=== PATIENT | female | born 1935 | race Caucasian/White ===

== ENCOUNTER 2016-06-20 07:52 | Outpatient (CLI) | payer MEDICARE, BC | END 2016-06-20 07:53 | disposition home or self-care (01) | DX: M50.121 Cervical disc disorder at C4-C5 level with radiculopathy (principal); M47.22 Other spondylosis with radiculopathy, cervical region; C56.9 Malignant neoplasm of unspecified ovary ==

== ENCOUNTER 2016-07-19 09:58 | Outpatient (CLI) | payer MEDICARE, BC | END 2016-07-19 09:59 | disposition home or self-care (01) | DX: Z12.31 Encounter for screening mammogram for malignant neoplasm of breast (principal) ==

== ENCOUNTER 2016-07-24 12:38 | Inpatient (IN) | payer MEDICARE, BC ==
[2016-07-24] MEDS ORDERED: SODIUM CHLORIDE 0.9% 1,000 ML IV ONE ×2 (14:22→14:34)
[2016-07-24] MEDS ORDERED: ACETAMINOPHEN 1,000 MG/100 ML 100 ML IV STA (14:34)
[2016-07-24] MEDS ORDERED: ONDANSETRON 4 MG/2 ML VIAL IVP STA (14:34)
[2016-07-24] MEDS ORDERED: ACETAMINOPHEN 1,000 MG/100 ML 100 ML IV ONE (14:36)
[2016-07-24] MEDS ORDERED: ONDANSETRON 4 MG/2 ML VIAL ONE (14:36)
[2016-07-24] MEDS ORDERED: TRIAMCINOLONE 0.1% OINT 15 GM TUBE TOP PRN (16:45)
[2016-07-24] MEDS: NS W/20 MEQ KCL 1,000 ML IV SCH (18:14)
[2016-07-24] MEDS ORDERED: diphenhydrAMINE INJ 50 MG/ML VIAL IVP PRN (19:17)
[2016-07-24] MEDS: SODIUM CHLORIDE FLUSH 0.9% 10 ML SYRINGE IVP SCH (20:50)
[2016-07-24] MEDS: ACETAMINOPHEN 1,000 MG/100 ML 100 ML IV SCH (20:50)
[2016-07-25] MEDS ORDERED: PROMETHAZINE INJ 25 MG in SODIUM CHLORIDE 0.9% 50 ML IV PRN (01:09)
[2016-07-25] MEDS ORDERED: FAMOTIDINE 20 MG/50 ML 50 ML IV ONE (01:45)
[2016-07-25] MEDS: ONDANSETRON 4 MG/2 ML VIAL IVP PRN (01:55)
[2016-07-25] MEDS ORDERED: FAMOTIDINE 20 MG in SODIUM CHLORIDE 0.9% 50 ML IV SCH (02:00)
[2016-07-25] MEDS: ACETAMINOPHEN 1,000 MG/100 ML 100 ML IV SCH ×4 (02:30→20:26)
[2016-07-25] MEDS: NS W/20 MEQ KCL 1,000 ML IV SCH ×2 (05:12→14:41)
[2016-07-25] MEDS: SODIUM CHLORIDE FLUSH 0.9% 10 ML SYRINGE IVP SCH ×3 (05:12→22:40)
[2016-07-25] MEDS: ENOXAPARIN 40 MG/0.4 ML SYRINGE SUBQ SCH (08:15)
[2016-07-25] MEDS: POLYETHYLENE GLYCOL 3350 17 GM PACKET PO SCH (08:15)
[2016-07-25] MEDS: A & D OINTMENT 5 GM PACKET TOP PRN (09:56)
[2016-07-25] MEDS: FAMOTIDINE IV 20 MG/50 ML IV SCH ×2 (09:56→21:00)
[2016-07-25] MEDS ORDERED: diltiaZEM INJ 5 MG/ML VIAL IVP ONE (13:00)
[2016-07-26] MEDS: NS W/20 MEQ KCL 1,000 ML IV SCH ×3 (01:29→21:17)
[2016-07-26] MEDS: ACETAMINOPHEN 1,000 MG/100 ML 100 ML IV SCH ×4 (01:29→21:25)
[2016-07-26] MEDS: SODIUM CHLORIDE FLUSH 0.9% 10 ML SYRINGE IVP SCH ×3 (04:40→21:21)
[2016-07-26] MEDS ORDERED: DEXTROSE 50% ABBOJECT 25 GM/50 ML SYRINGE ONE (06:23)
[2016-07-26] MEDS: ENOXAPARIN 40 MG/0.4 ML SYRINGE SUBQ SCH (08:40)
[2016-07-26] MEDS: POLYETHYLENE GLYCOL 3350 17 GM PACKET PO SCH (08:41)
[2016-07-26] MEDS: FAMOTIDINE IV 20 MG/50 ML IV SCH ×2 (08:41→22:19)
[2016-07-27] MEDS: ONDANSETRON 4 MG/2 ML VIAL IVP PRN ×3 (00:04→16:17)
[2016-07-27] MEDS: NS W/20 MEQ KCL 1,000 ML IV SCH (00:04)
[2016-07-27] MEDS: ACETAMINOPHEN 1,000 MG/100 ML 100 ML IV SCH ×4 (03:00→20:35)
[2016-07-27] MEDS ORDERED: DEXTROSE 50% ABBOJECT 25 GM/50 ML SYRINGE ONE (06:43)
[2016-07-27] MEDS: SODIUM CHLORIDE FLUSH 0.9% 10 ML SYRINGE IVP SCH ×3 (06:51→16:17)
[2016-07-27] MEDS ORDERED: DEXTROSE 5% 1,000 ML IV SCH (07:00)
[2016-07-27] MEDS: FAMOTIDINE IV 20 MG/50 ML IV SCH ×2 (08:28→21:44)
[2016-07-27] MEDS: ENOXAPARIN 40 MG/0.4 ML SYRINGE SUBQ SCH (08:28)
[2016-07-27] MEDS: POLYETHYLENE GLYCOL 3350 17 GM PACKET PO SCH (08:28)
[2016-07-27] MEDS: D5NS W/20 MEQ KCL 1,000 ML IV SCH (16:17)
[2016-07-27] MEDS: fentaNYL 100 MCG/2 ML VIAL IVP PRN (18:01)
[2016-07-27] MEDS: PROCHLORPERAZINE 10 MG/2 ML VIAL IVP PRN (19:22)
[2016-07-28] MEDS: ONDANSETRON 4 MG/2 ML VIAL IVP PRN (00:56)
[2016-07-28] MEDS: ACETAMINOPHEN 1,000 MG/100 ML 100 ML IV SCH ×5 (02:18→22:07)
[2016-07-28] MEDS: SODIUM CHLORIDE FLUSH 0.9% 10 ML SYRINGE IVP SCH ×3 (05:09→21:11)
[2016-07-28] MEDS: D5NS W/20 MEQ KCL 1,000 ML IV SCH ×2 (06:20→22:13)
[2016-07-28] MEDS: POLYETHYLENE GLYCOL 3350 17 GM PACKET PO SCH (07:23)
[2016-07-28] MEDS: FAMOTIDINE IV 20 MG/50 ML IV SCH ×2 (08:10→21:11)
[2016-07-28] MEDS: TPN (CLINIMIX E 5/15) 2,000 ML with MULTIVITAMIN 10 ML, TRACE ELEMENTS V CONC 1 ML, MAG... IV SCH ×5 (10:51)
[2016-07-28] MEDS: FAT EMULSION 20% 250 ML IV SCH (10:52)
[2016-07-29] MEDS: D5NS W/20 MEQ KCL 1,000 ML IV SCH ×3 (00:45→17:59)
[2016-07-29] MEDS: ACETAMINOPHEN 1,000 MG/100 ML 100 ML IV SCH ×4 (04:12→20:32)
[2016-07-29] MEDS: SODIUM CHLORIDE FLUSH 0.9% 10 ML SYRINGE IVP SCH ×3 (07:33→21:07)
[2016-07-29] MEDS: FAMOTIDINE IV 20 MG/50 ML IV SCH ×2 (09:12→21:06)
[2016-07-29] MEDS: POLYETHYLENE GLYCOL 3350 17 GM PACKET PO SCH (09:12)
[2016-07-29] MEDS: TPN (CLINIMIX E 5/15) 2,000 ML with MULTIVITAMIN 10 ML, TRACE ELEMENTS V CONC 1 ML, MAG... IV SCH ×5 (11:07)
[2016-07-29] MEDS: FAT EMULSION 20% 250 ML IV SCH (11:07)
[2016-07-30] MEDS: ACETAMINOPHEN 1,000 MG/100 ML 100 ML IV SCH ×4 (02:51→21:29)
[2016-07-30] MEDS: SODIUM CHLORIDE FLUSH 0.9% 10 ML SYRINGE IVP SCH ×3 (06:01→21:29)
[2016-07-30] MEDS: D5NS W/20 MEQ KCL 1,000 ML IV SCH (06:08)
[2016-07-30] MEDS: POLYETHYLENE GLYCOL 3350 17 GM PACKET PO SCH (09:44)
[2016-07-30] MEDS: FAMOTIDINE IV 20 MG/50 ML IV SCH (09:45)
[2016-07-30] MEDS: FAT EMULSION 20% 250 ML IV SCH (09:45)
[2016-07-30] MEDS: TPN (CLINIMIX E 5/15) 2,000 ML with MULTIVITAMIN 10 ML, TRACE ELEMENTS V CONC 1 ML, MAG... IV SCH ×5 (09:45)
[2016-07-30] MEDS: FAMOTIDINE 20 MG TABLET PO SCH (21:29)
[2016-07-31] MEDS: ACETAMINOPHEN 1,000 MG/100 ML 100 ML IV SCH ×4 (02:41→19:14)
[2016-07-31] MEDS: FAMOTIDINE 20 MG TABLET PO SCH ×2 (06:15→16:42)
[2016-07-31] MEDS: SODIUM CHLORIDE FLUSH 0.9% 10 ML SYRINGE IVP SCH ×3 (06:15→19:14)
[2016-07-31] MEDS: diltiaZEM CD 120 MG CAPSULE PO SCH (08:34)
[2016-07-31] MEDS: POLYETHYLENE GLYCOL 3350 17 GM PACKET PO SCH (08:34)
[2016-07-31] MEDS: FAT EMULSION 20% 250 ML IV SCH (10:46)
[2016-07-31] MEDS: TPN (CLINIMIX E 5/15) 2,000 ML with MULTIVITAMIN 10 ML, TRACE ELEMENTS V CONC 1 ML, MAG... IV SCH ×5 (10:46)
[2016-07-31] MEDS: PROCHLORPERAZINE 10 MG/2 ML VIAL IVP PRN (19:14)
[2016-08-01] MEDS: ACETAMINOPHEN 1,000 MG/100 ML 100 ML IV SCH ×4 (03:13→19:21)
[2016-08-01] MEDS: SODIUM CHLORIDE FLUSH 0.9% 10 ML SYRINGE IVP PRN (03:13)
[2016-08-01] MEDS: ONDANSETRON 4 MG/2 ML VIAL IVP PRN (03:13)
[2016-08-01] MEDS: SODIUM CHLORIDE FLUSH 0.9% 10 ML SYRINGE IVP SCH ×3 (06:40→22:37)
[2016-08-01] MEDS: FAMOTIDINE 20 MG TABLET PO SCH ×2 (06:40→16:04)
[2016-08-01] MEDS: diltiaZEM CD 120 MG CAPSULE PO SCH (08:34)
[2016-08-01] MEDS: POLYETHYLENE GLYCOL 3350 17 GM PACKET PO SCH (08:34)
[2016-08-01] MEDS: TPN (CLINIMIX E 5/15) 2,000 ML with MULTIVITAMIN 10 ML, TRACE ELEMENTS V CONC 1 ML, MAG... IV SCH ×5 (10:04)
[2016-08-01] MEDS: FAT EMULSION 20% 250 ML IV SCH (10:05)
[2016-08-01] MEDS: fentaNYL 100 MCG/2 ML VIAL IVP PRN ×2 (12:12→19:16)
[2016-08-02] MEDS: fentaNYL 100 MCG/2 ML VIAL IVP PRN (00:41)
[2016-08-02] MEDS: SODIUM CHLORIDE FLUSH 0.9% 10 ML SYRINGE IVP PRN ×3 (00:42→23:56)
[2016-08-02] MEDS: ACETAMINOPHEN 1,000 MG/100 ML 100 ML IV SCH ×4 (01:16→20:55)
[2016-08-02] MEDS: SODIUM CHLORIDE FLUSH 0.9% 10 ML SYRINGE IVP SCH ×3 (05:46→21:00)
[2016-08-02] MEDS: FAMOTIDINE 20 MG TABLET PO SCH ×2 (06:46→17:48)
[2016-08-02] MEDS: diltiaZEM CD 120 MG CAPSULE PO SCH (07:32)
[2016-08-02] MEDS: POLYETHYLENE GLYCOL 3350 17 GM PACKET PO SCH (07:32)
[2016-08-02] MEDS: A & D OINTMENT 5 GM PACKET TOP PRN (07:32)
[2016-08-02] MEDS ORDERED: metroNIDAZOLE 500 MG/100 ML 100 ML IV SCH (10:00)
[2016-08-02] MEDS ORDERED: CIPROFLOXACIN 400 MG/200 ML 200 ML IV SCH (10:00)
[2016-08-02] MEDS: FAT EMULSION 20% 250 ML IV SCH (10:55)
[2016-08-02] MEDS: TPN (CLINIMIX E 5/15) 2,000 ML with MULTIVITAMIN 10 ML, TRACE ELEMENTS V CONC 1 ML, MAG... IV SCH ×5 (10:55)
[2016-08-02] MEDS ORDERED: BUPIVACAINE 0.5% PF 30 ML VIAL SUBQ ONE ×2 (14:56)
[2016-08-02] MEDS ORDERED: LIDOCAINE 1%-EPI 1:100000 20 ML MDV SUBQ ONE ×2 (14:56)
[2016-08-02] MEDS ORDERED: LACTATED RINGERS 1,000 ML IV ONE ×2 (14:57)
[2016-08-02] MEDS ORDERED: diphenhydrAMINE INJ 50 MG/ML VIAL IVP PRN (15:51)
[2016-08-02] MEDS ORDERED: SUFENTA/BUPIV 0.4 MCG/0.0625% 150 ML EP PRN (15:51)
[2016-08-02] MEDS ORDERED: ONDANSETRON 4 MG/2 ML VIAL IVP PRN (15:51)
[2016-08-02] MEDS ORDERED: NALBUPHINE 20 MG/ML AMP IVP PRN (15:51)
[2016-08-02] MEDS ORDERED: SUFENTA/BUPIV 0.4 MCG/0.0625% 150 ML EP ONE (16:41)
[2016-08-02] MEDS ORDERED: GLYCOPYRROLATE 1 MG/5 ML VIAL IVP ONE (17:00)
[2016-08-02] MEDS ORDERED: NEOSTIGMINE 1 MG/1 ML 10 ML MDV IVP ONE (17:00)
[2016-08-02] MEDS ORDERED: ROCURONIUM 50 MG/5 ML VIAL IVP ONE (17:00)
[2016-08-02] MEDS ORDERED: ONDANSETRON 4 MG/2 ML VIAL IVP ONE (17:00)
[2016-08-02] MEDS ORDERED: SUCCINYLCHOLINE 200 MG/10 ML VIAL IVP ONE (17:00)
[2016-08-02] MEDS ORDERED: ePHEDrine 50 MG/ML AMP IVP ONE ×2 (17:00→17:52)
[2016-08-02] MEDS ORDERED: DEXAMETHASONE 4 MG/ML VIAL IVP ONE (17:00)
[2016-08-02] MEDS ORDERED: fentaNYL 250 MCG/5 ML VIAL IVP ONE (17:00)
[2016-08-02] MEDS ORDERED: MIDAZOLAM 2 MG/2 ML VIAL IVP ONE (17:00)
[2016-08-02] MEDS ORDERED: PROPOFOL 200 MG/20 ML VIAL IVP ONE (17:00)
[2016-08-02] MEDS ORDERED: LIDOCAINE-MPF 2% 5 ML VIAL IM ONE (17:00)
[2016-08-02] MEDS: metroNIDAZOLE 500 MG/100 ML 100 ML IV SCH ×2 (18:48→23:55)
[2016-08-02] MEDS: CIPROFLOXACIN 400 MG/200 ML 200 ML IV SCH (18:48)
[2016-08-02] MEDS: FAMOTIDINE 20 MG/50 ML 50 ML IV SCH (20:55)
[2016-08-02] MEDS ORDERED: FAMOTIDINE 20 MG in SODIUM CHLORIDE 0.9% 50 ML IV SCH (21:00)
[2016-08-03] MEDS ORDERED: INSULIN ASPART 300 UNIT/3 ML PEN SUBQ STA (00:45)
[2016-08-03] MEDS: ACETAMINOPHEN 1,000 MG/100 ML 100 ML IV SCH ×4 (02:19→19:38)
[2016-08-03] MEDS: CIPROFLOXACIN 400 MG/200 ML 200 ML IV SCH (05:59)
[2016-08-03] MEDS: SODIUM CHLORIDE FLUSH 0.9% 10 ML SYRINGE IVP SCH ×3 (06:00→20:49)
[2016-08-03] MEDS: INSULIN REGULAR HUMAN 100 UNIT/1 ML 10 ML MDV SUBQ SCH ×3 (06:12→17:48)
[2016-08-03] MEDS: metroNIDAZOLE 500 MG/100 ML 100 ML IV SCH ×2 (07:04→13:19)
[2016-08-03] MEDS: fentaNYL 100 MCG/2 ML VIAL IVP PRN (07:51)
[2016-08-03] MEDS: diltiaZEM CD 120 MG CAPSULE PO SCH (07:51)
[2016-08-03] MEDS: FAMOTIDINE 20 MG/50 ML 50 ML IV SCH ×2 (07:54→20:49)
[2016-08-03] MEDS: POLYETHYLENE GLYCOL 3350 17 GM PACKET PO SCH (07:54)
[2016-08-03] MEDS: FAT EMULSION 20% 250 ML IV SCH (10:03)
[2016-08-03] MEDS: TPN (CLINIMIX E 5/15) 2,000 ML with MULTIVITAMIN 10 ML, TRACE ELEMENTS V CONC 1 ML, MAG... IV SCH ×5 (10:03)
[2016-08-03] MEDS ORDERED: ONDANSETRON 4 MG/2 ML VIAL IVP PRN (11:39)
[2016-08-03] MEDS ORDERED: diphenhydrAMINE INJ 50 MG/ML VIAL IVP PRN (11:39)
[2016-08-03] MEDS ORDERED: NALBUPHINE 20 MG/ML AMP IVP PRN (11:39)
[2016-08-03] MEDS ORDERED: SUFENTA/BUPIV 0.4 MCG/0.0625% 150 ML EP PRN (11:44)
[2016-08-03] MEDS ORDERED: FAT EMULSION 20% 250 ML IV SCH (19:00)
[2016-08-04] MEDS: INSULIN REGULAR HUMAN 100 UNIT/1 ML 10 ML MDV SUBQ SCH ×4 (01:04→20:39)
[2016-08-04] MEDS: ACETAMINOPHEN 1,000 MG/100 ML 100 ML IV SCH ×4 (01:53→20:40)
[2016-08-04] MEDS: SODIUM CHLORIDE FLUSH 0.9% 10 ML SYRINGE IVP SCH ×3 (06:32→22:52)
[2016-08-04] MEDS: diltiaZEM CD 120 MG CAPSULE PO SCH (08:40)
[2016-08-04] MEDS: FAMOTIDINE 20 MG/50 ML 50 ML IV SCH ×2 (08:40→21:21)
[2016-08-04] MEDS: TPN (CLINIMIX E 5/15) 2,000 ML with MULTIVITAMIN 10 ML, TRACE ELEMENTS V CONC 1 ML, MAG... IV SCH ×5 (10:21)
[2016-08-04] MEDS: FAT EMULSION 20% 250 ML IV SCH (10:21)
[2016-08-04] MEDS: POLYETHYLENE GLYCOL 3350 17 GM PACKET PO SCH (10:28)
[2016-08-04] MEDS ORDERED: busPIRone 5 MG TABLET PO SCH (23:00)
[2016-08-05] MEDS: INSULIN REGULAR HUMAN 100 UNIT/1 ML 10 ML MDV SUBQ SCH ×4 (00:24→19:15)
[2016-08-05] MEDS: ACETAMINOPHEN 1,000 MG/100 ML 100 ML IV SCH ×4 (03:10→20:32)
[2016-08-05] MEDS: FAMOTIDINE 20 MG/50 ML 50 ML IV SCH ×2 (08:22→20:32)
[2016-08-05] MEDS: ENOXAPARIN 40 MG/0.4 ML SYRINGE SUBQ SCH (08:22)
[2016-08-05] MEDS: diltiaZEM CD 120 MG CAPSULE PO SCH ×2 (08:22→08:25)
[2016-08-05] MEDS ORDERED: FEXOFENADINE 60 MG TABLET PO SCH (09:00)
[2016-08-05] MEDS: POLYETHYLENE GLYCOL 3350 17 GM PACKET PO SCH (10:01)
[2016-08-05] MEDS: TPN (CLINIMIX E 5/15) 2,000 ML with MULTIVITAMIN 10 ML, TRACE ELEMENTS V CONC 1 ML, MAG... IV SCH ×5 (10:01)
[2016-08-05] MEDS: FAT EMULSION 20% 250 ML IV SCH (10:01)
[2016-08-05] MEDS: SODIUM CHLORIDE FLUSH 0.9% 10 ML SYRINGE IVP SCH ×3 (13:09→22:09)
[2016-08-06] MEDS: INSULIN REGULAR HUMAN 100 UNIT/1 ML 10 ML MDV SUBQ SCH ×3 (00:18→11:31)
[2016-08-06] MEDS: ACETAMINOPHEN 1,000 MG/100 ML 100 ML IV SCH ×5 (01:02→23:39)
[2016-08-06] MEDS: SODIUM CHLORIDE FLUSH 0.9% 10 ML SYRINGE IVP PRN (04:45)
[2016-08-06] MEDS: SODIUM CHLORIDE FLUSH 0.9% 10 ML SYRINGE IVP SCH ×3 (05:23→21:22)
[2016-08-06] MEDS: diltiaZEM CD 120 MG CAPSULE PO SCH (08:53)
[2016-08-06] MEDS: ENOXAPARIN 40 MG/0.4 ML SYRINGE SUBQ SCH (08:53)
[2016-08-06] MEDS: FAMOTIDINE 20 MG/50 ML 50 ML IV SCH ×2 (08:53→21:21)
[2016-08-06] MEDS: POLYETHYLENE GLYCOL 3350 17 GM PACKET PO SCH (08:54)
[2016-08-06] MEDS: FAT EMULSION 20% 250 ML IV SCH (10:18)
[2016-08-06] MEDS: TPN (CLINIMIX E 5/15) 2,000 ML with MULTIVITAMIN 10 ML, TRACE ELEMENTS V CONC 1 ML, MAG... IV SCH ×5 (10:18)
[2016-08-07] MEDS: SODIUM CHLORIDE FLUSH 0.9% 10 ML SYRINGE IVP PRN (05:15)
[2016-08-07] MEDS: ACETAMINOPHEN 1,000 MG/100 ML 100 ML IV SCH ×4 (05:53→23:47)
[2016-08-07] MEDS: SODIUM CHLORIDE FLUSH 0.9% 10 ML SYRINGE IVP SCH ×3 (06:39→20:33)
[2016-08-07] MEDS: POLYETHYLENE GLYCOL 3350 17 GM PACKET PO SCH (08:13)
[2016-08-07] MEDS: ENOXAPARIN 40 MG/0.4 ML SYRINGE SUBQ SCH (08:13)
[2016-08-07] MEDS: FAMOTIDINE 20 MG/50 ML 50 ML IV SCH ×2 (08:13→20:32)
[2016-08-07] MEDS: diltiaZEM CD 120 MG CAPSULE PO SCH (08:13)
[2016-08-07] MEDS: FAT EMULSION 20% 250 ML IV SCH (10:33)
[2016-08-07] MEDS: TPN (CLINIMIX E 5/15) 2,000 ML with MULTIVITAMIN 10 ML, TRACE ELEMENTS V CONC 1 ML, MAG... IV SCH ×5 (10:33)
[2016-08-08] MEDS: SODIUM CHLORIDE FLUSH 0.9% 10 ML SYRINGE IVP SCH (05:40)
[2016-08-08] MEDS: ACETAMINOPHEN 1,000 MG/100 ML 100 ML IV SCH ×2 (05:40→11:51)
[2016-08-08] MEDS: ENOXAPARIN 40 MG/0.4 ML SYRINGE SUBQ SCH (08:45)
[2016-08-08] MEDS: diltiaZEM CD 120 MG CAPSULE PO SCH (08:45)
[2016-08-08] MEDS: FAMOTIDINE 20 MG/50 ML 50 ML IV SCH (08:45)
[2016-08-08] MEDS: POLYETHYLENE GLYCOL 3350 17 GM PACKET PO SCH (08:46)
[2016-08-08] MEDS: SODIUM CHLORIDE FLUSH 0.9% 10 ML SYRINGE IVP PRN (12:54)
== END 2016-08-08 13:05 | disposition home or self-care (01) | DRG 336 ==
PROC: 0DN80ZZ Release Small Intestine, Open Approach (ICD-10-PCS; principal; 2016-08-02 14:30)
PROC: 3E0436Z Introduction of Nutritional Substance into Central Vein, Percutaneous Approach (ICD-10-PCS; principal; 2016-08-02 14:30)
PROC: 0DB80ZX Excision of Small Intestine, Open Approach, Diagnostic (ICD-10-PCS; principal; 2016-08-02 14:30)
DX: K56.60 Unspecified intestinal obstruction (principal); C78.6 Secondary malignant neoplasm of retroperitoneum and peritoneum; C56.9 Malignant neoplasm of unspecified ovary; E44.0 Moderate protein-calorie malnutrition; Z68.1 Body mass index [BMI] 19.9 or less, adult; I48.91 Unspecified atrial fibrillation; Z85.43 Personal history of malignant neoplasm of ovary; E16.2 Hypoglycemia, unspecified; K57.90 Diverticulosis of intestine, part unspecified, without perforation or abscess without bleeding; M81.0 Age-related osteoporosis without current pathological fracture; L40.9 Psoriasis, unspecified; Z90.710 Acquired absence of both cervix and uterus; Z79.82 Long term (current) use of aspirin; Z79.810 Long term (current) use of selective estrogen receptor modulators (SERMs); Z79.899 Other long term (current) drug therapy; Z87.891 Personal history of nicotine dependence; Z66 Do not resuscitate

== ENCOUNTER 2017-03-09 07:49 | Outpatient (CLI) | payer MEDICARE, BC | END 2017-03-09 07:50 | disposition home or self-care (01) | LOC: DI 07:49 | PROVIDERS: ATTEND Internal Medicine | DX: C56.9 Malignant neoplasm of unspecified ovary (principal); I35.1 Nonrheumatic aortic (valve) insufficiency; I51.7 Cardiomegaly ==

== ENCOUNTER 2017-08-07 23:07 | Emergency (ER) | payer MEDICARE, BC ==
--- NOTE | 2017-08-08 00:26 | ED Physician Documentation ---
PD HPI ABD PAIN - Stated complaint Stated Complaint: RT UPPER SIDE PAIN - Chief complaint Chief Complaint: Abd Pain - History obtained from History obtained from: Patient - History of Present Illness Timing - onset: Enter time (16:00), Today Timing - details: Abrupt onset Pain level now: 3 Quality: Pain Location: RUQ Radiation: Right flank Improved by: Other (no ameliorating factors) Worsened by: Breathing, Palpation Associated symptoms: No: Fever, Nausea, Vomiting Similar symptoms before: Has not had sx before Recently seen: Not recently seen Review of Systems Constitutional: denies: Fever, Chills, Sweats Cardiac: denies: Chest pain / pressure, Palpitations, Pedal edema, Calf pain Respiratory: reports: Reviewed and negative GI: reports: Abdominal Pain. denies: Abdominal Swelling, Nausea, Vomiting, Constipation, Diarrhea : denies: Dysuria, Frequency, Hematuria Skin: denies: Rash Musculoskeletal: reports: Back pain (radiating from the right flank). 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 : Kidney stones HEENT: None Psych: None Musculoskeletal: Osteoporosis Derm: Psoriasis - Past Surgical History Past Surgical History: Yes General: Appendectomy /BUILDING CONSTRUCTION TEACHER: Hysterectomy, Oophrectomy HEENT: Tonsil/Adenoidectomy - Present Medications Home Medications: Ambulatory Orders Medication Instructions Recorded Confirmed Cholecalciferol (Vitamin D3) 5,000 unit PO DAILY 07/14/15 07/18/17 [Vitamin D3] Diltiazem HCl [Diltiazem 24Hr Cd] 180 mg PO DAILY 07/14/15 07/18/17 Polyethylene Glycol 3350 [Miralax] 17 gm PO DAILY 07/14/15 07/18/17 Senna [Senokot] 8.6 tab PO BID PRN 07/14/15 07/18/17 Aspirin 325 mg PO DAILY 07/27/15 07/18/17 Calcium Carb/Mag Ox/Zinc Sulf [Hm 1 each PO TID 08/04/15 07/18/17 [id number] Cplt] Multivitamin [Multivitamins] 1 each PO DAILY 08/04/15 07/18/17 Mineral Oil, Light/Mineral Oil 2 drop EACHEYE DAILY PRN 03/16/16 01/31/18 [Soothe Xp Eye Drops] Mupirocin 2 units TOP BID PRN 09/01/15 07/18/17 Triamcinolone 0.1% Oint [Kenalog 0 gm TOP BID PRN 09/01/15 07/18/17 0.1% Oint] Raloxifene HCl 60 mg PO DAILY 10/06/15 07/18/17 Lisinopril 5 mg PO DAILY 05/02/17 07/18/17 - Allergies Allergies/Adverse Reactions: Allergies Allergy/AdvReac Type Severity Reaction Status Date / Time morphine Allergy Severe Emesis Verified 08/07/17 23:18 cephalexin monohydrate * AdvReac Severe Edema Verified 08/07/17 23:18 [From Keflex] procaine AdvReac Intermediate Upset Verified 08/07/17 23:18 stomach codeine AdvReac Dizziness Verified 08/07/17 23:18 - Social History Does the pt smoke?: No Smoking Status: Never smoker Does the pt drink ETOH?: Yes Does the pt have substance abuse?: No - Immunizations Immunizations are current?: No Immunizations: TDAP >10years/unknown - POLST Patient has POLST: Yes PD ED PE NORMAL - Vitals Vital signs reviewed: Yes - General General: Alert and oriented X 3, No acute distress, Well developed/nourished - HEENT HEENT: Moist mucous membranes - Neck Neck: Supple, no meningeal sign - Cardiac Cardiac: RRR, No murmur - Respiratory Respiratory: No respiratory distress, Clear bilaterally - Abdomen Abdomen: Normal bowel sounds, Soft, Non distended, Other (tenderness to deep palpation RUQ without rebound or guarding) - Back Back: No CVA TTP, No spinal TTP - Derm Derm: Normal color, Warm and dry, No rash - Extremities Extremities: No edema Results - Vitals Vitals: Oxygen O2 Source Room air - Labs Labs: Laboratory Tests 08/08/17 08/08/17 08/08/17 01:00 01:05 01:05 WBC 8.1 RBC 3.73 L Hgb 12.3 Hct 35.7 L MCV 95.7 MCH 32.9 H MCHC 34.4 RDW 13.5 Plt Count 242 MPV 6.9 L Neut # 5.6 Lymph # 1.8 [place] # 0.6 Eos # 0.1 Baso # 0.1 Absolute Nucleated RBC 0.01 Nucleated RBC % 0.1 Sodium 136 Potassium 4.0 Chloride 105 Carbon Dioxide 26 Anion Gap 5.0 L BUN 15 Creatinine 0.7 Estimated GFR (MDRD) 81 L Glucose 104 H Calcium 9.1 Total Bilirubin 0.7 AST 23 ALT 17 Alkaline Phosphatase 47 Total Protein 6.7 Albumin 4.0 Globulin 2.7 Albumin/Globulin Ratio 1.5 Lipase 16 L Urine Color LT. YELLOW Urine Clarity CLEAR Urine pH 6.0 Ur Specific [place] <=1.005 Urine Protein NEGATIVE Urine Glucose (UA) NEGATIVE Urine Ketones NEGATIVE Urine Occult Blood NEGATIVE Urine Nitrite NEGATIVE Urine Bilirubin NEGATIVE Urine Urobilinogen 0.2 (NORMAL) Ur Leukocyte Esterase NEGATIVE Ur Microscopic Review NOT INDICATED Urine Culture Comments NOT INDICATED - Rads (name of study) CT A/P Radiology: Prelim report reviewed, See rad report PD MEDICAL DECISION MAKING - ED course Complexity details: reviewed results, re-evaluated patient, considered differential, d/w patient Departure - Departure Disposition: 01 Home, Self Care Clinical Impression: Flank pain Condition: Good Instructions: ED Flank Pain Uncertain Cause Follow-Up: Virgilio Bray DO [Primary Care Provider] - (Call to arrange for next available appointment) Discharge Date/Time: 08/08/17 03:55
[2017-08-08] MEDS ORDERED: NAPROXEN 250 MG TABLET PO STA (01:03)
[2017-08-08 01:15] LABS: BILIRUBIN,URINE NEGATIVE (NEGATIVE); GLUCOSE, URINE (UA) NEGATIVE (NEGATIVE); KETONES,URINE (UA) NEGATIVE (NEGATIVE); LEUKOCYTE ESTERASE, URINE NEGATIVE (NEGATIVE); NITRITE,URINE NEGATIVE (NEGATIVE); OCCULT BLOOD,URINE NEGATIVE (NEGATIVE); PROTEIN,URINE NEGATIVE (NEGATIVE); UROBILINOGEN,URINE 0.2 (NORMAL) E.U./dL (NORMAL)
[2017-08-08 01:17] LABS: BASOPHILS # (AUTO) 0.1 10^3/uL (0.0-0.1); BASOPHILS % (AUTO) 0.7 %; EOSINOPHILS # (AUTO) 0.1 10^3/uL (0.0-0.7); EOSINOPHILS % (AUTO) 1.4 %; HGB - HEMOGLOBIN 12.3 g/dL (12.0-16.0); LYMPHOCYTES # (AUTO) 1.8 10^3/uL (1.5-3.5); LYMPHOCYTES % (AUTO) 22.1 %; MEAN CORPUSCULAR HEMOGLOBIN 32.9 pg (27.0-31.0); MEAN CORPUSCULAR HGB CONC 34.4 g/dL (32.0-36.0); MEAN CORPUSCULAR VOLUME 95.7 fL (81.0-99.0); MEAN PLATELET VOLUME 6.9 fL (7.9-10.8); MONOCYTES # (AUTO) 0.6 10^3/uL (0.0-1.0); MONOCYTES % (AUTO) 7.4 %; NEUTROPHILS # (AUTO) 5.6 10^3/uL (1.5-6.6); NEUTROPHILS % (AUTO) 68.4 %; PLT - PLATELET COUNT 242 10^3/uL (130-450); RED BLOOD COUNT 3.73 10^6/uL (4.20-5.40); RED CELL DISTRIBUTION WIDTH 13.5 % (12.0-15.0); WHITE BLOOD COUNT 8.1 x10^3/uL (4.8-10.8)
[2017-08-08] MEDS ORDERED: IOPAMIDOL-300 100 ML VIAL ONE (01:22)
[2017-08-08 01:24] LABS: CLARITY,URINE CLEAR (CLEAR)
[2017-08-08 01:27] LABS: ALBUMIN/GLOBULIN RATIO 1.5 (1.0-2.2); BILIRUBIN,TOTAL 0.7 mg/dL (0.2-1.0); CALCIUM 9.1 mg/dL (8.5-10.3); CREATININE 0.7 mg/dL (0.4-1.0); TOTAL PROTEIN 6.7 g/dL (6.7-8.2)
[2017-08-08] MEDS ORDERED: IOPAMIDOL-300 100 ML VIAL IVP ONE (01:50)
--- NOTE | 2017-08-08 02:22 | CT Preliminary Report ---
Exam: CT ABDOMEN/PELVIS W/ IMPRESSION: 1. Multiple stable cystic structures within the pancreas without concerning enhancing features. Recom mend follow-up in one year to document stability. Given masses or concerning findings, these are most benign. 2. No acute abnormality in the abdomen or pelvis. 3. Patient status post hysterectomy. [facility] SITE ID: [id number]
--- NOTE | 2017-08-08 02:26 | CT Report ---
EXAM: CT ABDOMEN AND PELVIS EXAM DATE: 08/08/2017 01:53 AM. CLINICAL HISTORY: Right flank and right upper quadrant pain. COMPARISONS: 07/11/2017 and multiple prior studies extending to 09/01/2016. TECHNIQUE: Routine helical CT imaging was performed through the abdomen and pelvis. IV contrast: 80 m L Isovue 300. Enteric contrast: No. Reconstructions: Coronal and sagittal. In accordance with CT protocol optimization, one or more of the following dose reduction techniques w ere utilized for this exam: automated exposure control, adjustment of mA and/or KV based on patient s ize, or use of iterative reconstructive technique. FINDINGS: Lung Bases: No effusions. Small hiatal hernia. Bilateral lower lobe atelectasis or scarring is unchan ged. Liver: Normal. No masses. Gallbladder/Bile Ducts: Unremarkable. Spleen: Normal. Pancreas: No mass, calcification, peripancreatic inflammation or atrophy. There are several low-densi ty, nonenhancing cystic structures including two 6 mm cystic lesions in the pancreatic body and a 4 m m cystic structure in the distal pancreas. These are unchanged since the most recent study. They have decreased in size since 09/01/2016. Adrenal Glands: Normal. Kidneys: Normal. No masses or hydronephrosis. Peritoneal Cavity/Bowel: Normal. No free fluid, free air or adenopathy. No masses or acute inflammato ry process. There are multiple diverticula seen which most severely affect the sigmoid colon. No wal l thickening or adjacent inflammation seen. No obstruction noted. Appendix not seen. Pelvic Organs: Uterus is absent. Normal bladder. No ascites, pelvic mass or adenopathy. Vasculature: Diffuse atheromatous plaques are present in the abdominal aorta and branch vessels. No a neurysm. Normal IVC. Bones: No significant abnormality. Other: None. IMPRESSION: 1. Multiple stable cystic structures within the pancreas without concerning enhancing features. Recom mend follow-up in one year to document stability. Given the absence of concerning findings, these are most likely benign. 2. No acute abnormality in the abdomen or pelvis. 3. Patient status post hysterectomy. [facility] Referring Provider Line: [phone] SITE ID: [id number]
[2017-08-08 03:22] VITALS: BP 110/55
== END 2017-08-08 03:55 | disposition home or self-care (01) ==
LOC: ED 23:07
DX: R10.31 Right lower quadrant pain (principal); Z85.43 Personal history of malignant neoplasm of ovary; Z90.710 Acquired absence of both cervix and uterus; Z90.721 Acquired absence of ovaries, unilateral; Z79.82 Long term (current) use of aspirin
CPT/HCPCS: 36415; 36556; 74177; 80053; 81003; 83690; 85025; 96374; 99283; A9270; Q9967; 81001; 87086

== ENCOUNTER 2017-10-05 07:46 | Outpatient (CLI) | payer MEDICARE, BC | END 2017-10-05 07:47 | disposition home or self-care (01) | LOC: DI 07:46 | PROVIDERS: ATTEND Internal Medicine Cardiovascular Disease | DX: I35.1 Nonrheumatic aortic (valve) insufficiency (principal) | CPT/HCPCS: 93306 ==

== ENCOUNTER 2018-05-02 12:48 | Outpatient (CLI) | payer MEDICARE, BC ==
--- NOTE | 2018-05-02 17:28 | CONSULTATION NOTE ---
Palliative Care Consultation - Referral Referring Provider: Dr. Morel Time of Visit: [id number] Referral setting: [facility] [place] Reason: Recurrent Ovarian Cancer/Depression - Information Sources Records reviewed: Previous records reviewed History/Review of Systems obtained from: Patient Exam limitations: No limitations - History of Present Illness Brief History of Present Illness: This is a brandan 82-year-old woman who is recurrent ovarian cancer, she was originally diagnosed in 2016, had debulking surgery, as well as received Carboplatinum and Taxol. She had achieved remission for six months, presented in July 2016, with small bowel obstruction to [facility]. At that point in time she underwent an exploratory laparotomy with lysis of adhesions and a small bowel resection and antral enterotomy. She is continued to receive intermittent chemotherapy, with intermittent remissions, her last one lasting 9 months prior to her last chemotherapy. She has just finished dose dense carboplatin and Taxol, has significant fatigue, musculoskeletal effects from her GCSF. She did have CA125 improved from 2538 to 20. She has started on maintenance bevacizumab, She is receiving this every 3 weeks, and is starting to feel better. She denies any abdominal pain, has had weight loss, taste changes, and most significantly fatigued. She does report activity intolerance, intermittent shortness of breath, and has multiple psychosocial and financial stressors. Palliative care has been asked to meet with patient regarding depression, and ongoing support, given she does have advanced disease. Patient has experienced multiple losses, 2 children, granddaughter, and great grandson. She does admit to intermittent anxiety, insomnia, and concerns about her future. 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 : reports: Kidney stones HEENT: reports: Glaucoma (corrected with surgery) Psych: reports: Depression, Anxiety Musculoskeletal: reports: Osteoporosis Derm: reports: Psoriasis MRSA Hx?: No - Past Surgical History General: reports: Appendectomy /APARTMENT COMMUNITY MANAGER: reports: Hysterectomy, Oophrectomy HEENT: reports: Tonsil/Adenoidectomy - Substance History Use: Uses substance without health or social issues: Tobacco (quit), Alcohol (rarely) Social History - Living Situation Living arrangement: At home Living Situation: With family (Patient lives with his son, who has significant health problems related to his COPD. Her understanding is he has limited life expectancy of around 12 months.) Support System: Patient has daughter, sabianist community for support. 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 She was no children are teenagers, she raised 4 kids independently, she is been on [facility] since 1993. Family History - Family History Family History: Mother: (tumor on pituatary age 71), CAD, [place] ( at age 71), Father: , Other family: Alive and Well (ex spouse of lung cancer/COPD), Cancer (Daughter of glioblastoma at age 32;) Medications/Allergies - Medications Home Medications: Ambulatory Orders Medication Instructions Recorded Confirmed Cholecalciferol (Vitamin D3) 5,000 unit PO DAILY 07/14/15 05/02/18 [Vitamin D3] Diltiazem HCl [Diltiazem 24Hr Cd] 180 mg PO DAILY 07/14/15 05/02/18 Polyethylene Glycol 3350 [Miralax] 17 gm PO DAILY 07/14/15 05/02/18 Senna [Senokot] 8.6 tab PO BID PRN 07/14/15 05/02/18 Aspirin 325 mg PO DAILY 07/27/15 05/02/18 Calcium Carb/Mag Ox/Zinc Sulf [Hm 1 each PO TID 08/04/15 05/02/18 [id number] Cplt] Multivitamin [Multivitamins] 1 each PO DAILY 08/04/15 05/02/18 Mineral Oil, Light/Mineral Oil 2 drop EACHEYE DAILY PRN 09/01/15 05/02/18 [Soothe Xp Eye Drops] Mupirocin 2 units TOP BID PRN 09/01/15 05/02/18 Triamcinolone 0.1% Oint [Kenalog 0 gm TOP BID PRN 09/01/15 05/02/18 0.1% Oint] Raloxifene HCl 60 mg PO DAILY 10/06/15 05/02/18 Losartan [Cozaar] 1 tab PO DAILY 10/17/17 05/02/18 Lactobacillus Acidophilus 1 tab PO DAILY 01/16/18 05/02/18 [Probiotic Acidophilus] - Allergies Allergies/Adverse Reactions: Allergies Allergy/AdvReac Type Severity Reaction Status Date / Time morphine Allergy Severe Emesis Verified 08/07/17 23:18 cephalexin monohydrate * AdvReac Severe Edema Verified 08/07/17 23:18 [From Keflex] procaine AdvReac Intermediate Upset Verified 08/07/17 23:18 stomach codeine AdvReac Dizziness Verified 08/07/17 23:18 Review of Systems - Constitutional Constitutional: reports: Fatigue, Weight loss (currently 113; was up to 121 ; baseline weight prior to illness 141) - Eyes Eyes: reports: Vision loss - Ears, Nose & Throat Ears, Nose & Throat: reports: Nasal congestion (oil changer problem), Other (taste changes) - Cardiovascular Cardiovascular: reports: Irregular heart rate, Edema (occasionally), Exertional dyspnea, Decr. exercise tolerance - Respiratory Respiratory: reports: SOB with exertion. denies: Cough - Gastrointestinal Gastrointestinal: reports: Constipation (controlled with miralax), Early satiety - Genitourinary Genitourinary: reports: Frequency, Urgency, Incontinence (working with Nancy Wilkerson RN) - Musculoskeletal Musculoskeletal: reports: Muscle weakness, Other (had significant reaction to neupogen over last several weeks; off chemotherapy now and is improving) - Integumentary Integumentary: reports: Dryness, Hair changes (alopecia; peach fuzz) - Neurological Neurological: reports: General weakness, Dizziness (in am), Numbness (neuropathy from chemotherapy results in balance problems; no pain), Memory problems (mild forgetfullness), Other - Psychiatric Psychiatric: reports: Depression, Anxiety. denies: Suicidal - Hematologic/Lymphatic Hematologic/Lymphatic: reports: Anemia (Hct 32.6) - All Other Systems All Other Systems: reports: Reviewed and negative Physical Exam - Vital Signs Pulse Rate: 70 Respiratory Rate: 18 Blood Pressure: 108/73 - Physical Exam General Appearance: positive: No acute distress, Anxious Eyes Bilateral: positive: Normal inspection ENT: positive: No signs of dehydration Neck: positive: No JVD, Trachea midline Cardiovascular: positive: Regular rate & rhythm Respiratory: positive: Breath sounds nml Abdomen: positive: Nml bowel sounds, Other (firm to palpation) Skin: positive: Pallor, Dryness Extremities: positive: No pedal edema Neurologic/Psychiatric: positive: Oriented x3, Mood/affect nml, Weakness Palliative Care - POLST Patient has POLST: No Pain: Pain unchanged, Severity (4-5 resolving with recovery from chemo/GCF; hands/LE with occasional sharp stabbing; nothing persistant; has "high pain tolerance") Tiredness/Fatigue: Moderate (4-6) Drowsiness/Sedation: Moderate (4-6) Nausea: None Depression: Mild (1-3) Anxiety: Moderate (4-6) Dyspnea: Mild (1-3) Anorexia: None Sleep: Variable sleep pattern (up at night often to deal with incontinence; improving) Constipation: Yes, Managed Feelings of wellbeing/Perceived Quality of Life: Fair, Acceptable Performance Status: Patient reports spending several the last weeks in bed, attributes this to side effects of chemotherapy. Reports it is continued to improve, she is able to perform most physical activities including light housework but nothing strenuous, she is independent in her ADLs. She does come finding her driving to just locally, and less she is feeling too tired and she uses the bus. - Palliative Care Discussion: Patient does have many of her documents in place, reports she does have medical D POA which she has identified as her daughter, Laurie Cavazos [phone]. Did not obtain this document at time of visit. Will explore this in the future as we explore her goals. We explored her current and past coping mechanisms, some of her losses, as well as her current support. She is a member of [employer], quite involved in the community, she does have a sister here who also has health problems though. Her biggest concern and stressor is her son who is living with her, she has been his support, he is got COPD and known limited life expectancy. Patient hopes in the future to travel to [facility], and improve her functional status from her last round, as well as look forward in getting things put toge ther regarding understanding prognosis and future plans. Results - Lab Results Lab results reviewed: Yes Impression and Recommendations - Palliative Care Impression: This is a brandan 82-year-old woman who has recurrent ovarian cancer, with multiple readmissions, but several years out. Patient presents with symptoms of depression, anxiety, anorexia, and fatigue. Palliative care to provide support around symptom management and anticipatory guidance. Recommendations/Counseling Done: 1. Depression. Patient does present with symptoms of depression, though these are not persistent, she does have multiple issues around grief and loss as well as multiple stressors. Counseling provided regarding benefits and burdens of antidepressants, in agreement currently would continue with counseling, addressing some of her stressors, referral to medical palliative care social services manager to assist with finding resources for her son. Agreed to work with palliative care on a regular basis, for counseling for adjustment to illness and anticipatory guidance. 2. Fatigue. This is multifactorial in origin, patient is beginning to increase her activity, she is feeling better further out from her treatment. We did discuss in the context of weight loss, focus to lose no further weight, and work on increasing calories. She has worked with protein drinks in the past, encouraged to restart. Patient has some changes regarding taste from her chemo, patient able to relay multiple strategies currently enlisting, encouraged to be more intentional. 3. Advanced care planning. Initial counseling to explore goals, patient's understanding of current illness, patient with multiple questions regarding prognosis and what to expect in the future. Will revisit advanced care planning documents, this appointment was set up on establishing rapport. Time Spent: 75 minutes with getting 50% of this done in counseling regarding depression, anxiety, stenting of illness, goals of care, and anticipatory guidance. Referral to medical palliative care social services manager.
== END 2018-05-02 12:49 | disposition home or self-care (01) ==
LOC: PC 12:48
PROVIDERS: ATTEND Nurse Practitioner Adult Health
DX: Z51.5 Encounter for palliative care (principal); F32.9 Major depressive disorder, single episode, unspecified; R53.83 Other fatigue; C56.9 Malignant neoplasm of unspecified ovary; I48.91 Unspecified atrial fibrillation; Z87.891 Personal history of nicotine dependence; Z79.82 Long term (current) use of aspirin; R53.1 Weakness; R42 Dizziness and giddiness; F41.9 Anxiety disorder, unspecified
CPT/HCPCS: 99205

== ENCOUNTER 2018-05-22 09:51 | Outpatient (CLI) | payer MEDICARE, BC ==
--- NOTE | 2018-05-22 18:58 | CONSULTATION NOTE ---
Palliative Care Follow Up - Referral Referring Provider: Dr. Morel Time of Visit: 03-28 Referral setting: [facility] [place] Reason: Depression/Recurrent Ovarian Cancer - Information Sources Records reviewed: Previous records reviewed History/Review of Systems obtained from: Patient Exam limitations: No limitations - History of Present Illness Update Brief HPI Update: Please see palliative care consultation 05/02/18 for more extensive review. But this is a brandan 82-year-old woman with recurrent ovarian cancer, originally diagnosed with 2016, with debulking surgery as well as received carboplatinum and Taxol. She is continued to have intermittent chemotherapy and intermittent remissions, with her last one lasting 9 months prior to her last chemotherapy. She is currently on maintenance bevacizumab, which she is receiving every 3 weeks. She had felt quite poorly on her dense dose carboplatin and Taxol recen tly, with significant musculoskeletal effects from her G-CSF. She is continued to improve, she feels like she is coming out of her depression, her hopefulness has returned and her physical status is improved as well. She has gained some weight back, the taste changes are improving, and her fatigue is better. She is now able to ambulate her baseline one-mile, though she is still needing frequent naps, she has less short of breath, but continues with multiple psychosocial and financial stressors. Social History - Living Situation Living arrangement: At home Living Situation: With family Support System: Son whom is seriously ill lives with patient, she provides financial assistance which she cannot afford, is awaiting appt. with medical palliative social media marketing analyst to assist Medications/Allergies - Medications Home Medications: Ambulatory Orders Medication Instructions Recorded Confirmed Cholecalciferol (Vitamin D3) 5,000 unit PO DAILY 07/14/15 05/02/18 [Vitamin D3] Diltiazem HCl [Diltiazem 24Hr Cd] 180 mg PO DAILY 07/14/15 05/02/18 Polyethylene Glycol 3350 [Miralax] 17 gm PO DAILY 07/14/15 05/02/18 Senna [Senokot] 8.6 tab PO BID PRN 07/14/15 05/02/18 Aspirin 325 mg PO DAILY 07/27/15 05/02/18 Calcium Carb/Mag Ox/Zinc Sulf [Hm 1 each PO TID 08/04/15 05/02/18 Eicqcln-Apajgfoae-Hsqf Cplt] Multivitamin [Multivitamins] 1 each PO DAILY 08/04/15 05/02/18 Mineral Oil, Light/Mineral Oil 2 drop EACHEYE DAILY PRN 09/01/15 05/02/18 [Soothe Xp Eye Drops] Mupirocin 2 units TOP BID PRN 09/01/15 05/02/18 Triamcinolone 0.1% Oint [Kenalog 0 gm TOP BID PRN 09/01/15 05/02/18 0.1% Oint] Raloxifene HCl 60 mg PO DAILY 10/06/15 05/02/18 Losartan [Cozaar] 1 tab PO DAILY 10/17/17 05/02/18 Lactobacillus Acidophilus 1 tab PO DAILY 01/16/18 05/02/18 [Probiotic Acidophilus] - Allergies Allergies/Adverse Reactions: Allergies Allergy/AdvReac Type Severity Reaction Status Date / Time morphine Allergy Severe Emesis Verified 08/07/17 23:18 cephalexin monohydrate * AdvReac Severe Edema Verified 08/07/17 23:18 [From Keflex] procaine AdvReac Intermediate Upset Verified 08/07/17 23:18 stomach codeine AdvReac Dizziness Verified 08/07/17 23:18 Review of Systems - Constitutional Constitutional: reports: Fatigue (has improved; able to walk one mile; does take frequent naps), Weight gain (119.7 appetite has improved) - Cardiovascular Cardiovascular: reports: Decr. exercise tolerance (but improving). denies: Palpitations, Chest pain - Respiratory Respiratory: reports: SOB with exertion (improved) - Genitourinary Genitourinary: reports: Incontinence (improved with work with incontinence specialist; no need for pad for several days; very encouraged) - Musculoskeletal Musculoskeletal: reports: Stiffness, Muscle weakness - Integumentary Integumentary: reports: Dryness - Neurological Neurological: reports: Memory problems ("chemo brain" some word finding; STM issues; difficult with names from norm) - Psychiatric Psychiatric: reports: Depression (improved; feeling hopeful and like she is coming out of it;) - Endocrine Endocrine: reports: Intolerance to cold - All Other Systems All Other Systems: reports: Reviewed and negative Physical Exam - Vital Signs Pulse Rate: 77 Respiratory Rate: 18 Blood Pressure: 131/80 - Physical Exam General Appearance: positive: No acute distress Eyes Bilateral: positive: Normal inspection ENT: positive: No signs of dehydration Neck: positive: No JVD, Trachea midline Cardiovascular: positive: Regular rate & rhythm Respiratory: positive: No respiratory distress, Breath sounds nml, Diminished in bases Abdomen: positive: Nml bowel sounds, Tenderness (with palpation upper quadrants; no masses appreciated;) Skin: positive: Pallor, Other (alopecia growing in) Extremities: positive: No pedal edema Neurologic/Psychiatric: positive: Oriented x3, Mood/affect nml Palliative Care - POLST Patient has POLST: No Pain: Pain improved, Location (Patient is experiencing multiple joint and ache pains, rates her pain a 5 out of 10, only takes intermittent Tylenol. 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 She is sleeping a little bit better, she goes to bed at 9, sleeps from 1030-3 awaken hour and sleeps from 4-7, is feeling less overall distress relating to this. She is independent in her ADLs, she does drive as long as she is feeling well.She recently participated in 1 of her buddhist community planning activities, she was able to delegate some, and felt supported and cared for - Palliative Care Discussion: Patient is feeling much better, less depressed and more hopeful. She still recognizes she has serious illness, but her goal is to survive her son. She is stable experiencing significant financial distress, medical palliative care social media marketing analyst is to meet with the son and patient to assist with applications, she is putting out about $1000 a month for his medications. Counseling provided in hoping for the best, but also preparing for the worse, did discuss the need to have a plan in place for her son. Also introduced the [facility], as well as other advanced planning documents, patient does have D POA which is her daughter Alina Edwards [place] [phone]. She does feel her daughter would know the right decisions to make for her, did agree more direction would be of help. Patient this point time is expressing she would want to be a full code, but did review the implications of this particularly in the community setting. Quality of life for her is being independent, being able to take care of herself, but again her most important goal is to be able to take care of her son and not before him. Impression and Recommendations - Palliative Care Impression: This is a brandan 82-year-old woman who has recurrent ovarian cancer, with multiple remissions, currently on maintenance therapy. She is at high risk for obstruction, but is managing her bowels appropriately. Patient's symptoms of depression have improved, but remains with high anxiety related to her psychosocial situation. Palliative care to continue to provide support and counseling and anticipatory guidance. Recommendations/Counseling Done: 1.Depression. Patient's mood has elevated, she is feeling more hopeful, less dark, and persistent depressive symptoms are lightening. Patient is returning to previous level of function, does recognize the severity of her depressive symptoms previously. Patient does feel the counseling and refocusing has helped as well as her physical symptoms are improving. Medical palliative care social media marketing analyst will make contact and plan visit to assist with planning for her son. Recommended given patient's multiple losses, considering living with loss group to process some of her grief. Given flyer and encouragement, she does have a neighbor who would benefit, she may consider attending the class with her. 2. Fatigue. This is multifactorial in origin, she she is increasing her activity with good improvement of endurance. She has regained her weight is eating better. And presents with weight gain today. 3. Advanced care planning. Introduced advanced care planning documents, [facility], addressed questions regarding goals of care. Patient to bring in DPOA documents to scan into HIM. Time Spent: 60 minutes with greater than 50% of this done in counseling regarding depression, processing grief and loss, addressing anxiety, and anticipatory guidance.
== END 2018-05-22 09:52 | disposition home or self-care (01) ==
LOC: PC 09:51
PROVIDERS: ATTEND Nurse Practitioner Adult Health
DX: Z51.5 Encounter for palliative care (principal); C56.9 Malignant neoplasm of unspecified ovary; F32.9 Major depressive disorder, single episode, unspecified; F41.9 Anxiety disorder, unspecified; R53.83 Other fatigue; Z79.82 Long term (current) use of aspirin; Z79.899 Other long term (current) drug therapy
CPT/HCPCS: 99215

== ENCOUNTER 2018-06-25 13:10 | Outpatient (CLI) | payer MEDICARE, BC ==
--- NOTE | 2018-06-25 20:37 | CONSULTATION NOTE ---
Palliative Care Follow Up - Referral Referring Provider: Dr. Beryl Morel Time of Visit: [phone] Referral setting: [facility] – [place] Referral Reason: Recurrent ovarian CA/Depression - Information Sources Records reviewed: Previous records reviewed History/Review of Systems obtained from: Patient Exam limitations: No limitations - History of Present Illness Update Brief HPI Update: This is a brandan 82-year-old anxious woman with recurrent ovarian cancer, originally diagnosed in 2016 with status post debulking surgery as well as receiving carboplatinum and Taxol. She is continued to receive intermittent chemotherapy with remissions, with the last one lasting 9 months prior to her last chemotherapy. She is currently on maintenance bevacizumab every 3 weeks with ongoing decrease in her Ca1 25. Her most recent one was 7.4, down from her recurrence that was as high as 2500. She continues to improve, still has activity tolerance, some shortness of breath and overall achiness. She is keeping her bowels soft, sleeping better, anxiety is improving and we are meeting today to talk further about advanced care planning. Social History - Living Situation Living arrangement: At home Living Situation: With family Support System: lives with son who is chronically/seriously ill. Medical palliative care nursing home social worker has met with patient and her son and attempts to address concerns regarding financial stressors and insurance for him. Patient is pain [id number] expenses and for medication. Also concerned about long-term plan for his son if she were to not before him. Medications/Allergies - Medications Home Medications: Ambulatory Orders Medication Instructions Recorded Confirmed Cholecalciferol (Vitamin D3) 5,000 unit PO DAILY 07/14/15 05/29/18 [Vitamin D3] Diltiazem HCl [Diltiazem 24Hr Cd] 180 mg PO DAILY 07/14/15 05/29/18 Polyethylene Glycol 3350 [Miralax] 17 gm PO DAILY 07/14/15 05/29/18 Senna [Senokot] 8.6 tab PO BID PRN 07/14/15 05/29/18 Aspirin 325 mg PO DAILY 07/27/15 05/29/18 Calcium Carb/Mag Ox/Zinc Sulf [Hm 1 each PO TID 08/04/15 05/29/18 Ehahstp-Lankczgcd-Imlg Cplt] Multivitamin [Multivitamins] 1 each PO DAILY 08/04/15 05/29/18 Mineral Oil, Light/Mineral Oil 2 drop EACHEYE DAILY PRN 09/01/15 05/29/18 [Soothe Xp Eye Drops] Mupirocin 2 units TOP BID PRN 09/01/15 05/29/18 Triamcinolone 0.1% Oint [Kenalog 0 gm TOP BID PRN 09/01/15 05/29/18 0.1% Oint] Raloxifene HCl 60 mg PO DAILY 10/06/15 05/29/18 Losartan [Cozaar] 1 tab PO DAILY 10/17/17 05/29/18 Lactobacillus Acidophilus 1 tab PO DAILY 01/16/18 05/29/18 [Probiotic Acidophilus] - Allergies Allergies/Adverse Reactions: Allergies Allergy/AdvReac Type Severity Reaction Status Date / Time morphine Allergy Severe Emesis Verified 08/07/17 23:18 cephalexin monohydrate * AdvReac Severe Edema Verified 08/07/17 23:18 [From Keflex] procaine AdvReac Intermediate Upset Verified 08/07/17 23:18 stomach codeine AdvReac Dizziness Verified 08/07/17 23:18 Review of Systems - Constitutional Constitutional: reports: Fatigue, Weight stable (120.1) - Ears, Nose & Throat Ears, Nose & Throat: reports: Nasal congestion (worsened on avastin), Postnasal drainage, Dry mouth - Cardiovascular Cardiovascular: reports: Decr. exercise tolerance. denies: Palpitations - Respiratory Respiratory: reports: SOB with exertion. denies: Cough, SOB at rest - Gastrointestinal Gastrointestinal: reports: Good appetite. denies: Abdominal pain, Constipation (managing with miralax several times a week), Nausea - Genitourinary Genitourinary: reports: Incontinence (improved with working with incontinence program;) - Musculoskeletal Musculoskeletal: reports: Stiffness (doing some stretching exercises with good results), Muscle weakness (identifies mostly in quads; endurance decreased for walking only able to do a mile), Joint pain (residual joint discomfort;) - Integumentary Integumentary: reports: Other (hx of severe psorasis; no recent exacerbations and not currently on treatment) - Neurological Neurological: reports: General weakness, Memory problems (reports "chemo brain" more difficulty tracking things; using methods to compensate) - Psychiatric Psychiatric: reports: Anxiety (able to identify multiple triggers). denies: Depression (feels much improved back to baseline) - Hematologic/Lymphatic Hematologic/Lymphatic: denies: Recurrent infections - All Other Systems All Other Systems: reports: Reviewed and negative Physical Exam - Vital Signs Pulse Rate: 76 Respiratory Rate: 18 Blood Pressure: 158/81 (taken at end of visit; ) - Physical Exam General Appearance: positive: Anxious Eyes Bilateral: positive: Normal inspection ENT: positive: No signs of dehydration Neck: positive: Trachea midline Cardiovascular: positive: Regular rate & rhythm Respiratory: positive: No respiratory distress Skin: positive: Pallor, Dryness Extremities: positive: No pedal edema, Other (presents with thickened fungal nails;) Neurologic/Psychiatric: positive: Oriented x3, Mood/affect nml Palliative Care - POLST Patient has POLST: No Pain: No pain Tiredness/Fatigue: Moderate (4-6) Drowsiness/Sedation: Mild (1-3) Nausea: None Depression: Mild (1-3) Anxiety: Moderate (4-6) Dyspnea: Moderate (4-6) Anorexia: Mild (1-3) Sleep: Sleep improved Constipation: No Feelings of wellbeing/Perceived Quality of Life: Good, Acceptable, Improved Performance Status: Patient reports she is still attempting to keep up with activity, she does walk about a mile, but has not found her tolerance felt to be able to do this further. She does run out of energy about mid day, she is independent in her ADLs. She is still takes care of her house and all her own finances. - Palliative Care Discussion: Patient does have a D POA, which is her daughter Laurie Cavazos [phone]. Sister Lolita Browne is listed on the contact page, this is because she lives close. Her son Brando Matson [phone] does live with her, but she does not perceive is capable of making medical decisions for her. Did ask to bring next time the document to be able to put in her records, she verbalized understanding. Did recommend also given her son's fragility and health issues, they do ID POA form for him, she is going to talk to her daughter about defaulting to her, as second person. Discussed patient's goals, she is hoping for extended remission, and hopes to out survive her son as she does provide support, housing, and oversight for him. She has met once with a medical palliative care nursing home social worker, the goal is to help her decrease her stressors around this as far as setting of insurance, SSI, and a long-term plan. We discussed what would be of most help as far as communication and what is important for her as far as goals of care. She reports she is a person who likes to know all the details about her condition and treatment, understand what is happening, and would like to know her prognosis to be able to continue long- term planning. She is hoping to be able to have a at home, she is taking care of her father at end of life, and had found this to be a taxing and positive experience. She reflected on how "he did it", with acknowledging his impending decline, visiting with friends and family and saying his goodbyes, and being in his own home. Did encourage her to further explore with her family, if they would support her and this goal in the future. She sees herself is quite resilience, it is most important for her to have quality of life, but is willing to take treatment for quantity of life. She has talked to her children about absolutely not being in a fci.She does admit her high anxiety often gets in the way as far as being will plan her have conversations, she has multiple regrets regarding things that have happened in the past. We did discuss the role of counseling, given the resource of psychology today if wanted to pursue further one-on-one. Can also follow-up with Kell if would be of help. Results - Lab Results Lab results reviewed: Yes Impression and Recommendations - Palliative Care Impression: This is a brandan 82-year-old woman with recurrent ovarian cancer, with multiple remissions and currently on maintenance therapy. She is at high risk for obstruction, but managing her bowels appropriately. Patient's symptoms have continued to improve as far as depression and anxiety, denies any pain or distress. Palliative care to continue to provide support and anticipatory guidance. Recommendations/Counseling Done: 1. Onychomycosis. Patient was severe fungal nails, had thought they were related to post injury or chemotherapy. Discussed needs to be trimmed and filed down. Given her current condition does put her at high risk for infection, recommended steaming machine operator referral as soon as possible. 2. Depression. Patient is doing much better, feeling more hopeful less dark is engaged in her community, does appear to be coping better. Counseling provided regarding one-on-one counseling and resources for further support if wishes. Patient does not present with threshold for needing antidepressant, patient would like to avoid medication. 3. Fatigue. This is multifactorial in origin. We did discuss possibly adding physical therapy to her regimen, she does have some lower extremity weakness. She is doing some stretching, walking, and trying to increase her activity she will let me know if she is further interested in this. She is doing better with her weight. 4. Advanced care planning. Long discussion regarding goals of care, concerns and fears, introduced the [facility], addressed questions regarding goals of care. Patient has been instructed to bring in D POA documents to scan and H IM. Time Spent: 60 minutes with greater 50% of this done in counseling regarding goals of care, advanced care planning documents, symptoms, and anticipatory guidance. Coordination of care with medical palliative care nursing home social worker regarding financial and psychosocial stressors.
== END 2018-06-25 13:11 | disposition home or self-care (01) ==
LOC: PC 13:10
PROVIDERS: ATTEND Nurse Practitioner Adult Health
DX: Z51.5 Encounter for palliative care (principal); C56.9 Malignant neoplasm of unspecified ovary; F32.9 Major depressive disorder, single episode, unspecified; B35.1 Tinea unguium; R53.83 Other fatigue; R32 Unspecified urinary incontinence; Z79.899 Other long term (current) drug therapy; Z79.82 Long term (current) use of aspirin
CPT/HCPCS: 99215

== ENCOUNTER 2018-06-27 08:58 | Outpatient (CLI) | payer MEDICARE, BC | END 2018-06-27 08:59 | disposition home or self-care (01) | LOC: DI 08:58 | PROVIDERS: ATTEND Internal Medicine Cardiovascular Disease | DX: I35.1 Nonrheumatic aortic (valve) insufficiency (principal) | CPT/HCPCS: 93306 ==

== ENCOUNTER 2018-07-25 12:45 | Outpatient (CLI) | payer MEDICARE, BC ==
--- NOTE | 2018-07-25 23:58 | CONSULTATION NOTE ---
Palliative Care Follow Up - Referral Referring Provider: Dr. Beryl Morel Time of Visit: [id number] Referral setting: [facility] [place] Referral Reason: Depression/Anxiety/Recurrent Ovarian CA - Information Sources Records reviewed: Previous records reviewed History/Review of Systems obtained from: Patient Exam limitations: No limitations - History of Present Illness Update Brief HPI Update: This is a brandan but anxious 82-year-old woman with recurrent ovarian cancer, originally diagnosed in 2016 with status post debulking surgery, as well as past history receiving carboplatinum and Taxol. She is continue to receive intermittent chemotherapy with remissions, she is currently on maintenance bevacizumab every 3 weeks with ongoing decrease in her [id number]. Her most recent one is down from 7.4-5, she reports as low as 1 in remission has been 4.1 she is quite pleased. She is continued to improve, has been working on her activity tolerance now able to ambulate up to 2 miles, her shortness of breath is improving, she continues to though with overall joint achiness. She is keeping her bowels soft, sleeping better, she reports anxiety and depression is improving as we continue to work through some of her identified issues as well as advanced care planning. Social History - Living Situation Living arrangement: At home Living Situation: With family (Patient is active in her jain community, continues to survey multiple rolls of volunteer support. This provides her significant meaning. As well as community and friends. She lives with her son is chronically/seriously ill. Medical palliative care social scientist working with them to identify and work through getting him healthcare insurance. This is been significantly stressful for patient, is very fearful she will before he is. She does feel like they are working through paperwork with some success) Medications/Allergies - Medications Home Medications: Ambulatory Orders Medication Instructions Recorded Confirmed Cholecalciferol (Vitamin D3) 5,000 unit PO DAILY 07/14/15 07/10/18 [Vitamin D3] Diltiazem HCl [Diltiazem 24Hr Cd] 180 mg PO DAILY 07/14/15 07/10/18 Polyethylene Glycol 3350 [Miralax] 17 gm PO DAILY 07/14/15 07/10/18 Senna [Senokot] 8.6 tab PO BID PRN 07/14/15 07/10/18 Aspirin 325 mg PO DAILY 07/27/15 07/10/18 Calcium Carb/Mag Ox/Zinc Sulf [Hm 1 each PO TID 08/04/15 07/10/18 [id number] Cplt] Multivitamin [Multivitamins] 1 each PO DAILY 08/04/15 07/10/18 Mineral Oil, Light/Mineral Oil 2 drop EACHEYE DAILY PRN 09/01/15 07/10/18 [Soothe Xp Eye Drops] Mupirocin 2 units TOP BID PRN 09/01/15 07/10/18 Triamcinolone 0.1% Oint [Kenalog 0 gm TOP BID PRN 09/01/15 07/10/18 0.1% Oint] Raloxifene HCl 60 mg PO DAILY 10/06/15 07/10/18 Losartan [Cozaar] 1 tab PO DAILY 10/17/17 07/10/18 Lactobacillus Acidophilus 1 tab PO DAILY 01/16/18 07/10/18 [Probiotic Acidophilus] - Allergies Allergies/Adverse Reactions: Allergies Allergy/AdvReac Type Severity Reaction Status Date / Time morphine Allergy Severe Emesis Verified 08/07/17 23:18 cephalexin monohydrate * AdvReac Severe Edema Verified 08/07/17 23:18 [From Keflex] procaine AdvReac Intermediate Upset Verified 08/07/17 23:18 stomach codeine AdvReac Dizziness Verified 08/07/17 23:18 Review of Systems - Constitutional Constitutional: reports: Fatigue, Weight loss (119). denies: Fever, Chills - Eyes Eyes: reports: Vision loss (due for exam soon;) - Ears, Nose & Throat Ears, Nose & Throat: reports: Nasal congestion (attributes to SE of treatment), Dry mouth - Cardiovascular Cardiovascular: reports: Other (recent ECHO with "good news", aortic valve issue improved per her understanding) - Respiratory Respiratory: reports: SOB with exertion. denies: SOB at rest (improving) - Gastrointestinal Gastrointestinal: reports: Good appetite. denies: Constipation, Nausea - Genitourinary Genitourinary: denies: Frequency (improved; done with continenec program with success), Incontinence - Musculoskeletal Musculoskeletal: reports: Muscle pain, Muscle aches, Stiffness, Other (doing stretching exersizeds) - Integumentary Integumentary: reports: Dryness, Other (hx of psoriasis/serious; with chemo has not had issues) - Neurological Neurological: reports: General weakness, Headache (new symptoms right temporal headache; intermittent;), Numbness (CINP improving), Memory problems (some STM feels "chemo brain" at baseline) - Psychiatric Psychiatric: reports: Depression (feels improved), Anxiety - Endocrine Endocrine: reports: Intolerance to cold - Hematologic/Lymphatic Hematologic/Lymphatic: denies: Recurrent infections - All Other Systems All Other Systems: reports: Reviewed and negative Physical Exam - Vital Signs Temperature: 97.8 C Pulse Rate: 93 Respiratory Rate: 18 O2 Saturation: 98 (ra @ rest) Blood Pressure: 140/97 - Physical Exam General Appearance: positive: No acute distress, Alert Eyes Bilateral: positive: Normal inspection ENT: positive: No signs of dehydration Neck: positive: No JVD, Trachea midline Cardiovascular: positive: Regular rate & rhythm Respiratory: positive: Breath sounds nml Abdomen: positive: Soft Skin: positive: Pallor, Dryness Neurologic/Psychiatric: positive: Oriented x3, Mood/affect nml Palliative Care - POLST Patient has POLST: No Pain: Location (Reports overall stiffness, still some persistent muscle aches; Still has some vague lower abdominal pain, as well as joint pain. She does find stretching and her ambulating helping.), Severity (5-6) Tiredness/Fatigue: Moderate (4-6) Drowsiness/Sedation: Mild (1-3) Nausea: None Depression: Mild (1-3) Anxiety: Moderate (4-6), Comment (reports this is continuing to improve as has been more open about talking about what is going on with her) Dyspnea: None Anorexia: None, Weight loss (remains in range of 119-122; down from baseline 140; feels is eating better) Sleep: Sleep improved Constipation: No Feelings of wellbeing/Perceived Quality of Life: Good, Acceptable, Improved Performance Status: Patient has been actively involved in increasing her endurance and stamina, she reports she can walk up to 2 miles is quite pleased. She is doing stretching exercises, she feels that she does not need at this point in time to pursue outpatient physical therapy has been consistent in her follow through on her own. Independent in ADLs and driving short distances - Palliative Care Discussion: Patient reports she has been talking to her son, has used the tool the conversation project to help him understand her wishes and what is most important to her particularly around making medical decisions and into the future. Her D POA is her daughter, but she feels it is important her son understand where she is at this point in time. Continuing to have conversations regarding values, was most important, she feels she did ask Dr. Morel is feeling encouraged that though she is not have a curative disease, there are further options for her in the future which provides her significant hope. Results - Lab Results Lab results reviewed: Yes Impression and Recommendations - Palliative Care Impression: This is a brandan 82-year-old woman with recurrent ovarian cancer, with multiple remissions and currently on maintenance therapy without progression. She remains at high risk for obstruction, but is managing her bowels appropriately has had no increase in pain only new symptom is intermittent right temporal headache, she is due also to see her eye doctor. She will call if this persists or increase. Patient's symptoms have continued to improve as far as her depression and anxiety, and has done well as far as processing some of her fears and concerns with palliative care. Palliative care to continue provide support and anticipatory guidance Recommendations/Counseling Done: 1.Depression. Patient is able to express improvement in mood, persistent sadness, and alleviation of multiple stressors. She continues to be quite worried about her son, is working with a medical palliative care social scientist regarding this. Counseling continue provide regarding encouragement to continue with good self-care behaviors, exercise, good eating, volunteering, and engaging community support. 2. Fatigue. This is multifactorial in origin, she has been fairly consistent in following through on her own exercise program. She is declined the need to f urther follow up with outpatient physical therapy. Positive reinforcement given regarding progress that she has made. 3. Recurrent ovarian cancer. Patient currently continued to do well on mainten ance bevacizumab. She is having very little side effects other than nasal congestion. Her CA125 continues to decrease and she is quite pleased, as well as did explore their further options if she were to recur or progress. 4. Advanced care planning. Continue discussion regarding goals of care, concerns and fears, is working with her son regarding tools around advanced care planning. Will revisit at next visit. Time Spent: 60 minutes with getting 50% of this 10 regarding counseling for depression, anxiety, goals of care and anticipatory guidance. Patient is found meetings continue to be quite helpful, did reset one for 6 weeks.
== END 2018-07-25 12:46 | disposition home or self-care (01) ==
LOC: PC 12:45
PROVIDERS: ATTEND Nurse Practitioner Adult Health
DX: Z51.5 Encounter for palliative care (principal); C56.9 Malignant neoplasm of unspecified ovary; F32.9 Major depressive disorder, single episode, unspecified; F41.9 Anxiety disorder, unspecified; H54.7 Unspecified visual loss; R06.02 Shortness of breath; R35.0 Frequency of micturition; R53.83 Other fatigue; Z79.899 Other long term (current) drug therapy; Z79.82 Long term (current) use of aspirin
CPT/HCPCS: 99215

== ENCOUNTER 2018-09-12 09:48 | Outpatient (CLI) | payer MEDICARE, BC ==
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
== END 2018-09-12 09:49 | disposition home or self-care (01) ==
LOC: PC 09:48
PROVIDERS: ATTEND Nurse Practitioner Adult Health
DX: Z51.5 Encounter for palliative care (principal); F32.9 Major depressive disorder, single episode, unspecified; F41.9 Anxiety disorder, unspecified; C56.9 Malignant neoplasm of unspecified ovary; R97.1 Elevated cancer antigen 125 [CA 125]; R63.4 Abnormal weight loss; Z79.899 Other long term (current) drug therapy; Z63.79 Other stressful life events affecting family and household
CPT/HCPCS: 99215

== ENCOUNTER 2018-10-03 09:52 | Outpatient (CLI) | payer MEDICARE, BC ==
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
== END 2018-10-03 09:53 | disposition home or self-care (01) ==
LOC: PC 09:52
PROVIDERS: ATTEND Nurse Practitioner Adult Health
DX: Z51.5 Encounter for palliative care (principal); K62.5 Hemorrhage of anus and rectum; G89.3 Neoplasm related pain (acute) (chronic); C56.9 Malignant neoplasm of unspecified ovary; R97.1 Elevated cancer antigen 125 [CA 125]; K62.89 Other specified diseases of anus and rectum; F41.9 Anxiety disorder, unspecified; F32.9 Major depressive disorder, single episode, unspecified; R63.4 Abnormal weight loss; G62.9 Polyneuropathy, unspecified; Z79.899 Other long term (current) drug therapy
CPT/HCPCS: 99215

== ENCOUNTER 2018-10-31 09:43 | Outpatient (CLI) | payer MEDICARE, BC ==
--- NOTE | 2018-10-31 11:08 | CONSULTATION NOTE ---
Palliative Care Follow Up - Referral Referring Provider: Dr. Beryl Morel Time of Visit: 04-29 Referral setting: [facility] [place] Referral Reason: Recurrent Ovarian CA/Depresion - Information Sources Records reviewed: Previous records reviewed History/Review of Systems obtained from: Patient Exam limitations: No limitations - History of Present Illness Update Brief HPI Update: This is a brandan 82-year-old woman with recurrent ovarian cancer, most recently was on maintenance bevacizumab. She had a CT PET scan done on 09/18/2018, that did show persistent hypermetabolic peritoneal metastatic disease, with anterior abdominal masses measuring 3.2 x 6.6 on the left side, and identified another one measuring 2.8 x 5.6, is not dictate where this location is. No other metastatic disease noted. Started on gemcitabine yesterday, she is quite pleased that she is feeling well today, with no nausea or vomiting. She is also hopeful to hear that she could still do her [place] trip, with her current schedule. He does report she is somewhat anxious and overwhelmed with the news of her disease is worse, but tries to stay quite positive. Patient still with multiple questions regarding her disease, what to expect, and anticipatory guidance. Patient fluctuates as far as mood, she is doing much better with her depression, with many identified self-care behaviors. She is feeling better she is getting things organized for her son, reports he seems to be doing better. She has been more active in her garden, but this is resulted in some increased pain and cramping. She is very connected to her sikhism community, has been a volunteer activities, but does admit to easily getting anxious, and worried about the future. Patient has a variety of multifactorial pain issues, she has residual neuropathy in her feet and hands, this is not progressed. She does have residual aches and pains in her joints cervical area elbows lower back in hands and feet. As well as her knees. She has not wanted to take any medication, does find relief with increase activity, and stretching. Social History - Living Situation Living arrangement: At home Living Situation: With family Support System: Patient lives in her own home, has had multiple issues regarding home repairs. She does live with her son, who has multiple health problems but is doing somewhat better. She is moving forward on getting him set up with SSI, medication, and support. He has long been someone who has some level of disability, and she is overseeing his care. Her highest anxiety is about dying before he does. Medications/Allergies - Medications Home Medications: Ambulatory Orders Medication Instructions Recorded Confirmed Cholecalciferol (Vitamin D3) 5,000 unit PO BID 07/14/15 10/31/18 [Vitamin D3] Diltiazem HCl [Diltiazem 24Hr Cd] 180 mg PO DAILY 07/14/15 10/31/18 Polyethylene Glycol 3350 [Miralax] 17 - 34 gm PO DAILY PRN 07/14/15 10/31/18 Senna [Senokot] 8.6 tab PO BID PRN 07/14/15 10/31/18 Aspirin 325 mg PO DAILY 07/27/15 10/31/18 Calcium Carb/Mag Ox/Zinc Sulf [Hm 1 each PO DAILY 08/04/15 10/31/18 Thzruyj-Jtoziorxw-Kwtr Cplt] Multivitamin [Multivitamins] 1 each PO DAILY 08/04/15 10/31/18 Mineral Oil, Light/Mineral Oil 2 drop EACHEYE DAILY PRN 09/01/15 10/31/18 [Soothe Xp Eye Drops] Mupirocin 2 units TOP BID PRN 09/01/15 10/31/18 Triamcinolone 0.1% Oint [Kenalog 1 applic TOP BID PRN 09/01/15 10/31/18 0.1% Oint] Raloxifene HCl 60 mg PO DAILY 10/06/15 10/31/18 Losartan [Cozaar] 50 mg PO DAILY 10/17/17 10/31/18 Lactobacillus Acidophilus 1 tab PO DAILY 01/16/18 10/31/18 [Probiotic Acidophilus] Ondansetron HCl [Zofran] 4 mg PO Q6H PRN 10/30/18 10/31/18 - Allergies Allergies/Adverse Reactions: Allergies Allergy/AdvReac Type Severity Reaction Status Date / Time morphine Allergy Severe Emesis Verified 10/23/18 12:54 cephalexin monohydrate * AdvReac Severe Edema Verified 10/23/18 12:54 [From Keflex] procaine AdvReac Intermediate Upset Verified 10/23/18 12:54 stomach codeine AdvReac Dizziness Verified 10/23/18 12:54 Review of Systems - Constitutional Constitutional: reports: Fatigue, Weight stable (119.7) - Ears, Nose & Throat Ears, Nose & Throat: reports: Nasal congestion - Gastrointestinal Gastrointestinal: reports: Constipation (hard stool; daily), Rectal bleeding (mu ch less bleeding "shreds" every 2-3 days;), Good appetite, Other (using the Ensure BID). 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), Dryness, Hair changes - Neurological Neurological: reports: Numbness (preexisting peripheral neuropathy) - Psychiatric Psychiatric: reports: Depression, Anxiety - Hematologic/Lymphatic Hematologic/Lymphatic: denies: Recurrent infections - All Other Systems All Other Systems: reports: Reviewed and negative Physical Exam - Vital Signs Temperature: 36.9 C Pulse Rate: 67 Respiratory Rate: 18 Blood Pressure: 136/66 - Physical Exam General Appearance: positive: Anxious ENT: positive: No signs of dehydration Neck: positive: No JVD, Trachea midline Cardiovascular: positive: Regular rate & rhythm Respiratory: positive: No respiratory distress, Breath sounds nml Abdomen: positive: Soft, Nml bowel sounds, Tenderness (LLQ) Skin: positive: Pallor, Dryness, Rash (Psorasis dryness up to wirsts; peeling some erythema) Extremities: positive: No pedal edema Neurologic/Psychiatric: positive: Oriented x3, Mood/affect nml Palliative Care - POLST Patient has POLST: Yes POLST Status: DNR, Selective Treatment Pain: Severity (3-4/10) Tiredness/Fatigue: Moderate (4-6) Drowsiness/Sedation: None Nausea: None Depression: None Anxiety: None Dyspnea: None Anorexia: None Sleep: Sleeps well Constipation: Yes, Intermittent constipation Feelings of wellbeing/Perceived Quality of Life: Good, Acceptable, No change Performance Status: Patient is quite remarkable, she continues to walk 3 miles a day. She has increased her activity by working in the yard, she still drives, she is independent in her ADLs. - Palliative Care Discussion: Spent time in counseling today has patient processed her new information of progressive disease, her anxiety and feeling somewhat overwhelmed, but still wanting to put a positive spin on it. We did discuss in the context of her avoidance of wanting to finish her advance directives, I was somewhat more concerned now that she is getting a chemotherapy that does cause bone marrow suppression, as she might come to the hospital for neutropenic fever or complications. Patient acknowledges that she does have goals of care regarding this, it is just been difficult to finish the paperwork. She does have a D POA, which is her daughter, and her name is Alina Price [phone]. Did request that we could have that paperwork for our files here at the hospital. We did go ahead and complete the POLST, her goals of care include focusing on quality of life issues, treating reversible conditions, remaining independent as long as possible, and to end of life she would like to be at home with hospice support. She did care for her father at home, and hope for herself a peaceful and smooth transitioning. We did discuss in the context of her disease, as she had multiple questions about what the and may look like, what changes she might expect, and about what her wishes were for herself. We completed the POLST as a DNA R/selective treatments. Patient is still wanting to continue with treatment, would treat reversible conditions or things that might improve her quality and quantity of life, though she does not want her suffering prolonged. Copy of this was put in her medical record. Results - Lab Results Lab results reviewed: Yes Impression and Recommendations - Palliative Care Impression: This is a brandan 82-year-old woman with recurrent ovarian cancer, history of multiple remissions, and now presents with progression. She will be receiving gemcitabine, presents with only moderate symptom burden, but concern for recurrent obstruction. Palliative care providing support regarding pain and symptom management, specifically around anxiety and depression and anticipatory guidance. Recommendations/Counseling Done: 1. Rectal bleeding. Patient reports bleeding has decreased, she is doing better with her constipation. She is titrating her program appropriately, and bleeding has diminished. 2. Recurrent ovarian cancer. Patient now with progressive disease, provided education and anticipatory guidance in response to her questions and concerns. Patient is hopeful her treatment timing will allow her to go to [place] for family reunion. Encouraged her to make this a priority, but also to get copies of her medical records to take with her if she had any complications. 3. Anxiety. Counseling provided and support for normalizing feelings of concern, sadness, grief. Reinforcement given for positive self-care behaviors, as well as explored other means of support for herself. 4. Weight loss. Patient has remained stable from last visit she is 119.7. She has been using the Ensure twice daily, she provides eating well and healthy. She is focusing on hydration as well. 5. Advanced care planning. Given patient's new news, at risk for hospitalization, we did complete the POLST today. She is to provide me a copy of her D POA at next visit. Counseling provided regarding goals of care, continuum of care, addressed questions and concerns and provided anticipatory guidance. Time Spent: 60 minutes with greater than 50% of this done in counseling regarding advanced c are planning, education on disease anticipatory guidance and review of symptom management with instruction.
== END 2018-10-31 09:44 | disposition home or self-care (01) ==
LOC: PC 09:43
PROVIDERS: ATTEND Nurse Practitioner Adult Health
DX: Z51.5 Encounter for palliative care (principal); C56.9 Malignant neoplasm of unspecified ovary; C79.89 Secondary malignant neoplasm of other specified sites; M79.18 Myalgia, other site; M25.50 Pain in unspecified joint; K62.5 Hemorrhage of anus and rectum; K59.00 Constipation, unspecified; F41.9 Anxiety disorder, unspecified; R63.4 Abnormal weight loss; N39.3 Stress incontinence (female) (male); L40.9 Psoriasis, unspecified; G62.9 Polyneuropathy, unspecified; Z79.899 Other long term (current) drug therapy; Z79.82 Long term (current) use of aspirin
CPT/HCPCS: 99215

== ENCOUNTER 2018-11-08 07:19 | Day surgery (SDC) | payer MEDICARE, BC ==
[2018-11-08] MEDS ORDERED: CLINDAMYCIN 600 MG/50 ML 50 ML IV ONE (07:20)
[2018-11-08] MEDS ORDERED: BUPIVACAINE 0.5% PF 10 ML VIAL ONE (07:22)
[2018-11-08] MEDS ORDERED: LACTATED RINGERS 1,000 ML IV ONE (07:24)
--- NOTE | 2018-11-08 07:32 | ANESTHESIA ---
Pre-Anesthesia VS, & Labs - Diagnosis port dysfunction - Procedure portacath repair, possible portacath replacement Vital Signs: 129/74, 69, 97%, 36.6 Height 5 ft 6 in Body Mass Index 19.1 - NPO >8 hours - Is Patient ?: Not Applicable - Lab Results Lab results reviewed: Yes Home Medications and Allergies Cholecalciferol (Vitamin D3) [Vitamin D3] 5,000 unit PO BID 07/14/15 Diltiazem HCl [Diltiazem 24Hr Cd] 180 mg PO DAILY 07/14/15 Polyethylene Glycol 3350 [Miralax] 17 - 34 gm PO DAILY PRN 07/14/15 Senna [Senokot] 8.6 tab PO BID PRN 07/14/15 Aspirin 325 mg PO DAILY 07/27/15 Calcium Carb/Mag Ox/Zinc Sulf [Hm Shwlnvg-Jvyjgstnr-Rddw Cplt] 1 each PO DAILY 08/04/15 Multivitamin [Multivitamins] 1 each PO DAILY 08/04/15 Mineral Oil, Light/Mineral Oil [Soothe Xp Eye Drops] 2 drop EACHEYE DAILY PRN 09/01/15 Mupirocin 2 units TOP BID PRN 09/01/15 Triamcinolone 0.1% Oint [Kenalog 0.1% Oint] 1 applic TOP BID PRN 09/01/15 Raloxifene HCl 60 mg PO DAILY 10/06/15 Losartan [Cozaar] 50 mg PO DAILY 10/17/17 Lactobacillus Acidophilus [Probiotic Acidophilus] 1 tab PO DAILY 01/16/18 Ondansetron HCl [Zofran] 4 mg PO Q6H PRN 10/30/18 Allergies/Adverse Reactions: Allergies Allergy/AdvReac Type Severity Reaction Status Date / Time morphine Allergy Severe Emesis Verified 10/23/18 12:54 cephalexin monohydrate * AdvReac Severe Edema Verified 10/23/18 12:54 [From Keflex] procaine AdvReac Intermediate Upset Verified 10/23/18 12:54 stomach codeine AdvReac Dizziness Verified 10/23/18 12:54 Anes History & Medical History - Anesthetic History Anesthesia Complications: reports: No previous complications - Medical History Cardiovascular: reports: Atrial fibrillation, Valve disorder, Other (moderate aortic regurg) Urinary: reports: Kidney stones Neuro: reports: None Musculoskeletal: reports: Osteoporosis Endocrine/Autoimmune: reports: Other Skin: reports: Psoriasis Smoking Status: Never smoker - Surgical History General: Appendectomy Eyes Ears Nose Throat (EENT): Tonsil/Adenoidectomy Gynecologic: Hysterectomy, Oophrectomy Exam General: Alert Dental: WNL Mouth Opening: Greater than 4 Fingerbreadths Neck Mobility: Normal Mallampati classification: I Thyromental Distance: greater than 6 cm Respiratory: Lungs clear Cardiovascular: Regular rate, Normal S1, Normal S2, Other (3/6 systolic murmu) Plan Anesthesia Type: MAC Consent for Procedure(s) Verified and Reviewed: Yes Code Status: Attempt Resuscitation ASA classification: 3-Severe systemic disease Is this case an emergency?: No
[2018-11-08] MEDS ORDERED: BUPIVACAINE 0.5% PF 30 ML VIAL SUBQ ONE ×3 (08:30→09:07)
[2018-11-08] MEDS ORDERED: IOTHALAMATE MEGLUMINE 50 ML VIAL IVP ONE (09:59)
[2018-11-08] MEDS ORDERED: IOTHALAMATE MEGLUMINE 50 ML VIAL ONE (10:02)
[2018-11-08 10:58] VITALS: BP 125/65
--- NOTE | 2018-11-08 11:22 | XRAY Report ---
Reason: check for PTX Procedure Date: 11/08/2018 Accession Number: [id number] / [id number] Procedure: XR - Chest 1 View X-Ray CPT Code: 07017 FULL RESULT: EXAM: CHEST RADIOGRAPHY EXAM DATE: 11/08/2018 11:10 AM. CLINICAL HISTORY: Check for pneumothorax. COMPARISON: CHEST 1 VIEW 07/27/2016 8:33 PM. TECHNIQUE: 1 view. FINDINGS: Lungs/Pleura: No focal opacities evident. No pleural effusion. No pneumothorax. Mediastinum: Within exam limitations, the cardiomediastinal contour is normal. Other: Compared to 2017 there has been interval removal of a vascular port. A previously seen enteric tube is no longer visualized. IMPRESSION: No pneumothorax is detected. RADIA
--- NOTE | 2018-11-08 11:42 | XRAY Report ---
Reason: PORT PLACEMENT Procedure Date: 11/08/2018 Accession Number: [id number] / [id number] Procedure: FL - OR C-Arm Procedure CPT Code: FULL RESULT: EXAM: FLUOROSCOPIC GUIDANCE EXAM DATE: 11/08/2018 08:42 AM. CLINICAL HISTORY: Port placement. COMPARISON: PORT PATENCY 11/06/2018 10:36 AM. FINDINGS: No images are submitted for review. IMPRESSION: Fluoroscopic guidance provided for port placement attempt. Total fluoroscopy time: 1 minute 46 seconds. Number of images: 0. RADIA
--- NOTE | 2018-11-08 11:56 | OPERATIVE REPORT ---
DATE OF SERVICE: 11/08/2018 Physician: Ruddy Cotton MD SURGEON: Ruddy Cotton MD PREOPERATIVE DIAGNOSIS: Port malfunction. 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 PROCEDURE: Removal of old port and venogram. INDICATIONS FOR PROCEDURE: The patient is an 82-year-old woman who has had a port for a number of years for maintenance chemotherapy. It has slowly been malfunctioning until recently it stopped working altogether. Radiology interrogated the port and found that the contrast extravasated immediately into the port pocket. She presented for repair and replacement of the port. PROCEDURE IN DETAIL: The risks and benefits were explained to the patient. She agreed to the procedure. She was taken to the operating room and placed under sedation. The chest was prepped and draped. A timeout was performed and everyone in the room agreed with the procedure. We began by making an incision about 2-3 cm in length over her old port. The area over her old port was infused with Marcaine. We dissected out her old port and noted that the catheter had ruptured next to the port body. The catheter itself was old and fragile. The port was dissected out and removed from the body. We attempted to pass a wire through the old catheter, but it would not go after multiple attempts. We therefore removed the old catheter after placing a [id number] Vicryl stitch through the opening of the tract, which was tied after removal of the catheter. Next, we attempted to access the subclavian vein. Needle was introduced through our incision underneath the clavicle into the vein with good blood return. The wire was then introduced through the needle into the vein and passed easily. X-ray showed the wire passing up into the internal jugular vein. Under fluoroscopy we attempted to withdraw the wire and direct it into the SVC. However, it would not go. After multiple attempts, we decided to stop on that side and went to the left side. We again infused with Marcaine. Again accessed the subclavian vein using a needle and again passed a wire. X-ray again showed the wire going up the IJ. Under fluoroscopy, we attempted to redirect the wire down to the SVC, however, again, it would not go. Therefore, we put contrast into the peripheral vein and performed a venogram, noting a significant stenosis of the proximal subclavian vein. Therefore, we withdrew our needle and wire. We closed the incision using 2 layers of Vicryl, Monocryl with Dermabond and terminated the procedure. The patient tolerated the procedure well. She was taken to recovery in stable condition. INSTRUMENT/LAP COUNTS: Correct. ESTIMATED BLOOD LOSS: 20 mL SPECIMENS: None. COMPLICATIONS: None. PLAN: Refer to interventional radiology to attempt to bypass her stenosis. TD: 11/08/2018 10:25 MTDD
[2018-11-08] MEDS ORDERED: PROPOFOL 200 MG/20 ML VIAL IVP ONE (18:11)
[2018-11-08] MEDS ORDERED: fentaNYL 100 MCG/2 ML VIAL IVP ONE (18:11)
== END 2018-11-08 07:20 | disposition home or self-care (01) ==
LOC: SDS 07:19
PROVIDERS: ATTEND Surgery
PROC: 0JPT3WZ Removal of Totally Implantable Vascular Access Device from Trunk Subcutaneous Tissue and Fascia, Percutaneous Approach (ICD-10-PCS; principal; 2018-11-08 08:30)
DX: Z45.2 Encounter for adjustment and management of vascular access device (principal); T82.594A Other mechanical complication of infusion catheter, initial encounter; I82.B12 Acute embolism and thrombosis of left subclavian vein; R06.83 Snoring; C56.9 Malignant neoplasm of unspecified ovary; I48.91 Unspecified atrial fibrillation; Z87.891 Personal history of nicotine dependence
CPT/HCPCS: 36590; 71045; C1769; J7120; Q9961

== ENCOUNTER 2018-11-13 13:57 | Outpatient (CLI) | payer MEDICARE, BC ==
--- NOTE | 2018-11-13 18:36 | CONSULTATION NOTE ---
Palliative Care Follow Up - Referral Referring Provider: Dr. Beryl Morel Time of Visit: [id number] Referral setting: [facility] [place] Reason: Recurrent Ovarian Ca/Depression - Information Sources Records reviewed: RN notes reviewed, Previous records reviewed History/Review of Systems obtained from: Patient Exam limitations: No limitations - History of Present Illness Update Brief HPI Update: This is a brandan 82-year-old woman with recurrent ovarian cancer who has had increased disease evidenced by progression and a CT PET scan done on 09/18/2018. She had palpated a mid abdominal mass, and was surprised, was told it was tumor by Dr. Morel. In the dictation had described left sided tumor 3.2 x 6.6 on left side, where most of her discomfort is, but there was another identified from the PET 2.8 x 5.6 cm no location description, which now would assume this is it. She is currently on gemcitabine, and recently on last Sunday had a traumatic event with the attempt of replacing her Port-A-Cath. She had a problematic dye study, and under anesthesia came to when trying to replace, and felt like they had been pounding on her chest. She continues to feel some distress over this memory. She is going to have it done under interventional radiology over [place]. Reports she also had a episode of atrial fib after her unsuccessful procedure. Patient presents feeling somewhat overwhelmed, she has some residual left arm and shoulder pain from her procedure on Sunday. She is quite bruised across the chest area. She is feeling quite tearful, and starting to worry about the implications regarding her disease. She feels like she is "going downhill" and worried about loosing control. She is not having any further rectal bleeding, but does have intermittent constipation, though she did have a soft stool this a.m. Her urinary incontinence has returned, she is quite discouraged, she is drinking large amounts of fluid and feels this is adding to it. Palliative care providing support for pain and symptom management, and anticipatory guidance. Social History - Living Situation Living arrangement: At home Living Situation: With family Support System: She lives at home with her son, who has some disabilities and very poor health. Reports he is doing poorly, he had been plateaued out for a while. He is not eating and losing weight, was too sick to go to [place]. She reports he is quite quiet, and worries about his depression. Have made some progress though with his paperwork around SSI disability and is hoping this will continue as he will need support if she were to before he does. Does believe his son would step up and provide support and care Medications/Allergies - Medications Home Medications: Ambulatory Orders Medication Instructions Recorded Confirmed Cholecalciferol (Vitamin D3) 5,000 unit PO BID 07/14/15 11/13/18 [Vitamin D3] Diltiazem HCl [Diltiazem 24Hr Cd] 180 mg PO DAILY 07/14/15 11/13/18 Polyethylene Glycol 3350 [Miralax] 17 - 34 gm PO DAILY PRN 07/14/15 11/13/18 Senna [Senokot] 8.6 tab PO BID PRN 07/14/15 11/13/18 Aspirin 325 mg PO DAILY 07/27/15 11/13/18 Calcium Carb/Mag Ox/Zinc Sulf [Hm 1 each PO DAILY 08/04/15 11/13/18 [id number] Cplt] Multivitamin [Multivitamins] 1 each PO DAILY 08/04/15 11/13/18 Mineral Oil, Light/Mineral Oil 2 drop EACHEYE DAILY PRN 09/01/15 11/13/18 [Soothe Xp Eye Drops] Mupirocin 2 units TOP BID PRN 09/01/15 11/13/18 Triamcinolone 0.1% Oint [Kenalog 1 applic TOP BID PRN 09/01/15 11/13/18 0.1% Oint] Raloxifene HCl 60 mg PO DAILY 10/06/15 11/13/18 Losartan [Cozaar] 50 mg PO DAILY 10/17/17 11/13/18 Lactobacillus Acidophilus 1 tab PO DAILY 01/16/18 11/13/18 [Probiotic Acidophilus] Ondansetron HCl [Zofran] 4 mg PO Q6H PRN 10/30/18 11/13/18 - Allergies Allergies/Adverse Reactions: Allergies Allergy/AdvReac Type Severity Reaction Status Date / Time morphine Allergy Severe Emesis Verified 11/13/18 09:38 cephalexin monohydrate * AdvReac Severe Edema Verified 11/13/18 09:38 [From Keflex] procaine AdvReac Intermediate Upset Verified 11/13/18 09:38 stomach codeine AdvReac Dizziness Verified 11/13/18 09:38 Review of Systems - Constitutional Constitutional: reports: Fatigue, Weight loss (115; Reports she is eating 3 meals a day, and doing to ensure. She is quite surprised she is continue to lose weight.). denies: Fever, Chills - Eyes Eyes: reports: Vision loss - Ears, Nose & Throat Ears, Nose & Throat: reports: Dry mouth - Cardiovascular Cardiovascular: reports: Palpitations (has since resolved; after procedure last Sunday) - Respiratory Respiratory: reports: SOB with exertion. denies: SOB at rest - Gastrointestinal Gastrointestinal: reports: Abdominal pain (LLQ;), Constipation (intermittent), Bloating, Good appetite. denies: Nausea - Genitourinary Genitourinary: reports: Frequency, Incontinence - Musculoskeletal Musculoskeletal: reports: Muscle aches, Stiffness, Limited range of motion, Muscle weakness, Joint pain (left shoulder neck/arm pain) - Integumentary Integumentary: reports: Dryness - Neurological Neurological: reports: General weakness, Memory problems (intermittent forgetfulness), Other (peripheral neuropathy; feels balance and numbness has increased) - Psychiatric Psychiatric: reports: Depression, Anxiety - Hematologic/Lymphatic Hematologic/Lymphatic: reports: Anemia - All Other Systems All Other Systems: reports: Reviewed and negative Physical Exam - Physical Exam General Appearance: positive: Mild distress, Anxious Eyes Bilateral: positive: Normal inspection ENT: positive: No signs of dehydration. negative: Pharyngeal erythema Neck: positive: No JVD, Trachea midline Cardiovascular: positive: Regular rate & rhythm Respiratory: positive: No respiratory distress, Diminished in bases Abdomen: positive: Soft, Tenderness Skin: positive: Pallor, Dryness, Bruising (across chest) Extremities: positive: No pedal edema Neurologic/Psychiatric: positive: Oriented x3, Weakness, Depressed mood/affect, Flat affect Palliative Care - POLST Patient has POLST: Yes POLST Status: DNR, Selective Treatment Pain: Pain worsening, Location (Patient has multiple pain generators. Patient does have left upper quadrant tenderness, this comes and goes worsens with constipation. Is not high enough level to take medication, she also has ge neralized aches and pains in her joints, increased movement and stretching manages this. She has some acute pain in her left shoulder and neck area radiating down into her arm. She attributes this to during the surgery. She has used some Advil with some relief, but remains uncomfortable.), Comment (Patient reports also new pain and discomfort mid abdominal area, this is where she palpated a mass which was quite a surprise for her. It is nontender and less pushed upon.) Tiredness/Fatigue: None Drowsiness/Sedation: None Nausea: None Depression: Mild (1-3) Anxiety: Mild (1-3) Dyspnea: None Anorexia: None Sleep: Variable sleep pattern Constipation: Yes, Intermittent constipation Feelings of wellbeing/Perceived Quality of Life: Good, Acceptable Performance Status: She remains very active, independent in her ADLs. She is still ambulating 2 miles a day with her neighbor. She does on bad days, allow someone else to drive her. She feels like she is pacing herself. - Palliative Care Discussion: Time spent counseling regarding processing which she perceives as a traumatic event on Sunday. Patient has significant distress and symptoms regarding this is as far as anxiety and a little bit of PTSD, Trauma in the past, and I believe this probably exacerbated her memories regarding this. Patient is looking forward to her trip to [place], she is going to be able to map out so she will not miss any treatments. Her treatment was put on hold because of her low white count at this time. Counseling provided regarding normalizing her fear and concern regarding progressive disease, and implications. She very much wants to do this "right", and discussed the role of acknowledging our fears versus trying to keep a positive attitude. Patient does have POLST in place which is do not attempt resuscitation, selective treatments, weighing benefits and burdens of treatment decisions as they come up. Her D POA is her daughter which is Alina Price [phone].. Results - Lab Results Lab results reviewed: Yes Lab and Imaging Results: Patient's WBC was 1.7, her Ca1 25 is also increased from last time 204 07/20/1952. Impression and Recommendations - Palliative Care Impression: A brandan 82-year-old woman with recurrent ovarian cancer, with history of multiple remissions, and now presents with yet another progression. She is receiving gemcitabine, she has had some pancytopenia with a WBC count of 1.7 we will hold this week. She does have moderate symptom burden with increasing pain, recently traumatized in attempt to place Port-A-Cath. Palliative care providing ongoing support regarding pain and symptom management, specifically around anxiety, constipation, depression and anticipatory guidance. Recommendations/Counseling Done: 1. Left shoulder pain. This is most likely traumatic from her recent surgery. She has been using some Advil with relief. Encouraged use topical Biofreeze or Aspercreme to augment. Patient is to contact me if pain escalates, and will prescribe opioid. Instructed not to use high doses of Advil given effect on kidneys, intermittent is okay. 2. Recurrent ovarian cancer. Patient now with progressive disease, she is going to be able to time her treatment around going to her family reunion. She will continue currently on the gemcitabine until further progression. 3. Constipation. Patient continues to struggle with intermittent constipation. Counseling provided again regarding titrating her bowel program, she does feel like she is doing better with this though got thrown off with her recent surgery. She is using MiraLAX and senna. 4. Urinary incontinence. She denies any signs or symptoms of dysuria or UTI. Did discuss in the context of her depressed immune system to watch for fever, changes in appetite, or dysuria. She has been pushing the fluids secondary to her chemotherapy, she is not to be dissuaded that she does not need to drink so much in the off time. 5. Weight loss. Patient has continued to have weight loss, she is weighing in at 115 today. This is a 4 pound weight loss since I last saw her on 516. We reviewed her intake, she did increase her Ensure to twice daily but feels like she is eating adequate amounts 3 times a day. Suspect may be related to her progressive disease. 6. Depression. Patient is quite tearful, review of her most recent concerns, counseling provided regarding adjustment illness, coping, and enlisting CBT techniques. Patient is not interested in medication, does find counseling with palliative care helpful. She would like to have a visit prior to leaving on family union, she will call me if she is continue to be quite distressed as she is today for follow-up next week if needed. Otherwise we will see her in 2 weeks. 7. Advanced care planning. Patient is reminded to bring her D POA and, she does have POLST completed. We did further explore some of her fears around end of life, with her progression of disease she is thinking more about what that might look like. She is also very concerned about her son and his ongoing decline. Time Spent: 60 minutes with getting 50% of this done in counseling regarding symptom management, adjustment illness, and anticipatory guidance.
== END 2018-11-13 13:58 | disposition home or self-care (01) ==
LOC: PC 13:57
PROVIDERS: ATTEND Nurse Practitioner Adult Health
DX: Z51.5 Encounter for palliative care (principal); C56.9 Malignant neoplasm of unspecified ovary; R32 Unspecified urinary incontinence; R35.0 Frequency of micturition; T82.848D Pain due to vascular prosthetic devices, implants and grafts, subsequent encounter; M25.512 Pain in left shoulder; M54.2 Cervicalgia; R10.9 Unspecified abdominal pain; F32.9 Major depressive disorder, single episode, unspecified; F41.9 Anxiety disorder, unspecified; F43.10 Post-traumatic stress disorder, unspecified; R63.4 Abnormal weight loss; K59.00 Constipation, unspecified; H54.7 Unspecified visual loss; Z66 Do not resuscitate; Z79.82 Long term (current) use of aspirin; Z79.899 Other long term (current) drug therapy
CPT/HCPCS: 99215

== ENCOUNTER 2018-12-16 09:39 | Outpatient (CLI) | payer MEDICARE, BC ==
--- NOTE | 2018-12-16 18:53 | CONSULTATION NOTE ---
Palliative Care Follow Up - Referral Referring Provider: Dr. Beryl Morel-Dr. Kurt Vance resuming care Time of Visit: 13:30-14:15 [place] [facility] [place] Reason: Depression/Anxiety/Recurrent Ovarian Cancer - Information Sources Records reviewed: Previous records reviewed History/Review of Systems obtained from: Patient Exam limitations: No limitations - History of Present Illness Update Brief HPI Update: This is a brandan 83-year-old woman with recurrent ovarian cancer. She was originally diagnosed in 2016, has had multiple treatments and remissions. Most recently she was on maintenance Avastin, until a PET CT scan done on 09/18/2018 showed progression of disease. She is currently on gemcitabine, has met Dr. Vance, with her increasing Ca1 25, is going to increase her intensity with 3 weeks on 1 week off. Currently so far she has had minimal side effects, has recently returned from a trip to [place] to see her family, her most pronounced and distressing symptoms today actually is an exacerbation of her psoriasis. Over the last few years, she has had very few troubles most likely due to stero ids included in her treatment, but now has a major flare that includes her face, eyelids,hands, and scalp. She is quite distressed as she interprets this as her not managing her coping around her ovarian cancer. She does see her filtration plant operator tomorrow, and is hopeful for some relief. She has not been able to sleep, she is quite anxious, exacerbated some of her depressive symptoms over this last week. She does feel like her tumor is enlarging, it is palpable around her umbilical area, slightly tender to touch and firm and fixed. She has been not having any obstructive symptoms, though she is having some hard stool. She is staying mostly weight neutral, no nausea, and continues to walk up to 3 miles a day. She remains determined to "fight" cancer, she does understand her treatment is palliative in nature. Social History - Living Situation Living arrangement: At home Living Situation: With family Support System: She lives at home with her son, who has some disabilities and very poor health. He was able to manage while she was gone, she stayed The dogs of her other son, and stayed with her granddaughter [place]. She very much enjoyed this visit. She has another daughter, whom there are tensions currently she is working through. Medications/Allergies - Medications Home Medications: Ambulatory Orders Medication Instructions Recorded Confirmed Cholecalciferol (Vitamin D3) 5,000 unit PO BID 07/14/15 12/16/18 [Vitamin D3] Diltiazem HCl [Diltiazem 24Hr Cd] 180 mg PO DAILY 07/14/15 12/16/18 Polyethylene Glycol 3350 [Miralax] 17 - 34 gm PO DAILY PRN 07/14/15 12/16/18 Senna [Senokot] 8.6 tab PO BID PRN 07/14/15 12/16/18 Aspirin 325 mg PO DAILY 07/27/15 12/16/18 Calcium Carb/Mag Ox/Zinc Sulf [Hm 1 each PO DAILY 08/04/15 12/16/18 [id number]-[id number] Cplt] Multivitamin [Multivitamins] 1 each PO DAILY 08/04/15 12/16/18 Mineral Oil, Light/Mineral Oil 2 drop EACHEYE DAILY PRN 09/01/15 12/16/18 [Soothe Xp Eye Drops] Mupirocin 2 units TOP BID PRN 09/01/15 12/16/18 Triamcinolone 0.1% Oint [Kenalog 1 applic TOP BID PRN 09/01/15 12/16/18 0.1% Oint] Raloxifene HCl 60 mg PO DAILY 10/06/15 12/16/18 Losartan [Cozaar] 50 mg PO DAILY 10/17/17 12/16/18 Lactobacillus Acidophilus 1 tab PO DAILY 01/16/18 12/16/18 [Probiotic Acidophilus] Ondansetron HCl [Zofran] 4 mg PO Q6H PRN 10/30/18 12/16/18 - Allergies Allergies/Adverse Reactions: Allergies Allergy/AdvReac Type Severity Reaction Status Date / Time morphine Allergy Severe Emesis Verified 12/16/18 10:43 cephalexin monohydrate * AdvReac Severe Edema Verified 12/16/18 10:43 [From Keflex] procaine AdvReac Intermediate Upset Verified 12/16/18 10:43 stomach codeine AdvReac Dizziness Verified 12/16/18 10:43 Review of Systems - Constitutional Constitutional: reports: Weight loss (114.1-only slight) - Ears, Nose & Throat Ears, Nose & Throat: reports: Dry mouth - Respiratory Respiratory: denies: SOB at rest - Gastrointestinal Gastrointestinal: reports: Abdominal pain, Constipation, Bloating, Good appetite. denies: Rectal bleeding, Nausea, Reflux/heartburn - Genitourinary Genitourinary: denies: Incontinence - Musculoskeletal Musculoskeletal: reports: Stiffness, Muscle weakness - Integumentary Integumentary: reports: Dryness, Other (exacerbation of her psoriasis face) - Neurological Neurological: reports: Other (peripheral neuropathy) - Psychiatric Psychiatric: reports: Depression, Anxiety - Hematologic/Lymphatic Hematologic/Lymphatic: reports: Anemia. denies: Recurrent infections - All Other Systems All Other Systems: reports: Reviewed and negative Physical Exam - Physical Exam General Appearance: positive: Alert, Anxious Eyes Bilateral: positive: Other (conjunctivae redness; rubbing eyes with eyelids with psoriasis rash) ENT: positive: No signs of dehydration Neck: positive: Trachea midline Cardiovascular: positive: Regular rate & rhythm Respiratory: positive: No respiratory distress Abdomen: positive: Tenderness, Mass (midlilne at umbilical palpated 4 cm). negative: Distended Skin: positive: Pallor, Dryness, Rash (facial/hands/scalp-due to see filtration plant operator tomorrow) Extremities: positive: No pedal edema Neurologic/Psychiatric: positive: Oriented x3, Depressed mood/affect Palliative Care - POLST Patient has POLST: Yes POLST Status: DNR, Selective Treatment Pain: Pain unchanged, Location (Mid abdominal tenderness, no increase in discomfort. She does have peripheral neuropathy this fluctuates but has not needed medication.) Tiredness/Fatigue: Mild (1-3) Drowsiness/Sedation: None Nausea: None Depression: Moderate (4-6) Anxiety: Moderate (4-6) Dyspnea: None Anorexia: None Sleep: Sleeps poorly (This is related to her exacerbation of her psoriasis, it is severely itchy, burning, comfortable.) Constipation: Yes, Intermittent constipation (Patient has a daily bowel movement, she has had no further rectal bleeding since discontinuing the Avastin. She is having some hard stool, but is moving daily. She is using senna twice a day and 1 capful of MiraLAX) - Palliative Care Discussion: Patient's coping mechanisms include trying to understand and make sense of what is going on in her body, currently she is blaming her own coping to her flare of her psoriasis. I suspect is more multifactorial in this, she is been off her Decadron and gemcitabine can have skin reactions as well. Time spent discussing around her progression of disease, processing some of her emotions, and providing support. Patient does incorporate into her approach of her disease management, her trixie, management of her attitude, and solicitation of support. She did discuss with the oncologist regarding prognosis averages four years, and somewhat anxious that she is 3-1/2 years. She is trying to remain positive as she does still have more treatment options. Results - Lab Results Lab results reviewed: Yes Lab and Imaging Results: CA [id number] Impression and Recommendations - Palliative Care Impression: This is a brandan 83-year-old woman with recurrent ovarian cancer, with history of multiple remissions and now presents with aggression. She is currently receiving gemcitabine, with plan to increase intensity. She is currently experiencing a psoriasis flare, which is adding significantly to her discomfort. Palliative care to continue provide ongoing support regarding pain and symptom management, specifically around anxiety, depression, constipation and anticipatory guidance Recommendations/Counseling Done: 1. 1. Constipation. Patient still continues to struggle with some intermittent symptoms of constipation, instructed to double her MiraLAX to 1 capful twice daily, and continue with her twice daily senna. 2. Recurrent ovarian cancer. Patient to have her gemcitabine intensified, at this point is to continue this and watch tumor markers. Patient is feeling s omewhat better after speaking with the oncologist today, has found this somewhat unnerving. 3. Weight loss. Patient is remained stable at about 115. She does feel like she is eating on a regular basis, she is increased her Ensure, continue to monitor. She is not having any symptoms of anorexia, early satiety, or nausea. New 4. Depression. Patient is definitely impacted by her currently lack of sleep secondary to his psoriasis, has had an emotional roller coaster over the last few weeks, is trying to find a place of center for herself. Counseling provided regarding normalizing her feelings, support for her positive coping mechanisms, review of CBT techniques that are available for her access. 5. Advanced care planning. Patient does have a POLST in place, she still needs to bring in her DPOAE which is her daughter Sis Price [phone]. She is very determined to continue to "fight" disease, and feels currently the benefits out weigh burdens to continue with treatment. Palliative care to continue to provide support for pain and symptom management, and anticipatory guidance Time Spent: 45 minutes with greater than 50% of this done in counseling regarding anxiety and depression, and anticipatory guidance.Will meet with patient in 4 to 6 weeks
== END 2018-12-16 09:40 | disposition home or self-care (01) ==
LOC: PC 09:39
PROVIDERS: ATTEND Nurse Practitioner Adult Health
DX: Z51.5 Encounter for palliative care (principal); C56.9 Malignant neoplasm of unspecified ovary; L40.9 Psoriasis, unspecified; F32.9 Major depressive disorder, single episode, unspecified; F41.9 Anxiety disorder, unspecified; K59.00 Constipation, unspecified; R63.4 Abnormal weight loss; R32 Unspecified urinary incontinence; Z66 Do not resuscitate; Z79.82 Long term (current) use of aspirin; Z79.899 Other long term (current) drug therapy
CPT/HCPCS: 99215

== ENCOUNTER 2018-12-30 09:54 | Outpatient (CLI) | payer MEDICARE, BC ==
--- NOTE | 2018-12-30 13:19 | CONSULTATION NOTE ---
Palliative Care Follow Up - Referral Referring Provider: Dr. Kurt Vance (Dr. Adriel bell) Time of Visit: [id number] Referral setting: [facility] Referral Reason: Depression/Recurrent Ovarian Cancer - Information Sources Records reviewed: Previous records reviewed History/Review of Systems obtained from: Patient Exam limitations: No limitations - History of Present Illness Update Brief HPI Update: Is a brandan 83-year-old woman with recurrent ovarian cancer, she was originally diagnosed in 2016, has had multiple treatments and remissions. Most recently she was on maintenance Avastin until a PET CT scan done on 09/18/2018 showed progression of disease. She is currently on gemcitabine, she is going to continue with 3 weeks on and one-week off. So far she is done fairly well with minimal side effects. She does have great concern that her abdominal tumor that she can palpate around the midline/umbilical area is enlarging. Palpation there is a palpable mass, quite tender, and does appear to have enlarged from last exam. She is quite distressed and trying to put the pieces together, she does better when she can understand what is going on, she reports the pain is a dull ache and feeling heavy. She also has some distention, concerned about ascites. The other significant symptoms is impacting her quality of life, is actually her psoriasis. She does appear less inflammed, but her eyelids are bright red and painful, she is getting Decadron with her chemotherapy treatment, which does appear to help. She is only able to sleep about 3 hours related to the discomfort. She is seeing her rotary drier on Sunday. She is to notify me if she needs something further to deal with sleep. Patient does present with ongoing anxiety and depression, though feels like she is getting "a handle on it". Patient does a lot of self positive talking trying to cope with her underlying illness, and uses humor into flexion. She does understand the seriousness of her illness, but wants to stay on the positive side. Social History - Living Situation Living arrangement: At home Living Situation: With family Support System: Patient lives with her son, who has health issues as well. She has a daughter who she stays in contact with, and they have resolved their differences. She is very involved in her islam community. Medications/Allergies - Medications Home Medications: Ambulatory Orders Medication Instructions Recorded Confirmed Cholecalciferol (Vitamin D3) 5,000 unit PO BID 07/14/15 12/30/18 [Vitamin D3] Diltiazem HCl [Diltiazem 24Hr Cd] 180 mg PO DAILY 07/14/15 12/30/18 Polyethylene Glycol 3350 [Miralax] 17 - 34 gm PO DAILY PRN 07/14/15 12/30/18 Senna [Senokot] 8.6 tab PO BID PRN 07/14/15 12/30/18 Aspirin 325 mg PO DAILY 07/27/15 12/30/18 Calcium Carb/Mag Ox/Zinc Sulf [Hm 1 each PO DAILY 08/04/15 12/30/18 Qoglvup-[id number]-[id number] Cplt] Multivitamin [Multivitamins] 1 each PO DAILY 08/04/15 12/30/18 Mineral Oil, Light/Mineral Oil 2 drop EACHEYE DAILY PRN 09/01/15 12/30/18 [Soothe Xp Eye Drops] Mupirocin 2 units TOP BID PRN 09/01/15 12/30/18 Triamcinolone 0.1% Oint [Kenalog 1 applic TOP BID PRN 09/01/15 12/30/18 0.1% Oint] Raloxifene HCl 60 mg PO DAILY 10/06/15 12/30/18 Losartan [Cozaar] 50 mg PO DAILY 10/17/17 12/30/18 Lactobacillus Acidophilus 1 tab PO DAILY 01/16/18 12/30/18 [Probiotic Acidophilus] Ondansetron HCl [Zofran] 4 mg PO Q6H PRN 10/30/18 12/30/18 Acetaminophen 650 mg PO Q4HR PRN MDD 3000 mg 12/30/18 12/30/18 raNITIdine HCl [Zantac] 150 mg PO DAILY PRN 12/30/18 12/30/18 - Allergies Allergies/Adverse Reactions: Allergies Allergy/AdvReac Type Severity Reaction Status Date / Time morphine Allergy Severe Emesis Verified 12/16/18 10:43 cephalexin monohydrate * AdvReac Severe Edema Verified 12/16/18 10:43 [From Keflex] procaine AdvReac Intermediate Upset Verified 12/16/18 10:43 stomach codeine AdvReac Dizziness Verified 12/16/18 10:43 Review of Systems - Constitutional Constitutional: reports: Fatigue, Weight stable (114). denies: Fever, Chills - Respiratory Respiratory: denies: Cough, SOB at rest - Gastrointestinal Gastrointestinal: reports: Abdominal pain (new and increasing; vague achy and heavy feeling), Abdominal distention, Reflux/heartburn (mostly noted day of therapy-suspect related to decadron), Bloating, Early satiety, Good appetite. denies: Nausea - Genitourinary Genitourinary: reports: Incontinence (intermittent) - Integumentary Integumentary: reports: Rash (psoriasis), Dryness - Neurological Neurological: reports: General weakness - Psychiatric Psychiatric: reports: Depression, Anxiety - Hematologic/Lymphatic Hematologic/Lymphatic: reports: Anemia. denies: Recurrent infections - All Other Systems All Other Systems: reports: Reviewed and negative Physical Exam - Vital Signs Temperature: 36.7 C Pulse Rate: 72 Respiratory Rate: 18 Blood Pressure: 115/56 - Physical Exam General Appearance: positive: No acute distress, Anxious Eyes Bilateral: positive: Other (eyelids inflammed and dry from psoriasis) ENT: positive: No signs of dehydration Neck: positive: No JVD, Trachea midline Cardiovascular: positive: Regular rate & rhythm Respiratory: positive: No respiratory distress Abdomen: positive: Nml bowel sounds, Tenderness, Mass, Distended Skin: positive: Pallor, Dryness, Pruritis, Rash Extremities: positive: No pedal edema Neurologic/Psychiatric: positive: Oriented x3, Mood/affect nml Palliative Care - POLST Patient has POLST: Yes POLST Status: DNR, Selective Treatment Pain: Pain worsening, Location (midabdominal), Severity (3-4/10 has not tried any medication for pain) Tiredness/Fatigue: Moderate (4-6) Drowsiness/Sedation: Moderate (4-6) Nausea: None Depression: Moderate (4-6) Anxiety: Moderate (4-6) Dyspnea: None Anorexia: None Sleep: Sleep improved, Sleeps poorly (related to pruritis/getting 3 hours) Constipation: Yes, Opoid induced, Managed Feelings of wellbeing/Perceived Quality of Life: Good, Acceptable, Worsening Performance Status: Patient remains quite active, is ambulatory and able to manage all her ADLs. She is able to do household tasks, she is focusing on continued walking anywhere from 1 to 2 miles a day. - Palliative Care Discussion: Patient continues to try make sense of her journey, which she understood and what she is heard. We did discuss in the context of language, metastatic disease often is labeled as mets to the lung, liver, brain and bone, but yes that she does have progressive disease with peritoneal carcinomatosis, and this would be considered in the definition that she has which it "has not spread" metastatic disease. Hopefully this is helped her in the context of understanding, encouraged to continue to ask questions of the oncologist and clarify as her coping does better if she understands what is going on. She likes to make sense of things that are happening. Patient continues to work on managing her attitude and and her approach to her illness, she does understand it is terminal and serious in nature, but is hoping again for more time and increased quality of life though is quite fearful and concerned with her increasing tumor burden that she herself can palpate. Counseling provided and psychosocial support. Results - Lab Results Lab results reviewed: Yes Impression and Recommendations - Palliative Care Impression: This is a brandan 83-year-old woman with recurrent ovarian cancer, with history of multiple remissions and now presents with progression. She is currently receiving gemcitabine, with a plan to increase intensity of her treatment. She continues to struggle emotionally with her diagnosis and making sense of her current condition, as well as her recent psoriasis flare. This is adding to her discomfort. Palliative care to continue provide ongoing support regarding pain and symptom management, specifically around anxiety, depression, constipation and anticipatory guidance Recommendations/Counseling Done: 1. Abdominal pain. This is most likely related to increasing tumor burden, we discussed just initiating with acetaminophen 650 mg every 4 hours as needed, not to exceed 3000 mg a day. Patient wanting to try Aleve, discussed concern regarding more side effects and acetaminophen, but if ineffective did review was okay to try Aleve as well. 2. The patient. Patient doing well with taking the senna twice a day, and a capful of MiraLAX 1-2 times a day. Reports her stools are soft and has not had any obstructive symptoms. 3. Recurrent ovarian cancer. Patient with gemcitabine, continue to watch with tumor markers. Did review and address questions patient had regarding disease and disease progression. 4. Depression/anxiety. Patient is impacted by her current lack of sleep secondary to her psoriasis. She is has been on an emotional roller coaster is feeling a little bit better today. Did encourage her to call if she needed malinda ething for sleep, patient trying to avoid more pills. Again counseling provided regarding normalizing her feelings, and encouraging her to continue with her coping mechanisms that are of help for her. 5. GERD. Patient most likely experiencing GERD is related related to her Decadron with her chemotherapy. Directed to schedule Zantac 150 mg in the evenings for the first 2 or 3 days after chemo, and to use as needed. If she finds this is helping her overall discomfort to continue on a daily basis. Patient again wants to avoid pill burden. 6. Advanced care planning. Patient does have a POLST in place, she did bring in her D POA her initial assigned person is her daughter Sis Price [phone] originally done as Sis Lyles, if unable or unwilling to act her [id number] Nikole Matson is designated as alternative. Patient has experienced quite a bit of loss in her life, does understand the seriousness of her illness, and does feel it is easier for her to cope if she understands what is going on. Time Spent: 45 minutes is greater than 50% of this done in counseling regarding pain and symptom management, disease education and anticipatory guidance.
== END 2018-12-30 09:55 | disposition home or self-care (01) ==
LOC: PC 09:54
PROVIDERS: ATTEND Nurse Practitioner Adult Health
DX: Z51.5 Encounter for palliative care (principal); C56.9 Malignant neoplasm of unspecified ovary; C78.6 Secondary malignant neoplasm of retroperitoneum and peritoneum; L40.9 Psoriasis, unspecified; R32 Unspecified urinary incontinence; R10.9 Unspecified abdominal pain; R14.0 Abdominal distension (gaseous); F32.9 Major depressive disorder, single episode, unspecified; F41.9 Anxiety disorder, unspecified; K21.9 Gastro-esophageal reflux disease without esophagitis; T38.0X5A Adverse effect of glucocorticoids and synthetic analogues, initial encounter; Z66 Do not resuscitate; Z79.82 Long term (current) use of aspirin
CPT/HCPCS: 99215

== ENCOUNTER 2019-01-16 08:46 | Outpatient (CLI) | payer MEDICARE, BC | END 2019-01-16 08:47 | disposition home or self-care (01) | LOC: DI 08:46 | PROVIDERS: ATTEND Internal Medicine Hematology & Oncology | DX: C56.2 Malignant neoplasm of left ovary (principal); C78.6 Secondary malignant neoplasm of retroperitoneum and peritoneum | CPT/HCPCS: 93306 ==

== ENCOUNTER 2019-01-20 12:59 | Outpatient (CLI) | payer MEDICARE, BC ==
[2019-01-20] MEDS ORDERED: IOVERSOL 320 100 ML VIAL IVP ONE ×2 (13:28→15:57)
[2019-01-20] MEDS ORDERED: IOVERSOL 320 50 ML VIAL ONE (13:28)
--- NOTE | 2019-01-20 15:43 | CT Report ---
Reason: OVARIAN CANCER STAGING Procedure Date: 01/20/2019 Accession Number: [id number] / [id number] Procedure: CT - SOFT TISSUE NECK W CPT Code: FULL RESULT: EXAM: CT SOFT TISSUE NECK WITH CONTRAST. EXAM DATE: 01/20/2019 02:25 PM. HISTORY: Ovarian cancer, staging evaluation COMPARISONS: CHEST W/ 03/14/2018 9:42 AM CHEST W/ 10/03/2017 10:48 AM CHEST W07/11/2017 9:44 AM. TECHNIQUE: Routine soft tissue neck CT protocol. Reconstructions: Coronal and sagittal. IV contrast: 100 mL Optiray 320. In accordance with CT protocol optimization, one or more of the following dose reduction techniques were utilized for this exam: automated exposure control, adjustment of mA and/or KV based on patient size, or use of iterative reconstructive technique. FINDINGS: There is a 14 x 18 mm left level 4 cervical lymph node. This is directly adjacent to the jugular vein at level of thyroid. This is likely unchanged from prior CT studies, although it was obscured on prior studies by overlap with streak artifact from arm positioning and overlap with jugular vein. Visualized Intracranial Contents: Unremarkable. Orbits: Visualized inferior orbits unremarkable. Sinuses: Visualized paranasal sinuses well aerated. Oral cavity: The visualized oral cavity is unremarkable. The floor of the mouth is symmetric. Pharynx: Pharyngeal mucosa is unremarkable. The base of the tongue is symmetric and unremarkable. The airway is patent. Larynx: Larynx and supraglottic airway are patent without mass lesion. Vocal cords are symmetric. The visualized trachea is unremarkable. Parotid and Submandibular Glands: Symmetric and unremarkable. Lymph Nodes: No enlarged lymph nodes are identified in the cervical, supraclavicular, and visualized superior mediastinal regions. Vascular Structures: Right-sided central venous catheter. Proximal ICA calcifications without evidence of high-grade stenosis. Vessels otherwise unremarkable. Thyroid Gland: Normal. Lung: The visualized lung apices are clear. Bones: No evidence of acute fracture or malalignment. There are moderate degenerative changes. Other: None. IMPRESSION: Likely stable enlarged 1.8 cm left lower cervical/ supraclavicular lymph node. Otherwise normal neck CT. RADIA
--- NOTE | 2019-01-20 15:48 | CT Report ---
Reason: OVARIAN CANCER STAGING Procedure Date: 01/20/2019 Accession Number: [id number] / [id number] Procedure: CT - CHEST W CPT Code: FULL RESULT: EXAM: CT CHEST EXAM DATE: 01/20/2019 02:25 PM. CLINICAL HISTORY: Ovarian cancer staging. COMPARISONS: NECK SOFT TISSUE W/ 01/20/2019 2:25 PM. Multiple prior chest CTs dating back to June 2017. TECHNIQUE: Routine helical CT imaging was performed through the chest. IV contrast: 100 mL Optiray 320. Reconstructions: Coronal and sagittal. In accordance with CT protocol optimization, one or more of the following dose reduction techniques were utilized for this exam: automated exposure control, adjustment of mA and/or KV based on patient size, or use of iterative reconstructive technique. FINDINGS: Lungs/Pleura: Both lung bases demonstrate linear consolidation, scarring versus atelectasis. At the right lung base there is a nodular component, potentially round atelectasis as seen on image 54 series 3. Scarring is seen in both lung apices. In the left upper lobe on image 26 series 3 is a 3 mm nodule. In the right upper lobe on image 25 is a 2 mm nodule. There is no pleural effusion or pneumothorax. Mediastinum: By size criteria, there is no mediastinal or hilar lymphadenopathy. The right and left pulmonary arteries are prominent in caliber, right pulmonary artery measures up to 2.6 cm as seen on image 32 of series 2. Bones: Unremarkable. Visualized Abdomen: See separate report. Other: As seen on image 11 series 2, there is a 1.9 cm left supraclavicular mass, lymphadenopathy. IMPRESSION: Left supraclavicular lymphadenopathy, suspicious for malignancy. RADIA
[2019-01-20] MEDS ORDERED: IOVERSOL 320 50 ML VIAL PO ONE (15:57)
--- NOTE | 2019-01-20 16:09 | CT Report ---
Reason: OVARIAN CANCER STAGING Procedure Date: 01/20/2019 Accession Number: [id number] / [id number] Procedure: CT - Abdomen/Pelvis W CPT Code: FULL RESULT: EXAM: CT ABDOMEN AND PELVIS WITH CONTRAST. EXAM DATE: 01/20/2019 02:26 PM. CLINICAL HISTORY: Ovarian cancer staging. COMPARISONS: ABDOMEN/PELVIS W/ 03/14/2018 9:42 AM. TECHNIQUE: Routine helical CT imaging was performed through the abdomen and pelvis. IV contrast: OPTI-320 100 mL. Enteric contrast: Yes. Reconstructions: Coronal and sagittal. In accordance with CT protocol optimization, one or more of the following dose reduction techniques were utilized for this exam: automated exposure control, adjustment of mA and/or KV based on patient size, or use of iterative reconstructive technique. FINDINGS: Lung Bases: See separate report. Liver: Normal. No masses. Gallbladder/Bile Ducts: Unremarkable. Spleen: Normal. Pancreas: The cystic lesion at the region of the pancreatic body and head junction now measures 1.7 x 1.3 cm as seen on image 28 series 3, a subcentimeter hypodensity in the pancreatic tail seen on image 23 is stable. Adrenal Glands: Normal. Kidneys: Prominence of the left greater than right renal collecting system is similar to the previous study. Peritoneal Cavity/Bowel: Newly seen in the ventral abdomen is a 6.9 x 4.2 x 4.9 cm mass as seen on image 36 series 3 and image 6 series 5. Additional carcinomatosis is seen in the left midabdomen, see image 19 series 5 and image 30 series 3, at least 3.9 x 5.2 cm. There are scattered prominent mesenteric lymph nodes, see image 14 series 5. There is no bowel obstruction or free air. Pelvic Organs: Loculated fluid is seen within the pelvis, image 69 series 3 and image 32 of series 5. The patient is status post hysterectomy. Vasculature: No aneurysms or other significant abnormality. Bones: No aggressive osseous lesions. Other: None. IMPRESSION: Interval recurrence of disease with bulky peritoneal carcinomatosis. RADIA
== END 2019-01-20 13:00 | disposition home or self-care (01) ==
LOC: DI 12:59
PROVIDERS: ATTEND Internal Medicine Hematology & Oncology
DX: C56.2 Malignant neoplasm of left ovary (principal); C78.6 Secondary malignant neoplasm of retroperitoneum and peritoneum; R59.0 Localized enlarged lymph nodes
CPT/HCPCS: 70491; 71260; 74177; Q9967

== ENCOUNTER 2019-01-29 12:28 | Outpatient (CLI) | payer MEDICARE, BC ==
--- NOTE | 2019-01-29 15:36 | CONSULTATION NOTE ---
Palliative Care Follow Up - Referral Referring Provider: Dr. Vance Time of Visit: 6622-5034 [place] [facility] [place] Reason: Depression/Recurrent Ovarian Cancer - Information Sources Records reviewed: Previous records reviewed History/Review of Systems obtained from: Patient Exam limitations: No limitations - History of Present Illness Update Brief HPI Update: This is a brandan 83-year-old woman who has recurrent ovarian cancer, originally diagnosed in 2016 and has had multiple treatments and remissions. She is recently progressed, on her gemcitabine single agent. She met with the oncologist, is planning to start Doxil and restart Avastin. 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 Patient has been able to keep her bowels soft, she has not shown any signs or symptoms of obstruction, she does have increased palpable mass effect as well as some ascites. She denies any increase in pain though she is having increased difficulty with sleep. Patient struggles with her approach to her treatment, had been feeling some depressive symptoms, feels like she is got a handle on it now. She has many challenges, including her son who has had an exacerbation of his illness this week as well. She presents with her weight stable, her pain has not increased, she has had an improvement in her fatigue and feels like she is in a good space today. Social History - Living Situation Living arrangement: At home Living Situation: With family Support System: She lives at home with her son, who has challenges both socially and physically. 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 She is trying to set up things for when she knows no longer here, she reports her daughter would provide assistance with support for him. She continues to hope for longevity to be able to continue in this role, they do struggle with financial stressors. Medications/Allergies - Medications Home Medications: Ambulatory Orders Medication Instructions Recorded Confirmed Cholecalciferol (Vitamin D3) 5,000 unit PO BID 07/14/15 01/29/19 [Vitamin D3] Diltiazem HCl [Diltiazem 24Hr Cd] 180 mg PO DAILY 07/14/15 01/29/19 Polyethylene Glycol 3350 [Miralax] 17 - 34 gm PO DAILY PRN 07/14/15 01/29/19 Senna [Senokot] 8.6 tab PO BID PRN 07/14/15 01/29/19 Aspirin 325 mg PO DAILY 07/27/15 01/29/19 Calcium Carb/Mag Ox/Zinc Sulf [Hm 1 each PO DAILY 08/04/15 01/29/19 [id number] Cplt] Multivitamin [Multivitamins] 1 each PO DAILY 08/04/15 01/29/19 Mineral Oil, Light/Mineral Oil 2 drop EACHEYE DAILY PRN 09/01/15 01/29/19 [Soothe Xp Eye Drops] Mupirocin 2 units TOP BID PRN 09/01/15 01/29/19 Triamcinolone 0.1% Oint [Kenalog 1 applic TOP BID PRN 09/01/15 01/29/19 0.1% Oint] Raloxifene HCl 60 mg PO DAILY 10/06/15 01/29/19 Losartan [Cozaar] 50 mg PO DAILY 10/17/17 01/29/19 Lactobacillus Acidophilus 1 tab PO DAILY 01/16/18 01/29/19 [Probiotic Acidophilus] Ondansetron HCl [Zofran] 4 mg PO Q6H PRN 10/30/18 01/29/19 Acetaminophen 650 mg PO Q4HR PRN MDD 3000 mg 12/30/18 01/29/19 raNITIdine HCl [Zantac] 150 mg PO PRN PRN 12/30/18 01/29/19 traZODone [Desyrel] 50 - 100 mg PO ACHS PRN 01/29/19 01/29/19 - Allergies Allergies/Adverse Reactions: Allergies Allergy/AdvReac Type Severity Reaction Status Date / Time morphine Allergy Severe Emesis Verified 01/27/19 08:37 cephalexin monohydrate * AdvReac Severe Edema Verified 01/27/19 08:37 [From Keflex] procaine AdvReac Intermediate Upset Verified 01/27/19 08:37 stomach codeine AdvReac Dizziness Verified 01/27/19 08:37 Review of Systems - Constitutional Constitutional: reports: Fatigue, Weight stable (117). denies: Fever, Chills - Ears, Nose & Throat Ears, Nose & Throat: reports: Dry mouth - Respiratory Respiratory: denies: SOB at rest - Gastrointestinal Gastrointestinal: reports: Abdominal distention, Bloating, Early satiety, Good appetite. denies: Constipation, Nausea, Vomiting, Reflux/heartburn - Genitourinary Genitourinary: reports: Incontinence (reports increased abd. pressure causing some stress incontinence) - Integumentary Integumentary: reports: Rash, Pruritis (improved; mostly localized to hands now), Dryness - Neurological Neurological: reports: Numbness - Psychiatric Psychiatric: reports: Depression (improved), Anxiety - Hematologic/Lymphatic Hematologic/Lymphatic: reports: Anemia. denies: Recurrent infections - All Other Systems All Other Systems: reports: Reviewed and negative Physical Exam - Vital Signs Temperature: 37.0 C Pulse Rate: 58 Respiratory Rate: 18 Blood Pressure: 122/58 - Physical Exam General Appearance: positive: No acute distress, Alert Eyes Bilateral: positive: Normal inspection ENT: positive: No signs of dehydration Neck: positive: No JVD, Trachea midline Cardiovascular: positive: Regular rate & rhythm Respiratory: positive: No respiratory distress, Breath sounds nml Abdomen: positive: Nml bowel sounds, Tenderness, Mass, Distended Skin: positive: Dryness, Rash (psoriasis much improved;) Extremities: positive: No pedal edema Neurologic/Psychiatric: positive: Oriented x3, Mood/affect nml Palliative Care - POLST Patient has POLST: Yes POLST Status: DNR, Selective Treatment Pain: Pain improved, Location (abdominal Pain reports more of a pressure, denies increased need for medication or intervention. Is finding that tightness more of a band across her abdomen.) Tiredness/Fatigue: Moderate (4-6) Drowsiness/Sedation: None Nausea: None Depression: Mild (1-3) (improved) Anxiety: Moderate (4-6) (worried about understanding her condition; feels positive regarding meeting with MD) Dyspnea: None Anorexia: None (early satiety; eating less at dinner) Sleep: Sleeps poorly Constipation: No, Managed Feelings of wellbeing/Perceived Quality of Life: Fair, Acceptable Performance Status: Patient continues to stay quite active, she is independent in her ADLs. She continues walk on a regular basis and has increased her activity accordingly as her energy has improved. She continues with her volunteer activities, and remains quite functional, would put her at a PPS of 80% - Palliative Care Discussion: Counseling provided regarding patient's ongoing struggle with adjustment to progressive disease, new treatment plan, and personal stressors. Patient continues to hope for not only quality of life, but quantity of life. She remains concerned as a priority regarding her son and the support that she provides him. She does have D POA and [facility] [facility] completed. We will continue to provide anticipatory guidance and support for patient's goals. Results - Lab Results Lab results reviewed: Yes Impression and Recommendations - Palliative Care Impression: This is a brandan 83-year-old woman with recurrent and progressive ovarian cancer, with history of multiple remissions. She is currently transitioning to new treatment plan, as has progressed on her gemcitabine. She continues to struggle emotionally with her diagnosis, she has moderate symptom burden, palliative care to continue provide support regarding symptom management and anticipatory guidance Recommendations/Counseling Done: 1. Depression. Patient has fluctuating mood, she is improved with activity, she is feeling better overall. She continues to struggle with multiple stressors both financial and personal with the care and support of her son and his health issues. She does understand she has progressive disease, is hopeful for more quantity of time as well as quality of time. She does have some anxiety about starting new chemotherapy, patient seth best by understanding currently what is happening and what to expect. 2. Constipation. Patient is managing with titration of her senna and MiraLAX, she is keeping her stool soft and going on a regular basis. She has no obstructive symptoms, though there is palpable mass-effect and noted ascites with distention. 3. Progressive and recurrent ovarian cancer. Patient presents with progression on CT scan, will be changing treatments. Counseling provided and continued understanding of disease and trajectory. 4. GERD. Patient has had no further GERD symptoms, she does have the Zantac to use as needed. She has had no nausea. 5. Abdominal pain. This remains manageable, has not needed any escalating pain support. We will continue to monitor. 6. Advanced care planning. Patient does have POLST in place with DNA R and selective treatment. Her D POA is her daughter Sis Price [phone]. Patient's goals are to continue to focus on positive attitude, extending quantity of life and improving quality of life. She is currently independent, and this is hugely important for her. Counseling provided regarding continued support of patient's goals. Time Spent: 50 minutes with greater than 50% of this done in counseling for symptom management, depression, adjustment illness, and anticipatory guidance.
== END 2019-01-29 12:29 | disposition home or self-care (01) ==
LOC: PC 12:28
PROVIDERS: ATTEND Nurse Practitioner Adult Health
DX: Z51.5 Encounter for palliative care (principal); F32.9 Major depressive disorder, single episode, unspecified; C56.9 Malignant neoplasm of unspecified ovary; R10.9 Unspecified abdominal pain; Z66 Do not resuscitate
CPT/HCPCS: 99215

== ENCOUNTER 2019-02-19 11:06 | Outpatient (CLI) | payer MEDICARE, BC ==
--- NOTE | 2019-02-19 13:26 | CONSULTATION NOTE ---
Palliative Care Follow Up - Referral Referring Provider: Dr. Vance Time of Visit: 12-1300 Referral setting: [facility] [place] Referral Reason: Anxiety/Pal Care - Information Sources Records reviewed: Previous records reviewed History/Review of Systems obtained from: Patient Exam limitations: No limitations - History of Present Illness Update Brief HPI Update: This is a brandan 83-year-old woman who has progressive metastatic ovarian cancer status post multiple lines of treatment. She initiated IV Doxil and Avastin on 02/10. She was quite anxious regarding this, but has done very well, she does report some fatigue, particular the first week and some headache, as well as some mild constipation. She reports by Sunday she was feeling pretty well. She does have some ongoing anemia. Her most pronounced symptom that is new is that she is having some significant night sweats, about every other night, to the point she is needing to change her pajamas 3 times a night. Her tumor marker on was around 1800, she has been working at keeping her bowels soft, currently has no signs of obstruction, though does have increased palpable mass in the umbilical area as well as some mild ascites noted. She reports her pain mostly up in the right lower back area somewhat of a dull feeling, as well as as "stitch in her left rib area. Not to the point where she is needed to take any pain medication, and reports her pain at a 2-3 over 10. She continues to have high anxiety, she is wanting to continue to do as much as she can to treat her disease, though she does understand it is terminal in nature. She continues to hope for the best, and very much is trying to understand the nuances regarding both her treatment and her cancer. She does have issues with psoriasis, this is much improved, though still has residual redness in the eyelids surrounding her eyes, as well as some residual in her nares. Social History - Living Situation Living arrangement: At home Living Situation: With family Support System: Patient lives with her son, who has significant health problems. He has had a decline in his health again. Granddaughter and great grandchild are visiting currently, her daughter is coming on 03/16 for a visit as well. She has a supportive spiritual/uatsdin community as well as a neighbor who is been helpful in navigating her treatment questions and went with her to her last appointment. Medications/Allergies - Medications Home Medications: Ambulatory Orders Medication Instructions Recorded Confirmed Cholecalciferol (Vitamin D3) 5,000 unit PO BID 07/14/15 02/10/19 [Vitamin D3] Diltiazem HCl [Diltiazem 24Hr Cd] 180 mg PO DAILY 07/14/15 02/10/19 Polyethylene Glycol 3350 [Miralax] 17 - 34 gm PO DAILY PRN 07/14/15 02/10/19 Senna [Senokot] 8.6 tab PO BID PRN 07/14/15 02/10/19 Aspirin 325 mg PO DAILY 07/27/15 02/10/19 Calcium Carb/Mag Ox/Zinc Sulf [Hm 1 each PO DAILY 08/04/15 02/10/19 [id number] Cplt] Multivitamin [Multivitamins] 1 each PO DAILY 08/04/15 02/10/19 Mineral Oil, Light/Mineral Oil 2 drop EACHEYE DAILY PRN 09/01/15 02/10/19 [Soothe Xp Eye Drops] Mupirocin 2 units TOP BID PRN 09/01/15 02/10/19 Triamcinolone 0.1% Oint [Kenalog 1 applic TOP BID PRN 09/01/15 02/10/19 0.1% Oint] Raloxifene HCl 60 mg PO DAILY 10/06/15 02/10/19 Losartan [Cozaar] 50 mg PO DAILY 10/17/17 02/10/19 Lactobacillus Acidophilus 1 tab PO DAILY 01/16/18 02/10/19 [Probiotic Acidophilus] Ondansetron HCl [Zofran] 4 mg PO Q6H PRN 10/30/18 02/10/19 Acetaminophen 650 mg PO Q4HR PRN MDD 3000 mg 12/30/18 02/10/19 raNITIdine HCl [Zantac] 150 mg PO PRN PRN 12/30/18 02/10/19 traZODone [Desyrel] 50 - 100 mg PO ACHS PRN 01/29/19 02/10/19 - Allergies Allergies/Adverse Reactions: Allergies Allergy/AdvReac Type Severity Reaction Status Date / Time morphine Allergy Severe Emesis Verified 02/10/19 09:19 cephalexin monohydrate * AdvReac Severe Edema Verified 02/10/19 09:19 [From Keflex] procaine AdvReac Intermediate Upset Verified 02/10/19 09:19 stomach codeine AdvReac Dizziness Verified 02/10/19 09:19 Review of Systems - Constitutional Constitutional: reports: Fatigue (improved but is pacing her activities), Weakness (some LE but improving; is anemic), Night sweats - Eyes Eyes: reports: Vision loss - Cardiovascular Cardiovascular: reports: Decr. exercise tolerance - Respiratory Respiratory: denies: SOB at rest - Gastrointestinal Gastrointestinal: reports: Abdominal pain (mild), Abdominal distention, Constipation (had increased problems for one week with chemo), Bloating, Good appetite. denies: Nausea - Genitourinary Genitourinary: reports: Incontinence (worsening with increased abdominal pressure and fluid intake) - Musculoskeletal Musculoskeletal: reports: Stiffness, Muscle weakness, Other (reports still ambulatiang 10 minutes 3 x a day) - Integumentary Integumentary: reports: Pruritis, Dryness (psoriasis) - Neurological Neurological: reports: General weakness, Memory problems (some forrgetfulness) - Psychiatric Psychiatric: reports: Anxiety. denies: Depression - Hematologic/Lymphatic Hematologic/Lymphatic: reports: Anemia - All Other Systems All Other Systems: reports: Reviewed and negative Physical Exam - Vital Signs Pulse Rate: 60 Respiratory Rate: 18 Blood Pressure: 140/82 - Physical Exam General Appearance: positive: Mild distress, Anxious Eyes Bilateral: positive: Conjunctivae nml. negative: No lid inflammation (redness and dry around eyes) ENT: positive: Other (poor dentition) Neck: positive: No JVD, Trachea midline. negative: Lymphadenopathy (R), Lymphadenopathy (L) Cardiovascular: positive: Regular rate & rhythm Respiratory: positive: No respiratory distress, Breath sounds nml Abdomen: positive: Tenderness (over umbilicus and LUQ at rib line), Mass, Distended Skin: positive: Pallor, Dryness Extremities: positive: Pedal edema (slight pedal edema in ankles; new for patient) Neurologic/Psychiatric: positive: Oriented x3, Mood/affect nml Palliative Care - POLST Patient has POLST: Yes POLST Status: DNR, Selective Treatment Pain: Pain worsening (but still tolerable) Tiredness/Fatigue: Moderate (4-6) Drowsiness/Sedation: Moderate (4-6) (is taking naps/resting when tired) Nausea: None Depression: None Anxiety: Moderate (4-6) Dyspnea: None Anorexia: None Sleep: Variable sleep pattern Constipation: Yes, Intermittent constipation Feelings of wellbeing/Perceived Quality of Life: Fair, Acceptable Performance Status: Since activity tolerance and activity is decreased along with her decreasing blood counts. She still remains independent, able to drive, and manage her own ADLs. I would put her at a PPS of 80% - Palliative Care Discussion: Patient continues to process her diagnosis, her progressive disease, and just ongoing anxiety regarding her treatment and treatment response. She feels she seth best by having information, and understanding what is going on, does have many questions about the "what next" if there is further treatment options, and about immunotherapy. Did encourage her to follow-up with her oncologist regarding her concerns. She does feel like this is been a good relationship and can ask him questions. We did discuss again just the palliative nature of her treatment, patient is trying to not think about too much about the future, but her daughter is coming to visit 03/16. She does have plans, and she does have some concept of how she wants her end-of-life to go, has not discussed this with her family as far as what support they would like to provide her what is possible. Did encourage her to start the conversation as in the future is not a "if" but a "when". Results - Lab Results Lab results reviewed: Yes Impression and Recommendations - Palliative Care Impression: A brandan 83-year-old woman with recurrent and progressive ovarian cancer, with history of multiple remissions. She is currently transitioning to new treatment plan of Doxil and Avastin, remains quite anxious regarding side effects. She continues to struggle emotionally with her diagnosis and anxiety, she does have moderate symptom burden, as well as progressive tumor burden. Palliative care to continue provide support regarding symptom management and anticipatory sasha nce. Recommendations/Counseling Done: 1. Anxiety. Patient does continue with fluctuating mood, alternating with depressive symptoms, she is feeling somewhat fatigued related to her anemia. She continues to struggle with multiple stressors both financial and with the care of the support of her son and his health issues. She remains hopeful about quantity as well as quality of time. Counseling provided regarding anticipatory guidance, support given for coping mechanisms, and cognitive behavioral therapy for helping to reframe her current anxieties. 2. Constipation. This is exacerbated by her recent treatment, she is going daily now, we did discuss preemptively taking increase senna was first few days of her treatment. She is titrating her senna and MiraLAX appropriately. She is trying to keep it soft and going on a regular basis. Currently she has no obstructive symptoms, though there is palpable mass effect and noted ascites with distention. 3. Progressive and recurrent ovarian cancer. Patient presents with progression on CT scan, as well as increasing Ca1 25. Counseling provided and continued exploration of her understanding of disease and anticipatory guidance. 4. Abdominal pain. This remains manageable, not needing any medication at this point in time, will continue to monitor. 5. Advanced care planning. Patient does have a POLST in place with DNA R and selective treatment. Her D POA is her daughter Sis Price [phone]. Patient continues to try and focus on the positive, her goal is to extend quantity of life improve quality of life. She would like though to have a quality end of life, remaining independent is hugely important for her. We did discuss approaching the conversation regarding in the future starting conversations with her daughter who is visiting soon. Counseling provided regarding continued support of patient's goals. Time Spent: 60 minutes with greater than 50% of this done in counseling regarding goals of care, pain and symptom management, coping, and anticipatory guidance.
== END 2019-02-19 11:07 | disposition home or self-care (01) ==
LOC: PC 11:06
PROVIDERS: ATTEND Nurse Practitioner Adult Health
DX: Z51.5 Encounter for palliative care (principal); F41.9 Anxiety disorder, unspecified; C56.9 Malignant neoplasm of unspecified ovary; R61 Generalized hyperhidrosis; R32 Unspecified urinary incontinence; R53.1 Weakness; K59.00 Constipation, unspecified; R10.9 Unspecified abdominal pain; Z66 Do not resuscitate; Z79.82 Long term (current) use of aspirin; Z79.899 Other long term (current) drug therapy
CPT/HCPCS: 99215

== ENCOUNTER 2019-03-19 08:49 | Outpatient (CLI) | payer MEDICARE, BC ==
--- NOTE | 2019-03-19 10:56 | CONSULTATION NOTE ---
Palliative Care Follow Up - Referral Referring Provider: Dr. Geovanna Carias Time of Visit: 0900-10 Referral setting: [facility] [place] Referral Reason: Recurrent Ovarian Ca/Fatigue/Goals of Care - Information Sources Records reviewed: Previous records reviewed History/Review of Systems obtained from: Patient Exam limitations: No limitations - History of Present Illness Update Brief HPI Update: This is of anxious 83-year-old woman has progressive metastatic ovarian cancer, status post multiple lines of treatment. She is currently on Doxil and Avastin since 01/2019. She is quite anxious as her CA 129 continues to increase. She is having increased difficulty with abdominal pressure, causing more shortness of breath, on examination her stomach is soft no masses palpated, but noted increase in distension, she has tenderness in her left upper quadrant and right rib area. She is using her MiraLAX to keep her bowels soft, but is experiencing significant fatigue and declining activity and tolerance. Reports she is eating adequate amounts, but has had another several pound weight loss and weight seen at 111.5 today. Patient at baseline is somewhat of an energizer bunny, she is very active in her volunteer activities, she oversees to household and also provide support for her son who has significant health problems as well. She is finding she needs to pace her activity, has been sleeping more, and feeling overwhelmed. She has not been doing her walking for the last couple of weeks, she usually walks a couple of miles a day. Her abdominal discomfort is not to the point she is needed more than just a little acetaminophen, she occasionally takes an Advil. She does have some pain radiating around her middle/back. She has had problems with the psoriasis, mostly on her hands and face, she is waiting to take her prednisone 5 mg dosing, to maximize her immune response in her believe system. She recently had a very nice visit from her daughter and her , and were able to talk a little bit about her decline in the future. Social History - Living Situation Living arrangement: At home Living Situation: With family Support System: Patient lives in her own home, for which he oversees. Her son who is with significant health problems as well, she does oversee him, she reports he is having health issues as well. Medications/Allergies - Medications Home Medications: Ambulatory Orders Medication Instructions Recorded Confirmed Cholecalciferol (Vitamin D3) 5,000 unit PO BID 07/14/15 03/20/19 [Vitamin D3] Diltiazem HCl [Diltiazem 24Hr Cd] 180 mg PO DAILY 07/14/15 03/20/19 Polyethylene Glycol 3350 [Miralax] 17 - 34 gm PO DAILY PRN 07/14/15 03/20/19 Senna [Senokot] 8.6 tab PO BID PRN 07/14/15 03/20/19 Aspirin 325 mg PO DAILY 07/27/15 03/20/19 Calcium Carb/Mag Ox/Zinc Sulf [Hm 1 each PO DAILY 08/04/15 03/20/19 Ngfeosh-Lcdvaejds-Yair Cplt] Multivitamin [Multivitamins] 1 each PO DAILY 08/04/15 03/20/19 Mineral Oil, Light/Mineral Oil 2 drop EACHEYE DAILY PRN 09/01/15 03/20/19 [Soothe Xp Eye Drops] Mupirocin 2 units TOP BID PRN 09/01/15 03/20/19 Triamcinolone 0.1% Oint [Kenalog 1 applic TOP BID PRN 09/01/15 03/20/19 0.1% Oint] Raloxifene HCl 60 mg PO DAILY 10/06/15 03/20/19 Losartan [Cozaar] 50 mg PO DAILY 10/17/17 03/20/19 Lactobacillus Acidophilus 1 tab PO DAILY 01/16/18 03/20/19 [Probiotic Acidophilus] Ondansetron HCl [Zofran] 4 mg PO Q6H PRN 10/30/18 03/20/19 Acetaminophen 650 mg PO Q4HR PRN MDD 3000 mg 12/30/18 03/20/19 traZODone [Desyrel] 50 - 100 mg PO ACHS PRN 01/29/19 03/20/19 Prednisone 5 mg PO PRN PRN 03/03/19 03/20/19 - Allergies Allergies/Adverse Reactions: Allergies Allergy/AdvReac Type Severity Reaction Status Date / Time morphine Allergy Severe Emesis Verified 03/10/19 13:17 cephalexin monohydrate * AdvReac Severe Edema Verified 03/10/19 13:17 [From Keflex] procaine AdvReac Intermediate Upset Verified 03/10/19 13:17 stomach codeine AdvReac Dizziness Verified 03/10/19 13:17 Review of Systems - Constitutional Constitutional: reports: Fatigue, Weight loss (111.5). denies: Fever, Chills - Eyes Eyes: reports: Vision loss - Ears, Nose & Throat Ears, Nose & Throat: reports: Nasal congestion, Other (poor dentition) - Cardiovascular Cardiovascular: reports: Exertional dyspnea, Decr. exercise tolerance. denies: Edema - Respiratory Respiratory: reports: SOB with exertion. denies: Cough, SOB at rest - Gastrointestinal Gastrointestinal: reports: Good appetite. denies: Constipation, Rectal bleeding, Nausea, Reflux/heartburn - Genitourinary Genitourinary: reports: Incontinence (stress; mild) - Musculoskeletal Musculoskeletal: reports: Muscle weakness - Integumentary Integumentary: reports: Dryness, Other (psoriasis) - Neurological Neurological: reports: General weakness - Psychiatric Psychiatric: reports: Depression, Anxiety - Hematologic/Lymphatic Hematologic/Lymphatic: reports: Anemia - All Other Systems All Other Systems: reports: Reviewed and negative Physical Exam - Vital Signs Temperature: 36.9 C Pulse Rate: 96 Respiratory Rate: 18 O2 Saturation: 97 (ra @ rest) Blood Pressure: 99/57 - Physical Exam General Appearance: positive: Alert, Anxious ENT: positive: No signs of dehydration Neck: positive: No JVD, Trachea midline Cardiovascular: positive: Regular rate & rhythm Respiratory: positive: No respiratory distress, Breath sounds nml, Diminished in bases. negative: Wheezes, Rales, Rhonchi Abdomen: positive: Nml bowel sounds, Tenderness, Distended. negative: Guarding, Mass Skin: positive: Pallor, Dryness, Rash Extremities: positive: No pedal edema Neurologic/Psychiatric: positive: Oriented x3, Depressed mood/affect Palliative Care - POLST Patient has POLST: Yes POLST Status: DNR, Selective Treatment Pain: Pain worsening, Location (See hpi), Severity (2/10) Tiredness/Fatigue: Severe (7-10) Drowsiness/Sedation: Severe (7-10) Nausea: None Depression: Mild (1-3) Anxiety: Mild (1-3) Dyspnea: Moderate (4-6) Anorexia: None Sleep: Variable sleep pattern Constipation: Yes, Managed Feelings of wellbeing/Perceived Quality of Life: Fair, Acceptable, Worsening Performance Status: Patient is still able to attend her ADLs, is still driving. She just feels an overwhelming sense of tiredness and fatigue. She has not been doing her regular walking, which is caused her some distress. - Palliative Care Discussion: Patient admits to being nervous about her new regimen, she does understand the seriousness of her illness, and she is starting to run out of options to manage her disease. Patient is finding the fatigue and anemia overwhelming, and impacting her emotional health as well. Her daughter came this last weekend, and felt like they had a good talk and shared honestly about where she was and that she wanted to do understand she was on her last options. We talked about end-of-life plans as far as ashes plans. Her daughter just retired, and the plan would be for end of life for her to come to the home or down to her home. She is worried about her son who is declining, her daughter will help manage his health care needs and transition after she is gone. She will have to sell the house to be able to meet his care needs. She is not distressed, is hoping for a longer period of time, her goal had been to outlive her son. But recognizing this may not be realistic in the end. She likes to stay positive, but admits it was helpful to have this conversation with her daughter. Results - Lab Results Lab results reviewed: Yes Impression and Recommendations - Palliative Care Impression: This is a brandan 83-year-old woman with recurrent and progressing ovarian cancer, with history of several remissions and multiple lines of treatment. She has currently transition to new treatment of Doxil and Avastin, and finding that anemia, fatigue, and her declining functional status is quite overwhelming. Her goals include continue to "fight", as long as her quality of life is not further impacted. She is quite realistic as far as planning for end of life, but is hoping being for the best for both quality and quantity. Palliative care to continue provide support regarding symptom management and anticipatory guidance. Recommendations/Counseling Done: 1. Abdominal pain. Suspect this is related to tumor progression, patient does not present with acute signs or symptoms of ascites. She is able to keep her bowels soft, but is starting to have increased pressure and noticing increased pressure on her diaphragm resulting in increased shortness of breath. She does not feel it severe enough to take medication, she does use intermittently acetaminophen. She reports she has bad responses to opioids, but is willing to continue to explore what we might do if her pain worsens. 2. Fatigue. This is multifactorial in origin, patient does present with activity intolerance, increased anemia, and finding is impacting significantly her quality of life. Discussed pacing activities, reframing as it does cause her a significant amount of anxiety, and prioritizing her activities. 3. Constipation. She is doing well with her MiraLAX and senna, she is not had any further bleeding she does have a hemorrhoid. She feels like she is titrating accordingly 4. Anxiety. Patient continues with fluctuating symptoms, alternating with depression. With her most recent treatment she is feeling much more down, worried about getting overwhelmed again. Counseling provided to normalize her current feelings and grief and loss process. 5. Advanced care planning. Patient was able to have further conversation regarding her goals of care, and plan for end of life with her daughter. She is feeling somewhat relieved to have having that conversation. She still has far as her goals are to continue treatment as long as the benefits do not outweigh the burdens and her quality of life remains tolerable.Did offer her again medical palliative care social media intern and/or rheostat assembler actuality is a important component of her coping. Time Spent: 60 minutes with greater than 50% of this done in counseling regarding depression, anxiety, fatigue, and anticipatory guidance as well as revisiting goals.
== END 2019-03-19 08:50 | disposition home or self-care (01) ==
LOC: PC 08:49
PROVIDERS: ATTEND Nurse Practitioner Adult Health
DX: Z51.5 Encounter for palliative care (principal); C56.9 Malignant neoplasm of unspecified ovary; C79.9 Secondary malignant neoplasm of unspecified site; R18.8 Other ascites; R10.9 Unspecified abdominal pain; F41.9 Anxiety disorder, unspecified; R06.02 Shortness of breath; R53.83 Other fatigue; K59.00 Constipation, unspecified; R32 Unspecified urinary incontinence; H54.7 Unspecified visual loss; Z66 Do not resuscitate; Z79.82 Long term (current) use of aspirin; Z79.52 Long term (current) use of systemic steroids
CPT/HCPCS: 99215

== ENCOUNTER 2019-04-21 10:28 | Outpatient (CLI) | payer MEDICARE, BC ==
--- NOTE | 2019-04-21 17:24 | CONSULTATION NOTE ---
Palliative Care Follow Up - Referral Referring Provider: Dr. Kurt Vance (Dr. Morel) Time of Visit: Referral setting: [facility] [place] Referral Reason: Depression/anxiety/Recurrent Ovarian CA - Information Sources Records reviewed: RN notes reviewed, Previous records reviewed History/Review of Systems obtained from: Patient Exam limitations: No limitations - History of Present Illness Update Brief HPI Update: This is an anxious 83-year-old woman who has progressive metastatic ovarian cancer, status post multiple lines of treatment, she is currently on Doxil and Avastin since 01/2019. She has had a decrease in her Ca1 29, and is quite pleased. She has had some decrease in her abdominal pressure as far as up on h er diaphragm, but still continues with increased left upper quadrant pain and discomfort as well as can palpate a mass-effect. She she is using her MiraLAX to keep her bowels soft, reports her fatigue is somewhat improved, and has regained a few pounds that she lost. She is due for CT scans of the neck and chest and abdomen, and has had a severe exacerbation of her psoriasis. Patient's abdominal discomfort at this point is not needed more than occasional intermittent acetaminophen, she is noted a new tender spot on her right rib chest area. She feels some of the pain is spasmatic, particularly in old scarring area. She denies any nausea has not had any vomiting. Her psoriasis flared particularly around her mouth and lips, her hands are particularly bad at this time 2. She has been urged to make a appointment with her promotions director as soon as possible. She is having significant burning sensation, and having difficulty sleeping with increased discomfort. She does present as quite tearful, as well as quite anxious with the pending exams. She is getting somewhat fatigued with treatment, though wants to continue to move forward, alternately is wondering how much longer she can benefit as well as tolerate ongoing treatment.Patient does have a lot of anxiety, and does like to process with palliative care given her fluctuating mood, and address her multiple questions regarding anticipatory guidance and her cancer care Social History - Living Situation Living arrangement: At home Living Situation: With family Support System: Her son lives with her, who has significant health problems, she is quite excited though they have finally completed and received his SSRI, she is now completing his Medicare and insurance. She is feeling at this point in time that if anything were to happen to her, she is almost done with what she needs to do as far as her work around getting him the resources he needs. Medications/Allergies - Medications Home Medications: Ambulatory Orders Medication Instructions Recorded Confirmed Cholecalciferol (Vitamin D3) 5,000 unit PO BID 07/14/15 04/07/19 [Vitamin D3] Diltiazem HCl [Diltiazem 24Hr Cd] 180 mg PO DAILY 07/14/15 04/07/19 Polyethylene Glycol 3350 [Miralax] 17 - 34 gm PO DAILY PRN 07/14/15 04/07/19 Senna [Senokot] 8.6 tab PO BID PRN 07/14/15 04/07/19 Aspirin 325 mg PO DAILY 07/27/15 04/07/19 Calcium Carb/Mag Ox/Zinc Sulf [Hm 1 each PO DAILY 08/04/15 04/07/19 Zkeftoo-Bruidxemj-Nyjv Cplt] Multivitamin [Multivitamins] 1 each PO DAILY 08/04/15 04/07/19 Mineral Oil, Light/Mineral Oil 2 drop EACHEYE DAILY PRN 09/01/15 04/07/19 [Soothe Xp Eye Drops] Mupirocin 2 units TOP BID PRN 09/01/15 04/07/19 Triamcinolone 0.1% Oint [Kenalog 1 applic TOP BID PRN 09/01/15 04/07/19 0.1% Oint] Raloxifene HCl 60 mg PO DAILY 10/06/15 04/07/19 Losartan [Cozaar] 50 mg PO DAILY 10/17/17 04/07/19 Lactobacillus Acidophilus 1 tab PO DAILY 01/16/18 04/07/19 [Probiotic Acidophilus] Ondansetron HCl [Zofran] 4 mg PO Q6H PRN 10/30/18 04/07/19 Acetaminophen 650 mg PO Q4HR PRN MDD 3000 mg 12/30/18 04/07/19 traZODone [Desyrel] 50 - 100 mg PO ACHS PRN 01/29/19 04/07/19 Prednisone 5 mg PO PRN PRN 03/03/19 04/07/19 Ferrous Sulfate [High Potency Iron] 27 mg PO PRN PRN MDD 27 04/07/19 04/07/19 - Allergies Allergies/Adverse Reactions: Allergies Allergy/AdvReac Type Severity Reaction Status Date / Time morphine Allergy Severe Emesis Verified 04/07/19 10:48 cephalexin monohydrate * AdvReac Severe Edema Verified 04/07/19 10:48 [From Keflex] procaine AdvReac Intermediate Upset Verified 04/07/19 10:48 stomach codeine AdvReac Dizziness Verified 04/07/19 10:48 Review of Systems - Constitutional Constitutional: reports: Fatigue, Weight stable (114). denies: Fever, Chills - Eyes Eyes: reports: Vision loss - Ears, Nose & Throat Ears, Nose & Throat: reports: Nasal congestion, Postnasal drainage, Dental decay, Dry mouth, Other (psorasis flair with lips/mucousa) - Cardiovascular Cardiovascular: denies: Edema - Respiratory Respiratory: denies: Cough, SOB at rest - Gastrointestinal Gastrointestinal: reports: Abdominal distention (improved), Bloating, Good appetite. denies: Constipation, Diarrhea, Nausea, Reflux/heartburn - Genitourinary Genitourinary: reports: Incontinence (pushing fluids; feeling more pressure on bladder with mild retentive symptoms) - Musculoskeletal Musculoskeletal: reports: Stiffness - Integumentary Integumentary: reports: Rash, Pruritis, Lesions, Dryness - Psychiatric Psychiatric: reports: Depression, Anxiety - Hematologic/Lymphatic Hematologic/Lymphatic: reports: Anemia (improved). denies: Recurrent infections - All Other Systems All Other Systems: reports: Reviewed and negative Physical Exam - Vital Signs Temperature: 36.7 C Pulse Rate: 85 Respiratory Rate: 18 Blood Pressure: 141/85 - Physical Exam General Appearance: positive: Mild distress, Anxious Eyes Bilateral: negative: No lid inflammation (mild inflammation of lids) ENT: positive: Other (lips/perioral area bright red and blisteres with psoraisis) Cardiovascular: positive: Regular rate & rhythm Respiratory: positive: No respiratory distress, Breath sounds nml Abdomen: positive: Nml bowel sounds, Tenderness, Distended (mild) Skin: positive: Pallor, Dryness, Pruritis, Rash Extremities: positive: No pedal edema Neurologic/Psychiatric: positive: Oriented x3, Depressed mood/affect Palliative Care - POLST Patient has POLST: Yes POLST Status: DNR, Selective Treatment Pain: Pain unchanged, Location (LUQ), Comment (pain severe from psorasis on face/triamcinolone provides some relieft) Tiredness/Fatigue: Moderate (4-6) Drowsiness/Sedation: Mild (1-3) Nausea: None Depression: Mild (1-3) Anxiety: Mild (1-3) Dyspnea: None Anorexia: None Sleep: Sleeps poorly (2 hours at time with psoraisis flare discomfort) Constipation: No Feelings of wellbeing/Perceived Quality of Life: Fair, Worsening Performance Status: Patient still ambulatory and able to manage her own ADLs, fatigue is improved somewhat and is participating more in her ongoing volunteer activities with bett er tolerance. She does drive and continues to walk but not as frequently or as far currently. - Palliative Care Discussion: Patient reflective on her journey today, just the persistence of treatment, the ups and downs, the persistent anxiety. She is always wanted to be really positive, we did reflect some on her experience of caring for her daughter with a brain tumor, wondering about what is a be like for her. She continues to set a goal of out living her son who currently is lives with her, but is feeling better as putting more pieces in place for his insurance and health care. She has had good conversation with her daughter regarding her end-of-life care, and feels like she has a plan in place. Results - Lab Results Lab results reviewed: Yes Impression and Recommendations - Palliative Care Impression: This is a brandan 83-year-old woman with recurrent and progressing ovarian cancer, with history of several remissions and multiple lines of treatment. She has had improved symptom management with decreased abdominal pressure, improved fatigue, but does present with some increased persistent depressive feelings and anxiety. She is due to be scanned, this is increased her anxiety, she is also had a flare with her psoriasis adding to severe discomfort. Her goals remain to continue treatment as long as her quality of life is not further impacted. Palliative care to continue provide support regarding symptom management and anticipatory guidance Recommendations/Counseling Done: 1. Abdominal pain. This continues to be persistent, does not have acute symptoms, she is able to keep her bowels soft but does have increased pressure. She does feel her shortness of breath is improved with less pressure on her diaphragm. She does not feel she is at a point of needing medication, will continue to monitor for if her pain worsens. 2. Fatigue. This is multifactorial in origin, she does report some improvement over the last week, she has been able to participate in more of her activities, which has improved her mood. 3. Constipation. She is doing well titrating her MiraLAX and senna, no further bleeding. 4. Anxiety. Patient continues with fluctuating symptoms, and presents with tearfulness and some persistent depressive feelings. She does have a pending scan which increases her anxiety, though she is pleased she has moved along and planning for her son. Counseling provided regarding normalizing grief and loss, as well as processing some of the past regrets. 5. Psoriasis, exacerbation. This is poorly controlled, she is following up with her promotions director as soon as possible. It is a huge source of discomfort, but she is quite anxious about not having any further depressive's treatment and she thinks this may have put her at risk for her cancer to begin with. 6. Advanced care planning. Patient does feel like she has an end-of-life plan, she has had support from her daughter as far as her goals. She is taking care of things as far as taking care of her son, she has not agreed for further support from palliative care team, will continue to meet with palliative care [employer]UST[employer]ER for support. Time Spent: 45 minutes with getting 50% of this done in counseling regarding anxiety, symptom management, and anticipatory guidance. Will see patient after scan and oncology appointment.
== END 2019-04-21 10:29 | disposition home or self-care (01) ==
LOC: PC 10:28
PROVIDERS: ATTEND Nurse Practitioner Adult Health
DX: Z51.5 Encounter for palliative care (principal); C79.9 Secondary malignant neoplasm of unspecified site; C56.9 Malignant neoplasm of unspecified ovary; G89.3 Neoplasm related pain (acute) (chronic); R53.83 Other fatigue; K59.00 Constipation, unspecified; F41.8 Other specified anxiety disorders; L40.9 Psoriasis, unspecified; Z79.899 Other long term (current) drug therapy; Z66 Do not resuscitate; Z63.6 Dependent relative needing care at home
CPT/HCPCS: 99215

== ENCOUNTER 2019-05-19 14:19 | Outpatient (CLI) | payer MEDICARE, BC ==
--- NOTE | 2019-05-19 17:57 | CONSULTATION NOTE ---
Palliative Care Follow Up - Referral Referring Provider: Dr. Kurt Vance Time of Visit: 8329-5784 Referral setting: [facility] [place] Referral Reason: Depression/Anxiety/Recurrent Ovarian CA - Information Sources Records reviewed: Previous records reviewed History/Review of Systems obtained from: Patient Exam limitations: No limitations - History of Present Illness Update Brief HPI Update: This is a 83-year-old woman who has progressive metastatic ovarian cancer, status post multiple lines of treatment, she is currently on Doxil and Avastin since 01/2019. She does understand she is nearing end of treatment options, and this causes her significant amount of anxiety. Her last meeting with oncologist, presented with mixed response to her current treatment by CT scan, but her Ca1 25 continues to decline. She is continuing on with treatment as she has been tolerating it fairly well. Patient presents with fairly severe anxiety today, she has had a significant emotional journey over the last 2 weeks. Her daughter's [id number] recently , though this was expected it still quite impactful. 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 She does admit she has most likely overdone, she is quite exhausted. She is also recently planned a [place] dinner, though this is a positive experience, it was quite tiring for her. She does present with increased fatigue, some increase stomach abdominal distention, she is able to keep her bowels moving with the MiraLAX. She has had no nausea or vomiting, just some aches and pains. Of concern is she does have a lymph node in her right submandibular area, it had been tender is nontender today. It is palpable to touch, easily movable. She also has a small less than 1 cm johnson skin lesion under neither psoriasis as well as a small one on her right cheek. She had a friend who had head neck cancer, she is quite distressed. Does not show up on her recent CT scan. Her other new symptom is she reports she has had a couple days of increased weakness, perceived shortness of breath with activity, and intermittent heart palpitations that have recently solved with sitting down. He has not had any further of those today, these do not include chest pain, she does have a history of atrial fib. Her last echo did show some intermittent PVCs, it is still pending final results as is to be reviewed by her product introduction manager Dr. Mullen. But in review did not demonstrate any significant concerns. Patient psoriasis which involves her face and arms, as well as hands. Does appear to be improving on her new medication from dermatology, Otesla. She is pleased and it is more comfortable. And lastly patient does present today with several pounds of weight loss, she reports she is eating well, has had some taste changes, was told she may lose weight on her new dermatology medication, but is also reporting some early satiety. Social History - Living Situation Living arrangement: At home Living Situation: With family Support System: Patient has her own home, her son lives with her who has significant health problems and decline. She is making progress as far as planning for his financial and medical needs. 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 She is strongly independent, and has difficulty asking for help Medications/Allergies - Medications Home Medications: Ambulatory Orders Medication Instructions Recorded Confirmed Cholecalciferol (Vitamin D3) 5,000 unit PO BID 07/14/15 05/05/19 [Vitamin D3] Diltiazem HCl [Diltiazem 24Hr Cd] 180 mg PO DAILY 07/14/15 05/05/19 Polyethylene Glycol 3350 [Miralax] 17 - 34 gm PO DAILY PRN 07/14/15 05/05/19 Senna [Senokot] 8.6 tab PO BID PRN 07/14/15 05/05/19 Aspirin 325 mg PO DAILY 07/27/15 05/05/19 Calcium Carb/Mag Ox/Zinc Sulf [Hm 1 each PO DAILY 08/04/15 05/05/19 [id number] Cplt] Multivitamin [Multivitamins] 1 each PO DAILY 08/04/15 05/05/19 Mineral Oil, Light/Mineral Oil 2 drop EACHEYE DAILY PRN 09/01/15 05/05/19 [Soothe Xp Eye Drops] Mupirocin 2 units TOP BID PRN 09/01/15 05/05/19 Triamcinolone 0.1% Oint [Kenalog 1 applic TOP BID PRN 09/01/15 05/05/19 0.1% Oint] Raloxifene HCl 60 mg PO DAILY 10/06/15 05/05/19 Losartan [Cozaar] 50 mg PO DAILY 10/17/17 05/05/19 Lactobacillus Acidophilus 1 tab PO DAILY 01/16/18 05/05/19 [Probiotic Acidophilus] Ondansetron HCl [Zofran] 4 mg PO Q6H PRN 10/30/18 05/05/19 Acetaminophen 650 mg PO Q4HR PRN MDD 3000 mg 12/30/18 05/05/19 traZODone [Desyrel] 50 - 100 mg PO ACHS PRN 01/29/19 05/05/19 Prednisone 5 mg PO PRN PRN 03/03/19 05/05/19 Ferrous Sulfate [High Potency Iron] 27 mg PO PRN PRN MDD 27 04/07/19 05/05/19 Apremilast [Otezla] 1 tab PO PRN PRN 05/05/19 05/05/19 - Allergies Allergies/Adverse Reactions: Allergies Allergy/AdvReac Type Severity Reaction Status Date / Time morphine Allergy Severe Emesis Verified 05/05/19 13:06 cephalexin monohydrate * AdvReac Severe Edema Verified 05/05/19 13:06 [From Keflex] procaine AdvReac Intermediate Upset Verified 05/05/19 13:06 stomach codeine AdvReac Dizziness Verified 05/05/19 13:06 Review of Systems - Constitutional Constitutional: reports: Fatigue, Poor appetite, Weight loss (110.3). denies: F ever, Chills - Ears, Nose & Throat Ears, Nose & Throat: reports: Postnasal drainage, Dry mouth - Cardiovascular Cardiovascular: reports: Palpitations (has had two days with needing to rest and noted "heart palpatation" no pain, and not sustained; resolved with sitting down. None today), Lightheadedness (in am on awakening), Decr. exercise tolerance - Respiratory Respiratory: reports: SOB with exertion. denies: SOB at rest - Gastrointestinal Gastrointestinal: reports: Abdominal pain (mild), Abdominal distention, Constipation (keeps bowels loose), Poor appetite, Early satiety, Other (tast changes). denies: Rectal bleeding, Nausea, Reflux/heartburn - Genitourinary Genitourinary: reports: Incontinence (mild) - Musculoskeletal Musculoskeletal: reports: Stiffness, Muscle weakness - Integumentary Integumentary: reports: Dryness, Nail changes, Hair changes (thinning), Other (psorasis face and hands improving) - Neurological Neurological: reports: General weakness - Psychiatric Psychiatric: reports: Depression, Anxiety - Endocrine Endocrine: reports: Intolerance to cold - Hematologic/Lymphatic Hematologic/Lymphatic: reports: Anemia (improved). denies: Recurrent infections - All Other Systems All Other Systems: reports: Reviewed and negative Physical Exam - Vital Signs Pulse Rate: 62 Respiratory Rate: 18 Blood Pressure: 124/66 - Physical Exam General Appearance: positive: Alert, Anxious Eyes Bilateral: positive: Normal inspection ENT: positive: No signs of dehydration. negative: Oral lesions Neck: positive: No JVD, Trachea midline Cardiovascular: positive: Irregular Respiratory: positive: No respiratory distress, Diminished in bases. negative: Wheezes, Rales, Rhonchi Abdomen: positive: Soft, Nml bowel sounds, Tenderness, Mass (palpable firmness and edges of carcinomatosis upper abdominal area; small hernia walnut size above umbilcus at scar line), Distended Skin: positive: Pallor, Other (psorasis improved on new treatment; skin of face and hands still reddened and scaley; less pruruites) Extremities: positive: No pedal edema Neurologic/Psychiatric: positive: Oriented x3, Depressed mood/affect Palliative Care - POLST Patient has POLST: Yes POLST Status: DNR, Selective Treatment Pain: Location (abdominal pressure), Severity (0-1) Tiredness/Fatigue: Severe (7-10) Drowsiness/Sedation: Moderate (4-6) Nausea: None Anorexia: Mild (1-3), Weight loss Dyspnea: Moderate (4-6) Depression: None (patient though sharing depressive persistant feelings and concerns) Anxiety: Moderate (4-6) Feelings of wellbeing/Perceived Quality of Life: Fair, Worsening Sleep: Sleeps poorly Constipation: No, Managed Performance Status: Patient does report increased weakness and shortness of breath impacting her level. In describing her last 2 weeks, she has been extremely busy with volunteer activities, family events that include funerals, and admits may be overdoing. - Palliative Care Discussion: The patient is quite distressed today, does appear to have had several emotional events and stressors. She does feel like she can take a break, she is looking forward to spending [place] with her son in [place]. Things are coming together for her son who is living with her, she does feel like she has a plan for him, she is continuing to help navigate final paperwork, but feels positive he will be better off with this completed when she dies. She is having increased anxiety with the increased symptoms, her way of coping has always to be in control of the situation, and with ongoing changes related to both her cancer and personal life, finances difficult at times to absorb. Patient does have a POLST as DNA R and selective treatments in place, her daughter is planning to take time to care for her when it is end-of-life. Patient continues to try and engage in her normal life activities, though presents today feeling somewhat overwhelmed by this. Results - Lab Results Lab results reviewed: Yes Impression and Recommendations - Palliative Care Impression: This is a brandan 83-year-old woman with recurrent and progressing ovarian cancer, with recent scan showing mixed response. She is concerned with new palpable lymph node in her left submandibular area, and remains on high alert for changes in her body. She does have an exacerbation of her depression and anxiety with recent emotional stressors, as well as physically feeling poorly. She does present with weight loss, improvement of her psoriasis, and concern with report of heart palpations that resolve quickly with rest for 2-3 days. Palliative care to continue provide support regarding pain and symptom management, and anticipatory guidance. Recommendations/Counseling Done: 1. Weight loss. This appears to be multifactorial in origin, does have some taste changes, increased stressors, and some early satiety. Counseling provided to resume her protein drinks, she had put those on hold. She will restart with 2 twice a day. 2. Abdominal discomfort. Patient does have some abdominal pressure and distention, she is keeping her bowels soft on the loose side. She is not hit the threshold for needing more than acetaminophen, she will continue to monitor if pain worsens. 3. Insomnia. Patient never did fill her sleep medication, she is anxious to not be awake and alert, did not want any "drug hangover". We did discuss different sleep aids, will try low-dose trazodone as previously recommended, with patient's anxiety recommended she start at 1/2 tab and titrate up nightly up to 2 tabs of 50 mg. It is currently on her medication list. Counseling also p rovided related to sleep hygiene. 4. Atrial fib. Patient does describe 2-3 episodes of palpitations, she does feel this is stress-induced given her severe fatigue and pushing herself. She has had no accompanying chest pain with this. She does present with a regular heart rate, recent echo with no significant concerns. She will notify myself or PCP if these continue or recur. 5. Depression. Patient continues to present with processing her ongoing progression of her serious illness, she has had an exacerbation of her depression and anxiety with multiple emotional stressors appropriately so. Counseling provided to normalize her grief and loss experience, supportive listening provided regarding patient's concerns. 6. Psoriasis, exacerbation. This has improved with her implementation of her new medication, she is quite pleased and continues to do good skin care. 7. Advanced care planning. Patient does have POLST in place, D NETO is her daughter Alina Price [phone]. She is starting to explore regarding implications of planning for end of life, though her goal is to continue to receive treatment as long as her quality of life and quantity of life benefits. 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 Time Spent: 45 minutes is greater than 50% of this done in counseling regarding patient's anxiety and depression, symptom management, and anticipatory guidance.
== END 2019-05-19 14:20 | disposition home or self-care (01) ==
LOC: PC 14:19
PROVIDERS: ATTEND Nurse Practitioner Adult Health
DX: Z51.5 Encounter for palliative care (principal); C56.9 Malignant neoplasm of unspecified ovary; F32.9 Major depressive disorder, single episode, unspecified; F41.9 Anxiety disorder, unspecified; R63.4 Abnormal weight loss; R10.9 Unspecified abdominal pain; R14.0 Abdominal distension (gaseous); G47.00 Insomnia, unspecified; I48.91 Unspecified atrial fibrillation; L40.9 Psoriasis, unspecified; R32 Unspecified urinary incontinence; D64.9 Anemia, unspecified; Z66 Do not resuscitate; Z79.899 Other long term (current) drug therapy; Z79.52 Long term (current) use of systemic steroids; Z79.82 Long term (current) use of aspirin
CPT/HCPCS: 99215

== ENCOUNTER 2019-06-16 09:25 | Outpatient (CLI) | payer MEDICARE, BC ==
--- NOTE | 2019-06-16 10:27 | CONSULTATION NOTE ---
Palliative Care Follow Up - Referral Referring Provider: Dr. Kurt Vance Time of Visit: 9639-502 [place] [facility] [place] Reason: Depression/Anxiety/Recurrent Ovarian CA - Information Sources Records reviewed: RN notes reviewed, Previous records reviewed History/Review of Systems obtained from: Patient Exam limitations: No limitations - History of Present Illness Update Brief HPI Update: This is a 83-year-old woman who has progressive metastatic ovarian cancer, status post multiple lines of treatment, she is currently on Doxil and Avastin since 01/2019. She presented with a mixed response to her current treatment by CT scan, but her Ca1 25 continues to decline. Patient is "a fighter" and will continue treatment as long as she is tolerating it fairly well and it does provide her some benefit. Patient did have a good [place], she was able to visit her son and his family. She is feeling quite fatigued, both from the trip and just her ongoing treatments. She is showing some increased abdominal pressure and fullness, it is soft, she has mild tenderness over the umbilicus and up in the left upper quadrant. The pain is fluctuating, not to the point where she needs anything persistent for pain management. She is sleeping fairly well, her psoriasis is currently controlled on her Otezla 30 mg twice daily. She is in a better space both with her depression and anxiety. She is keeping her bowels moving softly, she has had no further symptoms of heart palpitations, shortness of breath is s ettled down. Patient continues with some weight loss, her current weight is 112. She reports she is eating well, is continuing with her protein drinks 2 times a day, does have some intermittent gas pressure, but no other GI symptoms. Social History - Living Situation Living arrangement: At home Living Situation: With family Support System: Patient has her own home, her son lives with her who has significant health problems he is doing fairly well currently. She is making progress as far as planning for his financial and medical needs. She does have several volunteer activities. She does have a sister, whom she is considering traveling with soon. Medications/Allergies - Medications Home Medications: Ambulatory Orders Medication Instructions Recorded Confirmed Cholecalciferol (Vitamin D3) 5,000 unit PO BID 07/14/15 06/16/19 [Vitamin D3] Diltiazem HCl [Diltiazem 24Hr Cd] 180 mg PO DAILY 07/14/15 06/16/19 Polyethylene Glycol 3350 [Miralax] 17 - 34 gm PO DAILY PRN 07/14/15 06/16/19 Senna [Senokot] 8.6 tab PO BID PRN 07/14/15 06/16/19 Aspirin 325 mg PO DAILY 07/27/15 06/16/19 Calcium Carb/Mag Ox/Zinc Sulf [Hm 1 each PO DAILY 08/04/15 06/16/19 [id number] Cplt] Multivitamin [Multivitamins] 1 each PO DAILY 08/04/15 06/16/19 Mineral Oil, Light/Mineral Oil 2 drop EACHEYE DAILY PRN 09/01/15 06/16/19 [Soothe Xp Eye Drops] Mupirocin 2 units TOP BID PRN 09/01/15 06/16/19 Triamcinolone 0.1% Oint [Kenalog 1 applic TOP BID PRN 09/01/15 06/16/19 0.1% Oint] Raloxifene HCl 60 mg PO DAILY 10/06/15 06/16/19 Losartan [Cozaar] 50 mg PO DAILY 10/17/17 06/16/19 Lactobacillus Acidophilus 1 tab PO DAILY 01/16/18 06/16/19 [Probiotic Acidophilus] Ondansetron HCl [Zofran] 4 mg PO Q6H PRN 10/30/18 06/16/19 traZODone [Desyrel] 50 - 100 mg PO ACHS PRN 01/29/19 06/16/19 Prednisone 5 mg PO PRN PRN 03/03/19 06/16/19 Ferrous Sulfate [High Potency Iron] 27 mg PO PRN PRN MDD 27 04/07/19 06/16/19 Apremilast [Otezla] 30 mg PO BID 05/05/19 06/02/19 Naproxen Sodium [Aleve] 220 mg PO BID PRN 06/16/19 06/16/19 - Allergies Allergies/Adverse Reactions: Allergies Allergy/AdvReac Type Severity Reaction Status Date / Time morphine Allergy Severe Emesis Verified 06/02/19 11:57 cephalexin monohydrate * AdvReac Severe Edema Verified 06/02/19 11:57 [From Keflex] procaine AdvReac Intermediate Upset Verified 06/02/19 11:57 stomach codeine AdvReac Dizziness Verified 06/02/19 11:57 Review of Systems - Constitutional Constitutional: reports: Fatigue (worsening; exacerbated with travel), Weight loss (112; gained a pound over the holidays;). denies: Fever, Chills - Ears, Nose & Throat Ears, Nose & Throat: reports: Nasal congestion (worsening;), Dental decay - Cardiovascular Cardiovascular: reports: Decr. exercise tolerance. denies: Edema - Respiratory Respiratory: denies: SOB at rest, SOB with exertion - Gastrointestinal Gastrointestinal: reports: Abdominal pain (mild pressure discomfort), Abdominal distention (worsening), Bloating, Good appetite. denies: Constipation, Rectal bleeding, Nausea, Reflux/heartburn - Genitourinary Genitourinary: reports: Incontinence (stress) - Musculoskeletal Musculoskeletal: reports: Muscle weakness - Integumentary Integumentary: reports: Rash (improved), Dryness - Neurological Neurological: denies: Headache, Dizziness, Memory problems - Psychiatric Psychiatric: reports: Depression (improved), Anxiety (improved) - Endocrine Endocrine: reports: Intolerance to cold - Hematologic/Lymphatic Hematologic/Lymphatic: reports: Anemia. denies: Recurrent infections - All Other Systems All Other Systems: reports: Reviewed and negative Physical Exam - Vital Signs Temperature: 36.7 C Pulse Rate: 76 Respiratory Rate: 16 Blood Pressure: 127/62 - Physical Exam General Appearance: positive: No acute distress, Alert ENT: positive: Other (poor dentition) Neck: positive: No JVD, Trachea midline, Lymphadenopathy (L) (submandibular; soft nontender; no change in size) Cardiovascular: positive: Regular rate & rhythm Respiratory: positive: No respiratory distress, Breath sounds nml Abdomen: positive: Soft, Nml bowel sounds, Tenderness (sight tenderness over umbilical and LUQ), Distended Skin: positive: Pallor, Dryness. negative: Pruritis, Rash (improved psorasis) Extremities: positive: Pedal edema (trace in ankles; attributes to travel) Neurologic/Psychiatric: positive: Oriented x3, Mood/affect nml Palliative Care - POLST Patient has POLST: Yes POLST Status: DNR, Selective Treatment Pain: Pain worsening, Location (abdominal fullness/pressure; not to the point needing medication) Tiredness/Fatigue: Moderate (4-6) Drowsiness/Sedation: None Nausea: None Anorexia: None Dyspnea: None Depression: Mild (1-3) Anxiety: Moderate (4-6) Feelings of wellbeing/Perceived Quality of Life: Good, Acceptable Sleep: Sleep improved Constipation: No Performance Status: Patient is able to manage her own ADLs, she still continues to walk short distances. She did participate in a lot of activity over the holidays, is trying to rest up. - Palliative Care Discussion: Patient feels information shared by Dr. Vance, to share with family was helpful. She reports she had a really good visit, feels very positive about her relationship with her son and grandchildren. She did see her daughter yesterday, and overall feels like the holidays have been good to her. She is quite pleased that she met her goal to live to [place], and when asked what her next goal is, she wanted to travel to [facility] with her sister. Her sister is having healthcare problems, discussed perhaps reframing and resetting shorter term goal for shorter travels and visits, to be able to do currently while she is still doing fairly well. She is awaiting outcome of her sister's testing, but does like considering this approach. Patient feeling less anxious, feels like she has processed some of her grief, and is doing fairly well overall. Results - Lab Results Lab results reviewed: Yes Impression and Recommendations - Palliative Care Impression: This is a brandan 83-year-old woman with recurrent and progressing ovarian cancer, with recent scan showing mixed response. She does present with some abdominal distention, it is not taut, but does have some mild tenderness no persistent pain. She is feeling somewhat better, her psoriasis has continued to improve, she is less anxious and depressive symptoms improved with the holidays. She had a nice visit with her son in [place]. She has had no further heart palpitations. Palliative care to continue provide support regarding pain and symptom management and anticipatory guidance. Recommendations/Counseling Done: 1. Abdominal discomfort. Patient does present with abdominal pressure and distention, she is keeping her bowels soft and on the loose side with good results. She does use intermittently Aleve, but finds the pain fluctuates and not as persistent. Counseling provided regarding symptom of ascites, and if severe discomfort options of medications and paracentesis if needed. Patient a lways has multiple questions, and does better with information. 2. Weight loss. This appears to be multifactorial in origin, she does appear quite thin, with some upper extremity and temporal wasting. She does have some early satiety, patient is continuing with her protein drinks, and taking twice a day. She has had weight gain of 1 pound. 3. Insomnia. Patient does have trazodone if needed, reports with her busy activity has not needed anything for sleep. She does have available if needed. 4. Atrial fib. Patient denies any further episodes of palpitations, she has not had any increased shortness of breath, no chest pain, at this point appears to be resolved. 5. Depression. Patient continues to process her ongoing progression of her serious illness, she is hoping for more quantity as well as continued quality of life. Counseling provided regarding setting short-term goals, encouraged and reviewed patient's resilience and response to her current situation. 6. Psoriasis, exacerbation. This continues to improve with implementation of her new medication Otezla, she is quite pleased and continues to do good skin care. She is due to see her livestock feeder in June. 7. Advanced care planning. Patient does have POLST in place with DNA R/selective treatments. Her D POA is her daughter Alina Price [phone]. Patient is quite pleased that her continued quality and extended quantity of life, she does understand her treatment is palliative in nature but continues to hope for the best. Time Spent: 30 minutes with greater than 50% of this done in counseling regarding pain and symptom management, anticipatory guidance, and coordination of care with oncology team
== END 2019-06-16 09:26 | disposition home or self-care (01) ==
LOC: PC 09:25
PROVIDERS: ATTEND Nurse Practitioner Adult Health
DX: Z51.5 Encounter for palliative care (principal); R14.0 Abdominal distension (gaseous); R63.4 Abnormal weight loss; G47.00 Insomnia, unspecified; I48.91 Unspecified atrial fibrillation; F32.9 Major depressive disorder, single episode, unspecified; L40.9 Psoriasis, unspecified; C56.9 Malignant neoplasm of unspecified ovary; Z79.899 Other long term (current) drug therapy; Z66 Do not resuscitate
CPT/HCPCS: 99214

== ENCOUNTER 2019-06-23 10:01 | Inpatient (IN) | payer MEDICARE, BC ==
[2019-06-23] MEDS ORDERED: SODIUM CHLORIDE 0.9% 1,000 ML IV ONE (10:18)
[2019-06-23] MEDS ORDERED: HYDROmorphone 1 MG/ML CARPUJECT IVP STA (10:28)
[2019-06-23] MEDS ORDERED: ONDANSETRON 4 MG/2 ML VIAL IVP STA ×2 (10:28→12:04)
--- NOTE | 2019-06-23 10:32 | ED Physician Documentation ---
History of Present Illness - Stated complaint Stated Complaint: VOMITING - Chief complaint Chief Complaint: Abd Pain - Additonal information Additional information: This is an 83-year-old female with a history of ovarian cancer on chemotherapy last transfusion was 06/16/2020, follows with Dr. Vance, who presents with cough, abdominal pain, vomiting. Patient developed a cough last Sunday and then on she began having poor appetite and she has had multiple episodes of vomiting. She did not hold down her medications but nothing beyond a few sips of water at a time. She feels quite dehydrated. She also has had a cough and some nasal congestion for several days, she is not sure if this is related to her vomiting or not. She oftentimes will feel nauseated with her chemotherapy. She does have some diffuse abdominal discomfort, which is currently mild to moderate in severity. No blood in her stool. She had a measured fever at home several days ago, none for last 24 hours Review of Systems Constitutional: reports: Fever Throat: denies: Oral lesions / sores Cardiac: denies: Chest pain / pressure Respiratory: reports: Cough GI: reports: Abdominal Pain, Nausea, Vomiting : denies: Dysuria Skin: denies: Rash Neurologic: reports: Generalized weakness Immunocompromised: reports: Chemotherapy PD PAST MEDICAL HISTORY - Past Medical History Cardiovascular: Atrial fibrillation, Valve disorder, Other Neuro: None Endocrine/Autoimmune: Other GI: Other [employer]: Ovarian cancer : Kidney stones HEENT: Glaucoma Psych: Depression, Anxiety Musculoskeletal: Osteoporosis Derm: Psoriasis - Past Surgical History Past Surgical History: Yes General: Appendectomy /[employer]: Hysterectomy, Oophrectomy HEENT: Tonsil/Adenoidectomy - Present Medications Home Medications: Ambulatory Orders Medication Instructions Recorded Confirmed Cholecalciferol (Vitamin D3) 5,000 unit PO BID 07/14/15 06/24/19 [Vitamin D3] Diltiazem HCl [Diltiazem 24Hr Cd] 180 mg PO DAILY 07/14/15 06/24/19 Senna [Senokot] 8.6 tab PO BID PRN 07/14/15 06/24/19 polyethylene glycoL 3350 [Miralax] 17 - 34 gm PO DAILY PRN 07/14/15 06/24/19 Aspirin 325 mg PO DAILY 07/27/15 06/24/19 Calcium Carb/Mag Ox/Zinc Sulf [Hm 1 each PO DAILY 08/04/15 06/24/19 Engkmld-Ahwrbtmlk-Nghp Cplt] Multivitamin [Multivitamins] 1 each PO DAILY 08/04/15 06/24/19 Mineral Oil, Light/Mineral Oil 2 drop EACHEYE DAILY PRN 09/01/15 06/24/19 [Soothe Xp Eye Drops] Mupirocin 2 applic TOP BID PRN 09/01/15 06/24/19 Triamcinolone 0.1% Oint [Kenalog 1 applic TOP BID PRN 09/01/15 06/24/19 0.1% Oint] Raloxifene HCl 60 mg PO DAILY 10/06/15 06/24/19 Losartan [Cozaar] 50 mg PO DAILY 10/17/17 06/24/19 Lactobacillus Acidophilus 1 tab PO DAILY 01/16/18 06/24/19 [Probiotic Acidophilus] Ondansetron HCl [Zofran] 4 mg PO Q6H PRN 10/30/18 06/24/19 traZODone [Desyrel] 50 - 100 mg PO QPM PRN 01/29/19 06/24/19 Prednisone 5 mg PO DAILY PRN 03/03/19 06/24/19 Ferrous Sulfate [High Potency Iron] 27 mg PO PRN PRN MDD 27 04/07/19 06/24/19 Apremilast [Otezla] 30 mg PO BID 05/05/19 06/24/19 Naproxen Sodium [Aleve] 220 mg PO BID PRN 06/16/19 06/24/19 - Allergies Allergies/Adverse Reactions: Allergies Allergy/AdvReac Type Severity Reaction Status Date / Time morphine Allergy Severe Emesis Verified 06/23/19 10:13 cephalexin monohydrate * AdvReac Severe Edema Verified 06/23/19 10:13 [From Keflex] procaine AdvReac Intermediate Upset Verified 06/23/19 10:13 stomach codeine AdvReac Dizziness Verified 06/23/19 10:13 - Social History Does the pt smoke?: No Smoking Status: Never smoker Does the pt drink ETOH?: Yes Does the pt have substance abuse?: No - Immunizations Immunizations are current?: No Immunizations: TDAP >10years/unknown - POLST Patient has POLST: Yes PD ED PE NORMAL - Vitals Vital signs reviewed: Yes - General General: Alert and oriented X 3, Other (Thin appearing woman, very pleasant.) - HEENT HEENT: PERRL - Neck Neck: Supple, no meningeal sign - Cardiac Cardiac: Other (Irregularly irregular rhythm, tachycardia) - Respiratory Respiratory: No respiratory distress, Clear bilaterally - Abdomen Abdomen: Soft, Other (Scaphoid, mildly tender to palpation worse on the right abdomen, no guarding) - Derm Derm: Warm and dry - Extremities Extremities: No deformity - Neuro Neuro: Alert and oriented X 3 - Psych Psych: Normal mood, Normal affect Results - Vitals Vitals: Oxygen O2 Source Room air - EKG (time done) 10:18 Other comments: Other comments (Rate 151, rhythm atrial fibrillation with rapid ventricular response. There is questionable slight [address] elevation in V3, otherwise no consistent ST elevation seen, some motion artifact obscures the consistency in these leads. No ST depression. Borderline low voltage in the limb leads.) - Labs Labs: Microbiology 06/23/19 10:30 Blood Culture - Preliminary Blood NO GROWTH AFTER 1 DAY 06/23/19 11:05 Blood Culture - Preliminary Blood NO GROWTH AFTER 1 DAY Laboratory Tests 06/23/19 06/23/19 06/23/19 10:29 10:30 10:30 WBC 11.2 H RBC 4.76 Hgb 14.9 Hct 45.2 MCV 95.0 MCH 31.3 H MCHC 33.0 RDW 14.9 Plt Count 366 MPV 9.7 Neut # (Auto) 9.3 H Lymph # (Auto) 0.6 L Spink # (Auto) 1.1 H Eos # (Auto) 0.0 Baso # (Auto) 0.1 Absolute Nucleated RBC 0.00 Band Neuts % (Manual) Not Reportable Abnorm Lymph % (Manual) Not Reportable Nucleated RBC % 0.0 Neutrophils # (Manual) Not Reportable Lymphocytes # (Manual) Not Reportable Monocytes # (Manual) Not Reportable Eosinophils # (Manual) Not Reportable Basophils # (Manual) Not Reportable Differential Comment MANUAL=AUTO DIFF WBC Morphology 1+ DOHLE BODIES Platelet Estimate NORMAL (130-450,000) Platelet Morphology NORMAL APPEARANCE RBC Morph Micro Appear NORMAL APPEARANCE PT INR Sodium 134 L Potassium 4.6 Chloride 96 L Carbon Dioxide 24 Anion Gap 14.0 H BUN 29 H Creatinine 1.0 Estimated GFR (MDRD) 53 L Glucose 103 H Lactic Acid 2.4 H Calcium 9.0 Total Bilirubin 1.2 H AST 21 ALT 12 Alkaline Phosphatase 62 Troponin I High Sens Total Protein 6.4 L Albumin 3.2 Globulin 3.2 Albumin/Globulin Ratio 1.0 Lipase 24 Urine Color Urine Clarity Urine pH Ur Specific [place] Urine Protein Urine Glucose (UA) Urine Ketones Urine Occult Blood Urine Nitrite Urine Bilirubin Urine Urobilinogen Ur Leukocyte Esterase Urine RBC Urine WBC Ur Squamous Epith Cells Urine Bacteria Urine Casts Urine Mucus Ur Microscopic Review Urine Culture Comments Influenza A (Rapid) Influenza B (Rapid) 06/23/19 06/23/19 06/23/19 10:30 10:30 11:28 WBC RBC Hgb Hct MCV MCH MCHC RDW Plt Count MPV Neut # (Auto) Lymph # (Auto) Spink # (Auto) Eos # (Auto) Baso # (Auto) Absolute Nucleated RBC Band Neuts % (Manual) Abnorm Lymph % (Manual) Nucleated RBC % Neutrophils # (Manual) Lymphocytes # (Manual) Monocytes # (Manual) Eosinophils # (Manual) Basophils # (Manual) Differential Comment WBC Morphology Platelet Estimate Platelet Morphology RBC Morph Micro Appear PT 12.2 INR 1.1 Sodium Potassium Chloride Carbon Dioxide Anion Gap BUN Creatinine Estimated GFR (MDRD) Glucose Lactic Acid Calcium Total Bilirubin AST ALT Alkaline Phosphatase Troponin I High Sens 12.8 Total Protein Albumin Globulin Albumin/Globulin Ratio Lipase Urine Color Urine Clarity Urine pH Ur Specific [place] Urine Protein Urine Glucose (UA) Urine Ketones Urine Occult Blood Urine Nitrite Urine Bilirubin Urine Urobilinogen Ur Leukocyte Esterase Urine RBC Urine WBC Ur Squamous Epith Cells Urine Bacteria Urine Casts Urine Mucus Ur Microscopic Review Urine Culture Comments Influenza A (Rapid) Negative Influenza B (Rapid) Negative 06/23/19 12:52 WBC RBC Hgb Hct MCV MCH MCHC RDW Plt Count MPV Neut # (Auto) Lymph # (Auto) Spink # (Auto) Eos # (Auto) Baso # (Auto) Absolute Nucleated RBC Band Neuts % (Manual) Abnorm Lymph % (Manual) Nucleated RBC % Neutrophils # (Manual) Lymphocytes # (Manual) Monocytes # (Manual) Eosinophils # (Manual) Basophils # (Manual) Differential Comment WBC Morphology Platelet Estimate Platelet Morphology RBC Morph Micro Appear PT INR Sodium Potassium Chloride Carbon Dioxide Anion Gap BUN Creatinine Estimated GFR (MDRD) Glucose Lactic Acid Calcium Total Bilirubin AST ALT Alkaline Phosphatase Troponin I High Sens Total Protein Albumin Globulin Albumin/Globulin Ratio Lipase Urine Color YELLOW Urine Clarity CLOUDY Urine pH 6.0 Ur Specific [place] 1.015 Urine Protein 30 H Urine Glucose (UA) NEGATIVE Urine Ketones 40 H Urine Occult Blood NEGATIVE Urine Nitrite NEGATIVE Urine Bilirubin NEGATIVE Urine Urobilinogen 0.2 (NORMAL) Ur Leukocyte Esterase NEGATIVE Urine RBC 0-5 Urine WBC 6-10 H Ur Squamous Epith Cells MOD Squamous H Urine Bacteria Many H Urine Casts 6-10 Granular Casts Urine Mucus Moderate Strands Ur Microscopic Review INDICATED Urine Culture Comments NOT INDICATED Influenza A (Rapid) Influenza B (Rapid) - Rads (name of study) CXR Radiology: Other (No acute disease) CT abd/pelvis Radiology: Other (Findings of metastasis and peritoneal carcinamatosis, as seen before. Ground glass opacities and air bronchograms in the lung bases consisten twith infection/inflammation, aspiration considered.) PD MEDICAL DECISION MAKING - ED course Complexity details: considered differential (Dehydration, PNA, sepsis, UTI, electrolyte abnormality, diverticuloitis, hollow viscous perforation, colitis) ED course: Pt arrives and is uncomfortable and chronically ill appearing. She is hypotensive in triage but quickly responds to fluids. She is in a-fib with RVR, which is not typical for her. Labs show elevated lactate at 2.4, urine equivocal for infection. CXR is clear but CT of the abd/pelvis show signs of aspiration pneumonia in addition to her known abdominal cancer. Her a-fib with RVR resolved to sinus rhtyhm with fluids, and her troponin does not show signs of ACS. Given her elevated lactate, dehydration, pneumonia in the setting of immunocompromise with chemotherapy, and the fact that patient has recieved mulitple episodes of anti-emetics and still is having difficulty tolerating PO, she was admitted for further care. She was started on levofloxacin and flagyl for aspiration pneumonia after blood cultures were drawn. Pt appears much better and vital signs are stable on admission. Departure - Departure Disposition: 66 [facility] DC/Xfer Clinical Impression: Dehydration Aspiration pneumonia Qualifiers: Qualified Code(s): J69.0 - Pneumonitis due to inhalation of food and vomit Condition: Good Discharge Date/Time: 06/23/19 17:00
[2019-06-23 10:38] LABS: BASOPHILS # (AUTO) 0.1 10^3/uL (0.0-0.1); BASOPHILS % (AUTO) 0.8 %; EOSINOPHILS % (AUTO) 0.3 %; HGB - HEMOGLOBIN 14.9 g/dL (12.0-16.0); LYMPHOCYTES # (AUTO) 0.6 10^3/uL (1.5-3.5); LYMPHOCYTES % (AUTO) 4.9 %; MEAN CORPUSCULAR HEMOGLOBIN 31.3 pg (27.0-31.0); MEAN PLATELET VOLUME 9.7 fL (7.9-10.8); MONOCYTES # (AUTO) 1.1 10^3/uL (0.0-1.0); MONOCYTES % (AUTO) 9.8 %; NEUTROPHILS # (AUTO) 9.3 10^3/uL (1.5-6.6); NEUTROPHILS % (AUTO) 82.5 %; PLT - PLATELET COUNT 366 10^3/uL (130-450); RED BLOOD COUNT 4.76 10^6/uL (4.20-5.40); RED CELL DISTRIBUTION WIDTH 14.9 % (12.0-15.0); WHITE BLOOD COUNT 11.2 x10^3/uL (4.8-10.8)
[2019-06-23 10:46] LABS: INR 1.1 (0.8-1.2); PT - PROTHROMBIN TIME 12.2 secs (9.9-12.6)
[2019-06-23 10:52] LABS: ALBUMIN 3.2 g/dL (3.2-5.5); BILIRUBIN,TOTAL 1.2 mg/dL (0.2-1.0); TOTAL PROTEIN 6.4 g/dL (6.7-8.2)
[2019-06-23 11:25] LABS: DIFFERENTIAL COMMENT MANUAL=AUTO DIFF; PLATELET ESTIMATE, MANUAL NORMAL (130-450,000) (NORMAL); PLATELET MORPHOLOGY NORMAL APPEARANCE (NORMAL); RBC MORPHOLOGY (MULTIPLE) NORMAL APPEARANCE (NORMAL)
--- NOTE | 2019-06-23 11:33 | XRAY Report ---
Reason: chest pain Procedure Date: 06/23/2019 Accession Number: [id number] / [id number] Procedure: XR - Chest 1 View X-Ray CPT Code: 63411 Final Report FULL RESULT: EXAM: CHEST RADIOGRAPHY EXAM DATE: 06/23/2019 11:02 AM. CLINICAL HISTORY: Chest pain. COMPARISON: CHEST 1 VIEW 11/08/2018 10:54 AM. TECHNIQUE: 1 view. FINDINGS: Lungs/Pleura: Hyperexpanded, typical for COPD. No definite localized infiltrate, consolidation, effusion, or pneumothorax. Skin fold artifacts. Mediastinum: Normal overall heart size. Upper lobe vessels not distended. Other: Right Port-A-Cath. IMPRESSION: No acute disease. RADIA
[2019-06-23] MEDS ORDERED: IOVERSOL 320 100 ML VIAL IVP ONE ×2 (11:34→13:02)
[2019-06-23] MEDS: SODIUM CHLORIDE 0.9% 1,000 ML IV SCH ×3 (12:13→21:25)
[2019-06-23] MEDS ORDERED: METOCLOPRAMIDE 10 MG/2 ML VIAL IVP STA (12:54)
[2019-06-23 13:05] LABS: GLUCOSE, URINE (UA) NEGATIVE (NEGATIVE); KETONES,URINE (UA) 40 mg/dL (NEGATIVE); LEUKOCYTE ESTERASE, URINE NEGATIVE (NEGATIVE); NITRITE,URINE NEGATIVE (NEGATIVE); OCCULT BLOOD,URINE NEGATIVE (NEGATIVE); PROTEIN,URINE 30 mg/dL (NEGATIVE); UROBILINOGEN,URINE 0.2 (NORMAL) E.U./dL (NORMAL)
[2019-06-23 13:19] LABS: BACTERIA,URINE Many /HPF (None Seen); BILIRUBIN,URINE NEGATIVE (NEGATIVE); CLARITY,URINE CLOUDY (CLEAR); ICTOTEST,URINE NEGATIVE; MUCUS,URINE Moderate Strands; RBC,URINE 0-5 /HPF (0-5); SQUAMOUS EPITHELIAL CELL,UR MOD Squamous (<= Few)
--- NOTE | 2019-06-23 13:57 | CT Report ---
Reason: abd pain, vomiting Procedure Date: 06/23/2019 Accession Number: [id number] / [id number] Procedure: CT - Abdomen/Pelvis W CPT Code: Final Report FULL RESULT: EXAM: CT ABDOMEN AND PELVIS EXAM DATE: 06/23/2019 12:22 PM. CLINICAL HISTORY: Abd pain, vomiting. History of ovarian cancer. COMPARISONS: ABDOMEN/PELVIS W/ 03/14/2018 9:42 AM ABDOMEN/PELVIS W/ 04/28/2019 9:33 AM CHEST 1 VIEW 06/23/2019 10:48 AM. TECHNIQUE: Routine helical CT imaging was performed through the abdomen and pelvis. IV contrast: OPTI 320 90ML. Enteric contrast: No. Reconstructions: Coronal and sagittal. In accordance with CT protocol optimization, one or more of the following dose reduction techniques were utilized for this exam: automated exposure control, adjustment of mA and/or KV based on patient size, or use of iterative reconstructive technique. FINDINGS: Lung Bases: Trace right and small left pleural effusions. Bibasilar dense consolidations with air bronchograms along with additional scattered ground glass nodular opacities in the right lower lobe suggest infectious/inflammatory process. Aspiration could be considered. Liver: Relative low attenuation of the liver suggests fatty infiltration or other hepatocellular disease. Ill-defined patchy hyperenhancement in the right inferior liver (5/13; 3/29 ) may reflect transient hepatic attenuation differences related to phase of contrast or focal fatty sparing given location close to the gallbladder fossa. Underlying lesion not entirely excluded. Perihepatic soft tissue density, similar to prior exam, likely reflects peritoneal metastasis (for example adjacent to the left lobe of the liver). Gallbladder/Bile Ducts: Unremarkable. No intrahepatic or extrahepatic biliary ductal dilatation. Spleen: Perisplenic soft tissue density, similar to prior exam, likely reflects peritoneal metastasis. No focal splenic lesions. Pancreas: Similar appearance of 1.2 x 1.1 cm low-attenuation lesion in the proximal pancreatic body with associated small focus of calcification (3/29). There is also a stable 0.6 cm hypoattenuating lesion in the pancreatic tail (3/25). No pancreatic ductal dilatation. Adrenal Glands: Unremarkable. Kidneys: Stable subcentimeter too small to characterize hypoattenuating focus in upper pole of right kidney. Otherwise unremarkable. No hydronephrosis. Symmetric enhancement. Peritoneal Cavity/Bowel: No intra-abdominal free air. Small volume of free fluid, increased from prior exam and most evident in the pelvis and adjacent to the spleen and liver. Redemonstrated peritoneal soft tissue compatible with peritoneal carcinomatosis. Patient Access Coordinator areas detailed as follows: -Peritoneal soft tissue and left abdomen anterior to descending colon measures 4.8 x 3.5 x 4.3 cm (), previously measured 6.7 x 4.7 x 5.2 cm. This abuts the stomach antrum, infiltration cannot be excluded. -Peritoneal soft tissue in the anterior upper abdomen measures 6.1 x 3 x 2.8 cm (35; 10/24), previously measured 6.9 x 3.6 x 3.4 cm. -Peritoneal deposit in the right abdomen anterior to the ascending colon on prior exam is less clearly delineated on today's study. There is redemonstrated long segment wall thickening of the transverse colon, similar to prior exam. This could reflect serosal metastasis or colitis. No bowel obstruction. Appendix not visualized. Stable small bowel anastomotic postoperative changes in the left mid abdomen. Extensive sigmoid colonic diverticulosis. Difficult to evaluate for pericolonic inflammatory changes due to presence of ascites in the pelvis. Pelvic Organs: Urinary bladder is grossly unremarkable. Uterus and ovaries are surgically absent. Small amount of gas is seen in the vaginal canal. Vasculature: Scattered atherosclerotic calcifications of the abdominal aorta and its branches. No aneurysm. Bones: Stable chronic superior endplate compression deformities at T11 and L2. No acute osseous abnormality. Other: None. IMPRESSION: 1. Multiple peritoneal soft tissue masses are redemonstrated compatible with peritoneal carcinomatosis. These appear to have decreased slightly in size compared to prior exam. 2. Redemonstrated long segment of thick-walled transverse colon which could reflect serosal metastasis or colitis. 3. Stable low-density lesions in pancreatic body and tail. 4. Small volume of intra-abdominal and pelvic free fluid, increased from prior exam. 5. Extensive sigmoid colonic diverticulosis. Difficult to evaluate for focal inflammatory changes due to presence of pelvic ascites. No free air. No bowel obstruction. 6. New bilateral small pleural effusions and bibasilar dense consolidations with air bronchograms. Additional scattered groundglass nodular densities in right lower lobe. Findings are suggestive of infectious/inflammatory process. Aspiration could be considered. 7. Other findings as above. RADIA
[2019-06-23] MEDS ORDERED: SODIUM CHLORIDE FLUSH 0.9% 10 ML SYRINGE IVP PRN (15:59)
[2019-06-23] MEDS ORDERED: levoFLOXacin 750 MG/150 ML 750 MG/150 ML BAG IV SCH ×2 (16:00→18:30)
--- NOTE | 2019-06-23 16:32 | HISTORY & PHYSICAL EXAMINATION ---
Chief Complaint - Chief Complaint Chief Complaint: vomiting, cough, shortness of breath Respiratory Admission HPI - Admitted From Admitted from: ED - History Obtained From Records Reviewed: RN notes reviewed, Old records reviewed History obtained from: Patient, Family (daughter-Alina) - History of Present Illness Location Problem/Description: abdominal pain, nausea Severity at the worst: reports: Moderate Associated Pain Quality Description: reports: Sharp, Aching, Cramping Context of Onset: reports: Movement, Position Timing: reports: Gradual onset Duration: reports: Days: (7) Improved with: reports: Nothing Worsened by: reports: Movement, Palpation Associated symptoms: reports: Abdominal pain, Nausea, Vomiting, Feeling faint / dizzy, General weakness HPI Comment/Other: Analisa Matson is an ill appearing 83-year old female with a past medical history of hypertension, chronic atrial fibrillation, valve disorder, psoriasis, kidney stones, osteoporosis, glaucoma, chronic hearing loss, anemia, urinary inco ntinence, ovarian cancer, depression with anxiety, small bowel obstruction, fall with injury and had her last chemo treatment on 06/16/2019. The patient notes that she noticed a nonproductive cough that began 5-6 weeks ago, which became worse a week ago with a poor appetite. The patient was seen in the outpatient MAC clinic today and had abdominal pain, weakness, slight confusion, nausea and vomiting, so was referred to the ED. Upon arrival to the ED, the patient required oxygen, IV fluids and was started on IV Levofloxacin. Labs showed an elevated WBC count of 11.2, sodium 134, anion gap of 14, BUN 29, GFR 53, glucose 103, lactic acid 2.4, total bilirubin 1.2, with no other abnormalities. A urinalysis shows no infection. A chest x-ray was normal, but an abdominal CT did suggest an aspiration pneumonia pattern. The patient has been admitted to inpatient for further treatment of pneumonia, a speech evaluation may be ordered. PMH/PSH - Past Medical History Cardiovascular: positive: Hypertension, High cholesterol, Atrial fibrillation, Murmur, Valve disorder Respiratory: positive: None, Shortness of breath Neuro: positive: Headaches Endocrine/Autoimmune: positive: None GI: positive: GERD, Chronic constipation AN/SQQ 89(V)15 [employer]: positive: Ovarian cancer : positive: Incontinence, Kidney stones HEENT: positive: Glaucoma, Chronic hearing loss Psych: positive: Depression, Anxiety Musculoskeletal: positive: Osteoporosis, Fatigue Derm: positive: Psoriasis MRSA Hx?: No - Past Surgical History General: positive: Appendectomy /AN/SQQ 89(V)15 [employer]: positive: Hysterectomy, Oophrectomy HEENT: positive: Cataracts, Tonsil/Adenoidectomy Social & Family Hx - Living Situation Living Arrangement: At home Living Situation: With family (lives with son) - Social History Does the pt smoke?: No Smoking Status: Former smoker (only 3 years) Does the pt drink ETOH?: Yes ETOH Use: Wine (very occasional, 1-4 per month) Does the pt have substance abuse?: No - POLST Patient has POLST: Yes POLST Status: DNR - Family History Family History: Mother: , Father: Meds/Allgy - Home Medications Home Medications: Ambulatory Orders Medication Instructions Recorded Confirmed Cholecalciferol (Vitamin D3) 5,000 unit PO BID 07/14/15 06/16/19 [Vitamin D3] Diltiazem HCl [Diltiazem 24Hr Cd] 180 mg PO DAILY 07/14/15 06/16/19 Senna [Senokot] 8.6 tab PO BID PRN 07/14/15 06/16/19 polyethylene glycoL 3350 [Miralax] 17 - 34 gm PO DAILY PRN 07/14/15 06/16/19 Aspirin 325 mg PO DAILY 07/27/15 06/16/19 Calcium Carb/Mag Ox/Zinc Sulf [Hm 1 each PO DAILY 08/04/15 06/16/19 Jumiail-Tbryfomsm-Gawp Cplt] Multivitamin [Multivitamins] 1 each PO DAILY 08/04/15 06/16/19 Mineral Oil, Light/Mineral Oil 2 drop EACHEYE DAILY PRN 09/01/15 06/16/19 [Soothe Xp Eye Drops] Mupirocin 2 units TOP BID PRN 09/01/15 06/16/19 Triamcinolone 0.1% Oint [Kenalog 1 applic TOP BID PRN 09/01/15 06/16/19 0.1% Oint] Raloxifene HCl 60 mg PO DAILY 10/06/15 06/16/19 Losartan [Cozaar] 50 mg PO DAILY 10/17/17 06/16/19 Lactobacillus Acidophilus 1 tab PO DAILY 01/16/18 06/16/19 [Probiotic Acidophilus] Ondansetron HCl [Zofran] 4 mg PO Q6H PRN 10/30/18 06/16/19 traZODone [Desyrel] 50 - 100 mg PO ACHS PRN 01/29/19 06/16/19 Prednisone 5 mg PO PRN PRN 03/03/19 06/16/19 Ferrous Sulfate [High Potency Iron] 27 mg PO PRN PRN MDD 27 04/07/19 06/16/19 Apremilast [Otezla] 30 mg PO BID 05/05/19 06/02/19 Naproxen Sodium [Aleve] 220 mg PO BID PRN 06/16/19 06/16/19 - Allergies Allergies/Adverse Reactions: Allergies Allergy/AdvReac Type Severity Reaction Status Date / Time morphine Allergy Severe Emesis Verified 06/23/19 10:13 cephalexin monohydrate * AdvReac Severe Edema Verified 06/23/19 10:13 [From Keflex] procaine AdvReac Intermediate Upset Verified 06/23/19 10:13 stomach codeine AdvReac Dizziness Verified 06/23/19 10:13 Review of Systems - Constitutional Constitutional: reports: Fatigue, Fever, Chills, Weakness, Poor appetite, Diaphoresis, Weight loss - Eyes Eyes: reports: Vision loss, Corrective lenses - Ears, Nose & Throat Ears, Nose & Throat: reports: Hearing loss, Nasal congestion, Postnasal drainage, Sore throat, Hoarseness - Cardiovascular Cariovascular: reports: Decr. exercise tolerance - Respiratory Respiratory: reports: Cough, SOB with exertion - Gastrointestinal Gastrointestinal: reports: Nausea, Vomiting, Bile emesis, Reflux/heartburn, Poor appetite - Musculoskeletal Musculoskeletal: reports: Stiffness - Integumentary Integumentary: reports: Dryness - Neurological Neurological: reports: General weakness, Memory problems - Psychiatric Psychiatric: reports: Depression, Anxiety - Hematologic/Lymphatic Hematologic/Lymphatic: reports: Anemia, Bruising, Recurrent infections - All Other Systems All Other Systems: reports: Reviewed and negative Prior Level of Functionality: Lives independently, no recent falls, still drives. Exam - Vital Signs Reviewed Vital Signs: Yes Vital Signs: Vital Signs x48h Temp Pulse Resp BP Pulse Ox 06/23/19 16:00 64 22 125/70 93 06/23/19 15:30 75 22 136/76 H 95 06/23/19 15:25 88 L 06/23/19 15:00 80 24 113/101 H 96 06/23/19 14:33 75 20 117/61 100 06/23/19 14:00 72 17 123/64 95 06/23/19 13:30 70 20 99/55 L 95 06/23/19 13:00 70 18 113/66 94 06/23/19 12:30 83 24 132/68 H 93 06/23/19 12:00 133 H 16 93 06/23/19 11:30 113 H 13 126/65 94 06/23/19 11:00 125 H 23 110/78 94 06/23/19 10:30 152 H 26 H 112/74 95 06/23/19 10:09 36.4 C L 83 18 76/54 L 97 - Physical Exam General Appearance: positive: No acute distress, Alert Eyes Bilateral: positive: PERRL, No lid inflammation ENT: positive: Pharyngeal erythema, Dry mucous membranes Neck: positive: Thyroid nml, Stiff neck Respiratory: positive: Chest non-tender, Rhonchi (coarse crackles to bilateral low lobes-posterior, no wheezing) Cardiovascular: positive: Regular rate & rhythm, No gallop, Systolic murmur Peripheral Pulses: positive: 2+ Abdomen: positive: Non-tender, No organomegaly, Nml bowel sounds Back: positive: Nml inspection Skin: positive: No rash, Warm, Dry, Pallor Extremities: positive: Non-tender, Full ROM, Nml appearance, No pedal edema Neurologic/Psychiatric: positive: Oriented x3, CN's nml (2-12), Motor nml, Sensation nml, Weakness, Depressed mood/affect (flat affect) Reflexes: Bicep (R): 4+, Bicep (L): 4+, Ankle (R): 4+, Ankle (L): 4+ Results - Lab Results Lab results reviewed: Yes Fish Bones: 06/23/19 10:30 06/23/19 10:30 Other Lab Results: Lab Results x24hrs 06/23/19 06/23/19 06/23/19 Range/Units 12:52 11:28 10:30 WBC (4.8-10.8) x10^3/uL RBC (4.20-5.40) 10^6/uL Hgb (12.0-16.0) g/dL Hct (37.0-47.0) % MCV (81.0-99.0) fL MCH (27.0-31.0) pg MCHC (32.0-36.0) g/dL RDW (12.0-15.0) % Plt Count (130-450) 10^3/uL MPV (7.9-10.8) fL Neut # (Auto) (1.5-6.6) 10^3/uL Lymph # (Auto) (1.5-3.5) 10^3/uL Jay # (Auto) (0.0-1.0) 10^3/uL Eos # (Auto) (0.0-0.7) 10^3/uL Baso # (Auto) (0.0-0.1) 10^3/uL Absolute Nucleated RBC x10^3/uL Band Neuts % (Manual) Abnorm Lymph % (Manual) Nucleated RBC % /100WBC Neutrophils # (Manual) Lymphocytes # (Manual) Monocytes # (Manual) Eosinophils # (Manual) Basophils # (Manual) Differential Comment WBC Morphology (NORMAL) Platelet Estimate (NORMAL) Platelet Morphology (NORMAL) RBC Morph Micro Appear (NORMAL) PT 12.2 (9.9-12.6) secs INR 1.1 (0.8-1.2) Sodium (135-145) mmol/L Potassium (3.5-5.0) mmol/L Chloride (101-111) mmol/L Carbon Dioxide (21-32) mmol/L Anion Gap (6-13) BUN (6-20) mg/dL Creatinine (0.4-1.0) mg/dL Estimated GFR (MDRD) (>89) Glucose (70-100) mg/dL Lactic Acid (0.5-2.2) mmol/L Calcium (8.5-10.3) mg/dL Total Bilirubin (0.2-1.0) mg/dL AST (10-42) IU/L ALT (10-60) IU/L Alkaline Phosphatase (42-121) IU/L Troponin I High Sens (2.3-14.8) ng/L Total Protein (6.7-8.2) g/dL Albumin (3.2-5.5) g/dL Globulin (2.1-4.2) g/dL Albumin/Globulin Ratio (1.0-2.2) Lipase (22-51) U/L Urine Color YELLOW Urine Clarity CLOUDY (CLEAR) Urine pH 6.0 (5.0-7.5) PH Ur Specific [place] 1.015 (1.002-1.030) Urine Protein 30 H (NEGATIVE) mg/dL Urine Glucose (UA) NEGATIVE (NEGATIVE) mg/dL Urine Ketones 40 H (NEGATIVE) mg/dL Urine Occult Blood NEGATIVE (NEGATIVE) Urine Nitrite NEGATIVE (NEGATIVE) Urine Bilirubin NEGATIVE (NEGATIVE) Urine Urobilinogen 0.2 (NORMAL) (NORMAL) E.U./dL Ur Leukocyte Esterase NEGATIVE (NEGATIVE) Urine RBC 0-5 (0-5) /HPF Urine WBC 6-10 H (0-5) /HPF Ur Squamous Epith Cells MOD Squamous H (<= Few) Urine Bacteria Many H (None Seen) /HPF Urine Casts 6-10 Granular Casts /LPF Urine Mucus Moderate Strands Ur Microscopic Review INDICATED Urine Culture Comments NOT INDICATED Influenza A (Rapid) Negative (Negative) Influenza B (Rapid) Negative (Negative) 06/23/19 06/23/19 06/23/19 Range/Units 10:30 10:30 10:30 WBC 11.2 H (4.8-10.8) x10^3/uL RBC 4.76 (4.20-5.40) 10^6/uL Hgb 14.9 (12.0-16.0) g/dL Hct 45.2 (37.0-47.0) % MCV 95.0 (81.0-99.0) fL MCH 31.3 H (27.0-31.0) pg MCHC 33.0 (32.0-36.0) g/dL RDW 14.9 (12.0-15.0) % Plt Count 366 (130-450) 10^3/uL MPV 9.7 (7.9-10.8) fL Neut # (Auto) 9.3 H (1.5-6.6) 10^3/uL Lymph # (Auto) 0.6 L (1.5-3.5) 10^3/uL Jay # (Auto) 1.1 H (0.0-1.0) 10^3/uL Eos # (Auto) 0.0 (0.0-0.7) 10^3/uL Baso # (Auto) 0.1 (0.0-0.1) 10^3/uL Absolute Nucleated RBC 0.00 x10^3/uL Band Neuts % (Manual) Not Reportable Abnorm Lymph % (Manual) Not Reportable Nucleated RBC % 0.0 /100WBC Neutrophils # (Manual) Not Reportable Lymphocytes # (Manual) Not Reportable Monocytes # (Manual) Not Reportable Eosinophils # (Manual) Not Reportable Basophils # (Manual) Not Reportable Differential Comment MANUAL=AUTO DIFF WBC Morphology 1+ DOHLE BODIES (NORMAL) Platelet Estimate NORMAL (130-450,000) (NORMAL) Platelet Morphology NORMAL APPEARANCE (NORMAL) RBC Morph Micro Appear NORMAL APPEARANCE (NORMAL) PT (9.9-12.6) secs INR (0.8-1.2) Sodium 134 L (135-145) mmol/L Potassium 4.6 (3.5-5.0) mmol/L Chloride 96 L (101-111) mmol/L Carbon Dioxide 24 (21-32) mmol/L Anion Gap 14.0 H (6-13) BUN 29 H (6-20) mg/dL Creatinine 1.0 (0.4-1.0) mg/dL Estimated GFR (MDRD) 53 L (>89) Glucose 103 H (70-100) mg/dL Lactic Acid (0.5-2.2) mmol/L Calcium 9.0 (8.5-10.3) mg/dL Total Bilirubin 1.2 H (0.2-1.0) mg/dL AST 21 (10-42) IU/L ALT 12 (10-60) IU/L Alkaline Phosphatase 62 (42-121) IU/L Troponin I High Sens 12.8 (2.3-14.8) ng/L Total Protein 6.4 L (6.7-8.2) g/dL Albumin 3.2 (3.2-5.5) g/dL Globulin 3.2 (2.1-4.2) g/dL Albumin/Globulin Ratio 1.0 (1.0-2.2) Lipase 24 (22-51) U/L Urine Color Urine Clarity (CLEAR) Urine pH (5.0-7.5) PH Ur Specific [place] (1.002-1.030) Urine Protein (NEGATIVE) mg/dL Urine Glucose (UA) (NEGATIVE) mg/dL Urine Ketones (NEGATIVE) mg/dL Urine Occult Blood (NEGATIVE) Urine Nitrite (NEGATIVE) Urine Bilirubin (NEGATIVE) Urine Urobilinogen (NORMAL) E.U./dL Ur Leukocyte Esterase (NEGATIVE) Urine RBC (0-5) /HPF Urine WBC (0-5) /HPF Ur Squamous Epith Cells (<= Few) Urine Bacteria (None Seen) /HPF Urine Casts /LPF Urine Mucus Ur Microscopic Review Urine Culture Comments Influenza A (Rapid) (Negative) Influenza B (Rapid) (Negative) 06/23/19 Range/Units 10:29 WBC (4.8-10.8) x10^3/uL RBC (4.20-5.40) 10^6/uL Hgb (12.0-16.0) g/dL Hct (37.0-47.0) % MCV (81.0-99.0) fL MCH (27.0-31.0) pg MCHC (32.0-36.0) g/dL RDW (12.0-15.0) % Plt Count (130-450) 10^3/uL MPV (7.9-10.8) fL Neut # (Auto) (1.5-6.6) 10^3/uL Lymph # (Auto) (1.5-3.5) 10^3/uL Jay # (Auto) (0.0-1.0) 10^3/uL Eos # (Auto) (0.0-0.7) 10^3/uL Baso # (Auto) (0.0-0.1) 10^3/uL Absolute Nucleated RBC x10^3/uL Band Neuts % (Manual) Abnorm Lymph % (Manual) Nucleated RBC % /100WBC Neutrophils # (Manual) Lymphocytes # (Manual) Monocytes # (Manual) Eosinophils # (Manual) Basophils # (Manual) Differential Comment WBC Morphology (NORMAL) Platelet Estimate (NORMAL) Platelet Morphology (NORMAL) RBC Morph Micro Appear (NORMAL) PT (9.9-12.6) secs INR (0.8-1.2) Sodium (135-145) mmol/L Potassium (3.5-5.0) mmol/L Chloride (101-111) mmol/L Carbon Dioxide (21-32) mmol/L Anion Gap (6-13) BUN (6-20) mg/dL Creatinine (0.4-1.0) mg/dL Estimated GFR (MDRD) (>89) Glucose (70-100) mg/dL Lactic Acid 2.4 H (0.5-2.2) mmol/L Calcium (8.5-10.3) mg/dL Total Bilirubin (0.2-1.0) mg/dL AST (10-42) IU/L ALT (10-60) IU/L Alkaline Phosphatase (42-121) IU/L Troponin I High Sens (2.3-14.8) ng/L Total Protein (6.7-8.2) g/dL Albumin (3.2-5.5) g/dL Globulin (2.1-4.2) g/dL Albumin/Globulin Ratio (1.0-2.2) Lipase (22-51) U/L Urine Color Urine Clarity (CLEAR) Urine pH (5.0-7.5) PH Ur Specific [place] (1.002-1.030) Urine Protein (NEGATIVE) mg/dL Urine Glucose (UA) (NEGATIVE) mg/dL Urine Ketones (NEGATIVE) mg/dL Urine Occult Blood (NEGATIVE) Urine Nitrite (NEGATIVE) Urine Bilirubin (NEGATIVE) Urine Urobilinogen (NORMAL) E.U./dL Ur Leukocyte Esterase (NEGATIVE) Urine RBC (0-5) /HPF Urine WBC (0-5) /HPF Ur Squamous Epith Cells (<= Few) Urine Bacteria (None Seen) /HPF Urine Casts /LPF Urine Mucus Ur Microscopic Review Urine Culture Comments Influenza A (Rapid) (Negative) Influenza B (Rapid) (Negative) - Diagnostic Imaging Results Diagnostic Imaging Results: positive: Final report reviewed Diagnostic Imaging Results Comments: EXAM: CHEST RADIOGRAPHY EXAM DATE: 06/23/2019 11:02 AM IMPRESSION: No acute disease. EXAM: CT ABDOMEN AND PELVIS EXAM DATE: 06/23/2019 12:22 PM. IMPRESSION: 1. Multiple peritoneal soft tissue masses are redemonstrated compatible with peritoneal carcinomatosis. These appear to have decreased slightly in size compared to prior exam. 2. Redemonstrated long segment of thick-walled transverse colon which could reflect serosal metastasis or colitis. 3. Stable low-density lesions in pancreatic body and tail. 4. Small volume of intra-abdominal and pelvic free fluid, increased from prior exam. 5. Extensive sigmoid colonic diverticulosis. Difficult to evaluate for focal inflammatory changes due to presence of pelvic ascites. No free air. No bowel obstruction. 6. New bilateral small pleural effusions and bibasilar dense consolidations with air bronchograms. Additional scattered groundglass nodular densities in right lower lobe. Findings are suggestive of infectious/inflammatory process. Aspiration could be considered. 7. Other findings as above. Impression/Plan - Problem List Problem List: Aspiration pneumonia -1 week has had a worsening cough, nonproductive -Initial chest x-ray was negative for pneumonia, abdominal CT did suggest bilateral aspiration pneumonia -PCN allergy, started on Levofloxacin and Flagyl -Obtain sputum culture, respiratory care Acute encephalopathy -Patient admitted to having confusion which started yesterday -DaughterAlina confirmed -No confusion noted on initial exam, but had gotten IV fluids, IV antibiotics -Continue to monitor Dehydration -Evidence in lab findings of reduced GFR, elevated BUN -Dry mucous membranes on exam -Continues on IV fluids Cough -Non-productive -Obtain sputum -Manage symptoms with musinex, tessalon pearls The patient will be monitored on telemetry for her atrial fibrillation, her port-a-cath can be accessed by nursing for the ease of IV medications and blood draws. Her home medications will be resumed as appropriate based on labs and vital signs. Chronic/stable diagnoses: Cachexia Protein calorie malnutrition Constipation DNR (do not resuscitate) Hypertension History of ovarian cancer Port-A-Cath in place Chronic atrial fibrillation Depression with anxiety Core Measures - Anticipated LOS I expect patient to be DC'd or transferred within 96 hours.: Yes - DVT/VTE - Prophylaxis VTE/DVT Device ordered at admit?: Yes VTE/DVT Prophylaxis med ordered at admit?: Yes - Stroke - Rehab Assessment Rehab services assessment to be ordered?: No Not Ordered - Medical Reason: Contraindicated - AMI - Statin at Admit Aspirin Prescribed on Admit: No Not Ordered - Medical Reason: Contraindicated
[2019-06-23] MEDS: metroNIDAZOLE 500 MG/100 ML 500 MG/100 ML BAG IV SCH ×2 (17:18→23:44)
[2019-06-23] MEDS: SODIUM CHLORIDE FLUSH 0.9% 10 ML SYRINGE IVP SCH ×2 (18:36→23:44)
[2019-06-23] MEDS: guaiFENesin 600 MG TABLET PO SCH (21:46)
[2019-06-24] MEDS: BENZONATATE 100 MG CAPSULE PO PRN (04:18)
[2019-06-24 05:43] LABS: BASOPHILS % (AUTO) 0.4 %; EOSINOPHILS % (AUTO) 0.3 %; LYMPHOCYTES # (AUTO) 0.5 10^3/uL (1.5-3.5); LYMPHOCYTES % (AUTO) 6.3 %; MEAN CORPUSCULAR HEMOGLOBIN 31.3 pg (27.0-31.0); MEAN CORPUSCULAR HGB CONC 32.6 g/dL (32.0-36.0); MEAN CORPUSCULAR VOLUME 95.7 fL (81.0-99.0); MEAN PLATELET VOLUME 9.5 fL (7.9-10.8); MONOCYTES # (AUTO) 0.9 10^3/uL (0.0-1.0); MONOCYTES % (AUTO) 12.1 %; NEUTROPHILS # (AUTO) 5.7 10^3/uL (1.5-6.6); NEUTROPHILS % (AUTO) 79.1 %; PLT - PLATELET COUNT 261 10^3/uL (130-450); RED BLOOD COUNT 3.52 10^6/uL (4.20-5.40); RED CELL DISTRIBUTION WIDTH 15.3 % (12.0-15.0); WHITE BLOOD COUNT 7.3 x10^3/uL (4.8-10.8)
[2019-06-24 05:51] LABS: ALBUMIN 2.6 g/dL (3.2-5.5); ALBUMIN/GLOBULIN RATIO 0.9 (1.0-2.2); BILIRUBIN,TOTAL 0.6 mg/dL (0.2-1.0); CALCIUM 8.2 mg/dL (8.5-10.3); CREATININE 0.7 mg/dL (0.4-1.0); TOTAL PROTEIN 5.4 g/dL (6.7-8.2)
[2019-06-24] MEDS: metroNIDAZOLE 500 MG/100 ML 500 MG/100 ML BAG IV SCH ×2 (08:16→16:35)
[2019-06-24] MEDS: guaiFENesin 600 MG TABLET PO SCH ×2 (08:17→20:19)
[2019-06-24] MEDS: polyethylene glycoL 3350 17 GM PACKET PO SCH (08:17)
[2019-06-24] MEDS: diltiaZEM CD 180 MG CAPSULE PO SCH (08:17)
[2019-06-24] MEDS: SODIUM CHLORIDE FLUSH 0.9% 10 ML SYRINGE IVP SCH ×2 (08:18→16:36)
[2019-06-24] MEDS: SODIUM CHLORIDE 0.9% 1,000 ML IV SCH (08:23)
[2019-06-24] MEDS: ACETAMINOPHEN 325 MG TABLET PO PRN ×2 (08:23→20:19)
--- NOTE | 2019-06-24 12:06 | PROVIDER PROGRESS NOTE ---
Subjective - Prog Note Date Prog Note Date: 06/24/19 Prog Note Time: 12:06 - Subjective Pt reports feeling: Improved Subjective: Analisa notes that she is coughing a little more this morning, but overall feels much improved since being admitted. She denies new chest pain, breathlessness, nausea, vomiting, diarrhea, a new rash or confusion. She admits to mild dizziness when speaking too much. Current Medications - Current Medications Current Medications: Active Medications Acetaminophen (Tylenol) 650 mg PO Q6HR PRN PRN Reason: Pain or Fever > 38C (100.4F) Last Admin: 06/24/19 08:23 Dose: 650 mg Albuterol/Ipratropium (Duoneb) 3 ml INH Q4HR PRN PRN Reason: Wheezing Benzonatate (Tessalon) 100 mg PO TID PRN PRN Reason: Cough Last Admin: 06/24/19 04:18 Dose: 100 mg Diltiazem HCl (Cardizem Cd) 180 mg PO DAILY [facility] Last Admin: 06/24/19 08:17 Dose: 180 mg Guaifenesin (Mucinex) 600 mg PO BID [facility] Last Admin: 06/24/19 08:17 Dose: 600 mg Metronidazole (Flagyl 500 Mg/100 Ml) 500 mg in 100 mls @ 100 mls/hr IV Q8H [facility] Last Admin: 06/24/19 16:35 Dose: 100 mls/hr Levofloxacin (Levaquin 500 Mg/100 Ml) 500 mg in 100 mls @ 100 mls/hr IV Q48H [facility] Sodium Chloride (Normal Saline 0.9%) 1,000 mls @ 83.333 mls/hr IV .Q12H [facility] Last Admin: 06/24/19 08:23 Dose: 83.333 mls/hr Multivitamins/Minerals (Theragran M) 1 tab PO DAILYWM [facility] Last Admin: 06/24/19 16:36 Dose: 1 tab Polyethylene Glycol (Miralax) 17 gm PO DAILY [facility] Last Admin: 06/24/19 08:17 Dose: 17 gm Sodium Chloride (Normal Saline Flush 0.9%) 10 ml IVP PRN PRN PRN Reason: NEEDED PER PROVIDER ORDERS Sodium Chloride (Normal Saline Flush 0.9%) 10 ml IVP 0100,0900,1700 [facility] Last Admin: 06/24/19 16:36 Dose: Not Given Cholecalciferol (Vitamin D3) [Vitamin D3] 5,000 unit PO BID 07/14/15 Diltiazem HCl [Diltiazem 24Hr Cd] 180 mg PO DAILY 07/14/15 Senna [Senokot] 8.6 tab PO BID PRN 07/14/15 polyethylene glycoL 3350 [Miralax] 17 - 34 gm PO DAILY PRN 07/14/15 Aspirin 325 mg PO DAILY 07/27/15 Calcium Carb/Mag Ox/Zinc Sulf [Hm Krhreap-Odbdupqvd-Nwnc Cplt] 1 each PO DAILY 08/04/15 Multivitamin [Multivitamins] 1 each PO DAILY 08/04/15 Mineral Oil, Light/Mineral Oil [Soothe Xp Eye Drops] 2 drop EACHEYE DAILY PRN 09/01/15 Mupirocin 2 applic TOP BID PRN 09/01/15 Triamcinolone 0.1% Oint [Kenalog 0.1% Oint] 1 applic TOP BID PRN 09/01/15 Raloxifene HCl 60 mg PO DAILY 10/06/15 Losartan [Cozaar] 50 mg PO DAILY 10/17/17 Lactobacillus Acidophilus [Probiotic Acidophilus] 1 tab PO DAILY 01/16/18 Ondansetron HCl [Zofran] 4 mg PO Q6H PRN 10/30/18 traZODone [Desyrel] 50 - 100 mg PO QPM PRN 01/29/19 Prednisone 5 mg PO DAILY PRN 03/03/19 Ferrous Sulfate [High Potency Iron] 27 mg PO PRN PRN MDD 27 04/07/19 Apremilast [Otezla] 30 mg PO BID 05/05/19 Naproxen Sodium [Aleve] 220 mg PO BID PRN 06/16/19 Objective - Vital Signs/Intake & Output Reviewed Vital Signs: Yes Vital Signs: Vital Signs x48h Temp Pulse Resp BP Pulse Ox 06/24/19 07:50 36.6 C 69 1 L 121/64 97 Intake & Output: Intake & Output 06/21/19 06/22/19 06/23/19 06/24/19 23:59 23:59 23:59 23:59 Intake Total 2830.0 1553.885 Output Total 425 Balance 2830.0 1128.885 - Objective General Appearance: positive: No acute distress, Alert Eyes Bilateral: positive: PERRL Eyes: OU Conjunctivae pale ENT: positive: Pharynx nml, Dry mucous membranes Neck: positive: Thyroid nml, Stiff neck Respiratory: positive: Chest non-tender, No respiratory distress, Rhonchi Cardiovascular: positive: Regular rate & rhythm, No gallop, Tachycardia, S ystolic murmur Peripheral Pulses: 1+ Radial (R), 1+ Radial (L) Abdomen: positive: Non-tender, Nml bowel sounds, No distention Back: positive: Nml inspection Skin: positive: No rash, Warm, Dry, Pallor Extremities: positive: Non-tender, Full ROM, Nml appearance, No pedal edema Neurologic/Psychiatric: positive: Oriented x3, CN's nml (2-12), Motor nml, Sensation nml, Mood/affect nml Reflexes: Bicep (R): 3+, Bicep (L): 3+ - Lab Results Fish Bones: 06/24/19 05:29 06/24/19 05:29 Other Labs: Lab Results x24hrs 06/24/19 06/24/19 06/23/19 Range/Units 05:29 05:29 12:52 WBC 7.3 (4.8-10.8) x10^3/uL RBC 3.52 L (4.20-5.40) 10^6/uL Hgb 11.0 L (12.0-16.0) g/dL Hct 33.7 L (37.0-47.0) % MCV 95.7 (81.0-99.0) fL MCH 31.3 H (27.0-31.0) pg MCHC 32.6 (32.0-36.0) g/dL RDW 15.3 H (12.0-15.0) % Plt Count 261 (130-450) 10^3/uL MPV 9.5 (7.9-10.8) fL Neut # (Auto) 5.7 (1.5-6.6) 10^3/uL Lymph # (Auto) 0.5 L (1.5-3.5) 10^3/uL [place] # (Auto) 0.9 (0.0-1.0) 10^3/uL Eos # (Auto) 0.0 (0.0-0.7) 10^3/uL Baso # (Auto) 0.0 (0.0-0.1) 10^3/uL Absolute Nucleated RBC 0.00 x10^3/uL Nucleated RBC % 0.0 /100WBC Sodium 139 (135-145) mmol/L Potassium 4.3 (3.5-5.0) mmol/L Chloride 106 (101-111) mmol/L Carbon Dioxide 25 (21-32) mmol/L Anion Gap 8.0 (6-13) BUN 24 H (6-20) mg/dL Creatinine 0.7 (0.4-1.0) mg/dL Estimated GFR (MDRD) 80 L (>89) Glucose 88 (70-100) mg/dL Calcium 8.2 L (8.5-10.3) mg/dL Magnesium 2.0 (1.7-2.8) mg/dL Total Bilirubin 0.6 (0.2-1.0) mg/dL AST 19 (10-42) IU/L ALT 11 (10-60) IU/L Alkaline Phosphatase 48 (42-121) IU/L Total Protein 5.4 L (6.7-8.2) g/dL Albumin 2.6 L (3.2-5.5) g/dL Globulin 2.8 (2.1-4.2) g/dL Albumin/Globulin Ratio 0.9 L (1.0-2.2) Urine Color YELLOW Urine Clarity CLOUDY (CLEAR) Urine pH 6.0 (5.0-7.5) PH Ur Specific [place] 1.015 (1.002-1.030) Urine Protein 30 H (NEGATIVE) mg/dL Urine Glucose (UA) NEGATIVE (NEGATIVE) mg/dL Urine Ketones 40 H (NEGATIVE) mg/dL Urine Occult Blood NEGATIVE (NEGATIVE) Urine Nitrite NEGATIVE (NEGATIVE) Urine Bilirubin NEGATIVE (NEGATIVE) Urine Urobilinogen 0.2 (NORMAL) (NORMAL) E.U./dL Ur Leukocyte Esterase NEGATIVE (NEGATIVE) Urine RBC 0-5 (0-5) /HPF Urine WBC 6-10 H (0-5) /HPF Ur Squamous Epith Cells MOD Squamous H (<= Few) Urine Bacteria Many H (None Seen) /HPF Urine Casts 6-10 Granular Casts /LPF Urine Mucus Moderate Strands Ur Microscopic Review INDICATED Urine Culture Comments NOT INDICATED ABX Reporting Has patient been on IV antibiotics over the past 48 hours?: Yes Assessment/Plan - Problem List (1) Aspiration pneumonia Impression: -1 week has had a worsening cough, nonproductive -Known aspiration event while vomiting as the suspected source -Initial chest x-ray was negative for pneumonia, abdominal CT did suggest bilateral aspiration pneumonia -PCN allergy, started on Levofloxacin and Flagyl -Duo-nebs as needed, expectorant -Obtain sputum culture, respiratory care History of ovarian cancer -First diagnosed in 2015 -Continues to see Dr. Vance in the [facility] -As per Dr Vance's last clinic note: ovarian cancer 3rd relapse since 10/2018 by PET scan, intact MMR -Gemzar single agent from 10/2018-01/2019 -Failed surgical debulking attempt -CarboTaxol repeated over the years, last in 03/2018 -Maintenance Avastin until due to progression of disease -Patient states that Dr. Vance had predicted that she would not live to see [place] of 2018, but she is very encouraged that she is still alive Cough -Non-productive -Obtain sputum -Manage symptoms with musinex, tessalon pearls Acute encephalopathy -Patient admitted to having confusion which started the day prior to admission -DaughterAlina confirmed -No confusion noted on today's exam, now resolved -Continue to monitor Dehydration -Nearly resolved -Dry mucous membranes on exam -Continues on IV fluids Chronic/stable diagnoses: Cachexia Protein calorie malnutrition Constipation DNR (do not resuscitate) Hypertension Port-A-Cath in place Chronic atrial fibrillation Depression with anxiety Qualifiers: Qualified Code(s): J69.0 - Pneumonitis due to inhalation of food and vomit
--- NOTE | 2019-06-24 12:52 | PHARMACY PROGRESS NOTE ---
- Best Possible Medication History Admit Date and Time: 06/23/19 1559 Processed by: Pharmacy Medication History completed: Yes Secondary Source(s): Physician records, Pharmacy records, Previous admit records As the person ultimately responsible for medication therapy, providers are able to order a medication from an existing home medication list in [facility] via the "Reconcile Routine" prior to Confirmation of that medication by desktop support specialist. Such practice is discouraged except when the physician, in their clinical judgment, deems that a medical need exists for a medication without regard to previous use.
[2019-06-24] MEDS: MULTIVITAMIN W/MINERALS TABLET PO SCH (16:36)
[2019-06-25] MEDS: metroNIDAZOLE 500 MG/100 ML 500 MG/100 ML BAG IV SCH ×4 (00:21→23:45)
[2019-06-25] MEDS: SODIUM CHLORIDE FLUSH 0.9% 10 ML SYRINGE IVP SCH ×4 (00:25→23:45)
[2019-06-25] MEDS: SODIUM CHLORIDE 0.9% 1,000 ML IV SCH (04:10)
[2019-06-25] MEDS: ACETAMINOPHEN 325 MG TABLET PO PRN ×3 (05:24→23:43)
[2019-06-25] MEDS: BENZONATATE 100 MG CAPSULE PO PRN (05:25)
[2019-06-25] MEDS: IPRATROPIUM/ALBUTEROL 3 ML NEB INH PRN (08:57)
[2019-06-25] MEDS: diltiaZEM CD 180 MG CAPSULE PO SCH (10:08)
[2019-06-25] MEDS: MULTIVITAMIN W/MINERALS TABLET PO SCH (10:09)
[2019-06-25] MEDS: polyethylene glycoL 3350 17 GM PACKET PO SCH (10:09)
[2019-06-25] MEDS: SENNA 8.6 MG TABLET PO SCH (10:09)
[2019-06-25] MEDS: DOCUSATE SODIUM 250 MG CAPSULE PO SCH (10:09)
[2019-06-25] MEDS: guaiFENesin 600 MG TABLET PO SCH ×2 (10:09→20:41)
[2019-06-25] MEDS ORDERED: SENNA 8.6 MG TABLET PO PRN (10:47)
[2019-06-25] MEDS ORDERED: traZODone 50 MG TABLET PO PRN (10:47)
[2019-06-25] MEDS ORDERED: MUPIROCIN 2% OINT 22 GM TUBE TOP PRN (10:47)
--- NOTE | 2019-06-25 10:53 | PROVIDER PROGRESS NOTE ---
Subjective - Prog Note Date Prog Note Date: 06/25/19 Prog Note Time: 11:00 - Subjective Pt reports feeling: Improved Subjective: Analisa complains of profound headaches which started early this AM, tylenol helped. Located in right eye socket, top and posterior scalp. She notes that her cough is still "thick and often", requires no oxygen, but very weak. Appetite has improved. Current Medications - Current Medications Current Medications: Active Medications Acetaminophen (Tylenol) 650 mg PO Q6HR PRN PRN Reason: Pain or Fever > 38C (100.4F) Last Admin: 06/25/19 05:24 Dose: 650 mg Albuterol/Ipratropium (Duoneb) 3 ml INH Q4HR PRN PRN Reason: Wheezing Last Admin: 06/25/19 08:57 Dose: 3 ml Aspirin (Greg) 325 mg PO DAILY [facility] Benzonatate (Tessalon) 100 mg PO TID PRN PRN Reason: Cough Last Admin: 06/25/19 05:25 Dose: 100 mg Cholecalciferol (Vitamin D3) 5,000 unit PO BID [facility] Diltiazem HCl (Cardizem Cd) 180 mg PO DAILY [facility] Last Admin: 06/25/19 10:08 Dose: 180 mg Docusate Sodium (Colace 250mg Capsule) 250 - 500 mg PO DAILY [facility] Last Admin: 06/25/19 10:09 Dose: 250 mg Guaifenesin (Mucinex) 600 mg PO BID [facility] Last Admin: 06/25/19 10:09 Dose: 600 mg Metronidazole (Flagyl 500 Mg/100 Ml) 500 mg in 100 mls @ 100 mls/hr IV Q8H [facility] Last Admin: 06/25/19 10:10 Dose: 100 mls/hr Levofloxacin (Levaquin 500 Mg/100 Ml) 500 mg in 100 mls @ 100 mls/hr IV Q48H [facility] Multivitamins/Minerals (Theragran M) 1 tab PO DAILYWM [facility] Last Admin: 06/25/19 10:09 Dose: 1 tab Mupirocin (Bactroban 2% Oint) 2 applic TOP BID PRN PRN Reason: PSORIASIS Non-Formulary Medication (Apremilast [Otezla]) 30 mg PO BID [facility] Non-Formulary Medication (Lactobacillus Acidophilus [Probiotic Acidophilus]) 1 tab PO DAILY [facility] Non-Formulary Medication (Raloxifene Hcl [Raloxifene Hcl]) 60 mg PO DAILY [facility] Oxymetazoline HCl (Afrin) 2 sprays REHAN BID [facility] Stop: 06/27/19 21:01 Polyethylene Glycol (Miralax) 17 gm PO DAILY [facility] Last Admin: 06/25/19 10:09 Dose: 17 gm Senna (Senokot) 8.6 - 17.2 mg PO DAILY [facility] Last Admin: 06/25/19 10:09 Dose: 8.6 mg Senna (Senokot) mg PO BID PRN PRN Reason: Constipation Sodium Chloride (Normal Saline Flush 0.9%) 10 ml IVP PRN PRN PRN Reason: NEEDED PER PROVIDER ORDERS Sodium Chloride (Normal Saline Flush 0.9%) 10 ml IVP 0100,0900,1700 [facility] Last Admin: 06/25/19 10:23 Dose: Not Given Trazodone HCl (Desyrel) 100 mg PO QPM PRN PRN Reason: Insomnia RX: Cholecalciferol (Vitamin D3) [Vitamin D3] 5,000 unit PO BID 07/14/15 RX: Diltiazem HCl [Diltiazem 24Hr Cd] 180 mg PO DAILY 07/14/15 RX: Senna [Senokot] 8.6 tab PO BID PRN 07/14/15 RX: polyethylene glycoL 3350 [Miralax] 17 - 34 gm PO DAILY PRN 07/14/15 RX: Aspirin 325 mg PO DAILY 07/27/15 RX: Calcium Carb/Mag Ox/Zinc Sulf [Hm Tvjsmjr-Kcbtngpdd-Tldu Cplt] 1 each PO DAILY 08/04/15 RX: Multivitamin [Multivitamins] 1 each PO DAILY 08/04/15 RX: Mineral Oil, Light/Mineral Oil [Soothe Xp Eye Drops] 2 drop EACHEYE DAILY PRN 09/01/15 RX: Mupirocin 2 applic TOP BID PRN 09/01/15 RX: Triamcinolone 0.1% Oint [Kenalog 0.1% Oint] 1 applic TOP BID PRN 09/01/15 RX: Raloxifene HCl 60 mg PO DAILY 10/06/15 RX: Losartan [Cozaar] 50 mg PO DAILY 10/17/17 Lactobacillus Acidophilus [Probiotic Acidophilus] 1 tab PO DAILY 01/16/18 Ondansetron HCl [Zofran] 4 mg PO Q6H PRN 10/30/18 RX: traZODone [Desyrel] 50 - 100 mg PO QPM PRN 01/29/19 RX: Prednisone 5 mg PO DAILY PRN 03/03/19 Ferrous Sulfate [High Potency Iron] 27 mg PO PRN PRN MDD 27 04/07/19 Apremilast [Otezla] 30 mg PO BID 05/05/19 Naproxen Sodium [Aleve] 220 mg PO BID PRN 06/16/19 Objective - Vital Signs/Intake & Output Reviewed Vital Signs: Yes Vital Signs: Vital Signs x48h Temp Pulse Pulse Resp BP Pulse Ox 06/25/19 08:57 64 16 06/25/19 08:00 36.8 C 68 22 118/61 94 Intake & Output: Intake & Output 06/22/19 06/23/19 06/24/19 06/25/19 23:59 23:59 23:59 23:59 Intake Total 2830.0 3093.885 857.848 Output Total 625 400 Balance 2830.0 2468.885 457.848 - Objective General Appearance: positive: Alert, Moderate distress Eyes: OU Conjunctivae pale, OU Scleral icterus ENT: positive: Pharyngeal erythema, Dry mucous membranes Neck: positive: Trachea midline, Lymphadenopathy (R), Lymphadenopathy (L), Stiff neck Cardiovascular: positive: Regular rate & rhythm, No gallop, Systolic murmur, Decreased pulse(s) Peripheral Pulses: 2+ Radial (R), 2+ Radial (L) Abdomen: positive: Non-tender, Abnml bowel sounds, Other (soft) Back: positive: Nml inspection Skin: positive: No rash, Warm, Dry, Pallor Extremities: positive: Non-tender, No pedal edema, Joint swelling Neurologic/Psychiatric: positive: Oriented x3, CN's nml (2-12), Motor nml, Sensation nml, Weakness, Depressed mood/affect Reflexes: Bicep (R): 3+, Bicep (L): 3+ - Lab Results Fish Bones: 06/24/19 05:29 06/24/19 05:29 ABX Reporting Has patient been on IV antibiotics over the past 48 hours?: Yes Sepsis Event Note (H) - Evaluation Current Stage of Sepsis: Ruled out Assessment/Plan - Problem List (1) Aspiration pneumonia Impression: -1 week has had a worsening cough, nonproductive -Known aspiration event while vomiting as the suspected source -Initial chest x-ray was negative for pneumonia, abdominal CT did suggest bilateral aspiration pneumonia -PCN allergy, started on Levofloxacin and Flagyl -Duo-nebs as needed, expectorant -Obtain sputum culture, respiratory care History of ovarian cancer -First diagnosed in 2015 -Continues to see Dr. Vance in the [facility] -As per Dr Vance's last clinic note: ovarian cancer 3rd relapse since 10/2018 by PET scan, intact MMR -Gemzar single agent from 10/2018-01/2019 -Failed surgical debulking attempt -CarboTaxol repeated over the years, last in 03/2018 -Maintenance Avastin until due to progression of disease -Patient states that Dr. Vance had predicted that she would not live to see [place] of 2018, but she is very encouraged that she is still alive Acute sinusitis -Upon inspection of inner ears using an otoscope, patient has purulent mucous possibly causing her fierce headache -Start Afrin spray x6 doses -Resumed home prednisone Cough -Non-productive -Obtain sputum -Manage symptoms with musinex, tessalon pearls Acute encephalopathy -Patient admitted to having confusion which started the day prior to admission -DaughterAlina confirmed -No confusion noted on today's exam, now resolved -Continue to monitor Dehydration -Nearly resolved -Dry mucous membranes on exam -Continues on IV fluids, now stopped Chronic/stable diagnoses: Cachexia Protein calorie malnutrition Constipation DNR (do not resuscitate) Hypertension Port-A-Cath in place Chronic atrial fibrillation Depression with anxiety Qualifiers:
[2019-06-25] MEDS: OXYMETAZOLINE HCL 100 SPRAYS BOTTLE NAS SCH ×2 (12:58→20:41)
[2019-06-25] MEDS ORDERED: levoFLOXacin 500 MG/100 ML 500 MG/100 ML BAG IV SCH (18:30)
[2019-06-25] MEDS: CHOLECALCIFEROL 5,000 UNIT CAPSULE PO SCH (20:40)
[2019-06-25] MEDS: RALOXIFENE HCL 60 MG PO SCH (20:41)
[2019-06-25] MEDS: APREMILAST 30 MG PO SCH (20:42)
[2019-06-26] MEDS: DOCUSATE SODIUM 250 MG CAPSULE PO SCH (05:43)
[2019-06-26] MEDS: polyethylene glycoL 3350 17 GM PACKET PO SCH (05:43)
[2019-06-26] MEDS: SENNA 8.6 MG TABLET PO SCH (05:44)
[2019-06-26 08:54] LABS: CREATININE 0.4 mg/dL (0.4-1.0)
[2019-06-26] MEDS: CHOLECALCIFEROL 5,000 UNIT CAPSULE PO SCH (08:56)
[2019-06-26] MEDS: MULTIVITAMIN W/MINERALS TABLET PO SCH (08:56)
[2019-06-26] MEDS: diltiaZEM CD 180 MG CAPSULE PO SCH (08:56)
[2019-06-26] MEDS: guaiFENesin 600 MG TABLET PO SCH (08:56)
[2019-06-26] MEDS: metroNIDAZOLE 500 MG/100 ML 500 MG/100 ML BAG IV SCH (08:58)
[2019-06-26] MEDS ORDERED: LACTOBACILLUS RHAMNOSUS GG CAPSULE PO SCH (09:00)
[2019-06-26] MEDS ORDERED: ASPIRIN 325 MG TABLET PO SCH (09:00)
[2019-06-26] MEDS: RALOXIFENE HCL 60 MG PO SCH (09:05)
[2019-06-26] MEDS: OXYMETAZOLINE HCL 100 SPRAYS BOTTLE NAS SCH (09:06)
[2019-06-26 09:07] VITALS: BP 128/70
[2019-06-26] MEDS: SODIUM CHLORIDE FLUSH 0.9% 10 ML SYRINGE IVP SCH (09:07)
[2019-06-26] MEDS: IPRATROPIUM/ALBUTEROL 3 ML NEB INH PRN (09:49)
[2019-06-26] MEDS ORDERED: DIPHENOX/ATROPINE 2.5/0.025 MG TABLET PO ONE (10:39)
[2019-06-26] MEDS: APREMILAST 30 MG PO SCH (11:14)
--- NOTE | 2019-06-26 12:15 | Discharge Plan ---
Discharge Plan Problem Reviewed?: Yes Disposition: Home, Self Care Condition: Good Prescriptions: Benzonatate [Tessalon [place]] 100 mg PO QID PRN #30 capsule PRN Reason: Cough Clindamycin HCl [Clindamycin 150MG CAP] 450 mg PO TID #40 capsule guaiFENesin [Mucinex] 600 mg PO BID #60 tablet Loperamide [Imodium] 2 mg PO QID #20 capsule Oxymetazoline HCl [Afrin] 2 sprays REHAN BID #1 bottle Diet: Regular Activity Restrictions: Activity as Tolerated Health Concerns: Aspiration pneumonia Cough Diarrhea Sinusitis Headaches Plan of Treatment: Continue on Clindamycin (3 tablets) three times per days for 5 more days Continue with your Afrin nasal spray for another 2 days for your headaches, sinusitis You may find that your throat becomes irritated as your sinuses drain See your primary care provider within one week Care Goals: Prevent hospital stays, or ED visits Make the most of each day Control symptoms Assessment: You were admitted for aspiration pneumonia thought to be caused from vomiting You were given 2 IV antibiotics, that are now in a pill form (Clindamycin) Your symptoms were managed with medications and by treating the pneumonia Your headaches were likely caused by the build up of drainage found within your inner ear and will slowly improve with the Afrin spray Your diarrhea can be treated with anti-diarrheal medications, and not thought to be infectious diarrhea No Smoking: If you smoke, Please STOP! Call for help. Follow-up with: Virgilio Bray DO [Primary Care Provider] -
--- NOTE | 2019-06-26 12:24 | DISCHARGE SUMMARY ---
Discharge Summary Admit Date: 06/23/19 Discharge Date: 06/26/19 Discharging Provider: BETO Ordaz Primary Care Provider: Virgilio Bray Code Status: Do Not Attempt Resuscitation Condition at Discharge: Good Discharge Disposition: 01 Home, Self Care - DIAGNOSES Admission Diagnoses: Aspiration pneumonia Acute encephalopathy Dehydration Cough Cachexia Protein calorie malnutrition Constipation DNR (do not resuscitate) Hypertension History of ovarian cancer Port-A-Cath in place Chronic atrial fibrillation Depression with anxiety Discharge Diagnoses with Status of Each Condition: Aspiration pneumonia-New on this admission, likely due to a vomiting episode prior to admission, treatment to continue at home History of ovarian cancer-Chronic, stable Acute sinusitis-New on this admit, Afrin spray to continue at home Cough-Acute caused by infection, improved, no oxygen needed Acute encephalopathy-Resolved Dehydration-Resolved Cachexia-Chronic, improved oral intake as infection was treated, underlying chronic cancer is the cause Protein calorie malnutrition-Chronic, stable Constipation-Chronic, no issues DNR (do not resuscitate)-Chronic, stable Hypertension-Chronic, stable Port-A-Cath in place-Chronic, stable Chronic atrial fibrillation-Chronic, stable Depression with anxiety-Chronic, stable - HPI History of Present Illness: Analisa Matson is an ill appearing 83-year old female with a past medical history of hypertension, chronic atrial fibrillation, valve disorder, psoriasis, kidney stones, osteoporosis, glaucoma, chronic hearing loss, anemia, urinary incontine nce, ovarian cancer, depression with anxiety, small bowel obstruction, fall with injury and had her last chemo treatment on 06/16/2019. The patient notes that she noticed a nonproductive cough that began 5-6 weeks ago, which became worse a week ago with a poor appetite. The patient was seen in the outpatient MAC clinic today and had abdominal pain, weakness, slight confusion, nausea and vomiting, so was referred to the ED. Upon arrival to the ED, the patient required oxygen, IV fluids and was started on IV Levofloxacin. Labs showed an elevated WBC count of 11.2, sodium 134, anion gap of 14, BUN 29, GFR 53, glucose 103, lactic acid 2.4, total bilirubin 1.2, with no other abnormalities. A urinalysis shows no infection. A chest x-ray was normal, but an abdominal CT did suggest an aspiration pneumonia pattern. The patient has been admitted to inpatient for further treatment of pneumonia, a speech evaluation may be ordered. - HOSPITAL COURSE Hospital Course: The patient was admitted for aspiration pneumonia thought to be caused from vomiting at home. The patient was first treated with 2 IV antibiotics, that were prescribed to continue at home, in a pill form (Clindamycin). The patient's symptoms were managed with medications and by treating the pneumonia. The patient's headaches were new and actually scared her, and were likely caused by the build up of drainage found within her inner ear and will slowly improve with the Afrin spray to be continued at home. She had diarrhea, which improved with the use of anti-diarrheal medications, and not thought to be infectious diarrhea since she did not have nausea, anorexia, abdominal pain or an increased WBC count. She was medically stable and transported home by family and it was determined that she would not qualify for home oxygen. - ALLERGIES Allergies/Adverse Reactions: Allergies Allergy/AdvReac Type Severity Reaction Status Date / Time morphine Allergy Severe Emesis Verified 06/23/19 10:13 diazepam [From Valium] Allergy Unknown Verified 06/27/19 08:16 cephalexin monohydrate * AdvReac Severe Edema Verified 06/23/19 10:13 [From Keflex] procaine AdvReac Intermediate Upset Verified 06/23/19 10:13 stomach codeine AdvReac Dizziness Verified 06/23/19 10:13 - MEDICATIONS Home Medications: Ambulatory Orders Medication Instructions Recorded Confirmed Cholecalciferol (Vitamin D3) 5,000 unit PO BID 07/14/15 06/24/19 [Vitamin D3] Diltiazem HCl [Diltiazem 24Hr Cd] 180 mg PO DAILY 07/14/15 06/24/19 Senna [Senokot] 8.6 tab PO BID PRN 07/14/15 06/24/19 polyethylene glycoL 3350 [Miralax] 17 - 34 gm PO DAILY PRN 07/14/15 06/24/19 Aspirin 325 mg PO DAILY 07/27/15 06/24/19 Calcium Carb/Mag Ox/Zinc Sulf [Hm 1 each PO DAILY 08/04/15 06/24/19 [id number]-Akeg Cplt] Multivitamin [Multivitamins] 1 each PO DAILY 08/04/15 06/24/19 Mineral Oil, Light/Mineral Oil 2 drop EACHEYE DAILY PRN 09/01/15 06/24/19 [Soothe Xp Eye Drops] Mupirocin 2 applic TOP BID PRN 09/01/15 06/24/19 Triamcinolone 0.1% Oint [Kenalog 1 applic TOP BID PRN 09/01/15 06/24/19 0.1% Oint] Raloxifene HCl 60 mg PO DAILY 10/06/15 06/24/19 Losartan [Cozaar] 50 mg PO DAILY 10/17/17 06/24/19 Lactobacillus Acidophilus 1 tab PO DAILY 01/16/18 06/24/19 [Probiotic Acidophilus] Ondansetron HCl [Zofran] 4 mg PO Q6H PRN 10/30/18 06/24/19 traZODone [Desyrel] 50 - 100 mg PO QPM PRN 01/29/19 06/24/19 Prednisone 5 mg PO DAILY PRN 03/03/19 06/24/19 Ferrous Sulfate [High Potency Iron] 27 mg PO PRN PRN MDD 27 04/07/19 06/24/19 Apremilast [Otezla] 30 mg PO BID 05/05/19 06/24/19 Naproxen Sodium [Aleve] 220 mg PO BID PRN 06/16/19 06/24/19 Benzonatate [Tessalon Perle] 100 mg PO QID PRN #30 capsule 06/26/19 Clindamycin HCl [Clindamycin 150MG 450 mg PO TID #40 capsule 06/26/19 CAP] Loperamide [Imodium] 2 mg PO QID #20 capsule 06/26/19 Oxymetazoline HCl [Afrin] 2 sprays REHAN BID #1 bottle 06/26/19 guaiFENesin [Mucinex] 600 mg PO BID #60 tablet 06/26/19 - PHYSICAL EXAM AT DISCHARGE General Appearance: positive: No acute distress, Alert Eyes Bilateral: positive: PERRL, No lid inflammation ENT: positive: Pharyngeal erythema, Dry mucous membranes Neck: positive: Trachea midline, Stiff neck Respiratory: positive: Chest non-tender, No respiratory distress, Other (scattered crackles bilaterally) Cardiovascular: positive: No gallop, Tachycardia, Systolic murmur, Decreased pulse(s) Peripheral Pulses: positive: 2+ Abdomen: positive: Non-tender, Nml bowel sounds Back: positive: Nml inspection Skin: positive: Color nml, No rash, Warm, Dry, Pallor Extremities: positive: Non-tender, Full ROM, Nml appearance, Pedal edema (d ependent to BLEs) Neurologic/Psychiatric: positive: Oriented x3, CN's nml (2-12), Motor nml, Sensation nml, Weakness, Sensory loss, Depressed mood/affect Reflexes: Bicep (R): 3+, Bicep (L): 3+ - LABS Result Diagrams: 06/24/19 05:29 06/26/19 08:40 - DIAGNOSTIC IMAGING Diagnostic Imaging Results: Final report reviewed Diagnostic Imaging Results Comments: EXAM: CHEST RADIOGRAPHY EXAM DATE: 06/23/2019 11:02 AM IMPRESSION: No acute disease. EXAM: CT ABDOMEN AND PELVIS EXAM DATE: 06/23/2019 12:22 PM. IMPRESSION: 1. Multiple peritoneal soft tissue masses are redemonstrated compatible with peritoneal carcinomatosis. These appear to have decreased slightly in size compared to prior exam. 2. Redemonstrated long segment of thick-walled transverse colon which could reflect serosal metastasis or colitis. 3. Stable low-density lesions in pancreatic body and tail. 4. Small volume of intra-abdominal and pelvic free fluid, increased from prior exam. 5. Extensive sigmoid colonic diverticulosis. Difficult to evaluate for focal inflammatory changes due to presence of pelvic ascites. No free air. No bowel obstruction. 6. New bilateral small pleural effusions and bibasilar dense consolidations with air bronchograms. Additional scattered groundglass nodular densities in right lower lobe. Findings are suggestive of infectious/inflammatory process. Aspiration could be considered. 7. Other findings as above. - SEPSIS Current Stage of Sepsis: Ruled out - FOLLOW UP Follow Up: Follow up with PCP within one week. - TIME SPENT Time Spent in Discharge (Minutes): 70
[2019-06-27] MEDS ORDERED: levoFLOXacin 250 MG TABLET PO SCH (09:00)
[2019-06-27] MEDS ORDERED: levoFLOXacin 750 MG/150 ML 750 MG/150 ML BAG IV SCH (18:30)
== END 2019-06-26 14:41 | disposition home or self-care (01) | DRG 177 ==
LOC: ED 10:01 → MS2 15:59
PROVIDERS: ADMIT Nurse Practitioner; ATTEND Nurse Practitioner
DX: J69.0 Pneumonitis due to inhalation of food and vomit (principal); E43 Unspecified severe protein-calorie malnutrition; I48.91 Unspecified atrial fibrillation; C56.9 Malignant neoplasm of unspecified ovary; G93.40 Encephalopathy, unspecified; C78.6 Secondary malignant neoplasm of retroperitoneum and peritoneum; R64 Cachexia; F41.9 Anxiety disorder, unspecified; F32.9 Major depressive disorder, single episode, unspecified; Z68.1 Body mass index [BMI] 19.9 or less, adult; I48.20 Chronic atrial fibrillation, unspecified; I38 Endocarditis, valve unspecified; J01.90 Acute sinusitis, unspecified; E86.0 Dehydration; D64.9 Anemia, unspecified; K59.09 Other constipation; I10 Essential (primary) hypertension; F41.8 Other specified anxiety disorders; R19.7 Diarrhea, unspecified; K57.30 Diverticulosis of large intestine without perforation or abscess without bleeding; E78.00 Pure hypercholesterolemia, unspecified; R32 Unspecified urinary incontinence; M81.0 Age-related osteoporosis without current pathological fracture; L40.9 Psoriasis, unspecified; Z66 Do not resuscitate; H40.9 Unspecified glaucoma; H91.90 Unspecified hearing loss, unspecified ear; Z79.82 Long term (current) use of aspirin; Z79.52 Long term (current) use of systemic steroids; Z79.899 Other long term (current) drug therapy; Z87.442 Personal history of urinary calculi; Z87.891 Personal history of nicotine dependence; Z90.710 Acquired absence of both cervix and uterus; Z90.722 Acquired absence of ovaries, bilateral
CPT/HCPCS: 36415; 71045; 74177; 80053; 81001; 82565; 83605; 83690; 83735; 84484; 85025; 85610; 87040; 87275; 87276; 93005; 94640; 96361; 96374; 96375; 99284; 99285; A9270; J1170; J2765; Q9967; 81003; 87086

== ENCOUNTER 2019-07-07 11:10 | Outpatient (CLI) | payer MEDICARE, BC ==
--- NOTE | 2019-07-07 14:45 | CONSULTATION NOTE ---
Palliative Care Follow Up - Referral Referring Provider: Dr. Kurt Vance Time of Visit: [id number] Referral setting: [facility] Referral Reason: Anxiety/Recurrent Ovarian CA - Information Sources Records reviewed: RN notes reviewed, Previous records reviewed History/Review of Systems obtained from: Patient Exam limitations: No limitations - History of Present Illness Update Brief HPI Update: This is a brandan 83-year-old woman who has progressive metastatic ovarian cancer, status post multiple lines of treatment, she is currently on Doxil and Avastin since 01/2019. She is can continue to have a mixed response, unfortunately most recently she was in the hospital for aspiration pneumonia, acute encephalopathy and dehydration at [facility]. She reports she had been feeling poorly actually for several weeks, with increasing sinusitis and sinus pressure, difficulty hearing, and developed a cough. U nfortunately she waited through the weekend, until she was having increased confusion as she did not want to stay in the ED. She felt if she showed up at the [facility] on Sunday, they would be able to facilitate an admission quicker. Patient reports she is continued to recover, she still has some residual cough, she is only using the Mucinex no longer needs the Tessalon Perles. She is still having productive sputum of loose pale yellow, but is feeling less short of breath. She does have some trace lower extremity edema, when she saw her PCP on 117, they did have her do some furosemide 20 mg x 3 days, she has 1 day left to do with this and feels this most likely is related to her fluids that she received in the hospital. She is able to hear better, she is having no trouble with swallowing, she reports the headache that she has been having is actually resolved, and her ears are draining and feeling better. They did hold her chemotherapy last week, on her scans though it did show some increased ascites, but she had no bowel obstruction. She does report early satiety, and does actually can palpate the carcinomatosis through her thin abdomen. She has had some more weight loss, is down to 105. She reports she is eating though and keeping up with her fluids. She has had no further nausea and has not needed the Reglan, she is using her bowel meds to keep her bowels soft and moving. She is feeling quite positive, and grateful that she came through this okay. Her daughter who will be her primary caregiver end of life, did come up and care for her for 2 weeks, reports that they had some good talks and is feeling better about the future though is hoping for again more quality and quantity of life. Social History - Living Situation Living arrangement: At home Living Situation: With family Support System: Patient lives with him provides care for her son, who has severe CHF and COPD. Her daughter has recently retired, and is getting ready to move to [facility]. She is most anxious about her sister, who she does support often with rides and emotionally, who is currently in the hospital with recurrent TIAs. Medications/Allergies - Medications Home Medications: Ambulatory Orders Medication Instructions Recorded Confirmed Cholecalciferol (Vitamin D3) 5,000 unit PO BID 07/14/15 07/07/19 [Vitamin D3] Senna [Senokot] 8.6 tab PO BID PRN 07/14/15 07/07/19 polyethylene glycoL 3350 [Miralax] 17 - 34 gm PO DAILY PRN 07/14/15 07/07/19 Aspirin 325 mg PO DAILY 07/27/15 06/30/19 Calcium Carb/Mag Ox/Zinc Sulf [Hm 1 each PO DAILY 08/04/15 07/07/19 Sgozxyk-Eodxybqfb-Tnog Cplt] Multivitamin [Multivitamins] 1 each PO DAILY 08/04/15 07/07/19 Mineral Oil, Light/Mineral Oil 2 drop EACHEYE DAILY PRN 09/01/15 07/07/19 [Soothe Xp Eye Drops] Mupirocin 2 applic TOP BID PRN 09/01/15 07/07/19 Triamcinolone 0.1% Oint [Kenalog 1 applic TOP BID PRN 09/01/15 07/07/19 0.1% Oint] Raloxifene HCl 60 mg PO DAILY 10/06/15 07/07/19 Losartan [Cozaar] 50 mg PO DAILY 10/17/17 07/07/19 Lactobacillus Acidophilus 1 tab PO DAILY 01/16/18 07/07/19 [Probiotic Acidophilus] Ondansetron HCl [Zofran] 4 mg PO Q6H PRN 10/30/18 07/07/19 traZODone [Desyrel] 50 - 100 mg PO QPM PRN 01/29/19 07/07/19 Prednisone 5 mg PO DAILY PRN 03/03/19 07/07/19 Ferrous Sulfate [High Potency Iron] 27 mg PO .3X WEEK MDD 27 04/07/19 07/07/19 Apremilast [Otezla] 30 mg PO BID MDD titrating down to 05/05/19 06/30/19 new dose Naproxen Sodium [Aleve] 220 mg PO BID PRN 06/16/19 07/07/19 Loperamide [Imodium] 2 mg PO QID #20 capsule 06/26/19 07/07/19 Furosemide 20 mg PO DAILY PRN 07/07/19 07/07/19 guaiFENesin [Mucinex] 600 mg PO BID PRN 07/07/19 07/07/19 - Allergies Allergies/Adverse Reactions: Allergies Allergy/AdvReac Type Severity Reaction Status Date / Time morphine Allergy Severe Emesis Verified 06/30/19 09:03 diazepam [From Valium] Allergy Unknown Verified 06/30/19 09:03 cephalexin monohydrate * AdvReac Severe Edema Verified 06/30/19 09:03 [From Keflex] procaine AdvReac Intermediate Upset Verified 06/30/19 09:03 stomach codeine AdvReac Dizziness Verified 06/30/19 09:03 Review of Systems - Constitutional Constitutional: reports: Fatigue (improved), Weight loss (105; also with some diuresis). denies: Fever, Chills - Eyes Eyes: reports: Vision loss, Corrective lenses - Ears, Nose & Throat Ears, Nose & Throat: reports: Ear pain (resolved), Hearing loss (improved), Nasal congestion (improved), Dental decay, Dental pain (improved jaw discomfort with antibiotics) - Cardiovascular Cardiovascular: reports: Decr. exercise tolerance (only able to walk 6 blocks vs 1-2 miles; but is progressing) - Respiratory Respiratory: reports: Cough (improved), Sputum production (light yellow), SOB with exertion. denies: SOB at rest - Gastrointestinal Gastrointestinal: reports: Bloating, Early satiety. denies: Constipation, Nausea - Genitourinary Genitourinary: reports: Frequency, Incontinence (intermittent) - Musculoskeletal Musculoskeletal: reports: Stiffness, Muscle weakness - Integumentary Integumentary: reports: Rash (improved), Dryness - Neurological Neurological: reports: General weakness, Memory problems (mild "chemo brain"). denies: Headache (resolved with improvement of sinusitis/ear infection) - Psychiatric Psychiatric: reports: Depression, Anxiety - Endocrine Endocrine: reports: Intolerance to cold - Hematologic/Lymphatic Hematologic/Lymphatic: reports: Anemia, Recurrent infections (pneumonia /) - All Other Systems All Other Systems: reports: Reviewed and negative Physical Exam - Vital Signs Temperature: 36.5 C Pulse Rate: 68 Respiratory Rate: 18 Blood Pressure: 136/69 - Physical Exam General Appearance: positive: No acute distress, Alert, Anxious Eyes Bilateral: positive: Normal inspection, Other (periorbital edema resolved) ENT: positive: No signs of dehydration, Other (poor dentition) Neck: positive: Lymphadenopathy (L) (small 1.5 cm node submanidular unchanged) Cardiovascular: positive: Regular rate & rhythm Respiratory: positive: No respiratory distress, Diminished in bases, Other (upper airway moist cough; clears with effort) Abdomen: positive: Soft, Tenderness (mid abd), Mass (carcinomatosis edges noted;), Distended (mildly) Skin: positive: Pallor, Dryness. negative: Rash (psorasis currently controlled) Extremities: positive: Pedal edema (trace-1+ in ankles; patient reports was worse) Neurologic/Psychiatric: positive: Oriented x3, Mood/affect nml, Weakness Palliative Care - POLST Patient has POLST: Yes POLST Status: DNR, Selective Treatment Pain: Pain unchanged, Location (mid abominal "light" no acute pain; feet with swelling and tired/ache of back; does not like to take anything occasional aleve) Tiredness/Fatigue: Moderate (4-6) (passing activities;) Drowsiness/Sedation: Moderate (4-6) Nausea: None Anorexia: None Dyspnea: Mild (1-3) Depression: None Anxiety: Mild (1-3) Feelings of wellbeing/Perceived Quality of Life: Excellent, Acceptable, Improved (feels like she has improved with treatment of her sinusitis) Sleep: Sleep improved, Variable sleep pattern Constipation: No Performance Status: Patient is not back to her previous level of functioning, but is still able to manage her ADLs. She does not need to have a shower chair, is able to still do household tasks, just more frequent rest periods.She did enjoy having her daughter here for 2 weeks, while she assisted with cooking and household cleaning. For the most part patient does assist and oversee care for her son. - Palliative Care Discussion: Patient does recognize she waited too long, before accessing care related to her functional and health decline. She is feeling much better, she is feeling quite positive and is hoping to get back on her chemotherapy. Has continued to be important for her to continue treatment, she has had a spike in her Ca1 25, but remains optimistic given her return to treatment that this will improve. She does have signs of progressive disease, but no signs or symptoms of obstruction, and is feeling better with her treatment of her aspiration pneumonia, with improvement of her sinusitis, ear infection, and feels like her appetite is returning as well. She does understand that this did give her daughter and her a chance to talk about some difficult things, her daughter is retired and will be willing to take care of her end of life. She is feeling somewhat less stressed regarding this, we discussed this "as a trial run". She is still remains quite hopeful and is hoping to continue to eat out more quantity of life. Results - Lab Results Lab results reviewed: Yes Impression and Recommendations - Palliative Care Impression: This is a brandan but anxious 83-year-old woman with recurrent and progressing ovarian cancer, with recent stay for aspiration pneumonia, is currently able to restart her treatment. Patient does continue with some abdominal distention, increased ascites, and early satiety. She is does not have acute pain, but is aware her symptoms are related to her tumor compression. Palliative care to continue provide support regarding pain and symptom management and anticipatory guidance Recommendations/Counseling Done: 1. Weight loss. This is exacerbated with her recent stent to the hospital, though she does report she enjoyed the food and was eating well. She is down to 105, she did have some fluid retention and has lost some more weight as she is been trialed on some furosemide. She will continue with her protein drinks, she is found a good substitute that she is taking twice a day. She reports early satiety, and is trying to work around pacing her intake. 2. Generalized weakness. Patient is much weaker, but is still able to attend her household tasks and ambulate up to 6 blocks. Patient is adding to her progressive ambulation program slowly. Sling provided regarding it would expect a prolonged period of recovery, given the severity of her infection. Encouraged to pace herself and rest frequently. 3. Lower extremity edema. This does appear to be improving, she is on her third day of furosemide. Instructed that she will have some lower extremity edema given her low protein, weight loss, encouraged to keep her feet up. Patient is reporting adequate fluid intake. 4. Recurrent ovarian cancer. Patient does remain at high risk for obstruction, she is working diligently to keep her bowels soft and frequent. She is titrating her MiraLAX and senna appropriately. She did have a break from her therapy, and has restarted today. 5. Advanced care planning. Patient does have POLST in place with DNA R/selective treatments, her D POA is her daughter Alina Price [phone]. Given her acute hospitalization, her daughter was able to provide support, this also gave him a chance to discuss and plan for the future, she continues to be focused on continuing treatment, she does understand her treatment is palliative in nature but continues to be hoping for the best. 6. Pneumonia. Patient has finished her antibiotic, she is just using Mucinex as needed, no longer needs the Tessalon Perles. She feels like she is recovering, she is not quite back to baseline. Counseling provided regarding concern for the severity of her illness, encouraged to contact providers earlier when notices decline or symptoms. Time Spent: 40 minutes with greater than 50% of this done in counseling regarding recent hospitalization, pain and symptom management, and anticipatory guidance.
== END 2019-07-07 11:11 | disposition home or self-care (01) ==
LOC: PC 11:10
PROVIDERS: ATTEND Nurse Practitioner Adult Health
DX: Z51.5 Encounter for palliative care (principal); R63.4 Abnormal weight loss; R53.1 Weakness; R60.0 Localized edema; F41.9 Anxiety disorder, unspecified; J69.0 Pneumonitis due to inhalation of food and vomit; C56.9 Malignant neoplasm of unspecified ovary; Z79.899 Other long term (current) drug therapy; Z66 Do not resuscitate
CPT/HCPCS: 99215

== ENCOUNTER 2019-08-04 09:49 | Outpatient (CLI) | payer MEDICARE, BC ==
--- NOTE | 2019-08-04 19:23 | CONSULTATION NOTE ---
Palliative Care Follow Up - Referral Referring Provider: Dr. Kurt Vance Time of Visit: 1015-11 Referral setting: [facility] [place] Referral Reason: Anxiety/Weight loss/Met Ovarian CA - Information Sources Records reviewed: Previous records reviewed History/Review of Systems obtained from: Patient Exam limitations: No limitations - History of Present Illness Update Brief HPI Update: This is a brandan 83-year-old woman with progressive metastatic ovarian cancer, status post multiple lines of treatment, current she she is on Doxil and Avastin since 01/2019. She continues to have a mixed response though with some improvement with blasts CT scan, with some reduction in tumor mass slightly for which she is quite grateful and excited about. She does not have any recent Ca1 25. She was hospitalized the beginning of June for pneumonia, acute encephalopathy and dehydration she does feel like she is finally improving from this. She still has some residual nasal congestion, and some loose upper airway secretions, but cough has resolved. She no longer has any lower extremity edema. She does continue to present with ongoing weight loss, today at 102. Patient does feel like she is eating well, she is pushing calories, she is doing protein drinks though they are only 160 jose 3 times daily. She denies any trouble with constipation, she does have some vague discomfort more along lines of nausea at bedtime, and if she eats this makes it better. She continues with some abdominal pressure, though no significant pain or enough to take any pain medication. She does feel some pressure on her bladder, but denies pain or burning with urination. Patient also has poor dentition, presents with increased pain in one tooth "socket", worried about possible abscess. Reports increase tenderness for two weeks, but now more acute. Some tenderness with palpation of cheek, no lymphadenopathy or visible swelling in mouth. Continues to remain quite hopeful, feels currently continue to tolerate treatment. She feels her quality of life is good, and feels like she is functioning well both physically and emotionally despite weight loss. Social History - Living Situation Living arrangement: At home Living Situation: With family Support System: Patient lives at home with her son, who has significant health problems. She does own her own home. Her daughter recently came to help take care of her when she had pneumonia. She has a sister nearby who is having significant health problems as well. 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 Medications/Allergies - Medications Home Medications: Ambulatory Orders Medication Instructions Recorded Confirmed Cholecalciferol (Vitamin D3) 5,000 unit PO BID 07/14/15 07/21/19 [Vitamin D3] Senna [Senokot] 8.6 tab PO BID PRN 07/14/15 07/21/19 polyethylene glycoL 3350 [Miralax] 17 - 34 gm PO DAILY PRN 07/14/15 07/21/19 Aspirin 325 mg PO DAILY 07/27/15 07/21/19 Calcium Carb/Mag Ox/Zinc Sulf [Hm 1 each PO DAILY 08/04/15 07/21/19 [id number]-Ujru Cplt] Multivitamin [Multivitamins] 1 each PO DAILY 08/04/15 07/21/19 Mineral Oil, Light/Mineral Oil 2 drop EACHEYE DAILY PRN 09/01/15 07/21/19 [Soothe Xp Eye Drops] Mupirocin 2 applic TOP BID PRN 09/01/15 07/21/19 Triamcinolone 0.1% Oint [Kenalog 1 applic TOP BID PRN 09/01/15 07/21/19 0.1% Oint] Raloxifene HCl 60 mg PO DAILY 10/06/15 07/21/19 Losartan [Cozaar] 50 mg PO DAILY 10/17/17 07/21/19 Lactobacillus Acidophilus 1 tab PO DAILY 01/16/18 07/21/19 [Probiotic Acidophilus] Ondansetron HCl [Zofran] 4 mg PO Q6H PRN 10/30/18 07/21/19 traZODone [Desyrel] 50 - 100 mg PO QPM PRN 01/29/19 07/21/19 Prednisone 5 mg PO DAILY PRN 03/03/19 07/21/19 Ferrous Sulfate [High Potency Iron] 27 mg PO .3X WEEK MDD 27 04/07/19 07/21/19 Apremilast [Otezla] 30 mg PO BID MDD titrating down to 05/05/19 07/21/19 new dose Naproxen Sodium [Aleve] 220 mg PO BID PRN 06/16/19 07/21/19 Loperamide [Imodium] 2 mg PO QID #20 capsule 06/26/19 07/21/19 Furosemide 20 mg PO DAILY PRN 01/20/20 02/03/20 guaiFENesin [Mucinex] 600 mg PO BID PRN 07/07/19 07/21/19 - Allergies Allergies/Adverse Reactions: Allergies Allergy/AdvReac Type Severity Reaction Status Date / Time morphine Allergy Severe Emesis Verified 07/21/19 09:57 diazepam [From Valium] Allergy Unknown Verified 07/21/19 09:57 cephalexin monohydrate * AdvReac Severe Edema Verified 07/21/19 09:57 [From Keflex] procaine AdvReac Intermediate Upset Verified 07/21/19 09:57 stomach codeine AdvReac Dizziness Verified 07/21/19 09:57 Review of Systems - Constitutional Constitutional: reports: Fatigue (improving), Weight loss - Eyes Eyes: reports: Vision loss - Ears, Nose & Throat Ears, Nose & Throat: reports: Nasal congestion (improved/on Avastin), Dry mouth - Cardiovascular Cardiovascular: reports: Decr. exercise tolerance (still walking but less distance). denies: Chest pain - Respiratory Respiratory: reports: Cough (resolving). denies: SOB at rest - Gastrointestinal Gastrointestinal: reports: Nausea (as noted in HPI), Good appetite. denies: Constipation - Genitourinary Genitourinary: reports: Frequency, Incontinence (mild) - Musculoskeletal Musculoskeletal: reports: Muscle weakness - Integumentary Integumentary: reports: Dryness, Other (psorasis flare around mouth/cheeks) - Neurological Neurological: reports: General weakness - Psychiatric Psychiatric: reports: Anxiety. denies: Depression - Hematologic/Lymphatic Hematologic/Lymphatic: reports: Anemia (11.3), Recurrent infections (recent hospitalization for pneumonia) - All Other Systems All Other Systems: reports: Reviewed and negative Physical Exam - Vital Signs Temperature: 36.7 C Pulse Rate: 82 Respiratory Rate: 18 Blood Pressure: 149/79 - Physical Exam General Appearance: positive: Alert Eyes Bilateral: positive: Normal inspection ENT: positive: Other (poor dentition) Neck: negative: Lymphadenopathy (R), Lymphadenopathy (L) Cardiovascular: positive: Regular rate & rhythm Respiratory: positive: No respiratory distress, Diminished in bases. negative: Wheezes Abdomen: positive: Soft, Tenderness Skin: positive: Pallor, Rash (psorasis bright red and dry around mouth) Extremities: positive: No pedal edema Neurologic/Psychiatric: positive: Oriented x3, Mood/affect nml, Weakness Palliative Care - POLST Patient has POLST: Yes POLST Status: DNR, Selective Treatment Pain: Pain unchanged, Location (increased pressure on bladder/abdomen; not enough to take APAP) Tiredness/Fatigue: Moderate (4-6) Drowsiness/Sedation: Mild (1-3) Nausea: Mild (1-3) Anorexia: Mild (1-3) Dyspnea: None Depression: None Anxiety: Mild (1-3) Feelings of wellbeing/Perceived Quality of Life: Good, Acceptable, Improved Sleep: Variable sleep pattern Constipation: Yes, Managed Performance Status: Seen feeling stronger, is able to do more. She has done all her household tasks and is feeling quite energetic over the last couple days. Feels like she is finally recovering from her hospitalization. She is independent in her ADLs, continues to drive and manage to support her son in her home setting. - Palliative Care Discussion: Patient is feeling quite positive, is wanting to plan a trip, she and her daughter are looking at going up to [facility]. She is very appreciative of the care that she provided her through her pneumonia episode, reviewed as far support that she would be available for when things began to deteriorate with her disease, and has had to take care of her at end-of-life this is reassuring for patient. Patient is worried currently about her sister's health issues, she tries to find a balance and support for her as well. Patient feeling good about where she is right now, continues to hope for the best, and improvement in her numbers. She does recognize the seriousness of her illness, but is feeling positive where she is right now. Results - Lab Results Lab results reviewed: Yes Impression and Recommendations - Palliative Care Impression: This is a brandan but anxious 83-year-old woman with recurrent ovarian cancer, who continues to tolerate treatment and find good quality of life and her current situation. She does continue with some abdominal distention, ascites, and presents with some more weight loss. Patient is having some increased pressure, but no acute pain needing medication. Palliative care to continue to provide support regarding pain and symptom management and anticipatory guidance. Recommendations/Counseling Done: 1. Weight loss. Patient has had further weight loss since hospitalization, she reports she is enjoying food and eating well, has been doing supplement drinks three times a day. She has found some nausea nighttime, relieved with intake. Instructed to try a bedtime snack with cottage cheese and food and/or tomato. We also problem solved around some of the issues regarding calories. She does eat a lot of fresh fruits and vegetables, difficult eating protein. If nighttime nausea does not improve, has been instructed to initiate Prilosec at bedtime. 2. Generalized weakness. This is multifactorial, including recent hospitalization for pneumonia. Counseling provided regarding progressive ambulation with continue to add activity in the balance of fatigue. 3. Recurrent ovarian cancer. Patient does remain a high risk for obstruction, she does work diligently to keep her bowels soft and frequent and is titrating appropriately. She is tolerating her treatments with minimal side effects other than fatigue. 4. Anxiety. This is multifactorial, patient does feel like she is in a good place, continues to use her sessions to process some of her feelings and anxiety. Counseling to normalize her current grief and loss process. 5. Advanced care planning. Patient does have POLST in place with DNA R/select treatments her D POA is her daughter Alina Price [phone]. She continues to choose and focus on treatment, she still perceives good quality of life, though she does get quite anxious about thinking about decline. She does want to have an end-of-life event at home, and her daughter has agreed to be caregiving for it. Time Spent: 45 minutes with greater than 50% of this done in counseling regarding anxiety, dietary recommendations, and coordination of care with oncology team.
== END 2019-08-04 09:50 | disposition home or self-care (01) ==
LOC: PC 09:49
PROVIDERS: ATTEND Nurse Practitioner Adult Health
DX: Z51.5 Encounter for palliative care (principal); R63.4 Abnormal weight loss; R53.1 Weakness; F41.9 Anxiety disorder, unspecified; C56.9 Malignant neoplasm of unspecified ovary; Z79.899 Other long term (current) drug therapy; Z87.01 Personal history of pneumonia (recurrent); Z66 Do not resuscitate
CPT/HCPCS: 99215

== ENCOUNTER 2019-09-01 12:32 | Outpatient (CLI) | payer MEDICARE, BC ==
--- NOTE | 2019-09-01 20:23 | CONSULTATION NOTE ---
Palliative Care Follow Up - Referral Referring Provider: Dr. Kurt Vance Time of Visit: [id number] Referral setting: [facility] Referral Reason: Recurrent Ovarian Cancer/Anxiety - Information Sources Records reviewed: Previous records reviewed History/Review of Systems obtained from: Patient Exam limitations: No limitations - History of Present Illness Update Brief HPI Update: This is a brandan anxious 83-year-old woman with progressive metastatic ovarian cancer, status post multiple lines of treatment. She is currently on Doxil/Avastin since 01/2019. She does present today with 2+ proteinuria, she has had mixed response with some improvement with her last CT scan. She does have a decrease in her Ca1 25 down to 1602, from 1853 in June. Patient continues with residual fatigue, reports some activity intolerance, needing frequent rests and nap during the day. She has had some weight loss, though has regained back a few pounds to 108. She does continue with taste changes, she has decreased her sugar intake. She continues with multiple concerns and high anxiety, though rates her anxiety at a 5 out of 10. She is quite thankful her son whom she lives with, has been getting more support from the medical community and recently got oxygen. Patient has multiple complaints, including increased pain in her right lower quadrant, sharp shooting, mostly around the time she is urinating. She denies pain or burning or dysuria. She reports it is tender to palpation, and indeed on examination has small tender area/mass. She has continue to move her bowels without any problems. working with her Senna, aware she is at high risk for obstruction. She does note persistent fatigue, though she has a good appetite having difficulty gaining weight. She overall is actually quite satisfied with her current quality of life. And continues to be quite grateful for the time that she has gained. Patient also has poor dentition, has not had follow-up with the oral surgeon, did see her dentist. She does indeed have a pocket/abscess on x-ray. She has not had any progressives systemic symptoms of fever or chills, she is supposed to be seeing an oral surgeon, but has not been able to follow through. She does promise she will call when she gets home. Her psoriasis improved, she is on the Otezla 1 time a day, still feels like she is recovering from her "pneumonia" with intermittent phlegm, her voice remains hoarse though this is been her baseline for 5 to 6 months. Social History - Living Situation Living arrangement: At home Living Situation: With family Support System: She recently had her daughter visiting and her family, very much enjoyed this visit. [place], and her son who is chronically ill, with worsening health problems. She has been helping him get set up with SSI, insurance, and is feeling less anxious as he is establishing some more consistent medical care and has improved income. Medications/Allergies - Medications Home Medications: Ambulatory Orders Medication Instructions Recorded Confirmed Cholecalciferol (Vitamin D3) 5,000 unit PO BID 07/14/15 08/18/19 [Vitamin D3] Senna [Senokot] 8.6 tab PO BID PRN 07/14/15 08/18/19 polyethylene glycoL 3350 [Miralax] 17 - 34 gm PO DAILY PRN 07/14/15 08/18/19 Aspirin 325 mg PO DAILY 07/27/15 08/18/19 Calcium Carb/Mag Ox/Zinc Sulf [Hm 1 each PO DAILY 08/04/15 08/18/19 [id number]-Xadv Cplt] Multivitamin [Multivitamins] 1 each PO DAILY 08/04/15 08/18/19 Mineral Oil, Light/Mineral Oil 2 drop EACHEYE DAILY PRN 09/01/15 08/18/19 [Soothe Xp Eye Drops] Mupirocin 2 applic TOP BID PRN 09/01/15 08/18/19 Triamcinolone 0.1% Oint [Kenalog 1 applic TOP BID PRN 09/01/15 08/18/19 0.1% Oint] Raloxifene HCl 60 mg PO DAILY 10/06/15 08/18/19 Losartan [Cozaar] 50 mg PO DAILY 10/17/17 08/18/19 Lactobacillus Acidophilus 1 tab PO DAILY 01/16/18 08/18/19 [Probiotic Acidophilus] Ondansetron HCl [Zofran] 4 mg PO Q6H PRN 10/30/18 08/18/19 traZODone [Desyrel] 50 - 100 mg PO QPM PRN 01/29/19 08/18/19 Prednisone 5 mg PO DAILY PRN 03/03/19 08/18/19 Ferrous Sulfate [High Potency Iron] 27 mg PO .3X WEEK MDD 27 04/07/19 08/18/19 Apremilast [Otezla] 30 mg PO BID MDD titrating down to 05/05/19 08/18/19 new dose Naproxen Sodium [Aleve] 220 mg PO BID PRN 06/16/19 08/18/19 Loperamide [Imodium] 2 mg PO QID #20 capsule 06/26/19 08/18/19 Furosemide 20 mg PO DAILY PRN 07/07/19 08/18/19 guaiFENesin [Mucinex] 600 mg PO BID PRN 07/07/19 08/18/19 - Allergies Allergies/Adverse Reactions: Allergies Allergy/AdvReac Type Severity Reaction Status Date / Time morphine Allergy Severe Emesis Verified 07/21/19 09:57 diazepam [From Valium] Allergy Unknown Verified 07/21/19 09:57 cephalexin monohydrate * AdvReac Severe Edema Verified 07/21/19 09:57 [From Keflex] procaine AdvReac Intermediate Upset Verified 07/21/19 09:57 stomach codeine AdvReac Dizziness Verified 07/21/19 09:57 Review of Systems - Constitutional Constitutional: reports: Fatigue (has not regained energy level; somewhat discouraged), Weight gain (108) - Ears, Nose & Throat Ears, Nose & Throat: reports: Dental decay - Cardiovascular Cardiovascular: reports: Edema, Decr. exercise tolerance - Respiratory Respiratory: denies: SOB at rest - Gastrointestinal Gastrointestinal: reports: Abdominal pain, Reflux/heartburn (improved with night time snack), Good appetite. denies: Constipation, Nausea - Genitourinary Genitourinary: reports: Incontinence (intermittent; avoided with timed toileting) - Integumentary Integumentary: reports: Dryness. denies: Rash (psoraisis improved) - Neurological Neurological: reports: General weakness - Psychiatric Psychiatric: reports: Anxiety. denies: Depression - Endocrine Endocrine: reports: Intolerance to cold - Hematologic/Lymphatic Hematologic/Lymphatic: reports: Anemia, Recurrent infections (pneumonia in June) - All Other Systems All Other Systems: reports: Reviewed and negative Physical Exam - Vital Signs Temperature: 36.6 C Pulse Rate: 92 Respiratory Rate: 18 Blood Pressure: 147/85 - Physical Exam General Appearance: positive: Alert, Anxious Eyes Bilateral: positive: Normal inspection ENT: positive: No signs of dehydration, Other (poor dentition;) Neck: positive: Trachea midline, Other (small clavicular node left side; tender) Cardiovascular: positive: Regular rate & rhythm Respiratory: positive: No respiratory distress, Diminished in bases. negative: Wheezes, Rales, Rhonchi Abdomen: positive: Soft, Mass (several areas of carcinomatosis noted; tender to touch) Skin: positive: Pallor, Dryness Extremities: positive: Pedal edema (suspect lymphadema up to calf) Neurologic/Psychiatric: positive: Oriented x3, Mood/affect nml Palliative Care - POLST Patient has POLST: Yes POLST Status: DNR, Selective Treatment Pain: Pain worsening, Location (was originally right upper quadarant/mid umbilical area; now left sharp shooting and more persistant; still not wanting medication as fleeting and fluctuating; does have pain medication available if needed) Tiredness/Fatigue: Moderate (4-6) Drowsiness/Sedation: Moderate (4-6) Nausea: None Anorexia: Mild (1-3) (taste changes) Dyspnea: None Depression: None Anxiety: Moderate (4-6) Feelings of wellbeing/Perceived Quality of Life: Good, Acceptable, No change Sleep: Sleep improved Constipation: Yes, Managed - Palliative Care Discussion: Patient continues to focus on hoping for the best, she does feel like she is done fairly well given her prognosis. She continues to remain quite positive, though she does appear quite thin and cachectic and more fatigued. She is presenting with higher symptom burden though not at the threshold to treat. She did venture into further conversation regarding around end-of-life today, would like more information about what to expect, what this might look like, and what kind of needs she might have. She feels like she seth with information better, if she is prepared for it. Discussed with information will be helpful, does not want to venture there today, but would like at her next visit to explore her questions regarding end-of-life, and would like something in writing to be able to better share with her daughter. Given patient's overall status this is most appropriate, will proceed, if patient worsens she is to call and we will make her appointment sooner than next month. Patient does have POLST in place as DNA R/selective treatments. She will continue to treat as long as she had quality of life, which she does perceive at this point in time. She is actually somewhat grateful that she has a break from her volunteer activities as everything is close down related to the coronavirus. She is feeling somewhat relieved as part of her "bucket list" was to get her son set up and feeling like she is closer to this. Impression and Recommendations - Palliative Care Impression: This is a brandan 83-year-old woman with recurrent ovarian cancer, who continues to tolerate treatment and find good quality of life and her current situation. She does present with increased abdominal pain, though not to the threshold for taking medication. She does present with persistent fatigue, is eating well, but with minimal weight gain and appears with muscle wasting. Patient goals are to continue treatment as long as she is improving or is maintaining, she is well aware of the seriousness of her illness. Palliative care to continue provide support regarding pain and symptom management and transition to end-of-life when appropriate Recommendations/Counseling Done: 1. Lower extremity edema. This is most likely multifactorial in origin, patient does appear most likely to have some lymphedema. She is also having some swelling in her feet causing increased pressure and redness in her toes. She does have fungal thickened nails, recommended and provided information regarding follow-up with podiatry Dr. Sexton. Instructed to continue with compression hose and elevation. 2. Acute on chronic abdominal pain. This is fluctuating and actually fairly short but more persistent in nature. She does not feel it is at the point to needing any further intervention, but is noticing is worsening. She does have more palpable masses in her abdomen, and are much more tender to touch. She is keeping her bowels soft, with daily movements titrating her bowel program appropriately. She has had no nausea or vomiting, though she does remain at high risk for obstruction. 3. Anxiety. This is multifactorial, she is actually doing very well with her depression and anxiety and managing it with her positive self talk, she does do well with information to be able to process and plan for the future. She would like further information regarding end-of-life, but would like to approach this with her next visit. 4. Right tooth abscess. Patient encouraged to obtain appointment with oral surgeon as soon as possible. Patient has been counseled on signs or symptoms of acute pain, fever, chills to follow-up acutely with. Patient will follow up with an appointment. 5. Advanced care planning. Patient does recognize the seriousness of her illness, continues to hope for the best and has done fairly well. She does have some components of a end-of-life plan put in place, would like to further discuss this in our next visit, we did frame out what information would be helpful for her, and will discuss next month. She does know to contact me sooner if things are worsening, as we can transition to hospice if she becomes more symptomatic or has continued decline Time Spent: 45 minutes with greater than 50% of this done in counseling regarding goals of care, pain and symptom management and anticipatory guidance.
== END 2019-09-01 12:33 | disposition home or self-care (01) ==
LOC: PC 12:32
PROVIDERS: ATTEND Nurse Practitioner Adult Health
DX: Z51.5 Encounter for palliative care (principal); R53.83 Other fatigue; G89.3 Neoplasm related pain (acute) (chronic); R60.0 Localized edema; F41.9 Anxiety disorder, unspecified; R53.1 Weakness; K04.7 Periapical abscess without sinus; C56.9 Malignant neoplasm of unspecified ovary; C79.9 Secondary malignant neoplasm of unspecified site; Z79.899 Other long term (current) drug therapy; Z66 Do not resuscitate; Z63.6 Dependent relative needing care at home
CPT/HCPCS: 99215

== ENCOUNTER 2019-09-29 13:55 | Outpatient (CLI) | payer MEDICARE, BC ==
--- NOTE | 2019-09-29 17:51 | CONSULTATION NOTE ---
Palliative Care Follow Up - Referral Referring Provider: Dr. Kurt Vance Time of Visit: [id number] [place] [facility] [place] Reason: Anxiety/metastatic ovarian cancer - Information Sources Records reviewed: Previous records reviewed History/Review of Systems obtained from: Patient Exam limitations: No limitations - History of Present Illness Update Brief HPI Update: This is a brandan 83-year-old woman who has metastatic ovarian cancer, status post multiple lines of treatment and currently on Doxil and Avastin since 01/2019. She has had progressing Ca1 25 with most recent on 09/14 of 2288. She also is describing increased tumor growth, with increasing discomfort. Denies acute pain, but notes both on left and right increased pressure, can palpate masses, as well as under her umbilicus. Patient has had only slight weight loss, she weighs in today 104, her appetite is actually been pretty good, most prominent which she notices is her increased fatigue. She is needing to rest more, and admits to severe anxiety heading up to [place]. She does understand the seriousness of her illness, and continues to put goals out there, [place] was her last 1, she is grateful to have lived for so long, but is also worried about her pending decline. Patient's other difficulty is, she does have a severe issue with 1 of her teeth on her right jaw, she did receive some amoxicillin on 09/15 as they are not doing appointments related to see LVID 19. She reports she did get some improved comfort with that, and has reset an appointment for 11/04. She does understand she can have antibiotics again, or arrangements for an acute visit if needed. Patient overall feels like she is doing somewhat better, she does note increasing signs of progressive disease, does still perceive her quality of life is quite good. She is very much enjoyed as her son's health is improved over this last month. Social History - Living Situation Living arrangement: At home Living Situation: With family Support System: Patient lives at home with her son, who has significant health problems. She just passed the anniversary of her daughter's at [place], from a brain tumor, and is quite reflective on this. Her other daughter is quite supportive, and will be her caregiver for end-of-life. She is able to still meet her own ADLs, and is starting to ask questions to prepare for her future decline. Medications/Allergies - Medications Home Medications: Ambulatory Orders Medication Instructions Recorded Confirmed Cholecalciferol (Vitamin D3) 5,000 unit PO BID 07/14/15 09/29/19 [Vitamin D3] Senna [Senokot] 8.6 tab PO BID PRN 07/14/15 09/29/19 polyethylene glycoL 3350 [Miralax] 17 - 34 gm PO DAILY PRN 07/14/15 09/29/19 Aspirin 325 mg PO DAILY 07/27/15 09/29/19 Calcium Carb/Mag Ox/Zinc Sulf [Hm 1 each PO DAILY 08/04/15 09/29/19 [id number] Cplt] Multivitamin [Multivitamins] 1 each PO DAILY 08/04/15 09/29/19 Mineral Oil, Light/Mineral Oil 2 drop EACHEYE DAILY PRN 09/01/15 09/29/19 [Soothe Xp Eye Drops] Mupirocin 2 applic TOP BID PRN 09/01/15 09/29/19 Triamcinolone 0.1% Oint [Kenalog 1 applic TOP BID PRN 09/01/15 09/29/19 0.1% Oint] Raloxifene HCl 60 mg PO DAILY 10/06/15 09/29/19 Losartan [Cozaar] 50 mg PO DAILY 10/17/17 09/29/19 Lactobacillus Acidophilus 1 tab PO DAILY 01/16/18 09/29/19 [Probiotic Acidophilus] Prednisone 5 mg PO DAILY PRN 03/03/19 09/29/19 Ferrous Sulfate [High Potency Iron] 27 mg PO .3X WEEK MDD 27 04/07/19 09/29/19 Apremilast [Otezla] 30 mg PO BID MDD titrating down to 05/05/19 09/29/19 new dose Loperamide [Imodium] 2 mg PO QID #20 capsule 06/26/19 09/29/19 Furosemide 20 mg PO DAILY PRN 07/07/19 09/29/19 Diltiazem HCl [Dilt-Xr] 180 mg PO DAILY 09/29/19 09/29/19 - Allergies Allergies/Adverse Reactions: Allergies Allergy/AdvReac Type Severity Reaction Status Date / Time morphine Allergy Severe Emesis Verified 09/15/19 09:43 diazepam [From Valium] Allergy Unknown Verified 09/15/19 09:43 cephalexin monohydrate * AdvReac Severe Edema Verified 09/15/19 09:43 [From Keflex] procaine AdvReac Intermediate Upset Verified 09/15/19 09:43 stomach codeine AdvReac Dizziness Verified 09/15/19 09:43 Review of Systems - Constitutional Constitutional: reports: Fatigue (worsening), Weight loss (104). denies: Fever - Ears, Nose & Throat Ears, Nose & Throat: reports: Nasal congestion, Postnasal drainage, Hoarseness, Dental decay. denies: Mouth lesions - Cardiovascular Cardiovascular: reports: Edema (bilateral; suspect lympahema), Decr. exercise tolerance. denies: Chest pain - Respiratory Respiratory: reports: SOB with exertion. denies: Cough, SOB at rest - Gastrointestinal Gastrointestinal: denies: Constipation (keeps) - Genitourinary Genitourinary: reports: Incontinence - Musculoskeletal Musculoskeletal: reports: Back pain (midthoracic sharp shooting; intermittent), Stiffness, Muscle weakness - Integumentary Integumentary: reports: Rash (psoraisis better controlled), Dryness - Neurological Neurological: reports: General weakness, Memory problems (reports increased word finding; some more STM issues) - Psychiatric Psychiatric: reports: Depression, Anxiety - Hematologic/Lymphatic Hematologic/Lymphatic: reports: Anemia, Recurrent infections (last tx tooth abcess 09/15) - All Other Systems All Other Systems: reports: Reviewed and negative Physical Exam - Vital Signs Temperature: 37 C Pulse Rate: 100 Respiratory Rate: 18 Blood Pressure: 143/93 - Physical Exam General Appearance: positive: Alert, Anxious Eyes Bilateral: positive: Normal inspection ENT: positive: No signs of dehydration, Other (poor dentition) Neck: positive: Trachea midline Respiratory: positive: No respiratory distress Abdomen: positive: Tenderness, Mass, Distended (for her) Skin: positive: Pallor, Dryness Extremities: positive: Pedal edema (1-2+ worsening; did not respond to lasix; suspect lymphadema from tumor) Neurologic/Psychiatric: positive: Oriented x3, Mood/affect nml Palliative Care - POLST Patient has POLST: Yes POLST Status: DNR, Selective Treatment Pain: Pain worsening, Location (pain located in feet/toenails; ankles from swelling;RLQ pain "tumor" mid thoracic back pain; right tooth), Comment (none persistant or enough to take APAP) Tiredness/Fatigue: Moderate (4-6) Drowsiness/Sedation: Moderate (4-6) Nausea: None Anorexia: None Dyspnea: Mild (1-3) Depression: Mild (1-3) Anxiety: Mild (1-3) Feelings of wellbeing/Perceived Quality of Life: Good, Acceptable, Worsening Sleep: Sleeps well, Variable sleep pattern Constipation: Yes, Managed Performance Status: Patient does note activity is slowing down, she is more tired, takes a nap, and goes to bed earlier. She is still able to manage her ADLs, activities. She is quite busy, and very much not at her baseline but still quite active. - Palliative Care Discussion: Patient had exacerbation of anxiety, as she had given herself until . She is so glad and grateful she made it this far, and now setting another goal. She does understand the seriousness of her illness, and is still hoping for more time, she still perceives her quality of life is good. She is venturing into though questions about what to expect, what her decline might look like, patient has done some planning around her , but is still hopeful for ongoing treatment but recognizes her rising numbers. She does admit to some concern regarding changes in her body attributed to progressive tumor burden. Results - Lab Results Lab results reviewed: Yes Impression and Recommendations - Palliative Care Impression: This is a brandan 83-year-old woman with recurrent ovarian cancer, who continues to tolerate treatment and find good quality of life in her current situation. Does present with increasing abdominal symptoms, though nothing acute. She is managing her bowels, her most persistent symptom is fatigue, but having increased discomfort and pressure in her abdomen. Patient's goals are to continue treatment as long as she is improving or maintaining, she is very aware of the seriousness of her illness. She is wanting to explore further what her decline might look like. Palliative care to continue provide support regarding pain and symptom management and transition to end-of-life when appropriate Recommendations/Counseling Done: 1. Lower extremity edema. This again is most likely multifactorial in origin, patient does appear to have some persistent lymphedema. She was unable to get to podiatry because of the [place] VID 19 virus, she has been instructed to use compression hose and elevation. She does find the increase pressure uncomfortable, and does have some petechiae today. 2. Acute on chronic abdominal pain. This is fluctuating, but though short persistent in nature. She is having more palpable mass-effect in her abdomen, and more tenderness to touch. She is keeping her bowel movements soft with daily movements titrating her bowel program. Counseling provided and recommended using acetaminophen 2 tabs more frequently for increased comfort. 3. Anxiety. This is multifactorial, she did have an exacerbation as she came up on 1 of her new goals sets which was delivered to [facility]. She does present with gratefulness regarding that, is looking to reset her goals for her birthday in November. She does understand that she is on borrowed time, and did venture into questions further today regarding end-of-life. 4. Right tooth abscess. Patient did receive amoxicillin with improvement of symptoms, she has completed. She is scheduled 11/04 for follow-up with a dentist. She has been counseled if it worsens, to contact dentist for renewal of antibiotics and/or acute appointment for extraction. 5. Advance care planning. Patient does have POLST with DNA R/DNI and selective treatments. She continues to hope for the best, but is exploring some Legacy work. She does have components of her end-of-life plan in place, she is very much enjoying her current conversations with her son who is doing much better. She has done nice work and preparing him for her transition, and does have a plan for him on her . Time Spent: 60 minutes with greater than 50% of this done in counseling regarding anticipatory guidance, pain and symptom management, addressing psychosocial distress and coordination of care.
== END 2019-09-29 13:56 | disposition home or self-care (01) ==
LOC: PC 13:55
PROVIDERS: ATTEND Nurse Practitioner Adult Health
DX: Z51.5 Encounter for palliative care (principal); R60.0 Localized edema; F41.9 Anxiety disorder, unspecified; G89.3 Neoplasm related pain (acute) (chronic); K04.7 Periapical abscess without sinus; R53.83 Other fatigue; R06.09 Other forms of dyspnea; K59.00 Constipation, unspecified; C56.9 Malignant neoplasm of unspecified ovary; C79.9 Secondary malignant neoplasm of unspecified site; Z79.899 Other long term (current) drug therapy; Z79.82 Long term (current) use of aspirin; Z66 Do not resuscitate
CPT/HCPCS: 99215

== ENCOUNTER 2019-10-27 09:57 | Outpatient (CLI) | payer MEDICARE, BC ==
--- NOTE | 2019-10-27 13:38 | CONSULTATION NOTE ---
Palliative Care Follow Up - Referral Referring Provider: Dr. Kurt Vance Time of Visit: [id number] Referral setting: [facility] – [place] Referral Reason: Anxiety/Recurrent Ovarian CA - Information Sources Records reviewed: Previous records reviewed History/Review of Systems obtained from: Patient Exam limitations: No limitations - History of Present Illness Update Brief HPI Update: This is an 83-year-old woman who has metastatic ovarian cancer, status post multiple lines of treatment and currently on Doxil and Avastin since 01/2019. She has had mixed response, today though she is quite excited, as she received good news from the oncologist,She was told she has had a mixed response and stable disease on scan 10/21 2019. As well as her CA125 has improved slightly. She was very anxious about her impending news, and is much relieved, she does have severe underlying anxiety disorder. She does understand the seriousness of her illness, and notes that currently she is on "borrowed time". She only has mild abdominal discomfort, her bowels are moving with titrated bowel program, she has had weight loss but feels like she i s doing fairly well. She feels like she is finally recovered from her pneumonia, is currently dealing with her dental abscess, with expected dental appointment this week. Social History - Living Situation Living arrangement: At home Living Situation: With family Support System: Patient currently lives at home with her son who has multiple health issues. His health issues are improving, she is quite thrilled. Her grandson, is looking at having him live on his property, she is thrilled and hopeful this will happen before her final demise. Her family is very supportive, and daughter expecting to be primary caregiver when time happens for end-of-life. Medications/Allergies - Medications Home Medications: Ambulatory Orders Medication Instructions Recorded Confirmed Cholecalciferol (Vitamin D3) 5,000 unit PO BID 07/14/15 10/27/19 [Vitamin D3] Senna [Senokot] 8.6 tab PO BID PRN 07/14/15 10/27/19 polyethylene glycoL 3350 [Miralax] 17 - 34 gm PO DAILY PRN 07/14/15 10/27/19 Aspirin 325 mg PO DAILY 07/27/15 10/27/19 Calcium Carb/Mag Ox/Zinc Sulf [Hm 1 each PO DAILY 08/04/15 10/27/19 [id number] Cplt] Multivitamin [Multivitamins] 1 each PO DAILY 08/04/15 10/27/19 Mineral Oil, Light/Mineral Oil 2 drop EACHEYE DAILY PRN 09/01/15 10/27/19 [Soothe Xp Eye Drops] Mupirocin 2 applic TOP BID PRN 09/01/15 10/27/19 Triamcinolone 0.1% Oint [Kenalog 1 applic TOP BID PRN 09/01/15 10/27/19 0.1% Oint] Raloxifene HCl 60 mg PO DAILY 10/06/15 10/27/19 Losartan [Cozaar] 50 mg PO DAILY 10/17/17 10/27/19 Lactobacillus Acidophilus 1 tab PO DAILY 01/16/18 10/27/19 [Probiotic Acidophilus] Prednisone 5 mg PO DAILY PRN 03/03/19 10/27/19 Ferrous Sulfate [High Potency Iron] 27 mg PO .3X WEEK MDD 27 04/07/19 10/27/19 Apremilast [Otezla] 30 mg PO BID MDD titrating down to 05/05/19 10/27/19 new dose Loperamide [Imodium] 2 mg PO QID #20 capsule 06/26/19 10/27/19 Furosemide 20 mg PO DAILY PRN 07/07/19 10/27/19 Diltiazem HCl [Dilt-Xr] 180 mg PO DAILY 09/29/19 10/27/19 - Allergies Allergies/Adverse Reactions: Allergies Allergy/AdvReac Type Severity Reaction Status Date / Time morphine Allergy Severe Emesis Verified 10/27/19 10:40 diazepam [From Valium] Allergy Unknown Verified 10/27/19 10:40 cephalexin monohydrate * AdvReac Severe Edema Verified 10/27/19 10:40 [From Keflex] procaine AdvReac Intermediate Upset Verified 10/27/19 10:40 stomach codeine AdvReac Dizziness Verified 10/27/19 10:40 Review of Systems - Constitutional Constitutional: reports: Fatigue, Weight loss (105). denies: Fever, Poor appetite - Ears, Nose & Throat Ears, Nose & Throat: reports: Nasal congestion (improved), Other (dental abcess; responded to antibiotic; plan for follow up this week) - Cardiovascular Cardiovascular: reports: Decr. exercise tolerance (still feeling weaker since pneumonia; but is back up one mile a day). denies: Chest pain - Respiratory Respiratory: reports: SOB with exertion. denies: Cough, SOB at rest - Gastrointestinal Gastrointestinal: reports: Abdominal pain (mild not needing medication), Good appetite. denies: Constipation, Rectal bleeding, Nausea - Genitourinary Genitourinary: reports: Frequency, Incontinence (occasional) - Musculoskeletal Musculoskeletal: reports: Muscle weakness (improved) - Integumentary Integumentary: reports: Rash (psorasis currently well controlled), Dryness, Nail changes (to see Dr. Zoe hilton) - Neurological Neurological: reports: General weakness. denies: Dizziness - Psychiatric Psychiatric: reports: Anxiety (exacerbation of anxiety with pending appointment; took to her "bed" for the weekend; feeling better) - Hematologic/Lymphatic Hematologic/Lymphatic: reports: Recurrent infections (abcess; just finished). denies: Anemia - All Other Systems All Other Systems: reports: Reviewed and negative Physical Exam - Vital Signs Pulse Rate: 69 Respiratory Rate: 18 Blood Pressure: 129/75 - Physical Exam General Appearance: positive: Alert, Anxious (improved with good news today) Eyes Bilateral: positive: Normal inspection ENT: positive: No signs of dehydration Neck: positive: No JVD, Trachea midline Respiratory: positive: No respiratory distress Abdomen: positive: Soft, Tenderness Skin: positive: Pallor, Dryness Extremities: positive: No pedal edema, Other (stubbed right toe/seeing Dr. Enriquez/fungal nails) Neurologic/Psychiatric: positive: Oriented x3, Mood/affect nml, Weakness Palliative Care - POLST Patient has POLST: Yes POLST Status: DNR, Selective Treatment Pain: Pain unchanged, Location (right upper quadrant; lower pelvic area;) Tiredness/Fatigue: Moderate (4-6), Comment (increased fatigue through day) Drowsiness/Sedation: Mild (1-3) (taking more naps) Nausea: Mild (1-3) (reports with late with breakfast) Anorexia: None (denies any specific symptoms; eating and taking Ensure 3x a saúl) Dyspnea: Mild (1-3) (with activity) Depression: Mild (1-3) Anxiety: Moderate (4-6) Feelings of wellbeing/Perceived Quality of Life: Fair, Acceptable Sleep: Sleeps well, Sleep improved Constipation: Yes, Managed Performance Status: Patient reports she is still able to drive, attend to her own ADLs, and is still doing walks of about up to 1 mile. She does report she is resting more often during the day, does take intermittent naps. She does not see any significant decline, but does see herself and slowing down. - Palliative Care Discussion: Patient reflecting how anxious she was with her pending scan, she is glad the news was good. She does understand the seriousness of illness, but is happy she can set yet another date, she is putting out there her birthday. She still feels like she has good quality of life, she is very pleased things are coming together for her children. Her son who lives with her, will go to live with his son. She is so pleased he is doing so much better, and feels better now about h er dying before him. She remains quite independent, this is important to her, she does have a plan for end-of-life but is hoping still for the best. Results - Lab Results Lab results reviewed: Yes Impression and Recommendations - Palliative Care Impression: This is a brandan 83-year-old woman with recurrent ovarian cancer, who continues to tolerate treatment and is still receiving benefit. She continues with intermittent abdominal pressure, bowels are moving, no nausea and vomiting and no acute pain. She has had some increase in fatigue, and weight loss though she is eating and drinking well she says. Palliative care to continue provide support regarding pain and symptom management and transition to hospice when appropriate. Recommendations/Counseling Done: 1. Anxiety. This is multifactorial, she was quite anxious pending this appointment and results of scan. She is quite pleased the news is good in the context her disease is stable and will continue on treatment. She does understand the seriousness of her illness, and that she continues to be at high risk for progression. She does continue to hope for the best, but does have a plan in place for future decline. 2. Constipation. Patient is managing her bowels with MiraLAX and senna, titrating appropriately. Reports no rectal bleeding, or difficulty. She continues with some abdominal pressure and notes the masses actually seem to be stabilized or shrinking when she paints. 3. Weight loss. I suspect this is multifactorial, she is doing her best to try and get calories, including use of Ensure 3 times a day, she denies any nausea or taste changes interfering. Counseling provided to set goals as for no further weight loss. Patient has been more active, but suspect more related to her malignancy. 4. Tooth abscess. She reports had responded antibiotic, she is to see the dentist this week, this may also help with food intake. She reports her teeth "fell out". Is hoping to have this resolved. 5. Advanced care planning. Patient continues to do fairly well, remains hopeful and to continue on treatment. She does have her POLST in place, she does have a plan for end-of-life, and feels her quality of life is currently doing quite well. She is pleased with the most recent scan results. Time Spent: 45 minutes with been 50% of this done in counseling care, review of symptoms, and anticipatory guidance.
== END 2019-10-27 09:58 | disposition home or self-care (01) ==
LOC: PC 09:57
PROVIDERS: ATTEND Nurse Practitioner Adult Health
DX: Z51.5 Encounter for palliative care (principal); F41.9 Anxiety disorder, unspecified; K59.00 Constipation, unspecified; R63.4 Abnormal weight loss; R53.1 Weakness; R53.0 Neoplastic (malignant) related fatigue; K04.7 Periapical abscess without sinus; C56.9 Malignant neoplasm of unspecified ovary; Z87.01 Personal history of pneumonia (recurrent); Z79.899 Other long term (current) drug therapy; Z79.82 Long term (current) use of aspirin; Z66 Do not resuscitate
CPT/HCPCS: 99215

== ENCOUNTER 2019-11-24 10:16 | Outpatient (CLI) | payer MEDICARE, BC ==
--- NOTE | 2019-11-24 17:12 | CONSULTATION NOTE ---
Palliative Care Follow Up - Referral Referring Provider: Dr. Kurt Vance Time of Visit: [id number] Referral setting: [facility] [place] Referral Reason: Anxiety/Recurrent Ovarian CA/LE edema - Information Sources Records reviewed: Previous records reviewed History/Review of Systems obtained from: Patient Exam limitations: No limitations - History of Present Illness Update Brief HPI Update: This is an 83-year-old woman with metastatic ovarian cancer, status post multiple lines of treatment and currently on Doxil and Avastin since 01/2019. She presents today with increasing lower extremity edema to above the knees, some distention most likely attributed to ascites in her abdomen, increased frailty, intermittent headache, and increased CA-125 to 2915.9. She presents with elevated blood pressure, and proteinuria of 3+, oncology is held her Avastin today. She complains of persistent and worsening fatigue, increased sleeping, she is assisting with getting her house painted. She reports she has been up on her feet more, she is wearing compression hose and has been instructed to restart her Lasix daily. She does present with worsening anxiety, feeling of uncertainty, she does present with weight gain though this is most likely attributed solely to swelling as she appears more cachectic with temporal wasting, and upper extremity muscle wasting. She has been able to keep her bowels soft and moving on a regular basis, she reports she is eating without difficulty, she did see the dental surgeon and is due to have both sides worked on as have identified abscesses on upper teeth. 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 She reports he is doing better and moving forward to move in with on property of her grandson. This has been a relief for her to have a solid plan in place before her . Medications/Allergies - Medications Home Medications: Ambulatory Orders Medication Instructions Recorded Confirmed Cholecalciferol (Vitamin D3) 5,000 unit PO BID 07/14/15 11/24/19 [Vitamin D3] Senna [Senokot] 8.6 tab PO BID PRN 07/14/15 11/24/19 polyethylene glycoL 3350 [Miralax] 17 - 34 gm PO DAILY PRN 07/14/15 11/24/19 Aspirin 325 mg PO DAILY 07/27/15 11/24/19 Calcium Carb/Mag Ox/Zinc Sulf [Hm 1 each PO DAILY 08/04/15 11/24/19 [id number] Cplt] Multivitamin [Multivitamins] 1 each PO DAILY 08/04/15 11/24/19 Mineral Oil, Light/Mineral Oil 2 drop EACHEYE DAILY PRN 09/01/15 11/24/19 [Soothe Xp Eye Drops] Mupirocin 2 applic TOP BID PRN 09/01/15 11/24/19 Triamcinolone 0.1% Oint [Kenalog 1 applic TOP BID PRN 09/01/15 11/24/19 0.1% Oint] Raloxifene HCl 60 mg PO DAILY 10/06/15 11/24/19 Losartan [Cozaar] 50 mg PO DAILY 10/17/17 11/24/19 Lactobacillus Acidophilus 1 tab PO DAILY 01/16/18 11/24/19 [Probiotic Acidophilus] Ferrous Sulfate [High Potency Iron] 27 mg PO .3X WEEK MDD 27 04/07/19 11/24/19 Apremilast [Otezla] 30 mg PO BID 05/05/19 11/24/19 Loperamide [Imodium] 2 mg PO QID #20 capsule 06/26/19 11/24/19 Furosemide 20 mg PO DAILY 07/07/19 11/24/19 Diltiazem HCl [Dilt-Xr] 180 mg PO DAILY 09/29/19 11/24/19 Acetaminophen 650 mg PO TID PRN MDD 3000 mg 11/24/19 11/24/19 - Allergies Allergies/Adverse Reactions: Allergies Allergy/AdvReac Type Severity Reaction Status Date / Time morphine Allergy Severe Emesis Verified 11/24/19 09:52 diazepam [From Valium] Allergy Unknown Verified 11/24/19 09:52 cephalexin monohydrate * AdvReac Severe Edema Verified 11/24/19 09:52 [From Keflex] procaine AdvReac Intermediate Upset Verified 11/24/19 09:52 stomach codeine AdvReac Dizziness Verified 11/24/19 09:52 Review of Systems - Constitutional Constitutional: reports: Fatigue (worsening), Weight gain (fluid 115). denies: Fever, Chills - Eyes Eyes: reports: Vision loss, Corrective lenses - Ears, Nose & Throat Ears, Nose & Throat: reports: Postnasal drainage, Dental decay (has two teeth needing pulling; abcessed), Dry mouth - Cardiovascular Cardiovascular: reports: Irregular heart rate, Edema (worsening; up past knees), Decr. exercise tolerance. denies: Chest pain - Respiratory Respiratory: reports: SOB with exertion. denies: SOB at rest - Gastrointestinal Gastrointestinal: reports: Abdominal pain, Abdominal distention (ascites today; more distension), Early satiety. denies: Constipation, Nausea - Genitourinary Genitourinary: reports: Frequency, Urgency, Incontinence (intermittent) - Musculoskeletal Musculoskeletal: reports: Stiffness, Muscle weakness, Assistive devices ("chemo brain" worsening) - Integumentary Integumentary: reports: Dryness, Hair changes - Neurological Neurological: reports: General weakness, Memory problems - Psychiatric Psychiatric: reports: Depression, Anxiety - Hematologic/Lymphatic Hematologic/Lymphatic: reports: Anemia. denies: Recurrent infections - All Other Systems All Other Systems: reports: Reviewed and negative Physical Exam - Vital Signs Pulse Rate: 80 Respiratory Rate: 18 Blood Pressure: 160/94 - Physical Exam General Appearance: positive: Alert, Mild distress, Anxious, Cachetic Eyes Bilateral: positive: Normal inspection, No scleral icterus ENT: positive: Other (had mask on; reports 2 abcesses and waiting on oral surgeon) Neck: positive: Trachea midline Cardiovascular: positive: Regular rate & rhythm Respiratory: positive: No respiratory distress, Breath sounds nml Abdomen: positive: Soft, Tenderness, Mass (RLQ/ umbilical;), Distended (ascitic; pressure) Extremities: positive: Pedal edema (newly worsening pedal edema up above knees; has not been using lasix; gradually over weeks) Neurologic/Psychiatric: positive: Oriented x3, Mood/affect nml, Weakness, Flat affect Palliative Care - POLST Patient has POLST: Yes POLST Status: DNR, Selective Treatment Pain: Pain worsening, Location (Patient does have intermittent headache, reports is several times a week. Unclear if this is related to her tooth abscesses or blood pressure. She has been using aspirin. She also has now increased discomfort with the lower extremity edema.), Severity (5/10) Tiredness/Fatigue: Severe (7-10) Drowsiness/Sedation: Moderate (4-6) Nausea: None Anorexia: None Dyspnea: None Depression: Mild (1-3) Anxiety: Moderate (4-6) Feelings of wellbeing/Perceived Quality of Life: Fair, Acceptable, Worsening Sleep: Sleeps well Constipation: Yes, Managed Performance Status: Patient is still ambulatory, able to manage her own ADLs. She is quite active and frustrated with her worsening fatigue. She reports she is sleeping more frequently when she is sitting down, taking more naps. - Palliative Care Discussion: Patient does understand the seriousness of her illness, she continues to hope for more quantity, but does understand things are changing. She is hoping to make it to her birthday in November. She does appear more frail, presents today with more anxiety and uncertainty and frustration with her worsening fatigue and decline. Patient seth best by putting pieces of information together, she is able to reflect on her journey, and how she is flat so hard, and is founded and interesting and rewarding trip. She still has some things to complete, she does perceive herself as a procrastinator, and feels she is never quite good over the fatigue since her hospitalization in June. We did discuss the natural progression, though still hoping for the best, most likely some of her symptoms are related to her pending decline. She does have a POLST in place, she also has end-of-life plan with daughter planning to come be her primary caregiver, and she does want to have a at home. Results - Lab Results Lab results reviewed: Yes Lab and Imaging Results: Total protein 5.5 albumin 2.9 Impression and Recommendations - Palliative Care Impression: This is a brandan 83-year-old woman with recurrent ovarian cancer, who today presents with increased frailty, lower extremity edema, and worsening fatigue. Palliative care to continue provide support regarding pain and symptom management and transition to hospice when appropriate. Recommendations/Counseling Done: 1. Lower extremity edema. This is most likely multifactorial in origin, patient's lungs are clear, does present with elevated BP, and low albumin. She also presents with some increased abdominal distention and pressure, concern for ascites and possibly mixed with lymphedema. Patient to restart furosemide 20 mg, she will weigh daily with blood pressure readings. Patient may need more aggressive management, she has been also instructed when resting to elevate her feet and continue with compression stockings. 2. Hypertension. Patient currently with Avastin on hold, also presents with proteinuria. Patient to obtain blood pressure cuff and check regularly. Patient with history of atrial fib, and hypertension. We will continue to monitor. 3. Acute on chronic pain. Patient reports discomfort in her lower extremities, and intermittent headache pain. Patient has been taking aspirin, instructed not to take aspirin other than her 325 mg used for her atrial fib. Patient has some bias against acetaminophen, she does not want to try opioids, so did discuss recommendation of acetaminophen 650 mg every 6 hours as needed. Unclear if she will follow through. 4. Tooth abscesses. Patient did see oral surgeon, recommendation for actually 2 teeth out on bilateral upper plate. She has not heard back from them, recommended she follow through may be adding to her fatigue and headache. She does have some pressure and discomfort particularly with eating. 5. Frailty. She does appear to have more muscle wasting, though does not translate to weight loss with lower extremity edema. Suspect this is multifactorial, and related and somewhat to her malignancy. Patient also sleeping more, worsening fatigue, and increasing tumor marker. 6. Anxiety. This is multifactorial, she is having more anxiety suspect reflective of her worsening overall status. She is trying to make sense of all the changes in her body, she seth best with information. She is able to reflect on her extensive journey of 4-1/2 years, but continues to worry regarding her impending decline. Counseling provided to normalize feelings of grief and uncertainty. 7. Advanced care planning. Patient presenting with increasing symptoms of decline, she remains quite hopeful to continue on treatment and make it to her birthday. She does have a POLST in place, and a plan for end-of-life, she does have significant trixie but struggles with pending transition to hospice. Time Spent: 50 minutes with greater than 50% of this done in counseling and psychosocial support as well as anticipatory guidance. We will plan to see patient in 2 weeks given her symptoms of decline and continue to work with anticipatory guidance.
== END 2019-11-24 10:17 | disposition home or self-care (01) ==
LOC: PC 10:16
PROVIDERS: ATTEND Nurse Practitioner Adult Health
DX: Z51.5 Encounter for palliative care (principal); R60.0 Localized edema; R14.0 Abdominal distension (gaseous); R53.83 Other fatigue; R51 Headache; R80.9 Proteinuria, unspecified; I10 Essential (primary) hypertension; I48.91 Unspecified atrial fibrillation; R53.1 Weakness; F41.9 Anxiety disorder, unspecified; K04.7 Periapical abscess without sinus; K59.00 Constipation, unspecified; C56.9 Malignant neoplasm of unspecified ovary; C79.9 Secondary malignant neoplasm of unspecified site; Z79.899 Other long term (current) drug therapy; Z79.82 Long term (current) use of aspirin; Z63.6 Dependent relative needing care at home; Z66 Do not resuscitate
CPT/HCPCS: 99215

== ENCOUNTER 2019-12-08 11:21 | Outpatient (CLI) | payer MEDICARE, BC ==
--- NOTE | 2019-12-08 12:56 | CONSULTATION NOTE ---
Palliative Care Follow Up - Referral Referring Provider: Dr. Kurt Vance Time of Visit: [phone] Referral setting: [facility] – [place] Referral Reason: Hypertension/Recurrent Ovarian CA/Fatigue - Information Sources Records reviewed: Previous records reviewed History/Review of Systems obtained from: Patient Exam limitations: No limitations - History of Present Illness Update Brief HPI Update: This is an 83-year-old woman with metastatic ovarian cancer, status post multiple lines of treatment currently on Doxil, and has had Avastin held 2 weeks ago, and again today. Patient presents with hypertension, after multiple rechecks, 178/97, she still has persistent headache that is worse at the end of day, and has felt quite poorly over the last couple weeks. She just got a blood pressure cuff a couple days ago, she reports the highest when she had was 159/80. She complains of persistent fatigue, she is sleeping 12 to 13 hours a day, she reports she has intermittent fogginess, increased balance problems, and more trouble with concentration. She is pretty distressed about her decline, and though can align it with her disease, because she does not have any significant pain, or abdominal symptoms it is difficult for her to make "sense of it". She does continue to have persistent lower extremity edema, she does have a compression hose on today, her lungs are clear, her heart rate is regular. She does have some increased abdominal distention, most likely ascitic in nature, is still some palpable masses on her left lower quadrant and around her umbilicus but has not had any increase in pain. In review of patient's medications, patient actually is not on losartan, she reports this got discontinued after her hospitalization. And follow-up with cardiology they had made no changes, and told her they would see her in a year. She has been on the furosemide 20 mg since 11/23 consistently. She has using using acetaminophen 2 tabs twice daily, without a significant amount of improvement of her pain and discomfort. She is looking forward to her visit with her daughter, it is her birthday this Sunday, this was her goal as far as "making it", but reports that she has had some good conversations regarding end-of-life with her daughter recently, but is still hoping to be able to continue with treatment if it is going to be of benefit. Social History - Living Situation Living arrangement: At home Living Situation: With family Support System: Patient lives in her home, with her son who has multiple chronic health problems. Planning to move in with her grandson, this is been a relief. She has confirmed with her daughter, that she would be available to be her caregiver for end-of-life, she does have supportive family in the area, as well as a sister though compromised as well. Medications/Allergies - Medications Home Medications: Ambulatory Orders Medication Instructions Recorded Confirmed Cholecalciferol (Vitamin D3) 5,000 unit PO BID 07/14/15 12/08/19 [Vitamin D3] Senna [Senokot] 8.6 tab PO BID PRN 07/14/15 12/08/19 polyethylene glycoL 3350 [Miralax] 17 - 34 gm PO DAILY PRN 07/14/15 12/08/19 Aspirin 325 mg PO DAILY 07/27/15 12/08/19 Calcium Carb/Mag Ox/Zinc Sulf [Hm 1 each PO DAILY 08/04/15 12/08/19 [id number] Cplt] Multivitamin [Multivitamins] 1 each PO DAILY 08/04/15 12/08/19 Mineral Oil, Light/Mineral Oil 2 drop EACHEYE DAILY PRN 09/01/15 12/08/19 [Soothe Xp Eye Drops] Mupirocin 2 applic TOP BID PRN 09/01/15 12/08/19 Triamcinolone 0.1% Oint [Kenalog 1 applic TOP BID PRN 09/01/15 12/08/19 0.1% Oint] Raloxifene HCl 60 mg PO DAILY 10/06/15 12/08/19 Losartan [Cozaar] 50 mg PO DAILY MDD restarted 12/0710/17/17 12/08/19 Lactobacillus Acidophilus 1 tab PO DAILY 01/16/18 12/08/19 [Probiotic Acidophilus] Ferrous Sulfate [High Potency Iron] 27 mg PO .3X WEEK MDD 27 04/07/19 12/08/19 Apremilast [Otezla] 30 mg PO BID 05/05/19 12/08/19 Loperamide [Imodium] 2 mg PO QID #20 capsule 06/26/19 12/08/19 Furosemide 20 mg PO DAILY 07/07/19 12/08/19 Diltiazem HCl [Dilt-Xr] 180 mg PO DAILY 09/29/19 12/08/19 Acetaminophen 650 mg PO TID PRN MDD 3000 mg 11/24/19 12/08/19 - Allergies Allergies/Adverse Reactions: Allergies Allergy/AdvReac Type Severity Reaction Status Date / Time morphine Allergy Severe Emesis Verified 11/24/19 09:52 diazepam [From Valium] Allergy Unknown Verified 11/24/19 09:52 cephalexin monohydrate * AdvReac Severe Edema Verified 11/24/19 09:52 [From Keflex] procaine AdvReac Intermediate Upset Verified 11/24/19 09:52 stomach codeine AdvReac Dizziness Verified 11/24/19 09:52 Review of Systems - Constitutional Constitutional: reports: Fatigue (worsening), Weight loss (108). denies: Fever, Chills - Ears, Nose & Throat Ears, Nose & Throat: reports: Nasal congestion (chronic), Dental decay (was not able to get dentist visit; feels tooth hole has healed up on right where tooth fell out; left without further pain) - Cardiovascular Cardiovascular: reports: Edema (slight decrease), Decr. exercise tolerance, Other (balance issues). denies: Chest pain - Respiratory Respiratory: denies: Cough, SOB at rest - Gastrointestinal Gastrointestinal: reports: Abdominal distention, Good appetite. denies: Abdominal pain, Constipation (keeping soft and regular), Nausea, Reflux/heartburn - Genitourinary Genitourinary: reports: Frequency, Incontinence. denies: Dysuria - Musculoskeletal Musculoskeletal: reports: Stiffness - Integumentary Integumentary: reports: Dryness - Neurological Neurological: reports: General weakness, Numbness (neuropathies worsening hands/feet), Memory problems (more fogginess/difficulty concentrating) - Psychiatric Psychiatric: reports: Anxiety. denies: Depression - Endocrine Endocrine: denies: Diabetes type 2 - Hematologic/Lymphatic Hematologic/Lymphatic: denies: Anemia, Recurrent infections - All Other Systems All Other Systems: reports: Reviewed and negative Physical Exam - Vital Signs Temperature: 97.5 C Pulse Rate: 82 Respiratory Rate: 18 Blood Pressure: 178/97 - Physical Exam General Appearance: positive: No acute distress, Alert Eyes Bilateral: positive: Normal inspection, No scleral icterus ENT: positive: No signs of dehydration, Other (poor dentition/ no signs of abcess/infection) Neck: positive: No JVD, Trachea midline Cardiovascular: positive: Regular rate & rhythm Respiratory: positive: No respiratory distress, Breath sounds nml Abdomen: positive: Soft, Nml bowel sounds, Tenderness, Mass (over umbilical/LLQ), Distended. negative: Taut Skin: positive: Pallor, Dryness. negative: Rash (psoriasis controlled) Extremities: positive: Pedal edema (taut 2+ up to knees;) Neurologic/Psychiatric: positive: Oriented x3, Mood/affect nml Palliative Care - POLST Patient has POLST: Yes POLST Status: DNR, Selective Treatment Pain: Pain unchanged, Location (headache/mild abdominal discomfort) Tiredness/Fatigue: Severe (7-10) Drowsiness/Sedation: Mild (1-3) Nausea: None Anorexia: None Dyspnea: None Depression: Mild (1-3) Anxiety: Moderate (4-6) Feelings of wellbeing/Perceived Quality of Life: Fair, Acceptable, Worsening Sleep: Sleeps well, Variable sleep pattern Constipation: Yes, Managed Performance Status: Patient is still independent in her ADLs, is having more fatigue and more activity intolerance. She continues though to be quite active, she is assisting painting her house, she still does her household tasks, just finds herself sleeping more, and having to pace herself. - Palliative Care Discussion: Patient reports feeling somewhat puzzled, she feels like things are moving quickly, she reports she is not afraid of what is happening, and continues to lean heavily on her trixie. She is hoping for continued treatment, she is not feeling too badly, though she is having more side effects particular related to her Avastin. She is somewhat relieved, she did have a good conversation with her daughter, about what she wants and does not want to around end-of-life. Her daughter has made a commitment to support her in that last part of her journey, has recently sold her house, and retired so would be available as her primary caregiver. She does feel like it is "hanging closer", and though she does tend to have fairly high anxiety, she is pretty clear that she wants to at home and to do this graciously. One of her goals had been to make it to her birthday, this is coming in Sunday. She does meet with the oncologist in 2 weeks. She is aware her numbers are worsening as well. Results - Lab Results Lab results reviewed: Yes Impression and Recommendations - Palliative Care Impression: This is a brandan 83-year-old woman with recurrent ovarian cancer, who now presents with persistent hypertension, lower extremity edema, worsening fatigue, and worsening frailty. Patient with persistent and progressive disease, continues to weigh benefits and burdens of moving forward with treatment. Palliative care to continue provide support regarding pain and symptom management and transition to hospice when appropriate Recommendations/Counseling Done: 1. Lower extremity edema. This is most likely multifactorial in origin, pat ient's lungs remain clear, she does present with continued elevated blood pressure and low albumin. Patient has restarted furosemide 20 mg, she has just recently started her blood pressure checks. Potassium was checked, was within normal range will continue on current dosing. She does have her compression hose on today, does show some mild improvement. Would also expect this is most likely impacted by lymphedema as well. 2. Hypertension. In exploration of patient's current medication list, patient reports she has not been taking her losartan since last hospitalization. This is not reported on her medication list up to this point. Will reorder at previous dosing 50 mg. Patient has been instructed to take BP twice a day, and to notify me if it remains elevated. We have a phone call scheduled for Sunday, she is to call if problems before then. Prescription provided to [facility], instructed to start today [facility]. 3. Acute on chronic pain. Patient's pain in her lower extremities has improved some, continues with persistent headache pain, influenced by fatigue. She is still taking her aspirin 325 mg for atrial fib, she did stop aspirin for pain management as instructed. She has been using acetaminophen 2 tabs twice daily though unclear if has been effective. 4. Tooth abscesses. Patient was unable to obtain appointment, white count is not elevated, on examination no signs or symptoms of abscesses, continue to monitor. Pain is resolved. 5. Frailty. She does have muscle wasting, as reports she is eating well, she is having more fatigue, sleeping more, and less activity tolerance as well as increasing tumor marker. 6. Anxiety. This is multifactorial, she does feel she is changing, and feels like this is going pretty quickly. She does feel like she has done well given the severity of her illness, and feels like her symptoms have been very mild compared to others that she sees here in the clinic. She does worry about her impending decline, though has had some reassurance as her daughter and her have talked about her end-of-life wishes. Counseling provided to normalize feelings of grief and uncertainty. Time Spent: 45 minutes with greater than 50% of this done in counseling regarding symptom management and anticipatory guidance as well as coordination of care with oncology team.
== END 2019-12-08 11:22 | disposition home or self-care (01) ==
LOC: PC 11:21
PROVIDERS: ATTEND Nurse Practitioner Adult Health
DX: Z51.5 Encounter for palliative care (principal); R51 Headache; G89.3 Neoplasm related pain (acute) (chronic); I10 Essential (primary) hypertension; R53.83 Other fatigue; R60.0 Localized edema; M62.50 Muscle wasting and atrophy, not elsewhere classified, unspecified site; R41.89 Other symptoms and signs involving cognitive functions and awareness; K08.9 Disorder of teeth and supporting structures, unspecified; I48.91 Unspecified atrial fibrillation; F41.9 Anxiety disorder, unspecified; C79.9 Secondary malignant neoplasm of unspecified site; C56.9 Malignant neoplasm of unspecified ovary; Z79.899 Other long term (current) drug therapy; Z79.82 Long term (current) use of aspirin; Z66 Do not resuscitate
CPT/HCPCS: 99215

== ENCOUNTER 2019-12-22 08:44 | Outpatient (CLI) | payer MEDICARE, BC ==
--- NOTE | 2019-12-22 19:00 | CONSULTATION NOTE ---
Palliative Care Follow Up - Referral Referring Provider: Dr. Kurt Vance Time of Visit: 11 Referral setting: [facility] [place] Referral Reason: Anxiety/Recurrent Ova CA/HTN/goals of care - Information Sources Records reviewed: Previous records reviewed History/Review of Systems obtained from: Patient Exam limitations: No limitations - History of Present Illness Update Brief HPI Update: This is a 84-year-old woman with metastatic ovarian cancer, status post multiple lines of treatment discontinued related to her hypertensive sequela. Patient has been treated since her original diagnosis in 2016. She is feeling quite fortunate that she has made it for 4-1/2 years, but does recognize things are winding down. She has met with oncology, was given the option to transition to comfort care, or could continue with treatment as long as was benefiting and not experiencing significant side effects. Her Ca1 25 continues to rise, from her last one 2915, to 4007. She has had ongoing weight loss, worsening anorexia, and increased lower extremity edema. She is also continued to have poorly controlled blood pressure, but in review has been somewhat noncompliant with her blood pressure medications. She also presents with worsening lower extremity edema, with increased pain and sensitivity in her lower extremities. She has had minimal abdominal pain, she is managing her bowels to keep them open soft and moving, has not had any obstructive symptoms, does have some increased urinary incontinence from tumor pressure, but otherwise has felt quite fortunate. Her most persistent and aggravating symptom for her has been her fatigue, she is sleeping quite a bit more, is still able to manage her ADLs, but does find he rself declining. Social History - Living Situation Living arrangement: At home Living Situation: With family Support System: Patient has a brandan supportive family, everybody is kind of realigning. Her son who is been living with her, will be moving in with his son in the next cou ple months, her daughter who will be her primary caregiver, is getting ready to move to [place]. Her son from [place], will be coming out in January to see her as well. 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 Medications/Allergies - Medications Home Medications: Ambulatory Orders Medication Instructions Recorded Confirmed Cholecalciferol (Vitamin D3) 5,000 unit PO BID 07/14/15 12/23/19 [Vitamin D3] Senna [Senokot] 8.6 tab PO BID PRN 07/14/15 12/23/19 polyethylene glycoL 3350 [Miralax] 17 - 34 gm PO DAILY PRN 07/14/15 12/23/19 Aspirin 325 mg PO DAILY 07/27/15 12/23/19 Calcium Carb/Mag Ox/Zinc Sulf [Hm 1 each PO DAILY 08/04/15 12/23/19 [id number] Cplt] Multivitamin [Multivitamins] 1 each PO DAILY 08/04/15 12/23/19 Mineral Oil, Light/Mineral Oil 2 drop EACHEYE DAILY PRN 09/01/15 12/23/19 [Soothe Xp Eye Drops] Mupirocin 2 applic TOP BID PRN 09/01/15 12/23/19 Triamcinolone 0.1% Oint [Kenalog 1 applic TOP BID PRN 09/01/15 12/23/19 0.1% Oint] Raloxifene HCl 60 mg PO DAILY 10/06/15 12/23/19 Losartan [Cozaar] 100 mg PO DAILY MDD change dose 12/2110/17/17 12/23/19 Lactobacillus Acidophilus 1 tab PO DAILY 01/16/18 12/23/19 [Probiotic Acidophilus] Ferrous Sulfate [High Potency Iron] 27 mg PO .3X WEEK MDD 27 04/07/19 12/23/19 Apremilast [Otezla] 30 mg PO BID 05/05/19 12/23/19 Loperamide [Imodium] 2 mg PO QID #20 capsule 06/26/19 12/23/19 Furosemide 40 mg PO DAILY 07/07/19 12/23/19 Diltiazem HCl [Dilt-Xr] 180 mg PO DAILY 09/29/19 12/23/19 Acetaminophen 650 mg PO TID PRN MDD 3000 mg 11/24/19 12/23/19 Potassium Chloride [Klor-Con 10] 10 meq PO DAILY MDD bid for one 12/23/19 12/23/19 week - Allergies Allergies/Adverse Reactions: Allergies Allergy/AdvReac Type Severity Reaction Status Date / Time morphine Allergy Severe Emesis Verified 11/24/19 09:52 diazepam [From Valium] Allergy Unknown Verified 11/24/19 09:52 cephalexin monohydrate * AdvReac Severe Edema Verified 11/24/19 09:52 [From Keflex] procaine AdvReac Intermediate Upset Verified 11/24/19 09:52 stomach codeine AdvReac Dizziness Verified 11/24/19 09:52 Review of Systems - Constitutional Constitutional: reports: Fatigue, Weight gain (fluid weight 113). denies: Fever, Chills - Eyes Eyes: reports: Other (watery eyes) - Ears, Nose & Throat Ears, Nose & Throat: reports: Nasal congestion, Dental decay (no further pain or concern for infection; reports sometimes tender;) - Cardiovascular Cardiovascular: reports: Edema (worsening), Decr. exercise tolerance, Other (elevated b/p s at home, did not call with report; she has been skipping her dilitizam as she was running out, diff. getting refill through cardiology). denies: Irregular heart rate, Palpitations, Chest pain, Lightheadedness - Respiratory Respiratory: reports: SOB with exertion. denies: Cough, SOB at rest - Gastrointestinal Gastrointestinal: reports: Abdominal distention, Early satiety (eats small frequent feedings). denies: Constipation, Rectal bleeding, Nausea, Vomiting - Genitourinary Genitourinary: reports: Incontinence (worsening). denies: Dysuria, Hematuria - Musculoskeletal Musculoskeletal: reports: Stiffness, Muscle weakness - Integumentary Integumentary: reports: Dryness - Neurological Neurological: reports: General weakness. denies: Dizziness - Psychiatric Psychiatric: reports: Depression, Anxiety - Hematologic/Lymphatic Hematologic/Lymphatic: reports: Anemia. denies: Recurrent infections - All Other Systems All Other Systems: reports: Reviewed and negative Physical Exam - Vital Signs Temperature: 36.4 C Pulse Rate: 87 Respiratory Rate: 16 O2 Saturation: 99 (ra @ rest) Blood Pressure: 182/103 - Physical Exam General Appearance: positive: Alert, Mild distress, Anxious Eyes Bilateral: positive: Normal inspection ENT: positive: Nasal congestion, Dental decay Neck: positive: Trachea midline Cardiovascular: positive: Regular rate & rhythm Respiratory: positive: No respiratory distress, Breath sounds nml Abdomen: positive: Soft, Tenderness, Distended. negative: Guarding Skin: positive: Pallor, Dryness Extremities: positive: Pedal edema (up to knees; more taut; no relief with furosemide) Neurologic/Psychiatric: positive: Oriented x3, Mood/affect nml Palliative Care - POLST Patient has POLST: Yes POLST Status: DNR, Selective Treatment Pain: Pain unchanged (mid abdominal/intermittent not enough to "take anything"), Pain worsening (feet with peripheral neuropathy worsened with edema) Tiredness/Fatigue: Moderate (4-6) Drowsiness/Sedation: Moderate (4-6) Nausea: Mild (1-3) (after eating for about 1/2 hour) Anorexia: None, Mild (1-3) Dyspnea: Mild (1-3) Depression: Mild (1-3) Anxiety: Mild (1-3) Feelings of wellbeing/Perceived Quality of Life: Fair, Acceptable, Worsening Sleep: Sleeps well Constipation: No Performance Status: Patient is still ambulatory, able to manage her own ADLs. She is still driving, and doing household tasks. She does need to take more frequent rest periods, does find herself sometimes "not motivated" and impacted by fatigue - Palliative Care Discussion: Patient continues to be quite anxious about approaching end-of-life, though she has continued to process this. She is still feeling that treatment is still of benefit, over burden. She is thankful to admitted to her birthday, she does have her son visiting at the end of January, continues to hope for the best, but aware time is more limited. She is quite thankful all of the things around her kids are aligning, there is a plan for her son, she still wants to be at home for her end-of-life event. She would like to be able to visit and see all her kids and her new homes, continues to process her current situation. Results - Lab Results Lab results reviewed: Yes Lab and Imaging Results: Potassium 3.7, hemoglobin 11.1 Impression and Recommendations - Palliative Care Impression: This a brandan 84-year-old woman with recurrent ovarian cancer, who continues to present with persistent hypertension, worsening lower extremity edema, worsening fatigue, and overall presents with frailty. Patient does have persistent and progressive disease, she is continue to weigh benefits and burdens of moving forward with treatment, currently has decided to continue at least for a few more rounds. Palliative care continue provide support regarding pain and symptom management and transition to hospice when appropriate Recommendations/Counseling Done: 1. Hypertension. So in further exploration, not only was patient not taking her losartan, which she did restart it 50 mg two weeks ago without much improvement. In collaboration with oncologist, will increase to 100 mg. Patient also reveals today, she has not been taking her diltiazem, she attributes this as she is taking it for her "atrial fib" and has not had any palp rotations are feeling like she has it. We did discuss in the context of this though would also hope to control her blood pressure, and the reason she has no symptoms, she has the medication to manage it. 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 Patient has been up to twice daily, but has not taken this dose for several months. Patient will also have her furosemide increased to 40 mg, she continues with lower extremity edema, patient is continue to track her blood pressure, and contact me at the end of week for further dose adjustments. 2. Lower extremity edema. This is most likely multifactorial in origin, patient's lungs remain clear, she does have elevated blood pressure, has not had much response to the furosemide 20 mg. Will increase to 40 mg, and add potassium, she has been having more trouble with her compression hose because of increased tenderness. I also expect this is most likely impacted by sequela of her tumor burden in the context of lymphedema as well. 3. Dental decay. Patient feels currently no further pain or discomfort, she denies anything other than occasional tenderness with biting. She is hesitant to spend a large amount of money but she does understand her prognosis is fairly poor. She will continue to monitor for signs or symptoms of further infection or abscess, and contact dentist appropriately. 4. Frailty. Patient does have muscle wasting, but she reports she is eating well she is having more fatigue, or sedentary, and less activity tolerance as well as increasing tumor marker. Patient presents with symptoms of progressive disease. 5. Anxiety. This is multifactorial, she does understand the seriousness of her illness, and does feel like she is changing but would like to continue treatment. She has met with oncology, will continue her current treatment regimen as long as she perceives benefits are outweighing burdens. 6. Advanced care planning. Patient does have POLST in place with DNA R/selective treatments. When patient transitions for hospice, and needs to increase assistance end-of-life, her daughter has agreed to come and be her caregiver. She is feeling like she is getting things aligned that were of concern for her around her end-of-life wishes, she made it to her goal of her birthday, now she is hoping now to still be functional and able to enjoy her son's visit from [place] at the end of January. Time Spent: 45 minutes with greater than 50% of this done in counseling regarding goals of care, symptom management, coordination of care with oncology team for hypertension, and anticipatory guidance
== END 2019-12-22 08:45 | disposition home or self-care (01) ==
LOC: PC 08:44
PROVIDERS: ATTEND Nurse Practitioner Adult Health
DX: Z51.5 Encounter for palliative care (principal); F41.9 Anxiety disorder, unspecified; R60.0 Localized edema; K02.9 Dental caries, unspecified; R63.0 Anorexia; R63.4 Abnormal weight loss; R68.81 Early satiety; R54 Age-related physical debility; R32 Unspecified urinary incontinence; G62.9 Polyneuropathy, unspecified; R06.02 Shortness of breath; C56.9 Malignant neoplasm of unspecified ovary; C79.9 Secondary malignant neoplasm of unspecified site; Z79.899 Other long term (current) drug therapy; Z91.14 Patient's other noncompliance with medication regimen; Z66 Do not resuscitate
CPT/HCPCS: 99215

== ENCOUNTER 2019-12-29 18:18 | Outpatient (CLI) | payer MEDICARE, BC | END 2019-12-29 18:19 | disposition critical access hospital (66) | LOC: EMS 18:18 | PROVIDERS: ATTEND Surgery | DX: R53.1 Weakness (principal); R42 Dizziness and giddiness; R41.0 Disorientation, unspecified | CPT/HCPCS: A0425; A0429 ==

== ENCOUNTER 2019-12-29 18:41 | Emergency (ER) | payer MEDICARE, BC ==
[2019-12-29] MEDS ORDERED: SODIUM CHLORIDE 0.9% 1,000 ML IV STA (18:58)
--- NOTE | 2019-12-29 19:05 | ED Physician Documentation ---
History of Present Illness - Stated complaint Stated Complaint: DIZZY - Chief complaint Chief Complaint: Cardiac - History obtained from History obtained from: Patient, EMS - History of Present Illness Timing: How many days ago (Several days) Pain level max: 0 Pain level now: 0 - Additonal information Additional information: 84-year-old female presents the emergency department complaint of intermittent dizziness for the past few days. She feels generally weak. She has recurrent metastatic ovarian cancer. She is currently undergoing chemotherapy. No vomiting. No fever. No cough. She states that she is concerned about COVID. She occasionally takes her diltiazem for her A. fib, but often skips it. 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 : Kidney stones HEENT: Glaucoma Psych: Depression, Anxiety Musculoskeletal: Osteoporosis Derm: Psoriasis - Past Surgical History Past Surgical History: Yes General: Appendectomy /BEET END SUPERVISOR: Hysterectomy, Oophrectomy Cardiovascular: Other HEENT: Tonsil/Adenoidectomy - Present Medications Home Medications: Ambulatory Orders Medication Instructions Recorded Confirmed Cholecalciferol (Vitamin D3) 5,000 unit PO BID 07/14/15 12/23/19 [Vitamin D3] Senna [Senokot] 8.6 tab PO BID PRN 07/14/15 12/23/19 polyethylene glycoL 3350 [Miralax] 17 - 34 gm PO DAILY PRN 07/14/15 12/23/19 Aspirin 325 mg PO DAILY 07/27/15 12/23/19 Calcium Carb/Mag Ox/Zinc Sulf [Hm 1 each PO DAILY 08/04/15 12/23/19 [id number] Cplt] Multivitamin [Multivitamins] 1 each PO DAILY 08/04/15 12/23/19 Mineral Oil, Light/Mineral Oil 2 drop EACHEYE DAILY PRN 09/01/15 12/23/19 [Soothe Xp Eye Drops] Mupirocin 2 applic TOP BID PRN 09/01/15 12/23/19 Triamcinolone 0.1% Oint [Kenalog 1 applic TOP BID PRN 09/01/15 12/23/19 0.1% Oint] Raloxifene HCl 60 mg PO DAILY 10/06/15 12/23/19 Losartan [Cozaar] 100 mg PO DAILY MDD change dose 12/2110/17/17 12/23/19 Lactobacillus Acidophilus 1 tab PO DAILY 01/16/18 12/23/19 [Probiotic Acidophilus] Ferrous Sulfate [High Potency Iron] 27 mg PO .3X WEEK MDD 27 04/07/19 12/23/19 Apremilast [Otezla] 30 mg PO BID 05/05/19 12/23/19 Loperamide [Imodium] 2 mg PO QID #20 capsule 06/26/19 12/23/19 Furosemide 40 mg PO DAILY 07/07/19 12/23/19 Diltiazem HCl [Dilt-Xr] 180 mg PO DAILY 09/29/19 12/23/19 Acetaminophen 650 mg PO TID PRN MDD 3000 mg 11/24/19 12/23/19 Potassium Chloride [Klor-Con 10] 10 meq PO DAILY MDD bid for one 12/23/19 week - Allergies Allergies/Adverse Reactions: Allergies Allergy/AdvReac Type Severity Reaction Status Date / Time morphine Allergy Severe Emesis Verified 11/24/19 09:52 diazepam [From Valium] Allergy Unknown Verified 11/24/19 09:52 cephalexin monohydrate * AdvReac Severe Edema Verified 11/24/19 09:52 [From Keflex] procaine AdvReac Intermediate Upset Verified 11/24/19 09:52 stomach codeine AdvReac Dizziness Verified 11/24/19 09:52 - Social History Does the pt smoke?: No Smoking Status: Never smoker Does the pt drink ETOH?: Yes Does the pt have substance abuse?: No - Immunizations Immunizations are current?: No Immunizations: TDAP >10years/unknown - POLST Patient has POLST: Yes POLST Status: DNR PD ED PE NORMAL - Vitals Vital signs reviewed: Yes - General General: Alert and oriented X 3, No acute distress, Other (thin, frail female) - HEENT HEENT: PERRL, Other (dry lips and tongue) - Neck Neck: Supple, no meningeal sign - Cardiac Cardiac: RRR - Respiratory Respiratory: No respiratory distress, Clear bilaterally - Abdomen Abdomen: Soft, Non tender, Non distended - Back Back: No spinal TTP - Derm Derm: Warm and dry, No rash - Extremities Extremities: No edema - Neuro Neuro: Alert and oriented X 3 - Psych Psych: Normal mood, Normal affect Results - Vitals Vitals: Vital Signs - 24 hr 12/29/19 12/29/19 12/29/19 18:50 20:11 21:05 Temperature 36.6 C Heart Rate 140 H 80 75 Respiratory 20 12 22 Rate Blood Pressure 190/119 H 192/90 H 169/78 H O2 Saturation 98 96 97 Oxygen O2 Source Room air - Labs Labs: Laboratory Tests 12/29/19 12/29/19 12/29/19 19:19 19:19 19:55 WBC 7.1 RBC 3.32 L Hgb 11.2 L Hct 32.9 L MCV 99.1 H MCH 33.7 H MCHC 34.0 RDW 13.9 Plt Count 201 MPV 9.1 Neut # (Auto) 5.9 Lymph # (Auto) 0.6 L [place] # (Auto) 0.5 Eos # (Auto) 0.0 Baso # (Auto) 0.0 Absolute Nucleated RBC 0.00 Nucleated RBC % 0.0 Sodium 136 Potassium 3.9 Chloride 100 L Carbon Dioxide 26 Anion Gap 10.0 BUN 25 H Creatinine 0.9 Estimated GFR (MDRD) 60 L Glucose 90 Calcium 8.8 Total Bilirubin 0.8 AST 28 ALT 14 Alkaline Phosphatase 52 Total Protein 5.1 L Albumin 3.1 L Globulin 2.0 L Albumin/Globulin Ratio 1.6 Lipase 24 Urine Color YELLOW Urine Clarity CLEAR Urine pH 6.0 Ur Specific [place] >=1.030 H Urine Protein >=300 H Urine Glucose (UA) NEGATIVE Urine Ketones 15 H Urine Occult Blood MODERATE H Urine Nitrite NEGATIVE Urine Bilirubin NEGATIVE Urine Urobilinogen 0.2 (NORMAL) Ur Leukocyte Esterase NEGATIVE Urine RBC 6-10 H Urine WBC 0-3 Ur Squamous Epith Cells NONE SEEN Urine Bacteria Rare Urine Casts 26-50 Hyaline Casts Ur Microscopic Review INDICATED Urine Culture Comments NOT INDICATED PD MEDICAL DECISION MAKING - ED course Complexity details: reviewed results, re-evaluated patient, considered differential, d/w patient ED course: Patient feels much better after IV fluids. She was in A. fib briefly, but then went back in a sinus rhythm. No chest pain. No shortness of breath. Encourage p.o. hydration at home. Patient and family counseled regarding signs and symptoms for which I believe and urgent re-evaluation would be necessary. Patient with good understanding of and agreement to plan and is comfortable going home at this time This document was made in part using voice recognition software. While efforts are made to proofread this document, sound alike and grammatical errors may occur. Departure - Departure Disposition: 01 Home, Self Care Clinical Impression: Dehydration Condition: Good Instructions: ED Dehydration Follow-Up: TJ MARTINEZ MD [Primary Care Provider] - Within 1 week Comments: Drink plenty of fluids and rest. Return if you worsen. Follow-up with your doctor for further care. Discharge Date/Time: 12/29/19 21:24
[2019-12-29 19:23] LABS: BASOPHILS % (AUTO) 0.6 %; EOSINOPHILS % (AUTO) 0.1 %; HGB - HEMOGLOBIN 11.2 g/dL (12.0-16.0); LYMPHOCYTES # (AUTO) 0.6 10^3/uL (1.5-3.5); LYMPHOCYTES % (AUTO) 8.9 %; MEAN CORPUSCULAR HEMOGLOBIN 33.7 pg (27.0-31.0); MEAN CORPUSCULAR VOLUME 99.1 fL (81.0-99.0); MEAN PLATELET VOLUME 9.1 fL (7.9-10.8); MONOCYTES # (AUTO) 0.5 10^3/uL (0.0-1.0); MONOCYTES % (AUTO) 6.4 %; NEUTROPHILS # (AUTO) 5.9 10^3/uL (1.5-6.6); NEUTROPHILS % (AUTO) 83.6 %; PLT - PLATELET COUNT 201 10^3/uL (130-450); RED BLOOD COUNT 3.32 10^6/uL (4.20-5.40); RED CELL DISTRIBUTION WIDTH 13.9 % (12.0-15.0); WHITE BLOOD COUNT 7.1 x10^3/uL (4.8-10.8)
[2019-12-29 19:42] LABS: ALBUMIN 3.1 g/dL (3.2-5.5); ALBUMIN/GLOBULIN RATIO 1.6 (1.0-2.2); BILIRUBIN,TOTAL 0.8 mg/dL (0.2-1.0); CALCIUM 8.8 mg/dL (8.5-10.3); CREATININE 0.9 mg/dL (0.4-1.0); TOTAL PROTEIN 5.1 g/dL (6.7-8.2)
[2019-12-29 20:12] LABS: BILIRUBIN,URINE NEGATIVE (NEGATIVE); GLUCOSE, URINE (UA) NEGATIVE (NEGATIVE); KETONES,URINE (UA) 15 mg/dL (NEGATIVE); LEUKOCYTE ESTERASE, URINE NEGATIVE (NEGATIVE); NITRITE,URINE NEGATIVE (NEGATIVE); OCCULT BLOOD,URINE MODERATE (NEGATIVE); PROTEIN,URINE >=300 mg/dL (NEGATIVE); UROBILINOGEN,URINE 0.2 (NORMAL) E.U./dL (NORMAL)
[2019-12-29 20:13] LABS: CLARITY,URINE CLEAR (CLEAR)
[2019-12-29 20:20] LABS: BACTERIA,URINE Rare /HPF (None Seen); CASTS, URINE 26-50 Hyaline Casts /LPF; SQUAMOUS EPITHELIAL CELL,UR NONE SEEN (<= Few)
[2019-12-29 21:06] VITALS: BP 169/78
== END 2019-12-29 21:24 | disposition home or self-care (01) ==
LOC: EDUNIT# → EDBD → ED 18:41
DX: E86.0 Dehydration (principal); I48.91 Unspecified atrial fibrillation; C79.81 Secondary malignant neoplasm of breast; Z79.899 Other long term (current) drug therapy; Z20.828 Contact with and (suspected) exposure to other viral communicable diseases; Z66 Do not resuscitate
CPT/HCPCS: 36415; 80053; 81001; 83690; 85025; 96361; 96374; 99284; 99285; U0004; 81003; 87086

== ENCOUNTER 2020-01-06 10:40 | Outpatient (CLI) | payer MEDICARE, BC ==
--- NOTE | 2020-01-06 13:08 | CONSULTATION NOTE ---
Palliative Care Follow Up - Referral Referring Provider: Dr. Kurt Vance Time of Visit: 1198-8102 Referral setting: Home Referral Reason: AMS/FTT/HTN - Information Sources Records reviewed: Previous records reviewed History/Review of Systems obtained from: Patient, Family (daughter Alina at visit) Exam limitations: Clinical condition (patient continues with some STM issues) - History of Present Illness Update Brief HPI Update: This is an 84-year-old woman with metastatic ovarian cancer, status post multiple lines of treatment, recently Avastin was discontinued related to her hypertension. Patient has been treated since her original diagnosis in 2015, she feels very fortunate she is made it 4-1/2 years, she had met with oncology on 12/21 with option to transition to comfort care, as her CEA 125 continues to rise, she has had ongoing weight loss, worsening anorexia, and increasing lower extremity edema. She has had poorly controlled blood pressure, has had difficulty with medication adherence, and follow through with her blood pressure medications. It is unclear since her last appointment what she was doing, she had not picked up her medications, but according to her daughter and also from patient's recall, she has had somewhat of an altered mental status for last couple weeks. She ended up in the emergency room on 12/28 with dehydration, and hypertension. Her daughter came up to care for her, and just in the last 48 hours realized she had been needing to take some medications. She has not taken her meds for at least 2 weeks that is known of. She has had persistent headache, poor short-term memory, she has been eating and drinking, but continues to appear quite frail. They have started her medications yesterday, daughter reports her blood pressures had been up to 168/96, with a pulse of 77. He started it yesterday. Patient is quite distressed that she has "let everybody down" as far as following through on her medications. I am making a home visit to try and help define goals of care, as well as help with medication adherence. She appears quite frail, difficulty tracking information, she does have increased lower extremity edema, she does have some tenderness and redness over the top of her feet. Does appear to have small blisters, it is not warm to touch, she does have decreased breath sounds in her left lower lobe. Otherwise she appears more cachectic with more upper extremity wasting and temporal wasting. 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 Her daughter Alina, who is recently retired, is here to provide support and care. She is appropriately concerned, patient is not able to manage independently at this point, she is hoping patient will return somewhat to her baseline at least temporarily, but has made a commitment to care for her through end-of-life. Medications/Allergies - Medications Home Medications: Ambulatory Orders Medication Instructions Recorded Confirmed Cholecalciferol (Vitamin D3) 5,000 unit PO BID 07/14/15 01/06/20 [Vitamin D3] Senna [Senokot] 8.6 tab PO BID PRN 07/14/15 01/06/20 polyethylene glycoL 3350 [Miralax] 17 - 34 gm PO DAILY PRN 07/14/15 01/06/20 Aspirin 325 mg PO DAILY 07/27/15 01/06/20 Calcium Carb/Mag Ox/Zinc Sulf [Hm 1 each PO DAILY 08/04/15 01/06/20 [id number] Cplt] Mineral Oil, Light/Mineral Oil 2 drop EACHEYE DAILY PRN 09/01/15 01/06/20 [Soothe Xp Eye Drops] Triamcinolone 0.1% Oint [Kenalog 1 applic TOP BID PRN 09/01/15 01/06/20 0.1% Oint] Losartan [Cozaar] 100 mg PO DAILY MDD change dose 7/6 10/17/17 01/06/20 Ferrous Sulfate [High Potency Iron] 27 mg PO .3X WEEK MDD 27 04/07/19 01/06/20 Apremilast [Otezla] 30 mg PO BID 05/05/19 01/06/20 Loperamide [Imodium] 2 mg PO QID #20 capsule 06/26/19 01/06/20 Furosemide 40 mg PO DAILY 07/07/19 01/06/20 Diltiazem HCl [Dilt-Xr] 180 mg PO DAILY 09/29/19 01/06/20 Acetaminophen 650 mg PO TID PRN MDD 3000 mg 11/24/19 01/06/20 Potassium Chloride [Klor-Con 10] 10 meq PO DAILY MDD bid for one 12/23/19 01/06/20 week - Allergies Allergies/Adverse Reactions: Allergies Allergy/AdvReac Type Severity Reaction Status Date / Time morphine Allergy Severe Emesis Verified 11/24/19 09:52 diazepam [From Valium] Allergy Unknown Verified 11/24/19 09:52 cephalexin monohydrate * AdvReac Severe Edema Verified 11/24/19 09:52 [From Keflex] procaine AdvReac Intermediate Upset Verified 11/24/19 09:52 stomach codeine AdvReac Dizziness Verified 11/24/19 09:52 Review of Systems - Constitutional Constitutional: reports: Fatigue, Weight loss. denies: Fever, Chills - Eyes Eyes: reports: Vision loss - Ears, Nose & Throat Ears, Nose & Throat: reports: Hearing loss, Nasal congestion, Dry mouth - Cardiovascular Cardiovascular: reports: Edema, Lightheadedness, Exertional dyspnea, Decr. exercise tolerance. denies: Chest pain - Respiratory Respiratory: denies: Cough, SOB at rest, SOB with exertion - Gastrointestinal Gastrointestinal: reports: Bloating, Good appetite. denies: Abdominal distention, Constipation, Diarrhea, Nausea, Reflux/heartburn - Genitourinary Genitourinary: reports: Incontinence (worsening) - Musculoskeletal Musculoskeletal: reports: Muscle aches (lower legs), Stiffness, Muscle weakness - Integumentary Integumentary: reports: Dryness - Neurological Neurological: reports: General weakness, Headache (for one week; had not been taking meds; today no h/a), Numbness, Memory problems - Psychiatric Psychiatric: reports: Depression, Anxiety - Hematologic/Lymphatic Hematologic/Lymphatic: reports: Anemia (11.2). denies: Recurrent infections - All Other Systems All Other Systems: reports: Reviewed and negative Physical Exam - Vital Signs Temperature: 96.6 C Pulse Rate: 77 Respiratory Rate: 18 O2 Saturation: 96 (ra @ rest) Blood Pressure: 132/84 - Physical Exam General Appearance: positive: Alert, Mild distress, Anxious Eyes Bilateral: positive: Normal inspection ENT: positive: Hearing loss, Nasal congestion, Dental decay, Dry mouth Neck: positive: Trachea midline Cardiovascular: positive: Regular rate & rhythm Respiratory: positive: No respiratory distress, Other (diminished LLL) Abdomen: positive: Soft, Tenderness, Distended. negative: Guarding Skin: positive: Pallor, Dryness, Wound (small "divot" on right outer area of foot) Extremities: positive: Pedal edema (up to knees; more taut; redness localized around toes) Neurologic/Psychiatric: positive: Disoriented to time, Weakness, Depressed mood/affect, Flat affect Palliative Care - POLST Patient has POLST: Yes POLST Status: DNR, Selective Treatment Pain: No pain Tiredness/Fatigue: Severe (7-10) Drowsiness/Sedation: Moderate (4-6) Nausea: None Anorexia: None Dyspnea: None Depression: Moderate (4-6) Anxiety: Severe (7-10) Feelings of wellbeing/Perceived Quality of Life: Poor, Worsening Sleep: Other (sleeping alot; 60-70% of time) Constipation: Yes, Managed Performance Status: Patient has been sleeping more, particular over the last few weeks. She is experiencing more fatigue, she is still able to manage her ADLs, though is quite distressed by her increasing incontinence and needing to manage this. This is most likely attributed to her tumor pressure, her UA in the ED was negative. She is able to ambulate short distances, and her daughter has been doing meal prep.Up to this point in time she had been able to drive, and manage her own appointments, though is becoming increasingly forgetful particularly around medication adherence - Palliative Care Discussion: Patient has always coped with a "positive attitude", has had milestones for which she has set herself, her most recent was her birthday. She does have her son coming out from [place] in January, she does understand the seriousness of her illness, but has always felt she has had some kind of control. She was feeling somewhat overwhelmed in the context that she understands she is getting towards the end of her journey, and she reports she is just not ready. Patient currently is receiving to small doses of Doxil, we did discuss at length sometimes focusing on quality of life, that we can do more harm than good with chemotherapy, and given how frail she is getting would recommend considering transitioning to hospice support. Patient does want to have a at home, she did care for her father, though did not have hospice support. Daughter quite concerned about resources and ability to manage patient, discussed that support hospice can provide, but also the need for 24-hour caregiving, patient most likely does not have the resources to hire much. Patient remains somewhat resistant, wanting to see if she cannot get better first, she does present with increasing symptom burden and failure to thrive. Results - Lab Results Lab results reviewed: Yes Impression and Recommendations - Palliative Care Impression: This is a anxious 84-year-old woman with recurrent ovarian cancer, who presents with 2 weeks of increased confusion, poor medical adherence, worsening hypertension, and lower extremity edema. She does have persistent and progressive disease, she continues to weigh benefits and burdens of moving forward, though with her frailtyand recent ED visit, may not be appropriate for further treatment. Palliative care continue to provide support regarding pain and symptom management and transition to hospice when appropriate. Recommendations/Counseling Done: 1.Lower extremity edema. This is quite uncomfortable for patient, worsening pain and tenderness in her feet. She does have some cracks and high risk for cellulitis. Patient has not been taking her furosemide, had been on 20 mg without much effect, on 12/21 was increased to 40 mg. She has not taken this other than started yesterday, suspect some resistance with her increasing incontinence. Review of medications with daughter, instructed to hold if blood pressure less than 120/60, patient is drinking and eating adequately at this point in time. Follow-up in reach out to her PCP, Dr. Remedios Bray, she is to see her tomorrow, for follow-up on her feet, concern for developing cellulitis versus tenderness from worsening edema. 2. Hypertension. Patient has not been adherent with her medications, had increased her losartan to 100 mg last week, as he remained hypertensive on 50 mg. She was also not taking her diltiazem. She has multiple medication changes regarding her blood pressure, she has been symptomatic with headache, and possibly adding to her confusion. She has taken her medications last night and this a.m., with her blood pressure down to 132/84 at time of visit. Will need to continue to monitor, daughter is going to take blood pressure first thing in the morning and alternating times during the day and can adjust meds accordingl y. 3. Dental decay. Patient has had intermittent abscesses, concern regarding patient's risk for recurrent infection, she denies any pain or tenderness, her white count was okay in the ED last week. Given her most likely shorten prognosis, patient is not wanting to spend the money to have further dental work done, will continue to monitor for symptoms. 4. Frailty. Patient continues to sleep more, have increased muscle wasting, though she is eating and doing well as far as came in with fluids. She does have increased tumor marker, and signs of increased tumor burden. Patient would be appropriate for transition to hospice care, given her current frailty, concern if patient appropriate for further chemotherapy. Will reach out to oncology after visit next week if patient has not transition to hospice. 5. Advanced care planning. Patient does have POLST in place with DNA R/selective treatments, she will need increased support for end-of-life. Her daughter is presently providing caregiving, did provide daughter with caregiving list for installer helper, also counseled both the benefits and limitations of hospice care, she would still need 24/7 caregiving at some point. Patient continues to struggle with transitioning to hospice given her long history of treatment and "can do" attitude. Time Spent: 60 minutes with greater than 50% of this done in counseling regarding medication adherence, monitoring of blood pressure, anticipatory guidance regarding hospice and hospice benefit, coordination of care with primary care.
== END 2020-01-06 10:41 | disposition home or self-care (01) ==
LOC: PC 10:40
PROVIDERS: ATTEND Nurse Practitioner Adult Health
DX: Z51.5 Encounter for palliative care (principal); Z66 Do not resuscitate; C56.9 Malignant neoplasm of unspecified ovary; C79.9 Secondary malignant neoplasm of unspecified site; R32 Unspecified urinary incontinence; R62.7 Adult failure to thrive; R60.0 Localized edema; M79.672 Pain in left foot; M79.671 Pain in right foot; I10 Essential (primary) hypertension; R51 Headache; T46.1X6A Underdosing of calcium-channel blockers, initial encounter; Z91.14 Patient's other noncompliance with medication regimen; R41.3 Other amnesia; K59.00 Constipation, unspecified; K02.9 Dental caries, unspecified; H54.7 Unspecified visual loss; H91.90 Unspecified hearing loss, unspecified ear; Z79.82 Long term (current) use of aspirin; Z79.899 Other long term (current) drug therapy
CPT/HCPCS: 99350

== ENCOUNTER 2020-01-13 14:11 | Outpatient (CLI) | payer MEDICARE, BC ==
--- NOTE | 2020-01-13 16:31 | CONSULTATION NOTE ---
Palliative Care Follow Up - Referral Referring Provider: Dr. uKrt Vance Time of Visit: [id number] Referral setting: [facility] [place] Referral Reason: Metastic Ovarian Cancer/Pal Care - Information Sources Records reviewed: Previous records reviewed History/Review of Systems obtained from: Patient, Family (daughter Laurie) Exam limitations: Clinical condition (patient with some mild confustion persisting) - History of Present Illness Update Brief HPI Update: This is an 84-year-old woman with metastatic ovarian cancer, status post multiple lines of treatment, with most recently have this done discontinued related to worsening hypertension. Patient is been treated since her original diagnosis in 2015, she feels very fortunate to have made it 4-1/2 years, When she was seen on 12/21, her medications were adjusted for blood pressures, and it would appear most likely she had some kind of event, I am thinking small stroke or TIA. She did end up in the emergency room on 12/28 with dehydration, I did restart her on her medications on 01/05, and she has improved significantly is eating and drinking, but still has cognitive deficits and is not at baseline. She is very anxious at baseline, and this has very much upset her. She feels like she has let everyone down, though I suspect there was no intention or choice in this, but some kind of neurological event. She was needing significant amount of reassurance regarding this, but does appear quite frail. She came in for labs, which does show worsening CA 125 significantly from just a few weeks ago of 4000, up to 5685. She is eating and drinking, though continues to look like she is cachectic and losing weight. Her abdomen is more ptotic, suspect ascites. Her lower extremity edema is better, but she is having worsening kidney function, will need to decrease her furosemide back to 20 mg. Palliative care is meeting with daughter who has been up providing care since 12/28, and patient to follow-up on recommendation to transition to hospice. Had followed up with oncology, recommended hospice transition, she does not have any further treatment options, and the Doxil is no longer working. After much to do, patient does admit to being quite tired, and is accepting and ready for transition.This conversation took many dips and turns, including clarification that hospice is not indicative of an imminent , that she does not have to have frequent visits until things are changing, is of good support for her daughter, and is in alignment with her goals. They do need more caregiving, but we discussed it does not pay for [facility] care or woman board. Patient very much wants to have a at home, and daughter would like to support this. Social History - Living Situation Living arrangement: At home Living Situation: With family Support System: Patient lives in her own home, [place]. She has been the caregiver for her son, who has significant COPD and CHF, though is doing better. This on her , 2 transition to his son's house. There is obviously some tension between daughter and son, but are both supportive of her being at home. Patient did care for her father at end-of-life, and is hoping to have a gracious transition, and be more accepting. He did not have hospice support. Medications/Allergies - Medications Home Medications: Ambulatory Orders Medication Instructions Recorded Confirmed Cholecalciferol (Vitamin D3) 5,000 unit PO BID 07/14/15 01/13/20 [Vitamin D3] Senna [Senokot] 8.6 tab PO BID PRN 07/14/15 01/13/20 polyethylene glycoL 3350 [Miralax] 17 - 34 gm PO DAILY PRN 07/14/15 01/13/20 Aspirin 325 mg PO DAILY 07/27/15 01/13/20 Calcium Carb/Mag Ox/Zinc Sulf [Hm 1 each PO DAILY 08/04/15 01/13/20 [id number] Cplt] Mineral Oil, Light/Mineral Oil 2 drop EACHEYE DAILY PRN 09/01/15 01/13/20 [Soothe Xp Eye Drops] Triamcinolone 0.1% Oint [Kenalog 1 applic TOP BID PRN 09/01/15 01/13/20 0.1% Oint] Losartan [Cozaar] 100 mg PO DAILY MDD change dose 7/10/17/17 01/13/20 Ferrous Sulfate [High Potency Iron] 27 mg PO .3X WEEK MDD 27 04/07/19 01/13/20 Apremilast [Otezla] 30 mg PO PRN PRN 05/05/19 01/13/20 Loperamide [Imodium] 2 mg PO QID #20 capsule 06/26/19 01/13/20 Furosemide 20 mg PO DAILY 07/07/19 01/13/20 Diltiazem HCl [Dilt-Xr] 180 mg PO DAILY 09/29/19 01/13/20 Acetaminophen 650 mg PO TID PRN MDD 3000 mg 11/24/19 01/13/20 Potassium Chloride [Klor-Con 10] 10 meq PO DAILY 12/23/19 01/13/20 - Allergies Allergies/Adverse Reactions: Allergies Allergy/AdvReac Type Severity Reaction Status Date / Time morphine Allergy Severe Emesis Verified 11/24/19 09:52 diazepam [From Valium] Allergy Unknown Verified 11/24/19 09:52 cephalexin monohydrate * AdvReac Severe Edema Verified 11/24/19 09:52 [From Keflex] procaine AdvReac Intermediate Upset Verified 11/24/19 09:52 stomach codeine AdvReac Dizziness Verified 11/24/19 09:52 Review of Systems - Constitutional Constitutional: reports: Fatigue (worsening; sleeping more), Weakness, Weight loss. denies: Fever, Chills - Eyes Eyes: reports: Vision loss - Ears, Nose & Throat Ears, Nose & Throat: reports: Nasal congestion, Hoarseness, Dental decay - Cardiovascular Cardiovascular: reports: Edema, Exertional dyspnea, Decr. exercise tolerance - Respiratory Respiratory: reports: SOB with exertion. denies: SOB at rest - Gastrointestinal Gastrointestinal: reports: Abdominal distention, Early satiety, Good appetite. denies: Constipation, Rectal bleeding, Nausea - Genitourinary Genitourinary: reports: Frequency, Incontinence (worsening) - Musculoskeletal Musculoskeletal: reports: Stiffness, Muscle weakness - Integumentary Integumentary: reports: Dryness, Other (patient has long standing psoraisis; uses Otezla as needed with good results) - Neurological Neurological: reports: General weakness, Memory problems (improved from last week but worse from baseline) - Psychiatric Psychiatric: reports: Depression, Anxiety - Endocrine Endocrine: reports: Intolerance to cold - Hematologic/Lymphatic Hematologic/Lymphatic: reports: Anemia. denies: Recurrent infections (had pnemonia in June;) - All Other Systems All Other Systems: reports: Reviewed and negative Physical Exam - Vital Signs Temperature: 97.3 C Pulse Rate: 83 Respiratory Rate: 18 O2 Saturation: 99 (ra @ rest) Blood Pressure: 132/76 - Physical Exam General Appearance: positive: Alert, Mild distress, Anxious Eyes Bilateral: positive: Normal inspection ENT: positive: Nasal congestion, Dental decay Neck: positive: Trachea midline Cardiovascular: positive: Regular rate & rhythm Respiratory: positive: No respiratory distress, Other (diminished LLL) Abdomen: positive: Soft, Tenderness, Mass (tumor palpalble on right side/umbilicus), Distended, Taut. negative: Guarding Skin: positive: Pallor, Dryness, Wound (small "divot" on right outer area of foot) Extremities: positive: Pedal edema (up to knees; improved) Neurologic/Psychiatric: positive: Disoriented to time, Weakness, Depressed mood/affect, Flat affect Palliative Care - POLST Patient has POLST: Yes POLST Status: DNR, Selective Treatment Pain: Pain worsening, Location (abdominal; has used APAP in past;) Tiredness/Fatigue: Mild (1-3) Drowsiness/Sedation: Mild (1-3) Nausea: None Anorexia: Mild (1-3) Dyspnea: None Depression: Mild (1-3) Anxiety: Severe (7-10) Feelings of wellbeing/Perceived Quality of Life: Fair, Acceptable, Worsening Sleep: Sleeps well Constipation: Yes, Managed, Comment (titrates Miralax/Senna as needed) Performance Status: Patient is quite fatigued, she is ambulatory. She can manage her own ADLs, she is having worsening incontinence, this is been somewhat distressing for her, her daughter is overseeing her medications as well as helping with meal prep. Patient is getting up and making her own breakfast and lunch, but daughter does feel she needs 24/7 supervision. - Palliative Care Discussion: Lengthy discussion regarding patient's need for processing, particularly in the context of where she is right now. She is feeling quite confused, the recommendation has been for hospice both from myself and her primary care provider Dr. Bray. Dr. STAPLES ANG weighing as well that this would be appropriate. Patient does not really have any other treatment options, and at this point we discussed most likely would cause a quicker decline given her frail status. Trying to refocus her on what is most important to her right now, she is very tired, she is wanting to give up and just relax. She does not want any suffering, she is very afraid of pain, though her pain is been fairly minimal and managed with acetaminophen up to this point in time. She does not want to suffer. She is always been a person who has willed herself through everything, she does admit "I do not want to ", but she also does not want to go on with her current quality of life. Her daughter is willing to be her caregiver, we did discuss possibly placement at her home, but they do want her to be in her own home. She is quite relieved that she has a support, though feels badly she is interrupting other people's lives. She is somewhat frightened at the loss of control, it has been how she has managed most things in her life. She also likes to try and understand things, and is feeling quite jumbled with her declining cognitive status. We did discuss most likely she had some kind of little TIA and/or stroke, which would explain her current issues as well over this over the last couple weeks. After much discussion, had to clarify many misconceptions of hospice, she does want to move forward with that. We will contact oncology, and cancel pending appointments. When all was said and done, she was feeling more peaceful. Results - Lab Results Lab results reviewed: Yes Impression and Recommendations - Palliative Care Impression: This is an 84-year-old woman with recurrent ovarian cancer, who continues to de ramos, with worsening symptom burden, and increasing tumor burden and sequela. Patient did have hyper tensive crisis for sustained period of time, suspect may have had a small stroke/TIA with residual cognitive issues. Palliative care meeting with daughter and patient, with final decision to transition to hospice. Recommendations/Counseling Done: 1. Lower extremity edema. 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 She has been on 40 mg for the week since 12/21, her kidney function was worsening, will decrease back down to 20 mg. Her blood pressure is much better controlled, she is eating and drinking adequately. No further worsening of her redness in her feet. 2. Hypertension. Patient had not been adherent with her medications, was restarted on her blood pressure medications. Today is 132/76, and her home blood pressures are much better range. We will continue to monitor, she is currently on her losartan, diltiazem, but will be decreasing the furosemide. 4. Frailty. Patient continues to sleep more has increased muscle wasting, she is eating and drinking, though is feeling much more tired. After much discussion, and worsening CEA 125, have agreed it is time to transition to hospice and no further treatment. 5. Advance care planning. Patient does have POLST in place with DNA R/DNI, her daughter is currently providing caregiving, does plan to stay for the duration. This is difficult in the context of just ongoing family dynamics, but she does want to do this for her. Her other son who is in [place], is planning to come in a couple weeks for visit, she is looking forward to that. They have had grandchildren visiting, and in the context of this her priority is to spend time with family, she is very afraid of suffering, and wants to be medicated, as she is afraid of pain as well. Patient is very anxious, she does best with just time to process things, and talk through things. She is very made to people pleaser, she seth best by trying to keep up his stiff buffer lipid and be positive, she does feel like she is letting people down, though was reassured again this is a result of her serious illness and progression of her disease Time Spent: 80 minutes with greater than 50% of this done in counseling regarding goals of care, transition to hospice, hospice benefit, as well as anticipatory guidance.
== END 2020-01-13 14:12 | disposition home or self-care (01) ==
LOC: PC 14:11
PROVIDERS: ATTEND Nurse Practitioner Adult Health
DX: Z51.5 Encounter for palliative care (principal); R53.83 Other fatigue; R41.0 Disorientation, unspecified; M62.50 Muscle wasting and atrophy, not elsewhere classified, unspecified site; G89.3 Neoplasm related pain (acute) (chronic); R14.0 Abdominal distension (gaseous); I10 Essential (primary) hypertension; R60.0 Localized edema; R63.4 Abnormal weight loss; K59.00 Constipation, unspecified; R68.81 Early satiety; F41.9 Anxiety disorder, unspecified; R32 Unspecified urinary incontinence; C56.9 Malignant neoplasm of unspecified ovary; C79.9 Secondary malignant neoplasm of unspecified site; Z79.899 Other long term (current) drug therapy; Z66 Do not resuscitate
CPT/HCPCS: 99215

== ENCOUNTER 2020-03-24 05:33 | Outpatient (CLI) | payer MEDICARE, BC | END 2020-03-24 05:34 | disposition EMS.NT | LOC: EMS 05:33 | PROVIDERS: ATTEND Surgery | DX: S09.90XA Unspecified injury of head, initial encounter (principal); W06.XXXA Fall from bed, initial encounter; Y92.003 Bedroom of unspecified non-institutional (private) residence as the place of occurrence of the external cause ==